=== PATIENT | female | born 1950 | race African-American/Black ===

== ENCOUNTER 2017-02-01 14:17 | Emergency (ER) | payer MEDICARE, OTHER ==
[~2017-02-01] VITALS: Ht 154.9 cm; Wt 69.9 kg
[~2017-02-01 14:17] MED LIST: ALLO300T PO; DIAZ5TAB4 PO; ESTR0.3T PO; HYDR-2762 PO; HYDR-971 PO; HYDR12.58 PO; LOSA100T6 PO; NAPR500T3 PO; OXYC15TA60 PO; PANT40TA5 PO; POLY500P13 MC; PROAIR HFA8.5 GM INH; SOLI5TAB2 PO
[2017-02-01 14:30] VITALS: BP 163/75
--- NOTE | 2017-02-01 14:42 | PHYS DOC ---
Past Medical History Past Medical History: Arthritis, Hypertension, Other Additional Past Medical Histor: gout, overactive bladder; muse, neuropathy Past Surgical History: Hysterectomy, Knee Replacement, Other Additional Past Surgical Histo: ankles; Alcohol Use: Sober Drug Use: None Adult General Chief Complaint Chief Complaint: EARACHE/EAR PAIN [facility] HPI Patient is a 66 year old female presents to the emergency department stating that she is having left ear pain that radiates down into her jaw down into her neck. She states this is been going on for the last 3-4 days. She has been taken hydrocodone 7.5 mg with minimal relief she also states that she's taken some Flexeril with no relief either. She denies any shortness of air didn't denies any chest pain. She denies any swelling in her feet. She states that she had been wearing dentures although started create some pain and discomfort in her mouth. Patient states she has a dental appointment tomorrow. She denies any fever, chills or any nausea vomiting. Denies any foul taste in the mouth. Review of Systems Review of Systems Constitutional: Denies fever or chills [] Eyes: Denies change in visual acuity, redness, or eye pain [] HENT: Denies nasal congestion or sore throat. Complaint of right lower dental pain and discomfort with radiation into the left ear and into the left jaw and into the neck area. Respiratory: Denies cough or shortness of breath [] Cardiovascular: No additional information not addressed in HPI [] GI: Denies abdominal pain, nausea, vomiting, bloody stools or diarrhea [] : Denies dysuria or hematuria [] Musculoskeletal: Denies back pain or joint pain [] Integument: Denies rash or skin lesions [] Neurologic: Denies headache, focal weakness or sensory changes [] Endocrine: Denies polyuria or polydipsia [] Allergies Allergies Allergies Coded Allergies Type Severity Reaction Last Updated Verified No Known Drug Allergies 06/12/15 No Physical Exam Physical Exam Constitutional: Well developed, well nourished, no acute distress, non-toxic appearance. [] HENT: Normocephalic, atraumatic, bilateral external ears normal, oropharynx moist, no oral exudates, nose normal. Bilateral tympanic membranes appear to be normal. Patient with her dentures out that appear to have a white area along the denture line on the left lower jaw area. No drainage no drainage or discharge noted from the site. Tenderness was noted with slight swelling. Eyes: PERRLA, EOMI, conjunctiva normal, no discharge. [] Neck: Normal range of motion, no tenderness, supple, no stridor. [] Cardiovascular:Heart rate regular rhythm, no murmur [] Lungs & Thorax: Bilateral breath sounds clear to auscultation [] Skin: Warm, dry, no erythema, no rash. [] Back: No tenderness. Extremities: No tenderness, no cyanosis, no clubbing, ROM intact, no edema. [] Neurologic: Alert and oriented X 3, normal motor function, normal sensory function, no focal deficits noted. [] Psychologic: Affect normal, judgement normal, mood normal. [] Current Patient Data Vital Signs Vital Signs Date Time Temp Pulse Resp B/P (MAP) Pulse Ox O2 Delivery O2 Flow Rate FiO2 02/01/17 14:30 98.1 114 16 96 Room Air 98.1 EKG EKG [] Radiology/Procedures Radiology/Procedures [] Course & Med Decision Making Course & Med Decision Making Pertinent Labs and Imaging studies reviewed. (See chart for details) Recommended patient to use ibuprofen 600 mg every 8 hours to help with inflammation and pain. Patient has hydrocodone at home in which she can use for severe pain and discomfort. Patient will be placed on amoxicillin as she states that she is allergic to Bactrim. Patient will be following up with her dentist tomorrow. She'll be discharged home in stable condition with signs symptoms to return back to emergency department. [] Dragon Disclaimer Dragon Disclaimer This electronic medical record was generated, in whole or in part, using a voice recognition dictation system. Departure Departure Impression: Primary Impression: Pain, dental Disposition: HOME, SELF-CARE Condition: STABLE Referrals: UNKNOWN PCP NAME (PCP) Patient Instructions: Dental Pain, [id number] Additional Instructions: You've been evaluated for dental pain here in the emergency department. Antibiotics as prescribed. Continue take her hydrocodone which she state you have at home for severe pain and discomfort. Ibuprofen 600 mg every 8 hours with food stop taking few develop an upset stomach. Keep your follow-up appointment with a dentist in which she state you have tomorrow. Return back to emergency prior signs and symptoms of become worse. BASILIO HARVEY [employer] TE[employer]ER Feb 01, 2017 14:42
[2017-02-01] MEDS ORDERED: AMOX500C PO (14:43)
[2017-02-01] MEDS ORDERED: HYDROcodone/APAP 7.5/325MG 1 TAB TABLET PO ONE (14:45)
== END 2017-02-01 14:54 | disposition home or self-care (01) ==
LOC: ER 14:17
DX: K08.89 Other specified disorders of teeth and supporting structures (principal); H92.02 Otalgia, left ear; I10 Essential (primary) hypertension; M19.90 Unspecified osteoarthritis, unspecified site
CPT/HCPCS: 99283

== ENCOUNTER 2017-02-24 14:20 | Emergency (ER) | payer MEDICARE, OTHER ==
[~2017-02-24 14:20] MED LIST changes: +AMOX500C PO
--- NOTE | 2017-02-24 14:48 | PHYS DOC ---
Past Medical History Past Medical History: Arthritis, Hypertension, Other Additional Past Medical Histor: gout, overactive bladder; muse, neuropathy Past Surgical History: Hysterectomy, Knee Replacement, Other Additional Past Surgical Histo: ankles; Alcohol Use: Sober Drug Use: None Adult General Chief Complaint Chief Complaint: HEADACHE HPI HPI Patient is a 66 year old -[place] female who presents with less I headache. According to her is been going on for last 3 weeks. She states she is on a medicine for hep C that she took for 90 days and this headache got worse one week ago right the end of her 90 day. She states she's had an infection in her jaw that was treated and her hog cooler thought it was probably the jaw that was causing the discomfort in the left side of her head. She states it feels like a sharp needle to get stabbed in her head and relief. She states is only there when she is awake, and goes away at nighttime. She also has been on [place] and ran out one week ago the exact same time her headache worse. She is concerned because her father had an aneurysm on that side of the head. Review of Systems Review of Systems Constitutional: Denies fever or chills [] Eyes: Denies change in visual acuity, redness, or eye pain [] HENT: Denies nasal congestion or sore throat [] Respiratory: Denies cough or shortness of breath [] Cardiovascular: No additional information not addressed in HPI [] GI: Denies abdominal pain, nausea, vomiting, bloody stools or diarrhea [] : Denies dysuria or hematuria [] Musculoskeletal: Denies back pain or joint pain [] Integument: Denies rash or skin lesions [] Neurologic: Denies focal weakness or sensory changes, positive for intermittent headache. Endocrine: Denies polyuria or polydipsia [] Current Medications Current Medications Current Medications Medications (Trade) Dose Ordered Sig/Tracie Start Time Stop Time Status Last Admin Dose Admin Diphenhydramine HCl (Benadryl) 25 mg 1X ONCE 02/24/17 16:30 02/24/17 16:31 DC 02/24/17 16:24 25 MG Morphine Sulfate 2 mg 1X ONCE 02/24/17 17:45 02/24/17 17:48 DC 02/24/17 18:08 2 MG Promethazine HCl 25 mg/Sodium Chloride 51 ml @ 101 mls/hr 1X ONCE 02/24/17 16:30 02/24/17 17:00 DC 02/24/17 16:25 101 MLS/HR Sodium Chloride 1,000 ml @ 1,000 mls/hr 1X ONCE 02/24/17 16:30 02/24/17 17:29 DC 02/24/17 16:24 1,000 MLS/HR Allergies Allergies Allergies Coded Allergies Type Severity Reaction Last Updated Verified No Known Drug Allergies 06/12/15 No Physical Exam Physical Exam Constitutional: Well developed, well nourished, no acute distress, non-toxic appearance. [] HENT: Normocephalic, atraumatic, bilateral external ears normal, oropharynx moist, no oral exudates, nose normal. [] Eyes: PERRLA, EOMI, conjunctiva normal, no discharge. [] Neck: Normal range of motion, no tenderness, supple, no stridor. [] Cardiovascular:Heart rate regular rhythm, no murmur [] Lungs & Thorax: Bilateral breath sounds clear to auscultation [] Abdomen: Bowel sounds normal, soft, no tenderness, no masses, no pulsatile masses. [] Skin: Warm, dry, no erythema, no rash. [] Back: No tenderness, no CVA tenderness. [] Extremities: No tenderness, no cyanosis, no clubbing, ROM intact, no edema. [] Neurologic: Alert and oriented X 3, normal motor function, normal sensory function, no focal deficits noted. [] Psychologic: Affect normal, judgement normal, mood normal. [] Current Patient Data Vital Signs Vital Signs Date Time Temp Pulse Resp B/P (MAP) Pulse Ox O2 Delivery O2 Flow Rate FiO2 02/24/17 15:00 98.0 115 16 134/67 (89) 96 Room Air 98.0 Lab Values Laboratory Tests Test 02/24/17 14:35 02/24/17 18:05 White Blood Count 9.4 x10^3/uL (4.0-11.0) Red Blood Count 3.49 x10^6/uL (3.50-5.40) L Hemoglobin 10.8 g/dL (12.0-15.5) L Hematocrit 32.9 % (36.0-47.0) L Mean Corpuscular Volume 95 fL (79-100) Mean Corpuscular Hemoglobin 31 pg (25-35) Mean Corpuscular Hemoglobin Concent 33 g/dL (31-37) Red Cell Distribution Width 15.3 % (11.5-14.5) H Platelet Count 250 x10^3/uL (140-400) Neutrophils (%) (Auto) 39 % (31-73) Lymphocytes (%) (Auto) 45 % (24-48) Monocytes (%) (Auto) 6 % (0-9) Eosinophils (%) (Auto) 10 % (0-3) H Basophils (%) (Auto) 1 % (0-3) Neutrophils # (Auto) 3.6 x10^3uL (1.8-7.7) Lymphocytes # (Auto) 4.2 x10^3/uL (1.0-4.8) Monocytes # (Auto) 0.6 x10^3/uL (0.0-1.1) Eosinophils # (Auto) 0.9 x10^3/uL (0.0-0.7) H Basophils # (Auto) 0.1 x10^3/uL (0.0-0.2) Sodium Level 133 mmol/L (136-145) L Potassium Level 4.2 mmol/L (3.5-5.1) Chloride Level 99 mmol/L (98-107) Carbon Dioxide Level 22 mmol/L (21-32) Anion Gap 12 (6-14) Blood Urea Nitrogen 29 mg/dL (7-20) H Creatinine 1.8 mg/dL (0.6-1.0) H Estimated GFR (Cockcroft-Gault) 34.3 Glucose Level 104 mg/dL (70-99) H Calcium Level 9.9 mg/dL (8.5-10.1) Magnesium Level 1.7 mg/dL (1.8-2.4) L Total Bilirubin 0.3 mg/dL (0.2-1.0) Direct Bilirubin 0.1 mg/dL (0.0-0.2) Aspartate Amino Transferase (AST) 36 U/L (15-37) Alanine Aminotransferase (ALT) 53 U/L (14-59) Alkaline Phosphatase 126 U/L (46-116) H Creatine Kinase 59 U/L (26-192) Troponin I Quantitative < 0.017 ng/mL (0.000-0.055) RH-Xlw-U-Type Natriuretic Peptide 41 pg/mL (0-124) Total Protein 10.4 g/dL (6.4-8.2) H Albumin 4.0 g/dL (3.4-5.0) Thyroid Stimulating Hormone (TSH) 1.275 uIU/mL (0.358-3.74) Urine Collection Type Unknown Urine Color Yellow Urine Clarity Clear Urine pH 6.0 Urine Specific [place] 1.010 Urine Protein Negative mg/dL (NEG-TRACE) Urine Glucose (UA) Negative mg/dL (NEG) Urine Ketones (Stick) Negative mg/dL (NEG) Urine Blood Negative (NEG) Urine Nitrite Negative (NEG) Urine Bilirubin Negative (NEG) Urine Urobilinogen Dipstick 0.2 mg/dL (0.2 mg/dL) Urine Leukocyte Esterase Moderate (NEG) Urine RBC 0 /HPF (0-2) Urine WBC 11-20 /HPF (0-4) Urine Squamous Epithelial Cells Mod /LPF Urine Bacteria Few /HPF (0-FEW) Urine Opiates Screen Neg (NEG) Urine Methadone Screen Neg (NEG) Urine Barbiturates Neg (NEG) Urine Phencyclidine Screen Neg (NEG) Urine Amphetamine/Methamphetamine Neg (NEG) Urine Benzodiazepines Screen Neg (NEG) Urine Cocaine Screen Neg (NEG) Urine Cannabinoids Screen Neg (NEG) Urine Ethyl Alcohol Neg (NEG) Laboratory Tests 02/24/17 14:35 Laboratory Tests 02/24/17 14:35 EKG EKG [] Radiology/Procedures Radiology/Procedures [facility] [address] [place], [place] [id number] IMAGING REPORT Signed PATIENT: LORENZA RODRIGUEZ ACCOUNT: [id number] : 1950 LOCATION: ER AGE: 66 SEX: F EXAM STATUS: REG ER ORD. PHYSICIAN: LUIS DOUGLAS MD REASON: new onset headache PROCEDURE: CT HEAD WO CONTRAST CT head without IV contrast Indication: Headache Technique: CT head without IV contrast Comparison: None Findings: No pathologic extra-axial or intra-axial fluid collection. No acute intracranial bleed. The ventricles and basil cisterns are within normal limits. The fuller-white differentiation is preserved. Orbits within normal limits. Diffuse patchy sclerotic and lucent appearance of the calvarium noted without focal lesion. The paranasal sinuses and mastoid air cells are clear. Impression: 1. No acute intracranial process on this noncontrast study. 2. Diffuse patchy sclerotic and lucent appearance of the calvarium without focal lesion, nonspecific. PQRS Compliance Statement: One or more of the following individualized dose reduction techniques were utilized for this examination: 1. Automated exposure control 2. Adjustment of the mA and/or kV according to patient size 3. Use of iterative reconstruction technique DICTATED and SIGNED BY: AMELIA CARRILLO DO DATE: 02/24/17 1521 CC: LUIS DOUGLAS MD; UNKNOWN PCP NAME ~ [facility] [address] [place], [place] [id number] IMAGING REPORT Signed PATIENT: LORENZA RODRIGUEZ ACCOUNT: [id number] : 1950 LOCATION: ER AGE: 66 SEX: F EXAM STATUS: REG ER ORD. PHYSICIAN: LUIS DOUGLAS MD REASON: headache, r/o aneurysm PROCEDURE: ANGIOGRAPHY BRAIN WO CONTRAST Clinical History: Headaches, hypertensive, evaluate for aneurysm. Technique: Using 3-D time of flight techniques, MR angiogram of the major arterial structures surrounding the [place] of [place] was performed. Rotating MIPs were obtained from the source data. Findings: MRA images of the anterior and posterior circulations are within normal limits. No area of stenosis or occlusion is seen. No intracranial aneurysm is seen. Neither posterior communicating artery is definitely identified. Anterior communicating artery is unremarkable. Impression: Negative study. Electronically signed by: Jeremy Traore MD (02/24/2017 5:26 PM) [id number] DICTATED and SIGNED BY: JEREMY TRAORE MD DATE: 02/24/17 1724 CC: LUIS DOUGLAS MD; UNKNOWN PCP NAME ~ Impressions: Headache UTI Course & Med Decision Making Course & Med Decision Making Pertinent Labs and Imaging studies reviewed. (See chart for details) CT head noncontrast in addition to MRA brain did not show any acute abnormality' s or aneurysms. She has urinary tract infection based on labs. She's being discharged with Klique since this worked for her headache before, she can total of 14 tablets. She's also be discharged with Cipro 500 mg twice day for 3 days. She is agreeable to plan and is in stable condition at this time. Turn precautions given. Ellen Disclaimer Ellen Disclaimer This electronic medical record was generated, in whole or in part, using a voice recognition dictation system. Departure Departure Impression: Primary Impression: Headache Additional Impression: UTI (lower urinary tract infection) Disposition: 01 HOME, SELF-CARE Condition: STABLE Referrals: UNKNOWN PCP NAME (PCP) Patient Instructions: General Headache Without Cause Additional Instructions: You were seen today for your headache. The CAT scan and MRA of your head did not show any abnormalities with your brain or your blood vessels in her brain. They did not see any aneurysms or other concerns. Your blood work did not show any acute abnormality's. Your being discharged home with [place]. This seems to have worked for your headache before. You do have a urinary tract infection and will need to take antibiotics for the next 3 days. Please follow-up with your liver doctor and your primary care doctor within the next few days. Return ER if you have severe neck pain, severe headache, fevers, confusion, or other concerns. Scripts Ciprofloxacin Hcl (CIPRO) 500 Mg Tablet 1 TAB PO BID, #6 TAB Prov: LUIS DOUGLAS MD 02/24/17 Hydrocodone/Apap 5-325 (NORCO 5-325 TABLET) 1 Each Tablet 1 TAB PO PRN Q6HRS Y for PAIN, #14 TAB 0 Refills Prov: LUIS DOUGLAS MD 02/24/17 Problem Qualifiers LUIS DOUGLAS MD Feb 24, 2017 14:48
[2017-02-24 15:00] VITALS: BP 134/67
[2017-02-24 15:02] LABS: BASO # 0.1 x10^3/uL (0.0-0.2); BASO % 1 % (0-3); EOS % 10 % (0-3); HEMATOCRIT 32.9 % (36.0-47.0); HEMOGLOBIN 10.8 g/dL (12.0-15.5); LYMPH # 4.2 x10^3/uL (1.0-4.8); LYMPH % 45 % (24-48); MEAN CORPUSCULAR HEMOGLOBIN 31 pg (25-35); MEAN CORPUSCULAR HGB CONC 33 g/dL (31-37); MEAN CORPUSCULAR VOLUME 95 fL (79-100); MONO % 6 % (0-9); NEUT % 39 % (31-73); PLATELET COUNT 250 x10^3/uL (140-400); RED BLOOD COUNT 3.49 x10^6/uL (3.50-5.40); RED CELL DISTRIBUTION WIDTH 15.3 % (11.5-14.5); WHITE BLOOD COUNT 9.4 x10^3/uL (4.0-11.0)
[2017-02-24 15:19] LABS: CALCIUM 9.9 mg/dL (8.5-10.1); CREATININE 1.8 mg/dL (0.6-1.0); GFR 34.3; POTASSIUM 4.2 mmol/L (3.5-5.1)
[2017-02-24 15:26] LABS: DIRECT BILIRUBIN 0.1 mg/dL (0.0-0.2); MAGNESIUM 1.7 mg/dL (1.8-2.4); TOTAL BILIRUBIN 0.3 mg/dL (0.2-1.0); TOTAL PROTEIN 10.4 g/dL (6.4-8.2)
--- NOTE | 2017-02-24 15:30 | RAD ---
CT head without IV contrast Indication: Headache Technique: CT head without IV contrast Comparison: None Findings: No pathologic extra-axial or intra-axial fluid collection. No acute intracranial bleed. The ventricles and basil cisterns are within normal limits. The fuller-white differentiation is preserved. Orbits within normal limits. Diffuse patchy sclerotic and lucent appearance of the calvarium noted without focal lesion. The paranasal sinuses and mastoid air cells are clear. Impression: 1. No acute intracranial process on this noncontrast study. 2. Diffuse patchy sclerotic and lucent appearance of the calvarium without focal lesion, nonspecific. PQRS Compliance Statement: One or more of the following individualized dose reduction techniques were utilized for this examination: 1. Automated exposure control 2. Adjustment of the mA and/or kV according to patient size 3. Use of iterative reconstruction technique
[2017-02-24] MEDS ORDERED: diphenhydrAMINE 50 MG/ML VIAL IVP ONE (16:30)
[2017-02-24] MEDS ORDERED: PROMETHAZINE 25 MG in IV NORMAL SALINE 50ML 50 ML IV ONE (16:30)
[2017-02-24] MEDS ORDERED: IV NORMAL SALINE 1000ML BAG 1,000 ML IV ONE (16:30)
--- NOTE | 2017-02-24 17:29 | RAD ---
Clinical History: Headaches, hypertensive, evaluate for aneurysm. Technique: Using 3-D time of flight techniques, MR angiogram of the major arterial structures surrounding the [place] of [place] was performed. Rotating MIPs were obtained from the source data. Findings: MRA images of the anterior and posterior circulations are within normal limits. No area of stenosis or occlusion is seen. No intracranial aneurysm is seen. Neither posterior communicating artery is definitely identified. Anterior communicating artery is unremarkable. Impression: Negative study. Electronically signed by: Jeremy Soares MD (02/24/2017 5:26 PM) [id number]
[2017-02-24] MEDS ORDERED: MORPHINE SULFATE 4 MG/ML DISP.SYRIN. IV ONE (17:45)
[2017-02-24 18:21] LABS: BILIRUBIN,URINE NEGATIVE (NEG); GLUCOSE,URINE NEGATIVE (NEG); NITRITE,URINE NEGATIVE (NEG); PROTEIN,URINE NEGATIVE (NEG-TRACE); UROBILINOGEN,URINE 0.2 mg/dL (0.2 mg/dL)
[2017-02-24 18:27] LABS: BARBITURATES NEG (NEG); BENZODIAZEPINES NEG (NEG); CANNABINOIDS NEG (NEG); COCAINE NEG (NEG); METHADONE NEG (NEG); OPIATES NEG (NEG); PHENCYCLIDINE NEG (NEG)
[2017-02-24 18:31] LABS: BACTERIA,URINE FEW /HPF (0-FEW); RBC,URINE 0 /HPF (0-2); SQUAMOUS EPITHELIAL CELL,UR MOD /LPF
[2017-02-24] MEDS ORDERED: HYDR-971 PO (18:37)
[2017-02-24] MEDS ORDERED: CIPR500T94 PO (18:42)
== END 2017-02-24 18:56 | disposition home or self-care (01) ==
LOC: ER 14:20
DX: R51 Headache (principal); N39.0 Urinary tract infection, site not specified; I10 Essential (primary) hypertension; M10.9 Gout, unspecified; N32.81 Overactive bladder; G62.9 Polyneuropathy, unspecified; M19.90 Unspecified osteoarthritis, unspecified site; Z90.710 Acquired absence of both cervix and uterus; Z79.891 Long term (current) use of opiate analgesic
CPT/HCPCS: 36415; 70450; 70544; 80048; 80076; 80307; 81001; 82550; 83735; 83880; 84443; 84484; 85025; 96365; 96366; 96375; 99285; J1200; J2270; J2550; J7030; G0479

== ENCOUNTER → 2017-03-19 | Outpatient (CLI) | payer MEDICARE, OTHER ==
[2017-02-24 15:00] VITALS: BP 134/67
[~2017-03-19] MED LIST changes: +CIPR500T94 PO
--- NOTE | 2017-03-19 13:23 | KCIC ---
INDICATION: Migraine headaches. Neck pain. TECHNIQUE: Sagittal T1, sagittal T2, sagittal STIR, axial T2, and axial T2 gradient sequences are provided. Comparison is from February 21, 2015. FINDINGS: There is straightening of cervical lordosis, there is no subluxation. There is no marrow edema or worrisome marrow lesion. There is no cord signal abnormality. The cervicomedullary junction is unremarkable. Axial sequences are mildly degraded by motion. Degenerative findings will be estimated below: C2-C3: There is no canal or foraminal compromise. C3-C4: Disc osteophyte complex and mild uncinate process spurring which is greater on the left is noted. There is no high-grade canal or foraminal compromise. C4-C5: There is a minimal disc bulge and there is uncinate process spurring. There is effacement of the ventral CSF column. There is mild canal stenosis, midline AP diameter 9 mm. There is probably mild foraminal narrowing. C5-C6: Minimal disc osteophyte complex and uncinate process spurring are noted without foraminal compromise. There is mild canal stenosis, midline AP diameter 9 mm. C6-C7: There is no canal or foraminal compromise. C7-T1: There is no canal or foraminal compromise. Overall, findings are relatively stable. IMPRESSION: Mild degenerative changes in the cervical spine, relatively stable compared to 2014. Electronically signed by: Rashi Spivey MD (03/19/2017 1:20 PM) [id number]
== END | disposition home or self-care (01) ==
LOC: KCIC MRI 11:09
PROVIDERS: ATTEND Nurse Practitioner Gerontology
DX: G43.909 Migraine, unspecified, not intractable, without status migrainosus (principal); M47.892 Other spondylosis, cervical region
CPT/HCPCS: 72141

== ENCOUNTER 2017-03-31 17:04 | Inpatient (IN) | payer MEDICARE, OTHER ==
[~2017-03-31] VITALS: Ht 160 cm; Wt 68.2 kg
[~2017-03-31 17:04] MED LIST changes: -NAPR500T3 PO; +NAPR500T4 PO
[2017-03-31] MEDS ORDERED: IV NORMAL SALINE 1000ML BAG 1,000 ML IV ONE (18:15)
[2017-03-31 18:33] LABS: BILIRUBIN,URINE NEGATIVE (NEG); GLUCOSE,URINE NEGATIVE (NEG); NITRITE,URINE NEGATIVE (NEG); PROTEIN,URINE NEGATIVE (NEG-TRACE); UROBILINOGEN,URINE 0.2 mg/dL (0.2 mg/dL)
[2017-03-31 18:41] LABS: BACTERIA,URINE 0 /HPF (0-FEW); RBC,URINE 0 /HPF (0-2); SQUAMOUS EPITHELIAL CELL,UR FEW /LPF
[2017-03-31] MEDS ORDERED: ACETAMINOPHEN 325 MG TABLET. PO ONE (18:45)
[2017-03-31] MEDS ORDERED: PIP/TAZO PER PHARMACY MC PRN (18:45)
[2017-03-31] MEDS ORDERED: VANCOMYCIN PER PHARMACY MC PRN (18:45)
[2017-03-31] MEDS ORDERED: IV NORMAL SALINE 1000ML BAG 1,000 ML IV SCH ×2 (18:45→21:15)
[2017-03-31] MEDS ORDERED: KETOROLAC 15 MG/ML VIAL. IV ONE (18:45)
[2017-03-31 18:49] LABS: BASO # 0.1 x10^3/uL (0.0-0.2); BASO % 1 % (0-3); EOS % 2 % (0-3); HEMATOCRIT 35.3 % (36.0-47.0); HEMOGLOBIN 11.6 g/dL (12.0-15.5); LYMPH # 2.3 x10^3/uL (1.0-4.8); LYMPH % 32 % (24-48); MEAN CORPUSCULAR HEMOGLOBIN 30 pg (25-35); MEAN CORPUSCULAR HGB CONC 33 g/dL (31-37); MEAN CORPUSCULAR VOLUME 92 fL (79-100); MONO % 9 % (0-9); NEUT % 57 % (31-73); PLATELET COUNT 210 x10^3/uL (140-400); RED BLOOD COUNT 3.84 x10^6/uL (3.50-5.40); RED CELL DISTRIBUTION WIDTH 15.4 % (11.5-14.5); WHITE BLOOD COUNT 7.4 x10^3/uL (4.0-11.0)
[2017-03-31] MEDS ORDERED: VANCOMYCIN 1.75 GM in IV NORMAL SALINE 500ML BAG 500 ML IV ONE (19:00)
[2017-03-31] MEDS ORDERED: PIPERACILLIN/TAZOBACTAM 3.375 GM in IV NORMAL SALINE 50ML 50 ML IV ONE (19:00)
[2017-03-31 19:42] LABS: CALCIUM 9.5 mg/dL (8.5-10.1); CREATININE 1.6 mg/dL (0.6-1.0); GFR 39.3; POTASSIUM 5.8 mmol/L (3.5-5.1)
[2017-03-31 20:03] LABS: ALBUMIN 3.6 g/dL (3.4-5.0); ALBUMIN/GLOBULIN RATIO 0.5 (1.0-1.7); TOTAL PROTEIN 10.4 g/dL (6.4-8.2)
[2017-03-31 20:04] LABS: TOTAL BILIRUBIN 0.5 mg/dL (0.2-1.0)
[2017-03-31] MEDS ORDERED: ONDANSETRON PF 4 MG/2 ML VIAL. IV PRN (21:15)
[2017-03-31] MEDS ORDERED: NON FORMULARY ITEM (Albuterol Sulfate (Proair Hfa Inhaler) 1 PUFF) INH PRN (22:45)
[2017-03-31] MEDS ORDERED: diazePAM 5 MG TABLET PO PRN (22:45)
--- NOTE | 2017-03-31 22:50 | PHYS DOC ---
Past Medical History Past Medical History: Arthritis, Hypertension, Other Additional Past Medical Histor: gout, overactive bladder; muse, neuropathy Past Surgical History: Hysterectomy, Knee Replacement, Other Additional Past Surgical Histo: ankles; Alcohol Use: Sober Drug Use: None Adult General Chief Complaint Chief Complaint: FEVER HPI HPI Patient is a 66 year old female who presents to the ER today secondary to a fever that she's been having for approximately 3 days now. She reports that she has been feeling well for this 3 days has been feeling like she's had some chills. Patient reports occasional cough. Patient has any abdominal pain. Patient has a dysuria frequency urgency. Patient reports decreased by mouth intake over the last couple days. Patient reports she been nauseous but no vomiting. Patient reports she's had no ear pain or sore throat. Patient denies any headaches or nuchal rigidity. Patient denies any history of diabetes. No liver kidney or lung problems. No prior strokes or heart attacks. 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 Patient reports she smokes. No alcohol or drugs. Patient is allergic to Bactrim. Review of systems Constitutional: Denies fever or chills Eyes: Denies change in visual acuity, redness, or eye pain All other review systems are negative except as documented in the history of present illness portion. Physical exam Constitutional: Well developed, well nourished, no acute distress, non-toxic appearance. HENT: Normocephalic, atraumatic, bilateral external ears normal, oropharynx moist, no oral exudates, nose normal. Eyes: conjunctiva normal, no discharge. Neck: Normal range of motion, no tenderness, supple, no stridor. Cardiovascular:Heart rate regular rhythm, Lungs & Thorax: Bilateral breath sounds clear to auscultation Abdomen: Bowel sounds normal, soft, no tenderness, no masses, no pulsatile masses. Skin: Warm, dry, Back: No tenderness, Extremities: No tenderness, no cyanosis, Neurologic: Alert and oriented X 3, normal motor function, normal sensory function, no focal deficits noted. Psychologic: Affect normal, judgement normal, mood normal. CBC, CMP within normal limits UA reveals 5-10 wbc's per high-power field. Sodium 129. Potassium 5.8. Chest x- ray reveals questionable infiltrate. Assessment and plan: This is a 66-year-old female who presents to the ER today secondary to a fever 3 days. Patient had a temperature 102.1 here in the ED. Patient's physical exam was otherwise unremarkable except for some mild suprapubic tenderness to palpation. Patient has no evidence of meningitis. Patient's ER workup is been unremarkable except for positive wbc's in her urine. Patient was given Zosyn and Vanco initially upon arrival to the ER given her high fever and tachycardia and concern for sepsis. Blood cultures 2 and lactic acid is been obtained. Patient will need to be admitted for further IV antibiotics and further monitoring and surveillance of the cultures. Laboratory Tests Test 03/31/17 18:15 03/31/17 18:38 Urine Collection Type Unknown Urine Color Yellow Urine Clarity Clear Urine pH 6.0 Urine Specific [place] 1.015 Urine Protein Negative mg/dL Urine Glucose (UA) Negative mg/dL Urine Ketones (Stick) Negative mg/dL Urine Blood Negative Urine Nitrite Negative Urine Bilirubin Negative Urine Urobilinogen Dipstick 0.2 mg/dL Urine Leukocyte Esterase Trace Urine RBC 0 /HPF Urine WBC 5-10 /HPF Urine Squamous Epithelial Cells Few /LPF Urine Amorphous Sediment Present /HPF Urine Bacteria 0 /HPF Urine Hyaline Casts Moderate /HPF Urine Mucus Mod /LPF White Blood Count 7.4 x10^3/uL Red Blood Count 3.84 x10^6/uL Hemoglobin 11.6 g/dL Hematocrit 35.3 % Mean Corpuscular Volume 92 fL Mean Corpuscular Hemoglobin 30 pg Mean Corpuscular Hemoglobin Concent 33 g/dL Red Cell Distribution Width 15.4 % Platelet Count 210 x10^3/uL Neutrophils (%) (Auto) 57 % Lymphocytes (%) (Auto) 32 % Monocytes (%) (Auto) 9 % Eosinophils (%) (Auto) 2 % Basophils (%) (Auto) 1 % Neutrophils # (Auto) 4.2 x10^3uL Lymphocytes # (Auto) 2.3 x10^3/uL Monocytes # (Auto) 0.7 x10^3/uL Eosinophils # (Auto) 0.1 x10^3/uL Basophils # (Auto) 0.1 x10^3/uL Sodium Level 129 mmol/L Potassium Level 5.8 mmol/L Chloride Level 94 mmol/L Carbon Dioxide Level 22 mmol/L Anion Gap 13 Blood Urea Nitrogen 27 mg/dL Creatinine 1.6 mg/dL Estimated GFR (Cockcroft-Gault) 39.3 BUN/Creatinine Ratio 17 Glucose Level 116 mg/dL Lactic Acid Level 1.9 mmol/L Calcium Level 9.5 mg/dL Total Bilirubin 0.5 mg/dL Aspartate Amino Transf (AST/SGOT) 172 U/L Alanine Aminotransferase (ALT/SGPT) 113 U/L Alkaline Phosphatase 105 U/L Total Protein 10.4 g/dL Albumin 3.6 g/dL Albumin/Globulin Ratio 0.5 Current Medications Medications (Trade) Dose Ordered Sig/Tracie Route PRN Reason Start Time Stop Time Status Last Admin Dose Admin Sodium Chloride 1,000 ml @ 1,000 mls/hr 1X ONCE IV 03/31/17 18:15 03/31/17 19:14 DC 03/31/17 18:15 1,000 MLS/HR Sodium Chloride 1,000 ml @ 2,790 mls/hr Q22M IV 03/31/17 18:45 03/31/17 19:45 DC 03/31/17 20:23 2,790 MLS/HR Vancomycin HCl (Vanco Per Pharmacy) 1 each PRN DAILY PRN MC SEE COMMENTS 03/31/17 18:45 Piperacillin Sod/ Tazobactam Sod (Zosyn Per Pharmacy) 1 each PRN DAILY PRN MC SEE COMMENTS 03/31/17 18:45 Acetaminophen (Tylenol) 650 mg 1X ONCE PO 03/31/17 18:45 03/31/17 18:46 DC 03/31/17 18:54 650 MG Ketorolac Tromethamine (Toradol) 15 mg 1X ONCE IV 03/31/17 18:45 03/31/17 18:46 DC 03/31/17 18:54 15 MG Piperacillin Sod/ Tazobactam Sod 3.375 gm/Sodium Chloride 50 ml @ 100 mls/hr 1X ONCE IV 03/31/17 19:00 03/31/17 19:29 DC 03/31/17 19:00 100 MLS/HR Vancomycin HCl 1.75 gm/Sodium Chloride 500 ml @ 250 mls/hr 1X ONCE IV 03/31/17 19:00 03/31/17 20:59 DC 03/31/17 20:23 250 MLS/HR Current Medications Current Medications Current Medications Medications (Trade) Dose Ordered Sig/Tracie Start Time Stop Time Status Last Admin Dose Admin Acetaminophen (Tylenol) 650 mg 1X ONCE 03/31/17 18:45 03/31/17 18:46 DC 03/31/17 18:54 650 MG Ketorolac Tromethamine (Toradol) 15 mg 1X ONCE 03/31/17 18:45 03/31/17 18:46 DC 03/31/17 18:54 15 MG Piperacillin Sod/ Tazobactam Sod (Zosyn Per Pharmacy) 1 each PRN DAILY PRN 03/31/17 18:45 Piperacillin Sod/ Tazobactam Sod 3.375 gm/Sodium Chloride 50 ml @ 100 mls/hr 1X ONCE 03/31/17 19:00 03/31/17 19:29 DC 03/31/17 19:00 100 MLS/HR Sodium Chloride 1,000 ml @ 2,790 mls/hr Q22M 03/31/17 18:45 03/31/17 19:45 DC 03/31/17 20:23 2,790 MLS/HR Vancomycin HCl (Vanco Per Pharmacy) 1 each PRN DAILY PRN 03/31/17 18:45 Vancomycin HCl 1.75 gm/Sodium Chloride 500 ml @ 250 mls/hr 1X ONCE 03/31/17 19:00 03/31/17 20:59 DC 03/31/17 20:23 250 MLS/HR Allergies Allergies Allergies Coded Allergies Type Severity Reaction Last Updated Verified No Known Drug Allergies 06/12/15 No Current Patient Data Vital Signs Vital Signs Date Time Temp Pulse Resp B/P (MAP) Pulse Ox O2 Delivery O2 Flow Rate FiO2 03/31/17 20:17 120 20 156/73 (100) 96 Room Air 03/31/17 17:23 98.1 98.1 Lab Values Laboratory Tests Test 03/31/17 18:15 03/31/17 18:38 Urine Collection Type Unknown Urine Color Yellow Urine Clarity Clear Urine pH 6.0 Urine Specific [place] 1.015 Urine Protein Negative mg/dL (NEG-TRACE) Urine Glucose (UA) Negative mg/dL (NEG) Urine Ketones (Stick) Negative mg/dL (NEG) Urine Blood Negative (NEG) Urine Nitrite Negative (NEG) Urine Bilirubin Negative (NEG) Urine Urobilinogen Dipstick 0.2 mg/dL (0.2 mg/dL) Urine Leukocyte Esterase Trace (NEG) Urine RBC 0 /HPF (0-2) Urine WBC 5-10 /HPF (0-4) Urine Squamous Epithelial Cells Few /LPF Urine Amorphous Sediment Present /HPF Urine Bacteria 0 /HPF (0-FEW) Urine Hyaline Casts Moderate /HPF Urine Mucus Mod /LPF White Blood Count 7.4 x10^3/uL (4.0-11.0) Red Blood Count 3.84 x10^6/uL (3.50-5.40) Hemoglobin 11.6 g/dL (12.0-15.5) L Hematocrit 35.3 % (36.0-47.0) L Mean Corpuscular Volume 92 fL (79-100) Mean Corpuscular Hemoglobin 30 pg (25-35) Mean Corpuscular Hemoglobin Concent 33 g/dL (31-37) Red Cell Distribution Width 15.4 % (11.5-14.5) H Platelet Count 210 x10^3/uL (140-400) Neutrophils (%) (Auto) 57 % (31-73) Lymphocytes (%) (Auto) 32 % (24-48) Monocytes (%) (Auto) 9 % (0-9) Eosinophils (%) (Auto) 2 % (0-3) Basophils (%) (Auto) 1 % (0-3) Neutrophils # (Auto) 4.2 x10^3uL (1.8-7.7) Lymphocytes # (Auto) 2.3 x10^3/uL (1.0-4.8) Monocytes # (Auto) 0.7 x10^3/uL (0.0-1.1) Eosinophils # (Auto) 0.1 x10^3/uL (0.0-0.7) Basophils # (Auto) 0.1 x10^3/uL (0.0-0.2) Sodium Level 129 mmol/L (136-145) L Potassium Level 5.8 mmol/L (3.5-5.1) H Chloride Level 94 mmol/L (98-107) L Carbon Dioxide Level 22 mmol/L (21-32) Anion Gap 13 (6-14) Blood Urea Nitrogen 27 mg/dL (7-20) H Creatinine 1.6 mg/dL (0.6-1.0) H Estimated GFR (Cockcroft-Gault) 39.3 BUN/Creatinine Ratio 17 (6-20) Glucose Level 116 mg/dL (70-99) H Lactic Acid Level 1.9 mmol/L (0.4-2.0) Calcium Level 9.5 mg/dL (8.5-10.1) Total Bilirubin 0.5 mg/dL (0.2-1.0) Aspartate Amino Transferase (AST) 172 U/L (15-37) H Alanine Aminotransferase (ALT) 113 U/L (14-59) H Alkaline Phosphatase 105 U/L (46-116) Total Protein 10.4 g/dL (6.4-8.2) H Albumin 3.6 g/dL (3.4-5.0) Albumin/Globulin Ratio 0.5 (1.0-1.7) L Laboratory Tests 03/31/17 18:38 Laboratory Tests 03/31/17 18:38 EKG EKG [] Radiology/Procedures Radiology/Procedures [] Course & Med Decision Making Course & Med Decision Making Pertinent Labs and Imaging studies reviewed. (See chart for details) [] Dragon Disclaimer Dragon Disclaimer This electronic medical record was generated, in whole or in part, using a voice recognition dictation system. Departure Departure Impression: Primary Impression: Sepsis Additional Impressions: UTI (lower urinary tract infection) Hyperkalemia Hyponatremia Dehydration Disposition: 09 ADMITTED INPATIENT Admitting Physician: Sue Rodriguez Condition: STABLE Problem Qualifiers CHLOE MERCADO MD Mar 31, 2017 22:50
[2017-03-31 23:00] VITALS: BP 121/67
[2017-03-31] MEDS ORDERED: ALBUTEROL SULFATE 2.5 MG/3 ML NEBU. NEB PRN (23:00)
[2017-03-31] MEDS ORDERED: INFLUENZA VAX SCREEN BY RX. MC PRN (23:15)
--- NOTE | 2017-03-31 23:27 | PDOC1 ---
History and Physical Date of Admission Date of Admission DATE: 03/31/17 TIME: 23:19 Identification/Chief Complaint Chief Complaint chills and rigors Problems: Source Source: Chart review, Patient History of Present Illness History of Present Illness Ms. Rivera is a 66 year old female admit from ER today for chills and rigors for days. She is normally seen at , but her brought her here because it is closer. She has a fever 101.2 in the ER, did not take her temp at home, but days of severe chills, no pain, seems tired, no cough, prior cough days ago, none now, but very tired. freq urination is normal for her. no changes in meds, recent labs done about a month ago at she reports as normal/ Past Medical History Cardiovascular: HTN GI: No pertinent hx Heme/Onc: No pertinent hx Musculoskeletal: Osteoarthritis (knee, replacement) Infectious disease: No pertinent hx ENT: No pertinent hx Family History Family History: No Significant Social History Smoke: No ALCOHOL: none Drugs: None Current Problem List Problem List Problems Medical Problems: (1) Dehydration Status: Acute (2) Hyperkalemia Status: Acute (3) Hyponatremia Status: Acute (4) Sepsis Status: Acute (5) UTI (lower urinary tract infection) Status: Acute Problems: Current Medications Current Medications Current Medications Sodium Chloride 1,000 ml @ 1,000 mls/hr 1X ONCE IV Last administered on 18:15; Start 03/31/17 at 18:15; Stop 03/31/17 at 19:14; Status DC Sodium Chloride 1,000 ml @ 2,790 mls/hr Q22M IV Last administered on 20:23; Start 03/31/17 at 18:45; Stop 03/31/17 at 19:45; Status DC Vancomycin HCl (Vanco Per Pharmacy) 1 each PRN DAILY PRN MC SEE COMMENTS; Start 03/31/17 at 18:45 Piperacillin Sod/ Tazobactam Sod (Zosyn Per Pharmacy) 1 each PRN DAILY PRN MC SEE COMMENTS; Start 03/31/17 at 18:45 Acetaminophen (Tylenol) 650 mg 1X ONCE PO Last administered on 03/31/17 18:54 ; Start 03/31/17 at 18:45; Stop 03/31/17 at 18:46; Status DC Ketorolac Tromethamine (Toradol) 15 mg 1X ONCE IV Last administered on 18:54; Start 03/31/17 at 18:45; Stop 03/31/17 at 18:46; Status DC Piperacillin Sod/ Tazobactam Sod 3.375 gm/Sodium Chloride 50 ml @ 100 mls/hr 1X ONCE IV Last administered on 03/31/17 19:00; Start 03/31/17 at 19:00; Stop 03/31/17 at 19:29; Status DC Vancomycin HCl 1.75 gm/Sodium Chloride 500 ml @ 250 mls/hr 1X ONCE IV Last administered on 03/31/17 20:23; Start 03/31/17 at 19:00; Stop 03/31/17 at 20:59 ; Status DC Ondansetron HCl (Zofran) 4 mg PRN Q8HRS PRN IV NAUSEA/VOMITING; Start 03/31/17 at 21:15; Stop 04/01/17 at 21:14 Sodium Chloride 1,000 ml @ 125 mls/hr Q8H IV ; Start 03/31/17 at 21:15; Stop at 21:14 Allopurinol (Zyloprim) 300 mg DAILY PO ; Start 04/01/17 at 09:00 Diazepam (Valium) 5 mg PRN Q6HRS PRN PO ANXIETY / AGITATION; Start 03/31/17 at 22:45 Estrogens Conjugated (Premarin) 0.3 mg DAILY PO ; Start 04/01/17 at 09:00 Acetaminophen/ Hydrocodone Bitart (Lortab 5/325) 1 tab PRN Q6HRS PRN PO SEVERE PAIN; Start 03/31/17 at 22:45 Non-Formulary Medication 1 puff PRN Q6HRS PRN INH SHORTNESS OF BREATH; Start at 22:45; Status UNV Carvedilol (Coreg) 3.125 mg BIDWMEALS PO ; Start 03/31/17 at 23:00 Albuterol Sulfate (Ventolin Neb Soln) 2.5 mg PRN Q6HRS PRN NEB SHORTNESS OF BREATH; Start 03/31/17 at 23:00 Info (Do NOT chart on this placeholder) 1 each PRN 1X PRN MC SEE COMMENTS; Start 03/31/17 at 23:15; Status UNV Active Scripts Active Cipro (Ciprofloxacin Hcl) 500 Mg Tablet 1 Tab PO BID [place] 5-325 Tablet (Acetaminophen/Hydrocodone Bitart) 1 Each Tablet 1 Tab PO PRN Q6HRS PRN Amoxicillin 500 Mg Capsule 1 Cap PO BID Reported Oxycontin (Oxycodone HCl) 15 Mg Tab.er.12h 15 Mg PO BID PRN Premarin (Estrogens, Conjugated) 0.3 Mg Tablet 1 Tab PO DAILY [place] 5-325 Tablet (Acetaminophen/Hydrocodone Bitart) 1 Each Tablet 1 Tab PO PRN Q6HRS PRN Diazepam 5 Mg Tablet 5 Mg PO Q6HRS PRN Polyethylene Glycol (Polyethylene Glycol 1000) 500 Gm Powder 500 Gm MC DAILY Naproxen 500 Mg Tablet 500 Mg PO Q6HRS PRN Losartan Potassium 100 Mg Tablet 100 Mg PO DAILY Hydrochlorothiazide Tablet (Hydrochlorothiazide) 12.5 Mg Tablet 25 Mg PO DAILY Proair Hfa Inhaler (Albuterol Sulfate) 8.5 Gm Hfa.aer.ad 1 Puff INH PRN Q6HRS PRN Allopurinol 300 Mg Tablet 300 Mg PO DAILY Allergies Allergies: Coded Allergies: No Known Drug Allergies (Unverified , 06/12/15) ROS General: YES: Chills, Fatigue, Malaise, No: Night Sweats, Appetite, Other PSYCHOLOGICAL ROS: No: Anxiety, Behavioral Disorder, Concentration difficultie , Decreased libido, Depression, Disorientation, Hallucinations, Hostility, Irritablity, Memory difficulties, Mood Swings, Obsessive thoughts, Physical abuse, Sexual abuse, Sleep disturbances, Suicidal ideation, Other Eyes: No Blurry vision, No Decreased vision, No Double vision, No Dry eyes, No Excessive tearing, No Eye Pain, No Itchy Eyes, No Loss of vision, No Photophobia , No Scotomata, No Uses contacts, No Uses glasses, No Other HEENT: No: Heacaches, Visual Changes, Hearing change, Nasal congestion, Nasal discharge, Oral lesions, Sinus pain, Sore Throat, Epistaxis, Sneezing, Snoring, Tinnitus, Vertigo, Vocal changes, Other Hematological and Lymphatic: No: Bleeding Problems, Blood Clots, Blood Transfusions, Brusing, Night Sweats, Pallor, Swollen Lymph Nodes, Other Cardiovascular: No Chest Pain, No Palpitations, No Orthopnea, No Paroxysmal Noc. Dyspnea, No Edema, No Lt Headedness, No Other Gastrointestinal: No Nausea, No Vomiting, No Abdominal Pain, No Diarrhea, No Constipation, No Melena, No Hematochezia, No Other Genitourinary: No Dysuria, No Frequency, No Incontinence, No Hematuria, No Retention, No Discharge, No Urgency, No Pain, No Flank Pain, No Other, No , No , No , No , No , No , No Musculoskeletal: Yes Joint Pain, Yes Joint Stiffness (knee), No Gait Disturbance, No Joint Swelling, No Muscle Pain, No Muscular Weakness , No Pain In:, No Swelling In:, No Other Neurological: No Behavorial Changes, No Bowel/Bladder ControlChng, No Confusion , No Dizziness, No Gait Disturbance, No Headaches, No Impaired Coord/balance, No Memory Loss, No Numbness/Tingling, No Seizures, No Speech Problems, No Tremors, No Visual Changes, No Weakness, No Other Skin: Yes Dry Skin, No Eczema, No Hair Changes, No Lumps, No Mole Changes, No Mottling, No Nail Changes, No Pruritus, No Rash, No Skin Lesion Changes, No Other, No Acne Physical Exam General: Alert, Oriented X3, Cooperative, No acute distress HEENT: Atraumatic, EOMI, Mucous membr. moist/pink Lungs: Clear to auscultation, Normal air movement Heart: no gallops, no murmurs Abdomen: Normal bowel sounds, Soft Rectal Exam: not examined Extremities: No cyanosis, No edema Skin: No rashes, No breakdown Neuro: Normal speech, Normal tone, Cranial nerves 3-12 NL Psych/Mental Status: Mental status NL, Mood NL Vitals Vitals Vital Signs Date Time Temp Pulse Resp B/P (MAP) Pulse Ox O2 Delivery O2 Flow Rate FiO2 03/31/17 20:17 120 20 156/73 (100) 96 Room Air 03/31/17 17:23 98.1 98.1 Labs Labs Laboratory Tests Test 03/31/17 18:15 03/31/17 18:38 Urine Collection Type Unknown Urine Color Yellow Urine Clarity Clear Urine pH 6.0 Urine Specific [place] 1.015 Urine Protein Negative mg/dL (NEG-TRACE) Urine Glucose (UA) Negative mg/dL (NEG) Urine Ketones (Stick) Negative mg/dL (NEG) Urine Blood Negative (NEG) Urine Nitrite Negative (NEG) Urine Bilirubin Negative (NEG) Urine Urobilinogen Dipstick 0.2 mg/dL (0.2 mg/dL) Urine Leukocyte Esterase Trace (NEG) Urine RBC 0 /HPF (0-2) Urine WBC 5-10 /HPF (0-4) Urine Squamous Epithelial Cells Few /LPF Urine Amorphous Sediment Present /HPF Urine Bacteria 0 /HPF (0-FEW) Urine Hyaline Casts Moderate /HPF Urine Mucus Mod /LPF White Blood Count 7.4 x10^3/uL (4.0-11.0) Red Blood Count 3.84 x10^6/uL (3.50-5.40) Hemoglobin 11.6 g/dL (12.0-15.5) Hematocrit 35.3 % (36.0-47.0) Mean Corpuscular Volume 92 fL (79-100) Mean Corpuscular Hemoglobin 30 pg (25-35) Mean Corpuscular Hemoglobin Concent 33 g/dL (31-37) Red Cell Distribution Width 15.4 % (11.5-14.5) Platelet Count 210 x10^3/uL (140-400) Neutrophils (%) (Auto) 57 % (31-73) Lymphocytes (%) (Auto) 32 % (24-48) Monocytes (%) (Auto) 9 % (0-9) Eosinophils (%) (Auto) 2 % (0-3) Basophils (%) (Auto) 1 % (0-3) Neutrophils # (Auto) 4.2 x10^3uL (1.8-7.7) Lymphocytes # (Auto) 2.3 x10^3/uL (1.0-4.8) Monocytes # (Auto) 0.7 x10^3/uL (0.0-1.1) Eosinophils # (Auto) 0.1 x10^3/uL (0.0-0.7) Basophils # (Auto) 0.1 x10^3/uL (0.0-0.2) Sodium Level 129 mmol/L (136-145) Potassium Level 5.8 mmol/L (3.5-5.1) Chloride Level 94 mmol/L (98-107) Carbon Dioxide Level 22 mmol/L (21-32) Anion Gap 13 (6-14) Blood Urea Nitrogen 27 mg/dL (7-20) Creatinine 1.6 mg/dL (0.6-1.0) Estimated GFR (Cockcroft-Gault) 39.3 BUN/Creatinine Ratio 17 (6-20) Glucose Level 116 mg/dL (70-99) Lactic Acid Level 1.9 mmol/L (0.4-2.0) Calcium Level 9.5 mg/dL (8.5-10.1) Total Bilirubin 0.5 mg/dL (0.2-1.0) Aspartate Amino Transf (AST/SGOT) 172 U/L (15-37) Alanine Aminotransferase (ALT/SGPT) 113 U/L (14-59) Alkaline Phosphatase 105 U/L (46-116) Total Protein 10.4 g/dL (6.4-8.2) Albumin 3.6 g/dL (3.4-5.0) Albumin/Globulin Ratio 0.5 (1.0-1.7) Laboratory Tests Test 03/31/17 18:15 03/31/17 18:38 Urine Collection Type Unknown Urine Color Yellow Urine Clarity Clear Urine pH 6.0 Urine Specific [place] 1.015 Urine Protein Negative mg/dL (NEG-TRACE) Urine Glucose (UA) Negative mg/dL (NEG) Urine Ketones (Stick) Negative mg/dL (NEG) Urine Blood Negative (NEG) Urine Nitrite Negative (NEG) Urine Bilirubin Negative (NEG) Urine Urobilinogen Dipstick 0.2 mg/dL (0.2 mg/dL) Urine Leukocyte Esterase Trace (NEG) Urine RBC 0 /HPF (0-2) Urine WBC 5-10 /HPF (0-4) Urine Squamous Epithelial Cells Few /LPF Urine Amorphous Sediment Present /HPF Urine Bacteria 0 /HPF (0-FEW) Urine Hyaline Casts Moderate /HPF Urine Mucus Mod /LPF White Blood Count 7.4 x10^3/uL (4.0-11.0) Red Blood Count 3.84 x10^6/uL (3.50-5.40) Hemoglobin 11.6 g/dL (12.0-15.5) Hematocrit 35.3 % (36.0-47.0) Mean Corpuscular Volume 92 fL (79-100) Mean Corpuscular Hemoglobin 30 pg (25-35) Mean Corpuscular Hemoglobin Concent 33 g/dL (31-37) Red Cell Distribution Width 15.4 % (11.5-14.5) Platelet Count 210 x10^3/uL (140-400) Neutrophils (%) (Auto) 57 % (31-73) Lymphocytes (%) (Auto) 32 % (24-48) Monocytes (%) (Auto) 9 % (0-9) Eosinophils (%) (Auto) 2 % (0-3) Basophils (%) (Auto) 1 % (0-3) Neutrophils # (Auto) 4.2 x10^3uL (1.8-7.7) Lymphocytes # (Auto) 2.3 x10^3/uL (1.0-4.8) Monocytes # (Auto) 0.7 x10^3/uL (0.0-1.1) Eosinophils # (Auto) 0.1 x10^3/uL (0.0-0.7) Basophils # (Auto) 0.1 x10^3/uL (0.0-0.2) Sodium Level 129 mmol/L (136-145) Potassium Level 5.8 mmol/L (3.5-5.1) Chloride Level 94 mmol/L (98-107) Carbon Dioxide Level 22 mmol/L (21-32) Anion Gap 13 (6-14) Blood Urea Nitrogen 27 mg/dL (7-20) Creatinine 1.6 mg/dL (0.6-1.0) Estimated GFR (Cockcroft-Gault) 39.3 BUN/Creatinine Ratio 17 (6-20) Glucose Level 116 mg/dL (70-99) Lactic Acid Level 1.9 mmol/L (0.4-2.0) Calcium Level 9.5 mg/dL (8.5-10.1) Total Bilirubin 0.5 mg/dL (0.2-1.0) Aspartate Amino Transf (AST/SGOT) 172 U/L (15-37) Alanine Aminotransferase (ALT/SGPT) 113 U/L (14-59) Alkaline Phosphatase 105 U/L (46-116) Total Protein 10.4 g/dL (6.4-8.2) Albumin 3.6 g/dL (3.4-5.0) Albumin/Globulin Ratio 0.5 (1.0-1.7) VTE Prophylaxis Ordered VTE Prophylaxis Devices: Yes VTE Pharmacological Prophylaxi: No Assessment/Plan Assessment/Plan hyponatremia, recheck labs, check urine osmol acute renal failure, possible ATN, consult renal, check urine, sepsis syndrome, no source found, aggressive abx started, continue for now, ID consult check flu swab, isolate Large protein gap, check SPEP and UPEP, Myeloma possible transaminitis, check in AM w. [facility] PCP is at , she reports labs were checked about a month ago, and she is unaware of above problems CRISS CROSS MD Mar 31, 2017 23:26
[2017-03-31 23:36] VITALS: BP 133/78
[2017-03-31] MEDS: CARVEDILOL 3.125 MG TABLET. PO SCH (23:39)
[2017-03-31 23:58] LABS: CALCIUM 7.7 mg/dL (8.5-10.1); CREATININE 1.5 mg/dL (0.6-1.0); GFR 42.3; POTASSIUM 3.2 mmol/L (3.5-5.1)
[2017-04-01 00:42] LABS: OBC FLU VALID
[2017-04-01 03:00] VITALS: BP 116/64
[2017-04-01 03:55] LABS: BASO # 0.1 x10^3/uL (0.0-0.2); BASO % 1 % (0-3); EOS % 1 % (0-3); HEMATOCRIT 32.5 % (36.0-47.0); HEMOGLOBIN 10.5 g/dL (12.0-15.5); LYMPH # 2.2 x10^3/uL (1.0-4.8); LYMPH % 29 % (24-48); MEAN CORPUSCULAR HEMOGLOBIN 30 pg (25-35); MEAN CORPUSCULAR HGB CONC 32 g/dL (31-37); MEAN CORPUSCULAR VOLUME 93 fL (79-100); MONO % 8 % (0-9); NEUT % 61 % (31-73); PLATELET COUNT 186 x10^3/uL (140-400); RED CELL DISTRIBUTION WIDTH 14.9 % (11.5-14.5); WHITE BLOOD COUNT 7.7 x10^3/uL (4.0-11.0)
[2017-04-01] MEDS ORDERED: RANI150T2 PO (04:27)
[2017-04-01] MEDS ORDERED: MELA3TAB2 PO (04:27)
[2017-04-01] MEDS ORDERED: DICL100G18 TP (04:27)
[2017-04-01] MEDS ORDERED: HYDR-2762 PO (04:27)
[2017-04-01] MEDS ORDERED: GABA-586 PO ×2 (04:27→09:14)
[2017-04-01] MEDS ORDERED: TRIA15OI TP (04:27)
[2017-04-01] MEDS ORDERED: FLUT16SP NS (04:27)
[2017-04-01] MEDS ORDERED: CYCL10TA2 PO (04:27)
[2017-04-01] MEDS ORDERED: AMLO1CAP12 PO (04:27)
[2017-04-01] MEDS ORDERED: LIDO700A39 TP (04:27)
[2017-04-01 04:38] LABS: ALBUMIN 3.2 g/dL (3.4-5.0); ALBUMIN/GLOBULIN RATIO 0.6 (1.0-1.7); CREATININE 1.3 mg/dL (0.6-1.0); GFR 49.9; POTASSIUM 3.5 mmol/L (3.5-5.1); TOTAL BILIRUBIN 0.3 mg/dL (0.2-1.0); TOTAL PROTEIN 8.2 g/dL (6.4-8.2)
[2017-04-01] MEDS: PIPERACILLIN/TAZOBACTAM 3.375 GM in IV NORMAL SALINE 50ML 50 ML IV SCH ×3 (05:48→17:59)
[2017-04-01 07:00] VITALS: BP 117/68
--- NOTE | 2017-04-01 07:19 | EKG ---
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
--- NOTE | 2017-04-01 07:46 | RAD ---
EXAM: Chest 2 views. HISTORY: Fever, shortness of breath. COMPARISON: 12/10/2012. FINDINGS: Frontal and lateral views of the chest are obtained. There are no confluent infiltrates. Hyperinflation suggests chronic obstructive pulmonary disease. Calcified mediastinal lymph nodes are likely secondary to old granulomatous disease. There is no pneumothorax or pleural effusion. The heart is not enlarged. There are atherosclerotic calcifications of the aorta. IMPRESSION: 1. Correlate for chronic obstructive pulmonary disease. No confluent infiltrates.
[2017-04-01] MEDS ORDERED: FLU VACC QS2017-18 (36MOS+)/PF 0.5 ML SYRINGE. VAX IM ONE (09:00)
[2017-04-01] MEDS: ESTROGENS, CONJUGATED 0.3 MG TABLET PO SCH (09:00)
[2017-04-01] MEDS ORDERED: MULT1TAB52 PO (09:14)
[2017-04-01] MEDS ORDERED: ASPI-612 PO (09:14)
[2017-04-01] MEDS: ALLOPURINOL 300 MG TABLET. PO SCH (09:17)
[2017-04-01] MEDS: CARVEDILOL 3.125 MG TABLET. PO SCH ×2 (09:18→17:58)
--- NOTE | 2017-04-01 09:23 | PDOC ---
Infectious Disease Note Vital Sign Vital Signs Vital Signs Date Time Temp Pulse Resp B/P (MAP) Pulse Ox O2 Delivery O2 Flow Rate FiO2 04/01/17 03:00 97.9 101 20 116/64 (81) 97 Room Air 97.9 Labs Lab Laboratory Tests Test 03/31/17 18:15 03/31/17 18:38 03/31/17 23:00 03/31/17 23:51 Urine Collection Type Unknown Urine Color Yellow Urine Clarity Clear Urine pH 6.0 Urine Specific [place] 1.015 Urine Protein Negative mg/dL (NEG-TRACE) Urine Glucose (UA) Negative mg/dL (NEG) Urine Ketones (Stick) Negative mg/dL (NEG) Urine Blood Negative (NEG) Urine Nitrite Negative (NEG) Urine Bilirubin Negative (NEG) Urine Urobilinogen Dipstick 0.2 mg/dL (0.2 mg/dL) Urine Leukocyte Esterase Trace (NEG) Urine RBC 0 /HPF (0-2) Urine WBC 5-10 /HPF (0-4) Urine Squamous Epithelial Cells Few /LPF Urine Amorphous Sediment Present /HPF Urine Bacteria 0 /HPF (0-FEW) Urine Hyaline Casts Moderate /HPF Urine Mucus Mod /LPF White Blood Count 7.4 x10^3/uL (4.0-11.0) Red Blood Count 3.84 x10^6/uL (3.50-5.40) Hemoglobin 11.6 g/dL (12.0-15.5) Hematocrit 35.3 % (36.0-47.0) Mean Corpuscular Volume 92 fL (79-100) Mean Corpuscular Hemoglobin 30 pg (25-35) Mean Corpuscular Hemoglobin Concent 33 g/dL (31-37) Red Cell Distribution Width 15.4 % (11.5-14.5) Platelet Count 210 x10^3/uL (140-400) Neutrophils (%) (Auto) 57 % (31-73) Lymphocytes (%) (Auto) 32 % (24-48) Monocytes (%) (Auto) 9 % (0-9) Eosinophils (%) (Auto) 2 % (0-3) Basophils (%) (Auto) 1 % (0-3) Neutrophils # (Auto) 4.2 x10^3uL (1.8-7.7) Lymphocytes # (Auto) 2.3 x10^3/uL (1.0-4.8) Monocytes # (Auto) 0.7 x10^3/uL (0.0-1.1) Eosinophils # (Auto) 0.1 x10^3/uL (0.0-0.7) Basophils # (Auto) 0.1 x10^3/uL (0.0-0.2) Sodium Level 129 mmol/L (136-145) 138 mmol/L (136-145) Potassium Level 5.8 mmol/L (3.5-5.1) 3.2 mmol/L (3.5-5.1) Chloride Level 94 mmol/L (98-107) 106 mmol/L (98-107) Carbon Dioxide Level 22 mmol/L (21-32) 22 mmol/L (21-32) Anion Gap 13 (6-14) 10 (6-14) Blood Urea Nitrogen 27 mg/dL (7-20) 19 mg/dL (7-20) Creatinine 1.6 mg/dL (0.6-1.0) 1.5 mg/dL (0.6-1.0) Estimated GFR (Cockcroft-Gault) 39.3 42.3 BUN/Creatinine Ratio 17 (6-20) Glucose Level 116 mg/dL (70-99) 127 mg/dL (70-99) Lactic Acid Level 1.9 mmol/L (0.4-2.0) Calcium Level 9.5 mg/dL (8.5-10.1) 7.7 mg/dL (8.5-10.1) Total Bilirubin 0.5 mg/dL (0.2-1.0) Aspartate Amino Transf (AST/SGOT) 172 U/L (15-37) Alanine Aminotransferase (ALT/SGPT) 113 U/L (14-59) Alkaline Phosphatase 105 U/L (46-116) Total Protein 10.4 g/dL (6.4-8.2) Albumin 3.6 g/dL (3.4-5.0) Albumin/Globulin Ratio 0.5 (1.0-1.7) Serum Osmolality 285 mOsm/Kg (279-304) Influenza Type A Antigen Negative (NEGATIVE) Influenza Type B Antigen Negative (NEGATIVE) Test 04/01/17 03:28 White Blood Count 7.7 x10^3/uL (4.0-11.0) Red Blood Count 3.50 x10^6/uL (3.50-5.40) Hemoglobin 10.5 g/dL (12.0-15.5) Hematocrit 32.5 % (36.0-47.0) Mean Corpuscular Volume 93 fL (79-100) Mean Corpuscular Hemoglobin 30 pg (25-35) Mean Corpuscular Hemoglobin Concent 32 g/dL (31-37) Red Cell Distribution Width 14.9 % (11.5-14.5) Platelet Count 186 x10^3/uL (140-400) Neutrophils (%) (Auto) 61 % (31-73) Lymphocytes (%) (Auto) 29 % (24-48) Monocytes (%) (Auto) 8 % (0-9) Eosinophils (%) (Auto) 1 % (0-3) Basophils (%) (Auto) 1 % (0-3) Neutrophils # (Auto) 4.7 x10^3uL (1.8-7.7) Lymphocytes # (Auto) 2.2 x10^3/uL (1.0-4.8) Monocytes # (Auto) 0.6 x10^3/uL (0.0-1.1) Eosinophils # (Auto) 0.1 x10^3/uL (0.0-0.7) Basophils # (Auto) 0.1 x10^3/uL (0.0-0.2) Sodium Level 138 mmol/L (136-145) Potassium Level 3.5 mmol/L (3.5-5.1) Chloride Level 105 mmol/L (98-107) Carbon Dioxide Level 22 mmol/L (21-32) Anion Gap 11 (6-14) Blood Urea Nitrogen 13 mg/dL (7-20) Creatinine 1.3 mg/dL (0.6-1.0) Estimated GFR (Cockcroft-Gault) 49.9 BUN/Creatinine Ratio 10 (6-20) Glucose Level 105 mg/dL (70-99) Uric Acid 2.0 mg/dL (2.6-6.0) Calcium Level 8.0 mg/dL (8.5-10.1) Total Bilirubin 0.3 mg/dL (0.2-1.0) Gamma Glutamyl Transpeptidase 86 U/L (5-55) Aspartate Amino Transf (AST/SGOT) 85 U/L (15-37) Alanine Aminotransferase (ALT/SGPT) 95 U/L (14-59) Alkaline Phosphatase 94 U/L (46-116) Lactate Dehydrogenase 119 U/L (81-234) Total Protein 8.2 g/dL (6.4-8.2) Albumin 3.2 g/dL (3.4-5.0) Albumin/Globulin Ratio 0.6 (1.0-1.7) Objective Assessment Fever and chills SORAYA , likely dehydration Abdominal pain Plan Plan of Care ct abd check cultures if neg by then d/c home EZE Villarreal MD Apr 01, 2017 09:22
--- NOTE | 2017-04-01 10:38 | PDOC ---
PROGRESS NOTES Chief Complaint Chief Complaint Rigors/fever ASSESSMENT AND PLAN: 1. Fever/rigors: resolved. ? infection, no focal sx. cult pending. poss viral syndrome (flu neg). on broad spectrum Abx. d/w Dr Emmanuel 2. SORAYA (on CKD3): mild improvement of creat, eGFR remains in CKD3 range w/ normal lytes 3. Hypokalemia: repleted 4. N/V: improved. PRN emetics 5. 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 History of Present Illness History of Present Illness feeels much better today. stomach upset this AM, but no fevers or rigors. no abd pain Vitals Vitals Vital Signs Date Time Temp Pulse Resp B/P (MAP) Pulse Ox O2 Delivery O2 Flow Rate FiO2 04/01/17 09:18 101 116/64 04/01/17 07:00 96.6 18 99 Room Air 96.6 Physical Exam General: Alert, Oriented X3, Cooperative, No acute distress Abdomen: Normal bowel sounds, Soft Extremities: No cyanosis, No edema Skin: No rashes, No breakdown Labs LABS Laboratory Tests Test 03/31/17 18:15 03/31/17 18:38 03/31/17 23:00 03/31/17 23:51 Urine Collection Type Unknown Urine Color Yellow Urine Clarity Clear Urine pH 6.0 Urine Specific [place] 1.015 Urine Protein Negative mg/dL (NEG-TRACE) Urine Glucose (UA) Negative mg/dL (NEG) Urine Ketones (Stick) Negative mg/dL (NEG) Urine Blood Negative (NEG) Urine Nitrite Negative (NEG) Urine Bilirubin Negative (NEG) Urine Urobilinogen Dipstick 0.2 mg/dL (0.2 mg/dL) Urine Leukocyte Esterase Trace (NEG) Urine RBC 0 /HPF (0-2) Urine WBC 5-10 /HPF (0-4) Urine Squamous Epithelial Cells Few /LPF Urine Amorphous Sediment Present /HPF Urine Bacteria 0 /HPF (0-FEW) Urine Hyaline Casts Moderate /HPF Urine Mucus Mod /LPF White Blood Count 7.4 x10^3/uL (4.0-11.0) Red Blood Count 3.84 x10^6/uL (3.50-5.40) Hemoglobin 11.6 g/dL (12.0-15.5) Hematocrit 35.3 % (36.0-47.0) Mean Corpuscular Volume 92 fL (79-100) Mean Corpuscular Hemoglobin 30 pg (25-35) Mean Corpuscular Hemoglobin Concent 33 g/dL (31-37) Red Cell Distribution Width 15.4 % (11.5-14.5) Platelet Count 210 x10^3/uL (140-400) Neutrophils (%) (Auto) 57 % (31-73) Lymphocytes (%) (Auto) 32 % (24-48) Monocytes (%) (Auto) 9 % (0-9) Eosinophils (%) (Auto) 2 % (0-3) Basophils (%) (Auto) 1 % (0-3) Neutrophils # (Auto) 4.2 x10^3uL (1.8-7.7) Lymphocytes # (Auto) 2.3 x10^3/uL (1.0-4.8) Monocytes # (Auto) 0.7 x10^3/uL (0.0-1.1) Eosinophils # (Auto) 0.1 x10^3/uL (0.0-0.7) Basophils # (Auto) 0.1 x10^3/uL (0.0-0.2) Sodium Level 129 mmol/L (136-145) 138 mmol/L (136-145) Potassium Level 5.8 mmol/L (3.5-5.1) 3.2 mmol/L (3.5-5.1) Chloride Level 94 mmol/L (98-107) 106 mmol/L (98-107) Carbon Dioxide Level 22 mmol/L (21-32) 22 mmol/L (21-32) Anion Gap 13 (6-14) 10 (6-14) Blood Urea Nitrogen 27 mg/dL (7-20) 19 mg/dL (7-20) Creatinine 1.6 mg/dL (0.6-1.0) 1.5 mg/dL (0.6-1.0) Estimated GFR (Cockcroft-Gault) 39.3 42.3 BUN/Creatinine Ratio 17 (6-20) Glucose Level 116 mg/dL (70-99) 127 mg/dL (70-99) Lactic Acid Level 1.9 mmol/L (0.4-2.0) Calcium Level 9.5 mg/dL (8.5-10.1) 7.7 mg/dL (8.5-10.1) Total Bilirubin 0.5 mg/dL (0.2-1.0) Aspartate Amino Transf (AST/SGOT) 172 U/L (15-37) Alanine Aminotransferase (ALT/SGPT) 113 U/L (14-59) Alkaline Phosphatase 105 U/L (46-116) Total Protein 10.4 g/dL (6.4-8.2) Albumin 3.6 g/dL (3.4-5.0) Albumin/Globulin Ratio 0.5 (1.0-1.7) Serum Osmolality 285 mOsm/Kg (279-304) Influenza Type A Antigen Negative (NEGATIVE) Influenza Type B Antigen Negative (NEGATIVE) Test 04/01/17 03:28 White Blood Count 7.7 x10^3/uL (4.0-11.0) Red Blood Count 3.50 x10^6/uL (3.50-5.40) Hemoglobin 10.5 g/dL (12.0-15.5) Hematocrit 32.5 % (36.0-47.0) Mean Corpuscular Volume 93 fL (79-100) Mean Corpuscular Hemoglobin 30 pg (25-35) Mean Corpuscular Hemoglobin Concent 32 g/dL (31-37) Red Cell Distribution Width 14.9 % (11.5-14.5) Platelet Count 186 x10^3/uL (140-400) Neutrophils (%) (Auto) 61 % (31-73) Lymphocytes (%) (Auto) 29 % (24-48) Monocytes (%) (Auto) 8 % (0-9) Eosinophils (%) (Auto) 1 % (0-3) Basophils (%) (Auto) 1 % (0-3) Neutrophils # (Auto) 4.7 x10^3uL (1.8-7.7) Lymphocytes # (Auto) 2.2 x10^3/uL (1.0-4.8) Monocytes # (Auto) 0.6 x10^3/uL (0.0-1.1) Eosinophils # (Auto) 0.1 x10^3/uL (0.0-0.7) Basophils # (Auto) 0.1 x10^3/uL (0.0-0.2) Sodium Level 138 mmol/L (136-145) Potassium Level 3.5 mmol/L (3.5-5.1) Chloride Level 105 mmol/L (98-107) Carbon Dioxide Level 22 mmol/L (21-32) Anion Gap 11 (6-14) Blood Urea Nitrogen 13 mg/dL (7-20) Creatinine 1.3 mg/dL (0.6-1.0) Estimated GFR (Cockcroft-Gault) 49.9 BUN/Creatinine Ratio 10 (6-20) Glucose Level 105 mg/dL (70-99) Uric Acid 2.0 mg/dL (2.6-6.0) Calcium Level 8.0 mg/dL (8.5-10.1) Total Bilirubin 0.3 mg/dL (0.2-1.0) Gamma Glutamyl Transpeptidase 86 U/L (5-55) Aspartate Amino Transf (AST/SGOT) 85 U/L (15-37) Alanine Aminotransferase (ALT/SGPT) 95 U/L (14-59) Alkaline Phosphatase 94 U/L (46-116) Lactate Dehydrogenase 119 U/L (81-234) Total Protein 8.2 g/dL (6.4-8.2) Albumin 3.2 g/dL (3.4-5.0) Albumin/Globulin Ratio 0.6 (1.0-1.7) CLAUDIA PUENTE MD Apr 01, 2017 10:38
[2017-04-01 11:00] VITALS: BP 135/69
[2017-04-01] MEDS: HYDROcodone/APAP 5/325MG 1 TAB TABLET PO PRN ×2 (11:42→18:28)
--- NOTE | 2017-04-01 12:00 | PDOC2 ---
CONSULT Date of Consult Date of Consult DATE: 04/01/17 TIME: 11:53 Reason for Consult Reason for Consult: SORAYA Referring Physician Referring Physician: AMERICA Identification/Chief Complaint Chief Complaint FEVERS AND CHILLS Problems: Source Source: Chart review, Patient History of Present Illness Reason for Visit: THIS IS A 66 YR OLD ADMITTED WITH CHILLS AND RIGORS. HIGH GRADE FEVERS NOTED HERE. NO CKD NOTED. HER NA WAS 129 WITH A K OF 5.8 AND A CR OF 1.6. NO NSAIDS NOTED. NO N/V OR DIARRHEA NOTED. APPETITE DOWN SOME WITH HER CHILLS. HAS NO DYSURIA. NO HX OF ANY KIDNEY OR BLADDER SURGERIES HEMATURIA DYSURIA OR FREQUENCY NOTED. NO NEW MEDS. BUT DID HAVE SOME TORADOL IN THE ER Past Medical History Cardiovascular: HTN GI: No pertinent hx Heme/Onc: No pertinent hx Musculoskeletal: Osteoarthritis (knee, replacement) Infectious disease: No pertinent hx ENT: No pertinent hx Family History Family History: No Significant Social History No ALCOHOL: none Drugs: None Current Problem List Problem List Problems Medical Problems: (1) Dehydration Status: Acute (2) Hyperkalemia Status: Acute (3) Hyponatremia Status: Acute (4) Sepsis Status: Acute (5) UTI (lower urinary tract infection) Status: Acute Current Medications Current Medications Current Medications Sodium Chloride 1,000 ml @ 1,000 mls/hr 1X ONCE IV Last administered on 18:15; Start 03/31/17 at 18:15; Stop 03/31/17 at 19:14; Status DC Sodium Chloride 1,000 ml @ 2,790 mls/hr Q22M IV Last administered on 20:23; Start 03/31/17 at 18:45; Stop 03/31/17 at 19:45; Status DC Vancomycin HCl (Vanco Per Pharmacy) 1 each PRN DAILY PRN MC SEE COMMENTS Last administered on 04/01/17 03:45; Start 03/31/17 at 18:45; Stop 04/01/17 at 09:26 ; Status DC Piperacillin Sod/ Tazobactam Sod (Zosyn Per Pharmacy) 1 each PRN DAILY PRN MC SEE COMMENTS; Start 03/31/17 at 18:45 Acetaminophen (Tylenol) 650 mg 1X ONCE PO Last administered on 03/31/17 18:54 ; Start 03/31/17 at 18:45; Stop 03/31/17 at 18:46; Status DC Ketorolac Tromethamine (Toradol) 15 mg 1X ONCE IV Last administered on 18:54; Start 03/31/17 at 18:45; Stop 03/31/17 at 18:46; Status DC Piperacillin Sod/ Tazobactam Sod 3.375 gm/Sodium Chloride 50 ml @ 100 mls/hr 1X ONCE IV Last administered on 03/31/17 19:00; Start 03/31/17 at 19:00; Stop 03/31/17 at 19:29; Status DC Vancomycin HCl 1.75 gm/Sodium Chloride 500 ml @ 250 mls/hr 1X ONCE IV Last administered on 03/31/17 20:23; Start 03/31/17 at 19:00; Stop 03/31/17 at 20:59 ; Status DC Ondansetron HCl (Zofran) 4 mg PRN Q8HRS PRN IV NAUSEA/VOMITING; Start 03/31/17 at 21:15; Stop 04/01/17 at 21:14 Sodium Chloride 1,000 ml @ 125 mls/hr Q8H IV Last administered on 04/01/17 11 :42; Start 03/31/17 at 21:15; Stop 04/01/17 at 21:14 Allopurinol (Zyloprim) 300 mg DAILY PO Last administered on 04/01/17 09:17; Start 04/01/17 at 09:00 Diazepam (Valium) 5 mg PRN Q6HRS PRN PO ANXIETY / AGITATION; Start 03/31/17 at 22:45 Estrogens Conjugated (Premarin) 0.3 mg DAILY PO ; Start 04/01/17 at 09:00 Acetaminophen/ Hydrocodone Bitart (Lortab 5/325) 1 tab PRN Q6HRS PRN PO SEVERE PAIN Last administered on 04/01/17 11:42; Start 03/31/17 at 22:45 Non-Formulary Medication 1 puff PRN Q6HRS PRN INH SHORTNESS OF BREATH; Start at 22:45; Status UNV Carvedilol (Coreg) 3.125 mg BIDWMEALS PO Last administered on 04/01/17 09:18; Start 03/31/17 at 23:00 Albuterol Sulfate (Ventolin Neb Soln) 2.5 mg PRN Q6HRS PRN NEB SHORTNESS OF BREATH; Start 03/31/17 at 23:00 Info (Do NOT chart on this placeholder) 1 each PRN 1X PRN MC SEE COMMENTS; Start 03/31/17 at 23:15; Status UNV Influenza Virus Vaccine Quadrival (Fluarix Quad [id number] Syringe) 0.5 ml ONCE ONCE VAX IM Last administered on 04/01/17 09:20; Start 04/01/17 at 09:00; Stop 04/01/17 at 09:01; Status DC Piperacillin Sod/ Tazobactam Sod 3.375 gm/Sodium Chloride 50 ml @ 100 mls/hr Q6HRS IV Last administered on 04/01/17 11:42; Start 04/01/17 at 06:00 Vancomycin HCl 1 gm/Sodium Chloride 250 ml @ 250 mls/hr Q24H IV ; Start at 20:00; Stop 04/01/17 at 20:00; Status DC Vancomycin HCl 1 each 1X ONCE MC ; Start 04/02/17 at 19:30; Stop 04/02/17 at 19 :30; Status DC Active Scripts Active Reported Multivitamins (Multivitamin) 1 Each Tablet 1 Tab PO DAILY Gabapentin 300 Mg Capsule 600 Mg PO HS Aspirin Ec (Aspirin) 81 Mg Tablet.dr 1 Tab PO DAILY Lidocaine 1 Each Adh..patch 1 Each TP DAILY Melatonin 3 Mg Tablet 1 Tab PO QHS Voltaren (Diclofenac Sodium) 100 Gm Gel..gram. 1 Gm TP BID Triamcinolone Acetonide 0.1% Oint (Triamcinolone Acetonide) 15 Gm Oint...g. 1 Mary TP PRN BID MIX WITH EUCERIN DIRECTED BY PHYSICIAN Hydrocodone-Apap 7.5-325 (Hydrocodone Bit/Acetaminophen) 1 Each Tablet 1 Tab PO PRN Q6HRS PRN Cyclobenzaprine Hcl 10 Mg Tablet 1 Tab PO TID Amlodipine-Benazepril 10-20 Mg (Amlodipine Besylate/Benazepril) 1 Each Capsule 1 Cap PO DAILY Gabapentin 300 Mg Capsule 300 Mg PO BID92 Fluticasone Propionate Nasal [place] (Fluticasone Propionate) 16 Gm [place].susp 2 [place] NS DAILY Ranitidine Hcl 150 Mg Tablet 1 Tab PO BID Polyethylene Glycol (Polyethylene Glycol 1000) 500 Gm Powder 500 Gm MC DAILY Hydrochlorothiazide Tablet (Hydrochlorothiazide) 12.5 Mg Tablet 25 Mg PO DAILY Proair Hfa Inhaler (Albuterol Sulfate) 8.5 Gm Hfa.aer.ad 2 Puff INH PRN Q6HRS PRN Allopurinol 300 Mg Tablet 300 Mg PO DAILY Allergies Allergies: Coded Allergies: sulfamethoxazole (Verified Allergy, Intermediate, 04/01/17) trimethoprim (Verified Allergy, Intermediate, 04/01/17) Vitals VITALS Vital Signs Date Time Temp Pulse Resp B/P (MAP) Pulse Ox O2 Delivery O2 Flow Rate FiO2 04/01/17 11:42 Room Air 04/01/17 11:00 100.4 105 18 135/69 (91) 95 100.4 Labs Labs Laboratory Tests Test 03/31/17 18:15 03/31/17 18:38 03/31/17 23:00 03/31/17 23:51 Urine Collection Type Unknown Urine Color Yellow Urine Clarity Clear Urine pH 6.0 Urine Specific [place] 1.015 Urine Protein Negative mg/dL (NEG-TRACE) Urine Glucose (UA) Negative mg/dL (NEG) Urine Ketones (Stick) Negative mg/dL (NEG) Urine Blood Negative (NEG) Urine Nitrite Negative (NEG) Urine Bilirubin Negative (NEG) Urine Urobilinogen Dipstick 0.2 mg/dL (0.2 mg/dL) Urine Leukocyte Esterase Trace (NEG) Urine RBC 0 /HPF (0-2) Urine WBC 5-10 /HPF (0-4) Urine Squamous Epithelial Cells Few /LPF Urine Amorphous Sediment Present /HPF Urine Bacteria 0 /HPF (0-FEW) Urine Hyaline Casts Moderate /HPF Urine Mucus Mod /LPF White Blood Count 7.4 x10^3/uL (4.0-11.0) Red Blood Count 3.84 x10^6/uL (3.50-5.40) Hemoglobin 11.6 g/dL (12.0-15.5) Hematocrit 35.3 % (36.0-47.0) Mean Corpuscular Volume 92 fL (79-100) Mean Corpuscular Hemoglobin 30 pg (25-35) Mean Corpuscular Hemoglobin Concent 33 g/dL (31-37) Red Cell Distribution Width 15.4 % (11.5-14.5) Platelet Count 210 x10^3/uL (140-400) Neutrophils (%) (Auto) 57 % (31-73) Lymphocytes (%) (Auto) 32 % (24-48) Monocytes (%) (Auto) 9 % (0-9) Eosinophils (%) (Auto) 2 % (0-3) Basophils (%) (Auto) 1 % (0-3) Neutrophils # (Auto) 4.2 x10^3uL (1.8-7.7) Lymphocytes # (Auto) 2.3 x10^3/uL (1.0-4.8) Monocytes # (Auto) 0.7 x10^3/uL (0.0-1.1) Eosinophils # (Auto) 0.1 x10^3/uL (0.0-0.7) Basophils # (Auto) 0.1 x10^3/uL (0.0-0.2) Sodium Level 129 mmol/L (136-145) 138 mmol/L (136-145) Potassium Level 5.8 mmol/L (3.5-5.1) 3.2 mmol/L (3.5-5.1) Chloride Level 94 mmol/L (98-107) 106 mmol/L (98-107) Carbon Dioxide Level 22 mmol/L (21-32) 22 mmol/L (21-32) Anion Gap 13 (6-14) 10 (6-14) Blood Urea Nitrogen 27 mg/dL (7-20) 19 mg/dL (7-20) Creatinine 1.6 mg/dL (0.6-1.0) 1.5 mg/dL (0.6-1.0) Estimated GFR (Cockcroft-Gault) 39.3 42.3 BUN/Creatinine Ratio 17 (6-20) Glucose Level 116 mg/dL (70-99) 127 mg/dL (70-99) Lactic Acid Level 1.9 mmol/L (0.4-2.0) Calcium Level 9.5 mg/dL (8.5-10.1) 7.7 mg/dL (8.5-10.1) Total Bilirubin 0.5 mg/dL (0.2-1.0) Aspartate Amino Transf (AST/SGOT) 172 U/L (15-37) Alanine Aminotransferase (ALT/SGPT) 113 U/L (14-59) Alkaline Phosphatase 105 U/L (46-116) Total Protein 10.4 g/dL (6.4-8.2) Albumin 3.6 g/dL (3.4-5.0) Albumin/Globulin Ratio 0.5 (1.0-1.7) Serum Osmolality 285 mOsm/Kg (279-304) Influenza Type A Antigen Negative (NEGATIVE) Influenza Type B Antigen Negative (NEGATIVE) Test 04/01/17 03:28 White Blood Count 7.7 x10^3/uL (4.0-11.0) Red Blood Count 3.50 x10^6/uL (3.50-5.40) Hemoglobin 10.5 g/dL (12.0-15.5) Hematocrit 32.5 % (36.0-47.0) Mean Corpuscular Volume 93 fL (79-100) Mean Corpuscular Hemoglobin 30 pg (25-35) Mean Corpuscular Hemoglobin Concent 32 g/dL (31-37) Red Cell Distribution Width 14.9 % (11.5-14.5) Platelet Count 186 x10^3/uL (140-400) Neutrophils (%) (Auto) 61 % (31-73) Lymphocytes (%) (Auto) 29 % (24-48) Monocytes (%) (Auto) 8 % (0-9) Eosinophils (%) (Auto) 1 % (0-3) Basophils (%) (Auto) 1 % (0-3) Neutrophils # (Auto) 4.7 x10^3uL (1.8-7.7) Lymphocytes # (Auto) 2.2 x10^3/uL (1.0-4.8) Monocytes # (Auto) 0.6 x10^3/uL (0.0-1.1) Eosinophils # (Auto) 0.1 x10^3/uL (0.0-0.7) Basophils # (Auto) 0.1 x10^3/uL (0.0-0.2) Sodium Level 138 mmol/L (136-145) Potassium Level 3.5 mmol/L (3.5-5.1) Chloride Level 105 mmol/L (98-107) Carbon Dioxide Level 22 mmol/L (21-32) Anion Gap 11 (6-14) Blood Urea Nitrogen 13 mg/dL (7-20) Creatinine 1.3 mg/dL (0.6-1.0) Estimated GFR (Cockcroft-Gault) 49.9 BUN/Creatinine Ratio 10 (6-20) Glucose Level 105 mg/dL (70-99) Uric Acid 2.0 mg/dL (2.6-6.0) Calcium Level 8.0 mg/dL (8.5-10.1) Total Bilirubin 0.3 mg/dL (0.2-1.0) Gamma Glutamyl Transpeptidase 86 U/L (5-55) Aspartate Amino Transf (AST/SGOT) 85 U/L (15-37) Alanine Aminotransferase (ALT/SGPT) 95 U/L (14-59) Alkaline Phosphatase 94 U/L (46-116) Lactate Dehydrogenase 119 U/L (81-234) Total Protein 8.2 g/dL (6.4-8.2) Albumin 3.2 g/dL (3.4-5.0) Albumin/Globulin Ratio 0.6 (1.0-1.7) Laboratory Tests Test 03/31/17 18:15 03/31/17 18:38 03/31/17 23:00 03/31/17 23:51 Urine Collection Type Unknown Urine Color Yellow Urine Clarity Clear Urine pH 6.0 Urine Specific [place] 1.015 Urine Protein Negative mg/dL (NEG-TRACE) Urine Glucose (UA) Negative mg/dL (NEG) Urine Ketones (Stick) Negative mg/dL (NEG) Urine Blood Negative (NEG) Urine Nitrite Negative (NEG) Urine Bilirubin Negative (NEG) Urine Urobilinogen Dipstick 0.2 mg/dL (0.2 mg/dL) Urine Leukocyte Esterase Trace (NEG) Urine RBC 0 /HPF (0-2) Urine WBC 5-10 /HPF (0-4) Urine Squamous Epithelial Cells Few /LPF Urine Amorphous Sediment Present /HPF Urine Bacteria 0 /HPF (0-FEW) Urine Hyaline Casts Moderate /HPF Urine Mucus Mod /LPF White Blood Count 7.4 x10^3/uL (4.0-11.0) Red Blood Count 3.84 x10^6/uL (3.50-5.40) Hemoglobin 11.6 g/dL (12.0-15.5) Hematocrit 35.3 % (36.0-47.0) Mean Corpuscular Volume 92 fL (79-100) Mean Corpuscular Hemoglobin 30 pg (25-35) Mean Corpuscular Hemoglobin Concent 33 g/dL (31-37) Red Cell Distribution Width 15.4 % (11.5-14.5) Platelet Count 210 x10^3/uL (140-400) Neutrophils (%) (Auto) 57 % (31-73) Lymphocytes (%) (Auto) 32 % (24-48) Monocytes (%) (Auto) 9 % (0-9) Eosinophils (%) (Auto) 2 % (0-3) Basophils (%) (Auto) 1 % (0-3) Neutrophils # (Auto) 4.2 x10^3uL (1.8-7.7) Lymphocytes # (Auto) 2.3 x10^3/uL (1.0-4.8) Monocytes # (Auto) 0.7 x10^3/uL (0.0-1.1) Eosinophils # (Auto) 0.1 x10^3/uL (0.0-0.7) Basophils # (Auto) 0.1 x10^3/uL (0.0-0.2) Sodium Level 129 mmol/L (136-145) 138 mmol/L (136-145) Potassium Level 5.8 mmol/L (3.5-5.1) 3.2 mmol/L (3.5-5.1) Chloride Level 94 mmol/L (98-107) 106 mmol/L (98-107) Carbon Dioxide Level 22 mmol/L (21-32) 22 mmol/L (21-32) Anion Gap 13 (6-14) 10 (6-14) Blood Urea Nitrogen 27 mg/dL (7-20) 19 mg/dL (7-20) Creatinine 1.6 mg/dL (0.6-1.0) 1.5 mg/dL (0.6-1.0) Estimated GFR (Cockcroft-Gault) 39.3 42.3 BUN/Creatinine Ratio 17 (6-20) Glucose Level 116 mg/dL (70-99) 127 mg/dL (70-99) Lactic Acid Level 1.9 mmol/L (0.4-2.0) Calcium Level 9.5 mg/dL (8.5-10.1) 7.7 mg/dL (8.5-10.1) Total Bilirubin 0.5 mg/dL (0.2-1.0) Aspartate Amino Transf (AST/SGOT) 172 U/L (15-37) Alanine Aminotransferase (ALT/SGPT) 113 U/L (14-59) Alkaline Phosphatase 105 U/L (46-116) Total Protein 10.4 g/dL (6.4-8.2) Albumin 3.6 g/dL (3.4-5.0) Albumin/Globulin Ratio 0.5 (1.0-1.7) Serum Osmolality 285 mOsm/Kg (279-304) Influenza Type A Antigen Negative (NEGATIVE) Influenza Type B Antigen Negative (NEGATIVE) Test 04/01/17 03:28 White Blood Count 7.7 x10^3/uL (4.0-11.0) Red Blood Count 3.50 x10^6/uL (3.50-5.40) Hemoglobin 10.5 g/dL (12.0-15.5) Hematocrit 32.5 % (36.0-47.0) Mean Corpuscular Volume 93 fL (79-100) Mean Corpuscular Hemoglobin 30 pg (25-35) Mean Corpuscular Hemoglobin Concent 32 g/dL (31-37) Red Cell Distribution Width 14.9 % (11.5-14.5) Platelet Count 186 x10^3/uL (140-400) Neutrophils (%) (Auto) 61 % (31-73) Lymphocytes (%) (Auto) 29 % (24-48) Monocytes (%) (Auto) 8 % (0-9) Eosinophils (%) (Auto) 1 % (0-3) Basophils (%) (Auto) 1 % (0-3) Neutrophils # (Auto) 4.7 x10^3uL (1.8-7.7) Lymphocytes # (Auto) 2.2 x10^3/uL (1.0-4.8) Monocytes # (Auto) 0.6 x10^3/uL (0.0-1.1) Eosinophils # (Auto) 0.1 x10^3/uL (0.0-0.7) Basophils # (Auto) 0.1 x10^3/uL (0.0-0.2) Sodium Level 138 mmol/L (136-145) Potassium Level 3.5 mmol/L (3.5-5.1) Chloride Level 105 mmol/L (98-107) Carbon Dioxide Level 22 mmol/L (21-32) Anion Gap 11 (6-14) Blood Urea Nitrogen 13 mg/dL (7-20) Creatinine 1.3 mg/dL (0.6-1.0) Estimated GFR (Cockcroft-Gault) 49.9 BUN/Creatinine Ratio 10 (6-20) Glucose Level 105 mg/dL (70-99) Uric Acid 2.0 mg/dL (2.6-6.0) Calcium Level 8.0 mg/dL (8.5-10.1) Total Bilirubin 0.3 mg/dL (0.2-1.0) Gamma Glutamyl Transpeptidase 86 U/L (5-55) Aspartate Amino Transf (AST/SGOT) 85 U/L (15-37) Alanine Aminotransferase (ALT/SGPT) 95 U/L (14-59) Alkaline Phosphatase 94 U/L (46-116) Lactate Dehydrogenase 119 U/L (81-234) Total Protein 8.2 g/dL (6.4-8.2) Albumin 3.2 g/dL (3.4-5.0) Albumin/Globulin Ratio 0.6 (1.0-1.7) Assessment/Plan Assessment/Plan IMP HYPONATREMIA HYPOVOLEMIA HYPERKALEMIA DEHYDRATION SORAYA - NO CKD HX NOTED FEVERS PLAN SUGGEST ISOTONIC SALINE IF RENAL FXN IS NOT BETTER WITH VOLUME EXPANSION THEN FURTHER WORKUP EXPECT ELECTROLYTES AND RENAL FUNCTION TO IMPROVE HOLD HER BENAZEPRIL AND HCTZ AVOID TORADOL LABS IN AM AJ THOMAS MD Apr 01, 2017 12:00
[2017-04-01 15:00] VITALS: BP 127/63
[2017-04-01 19:00] VITALS: BP 107/68
[2017-04-01] MEDS ORDERED: VANCOMYCIN 1 GM in IV NORMAL SALINE 250ML 250 ML IV SCH (20:00)
[2017-04-01 23:00] VITALS: BP 126/70
[2017-04-02] MEDS: PIPERACILLIN/TAZOBACTAM 3.375 GM in IV NORMAL SALINE 50ML 50 ML IV SCH ×2 (00:47→05:41)
[2017-04-02] MEDS: HYDROcodone/APAP 5/325MG 1 TAB TABLET PO PRN (01:03)
[2017-04-02 03:02] VITALS: BP 125/66
--- NOTE | 2017-04-02 03:32 | CONS ---
DATE OF CONSULTATION: 04/01/2017 REQUESTING PHYSICIAN: Sue Rodriguez MD. REASON FOR CONSULTATION: Possible early sepsis. HISTORY OF PRESENT ILLNESS: This is a 66-year-old -[place] Citizen female with history of hypertension and osteoarthritis, who came in with fever and chills, been going on for 2 days she says. She initially thought just a flu and it will get better, but then she decided to come in. The patient also is having some abdominal discomfort. Denies any nausea, vomiting. She has had frequent bowel movement, but no true diarrhea, she says. She denied any urinary symptoms, slight headache, but she always has migraine, she says. So, that is nothing new. PAST MEDICAL HISTORY: Positive for hypertension, osteoarthritis with knee replacement done as well as ankle had ORIF with plate and screws in it. SOCIAL HISTORY: Negative for smoking, alcohol, illicit drug use. ALLERGIES: LISTED ALLERGIC TO SULFA. CURRENT MEDICATIONS: Reviewed. The patient is on vancomycin and Zosyn. REVIEW OF SYSTEMS: As per HPI. All other systems reviewed are negative. PHYSICAL EXAMINATION: GENERAL: Alert, oriented female, not in distress. VITAL SIGNS: Stable, afebrile. HEENT: NAD. NECK: Supple, no JVP, no lymphadenopathy. LUNGS: Clear. HEART: S1, S2 regular. ABDOMEN: Benign. EXTREMITIES: No edema or cyanosis. SKIN: Unremarkable. NEUROLOGIC: The patient is neurologically intact. LABORATORY DATA: White count is normal. BUN and creatinine 27 and 1.6. AST is 172, ALT is 113. Urinalysis is showing 5-10 wbc's with few squamous epithelial cells. Influenza screen was done, which was negative. Cultures are pending. Chest x-ray is unremarkable other than chronic changes. IMPRESSION: 1. Fever and chills, most likely to be viral illness. 2. Acute kidney injury, is likely secondary to dehydration. 3. Slight abdominal pain. RECOMMENDATIONS: We will check cultures soon to be able to scale down to no antibiotics or p.o. antibiotics. I would hydrate her and also may consider CT if the abdominal discomfort or pain ____ if she has. Thank you very much, Dr. Rodriguez, for giving me the opportunity to participate in this patient's care. EZE SAUCEDO MD DR: KETTY/lela JOB#: [id number] / [id number]
[2017-04-02 05:51] LABS: BASO % 1 % (0-3); EOS % 1 % (0-3); HEMATOCRIT 30.2 % (36.0-47.0); HEMOGLOBIN 10.2 g/dL (12.0-15.5); LYMPH # 2.4 x10^3/uL (1.0-4.8); LYMPH % 39 % (24-48); MEAN CORPUSCULAR HEMOGLOBIN 31 pg (25-35); MEAN CORPUSCULAR HGB CONC 34 g/dL (31-37); MEAN CORPUSCULAR VOLUME 91 fL (79-100); MONO % 7 % (0-9); NEUT % 53 % (31-73); PLATELET COUNT 177 x10^3/uL (140-400); RED BLOOD COUNT 3.33 x10^6/uL (3.50-5.40); WHITE BLOOD COUNT 6.3 x10^3/uL (4.0-11.0)
[2017-04-02 06:29] LABS: ALBUMIN 2.9 g/dL (3.4-5.0); ALBUMIN/GLOBULIN RATIO 0.5 (1.0-1.7); CALCIUM 7.8 mg/dL (8.5-10.1); CREATININE 1.3 mg/dL (0.6-1.0); GFR 49.9; TOTAL BILIRUBIN 0.4 mg/dL (0.2-1.0); TOTAL PROTEIN 8.2 g/dL (6.4-8.2)
[2017-04-02 07:00] VITALS: BP 118/62
--- NOTE | 2017-04-02 08:44 | PDOC ---
Infectious Disease Note Subjective Subjective pt feeling better, wants to go home ROS ROS GEN: Denies fevers, chills, sweats HEENT: Denies blurred vision, sore throat CV: Denies chest pain RESP: Denies shortness of air, cough GI: Denies n/v/d NEURO: Denies confusion, dizziness MSK: Denies weakness, joint pain/swelling Vital Sign Vital Signs Vital Signs Date Time Temp Pulse Resp B/P (MAP) Pulse Ox O2 Delivery O2 Flow Rate FiO2 04/02/17 03:02 99.8 98 20 125/66 (85) 95 Room Air 99.8 Physical Exam PHYSICAL EXAM GENERAL: NAD, Alert HEENT: PERRL, OC/OP NECK: Supple, no JVD, no LN LUNGS: Clear HEART: S1S2, no gallop, no murmur ABD: Soft, NT, no organomegaly, no rebound EXT: No edema, no cyanosis GLOVE WRAPPER: Alert, oriented x 3, no focal neurologic deficit SKIN: No rash IV: ok Labs Lab Laboratory Tests Test 04/02/17 04:35 White Blood Count 6.3 x10^3/uL (4.0-11.0) Red Blood Count 3.33 x10^6/uL (3.50-5.40) Hemoglobin 10.2 g/dL (12.0-15.5) Hematocrit 30.2 % (36.0-47.0) Mean Corpuscular Volume 91 fL (79-100) Mean Corpuscular Hemoglobin 31 pg (25-35) Mean Corpuscular Hemoglobin Concent 34 g/dL (31-37) Red Cell Distribution Width 15.0 % (11.5-14.5) Platelet Count 177 x10^3/uL (140-400) Neutrophils (%) (Auto) 53 % (31-73) Lymphocytes (%) (Auto) 39 % (24-48) Monocytes (%) (Auto) 7 % (0-9) Eosinophils (%) (Auto) 1 % (0-3) Basophils (%) (Auto) 1 % (0-3) Neutrophils # (Auto) 3.3 x10^3uL (1.8-7.7) Lymphocytes # (Auto) 2.4 x10^3/uL (1.0-4.8) Monocytes # (Auto) 0.5 x10^3/uL (0.0-1.1) Eosinophils # (Auto) 0.0 x10^3/uL (0.0-0.7) Basophils # (Auto) 0.0 x10^3/uL (0.0-0.2) Sodium Level 132 mmol/L (136-145) Potassium Level 3.0 mmol/L (3.5-5.1) Chloride Level 98 mmol/L (98-107) Carbon Dioxide Level 23 mmol/L (21-32) Anion Gap 11 (6-14) Blood Urea Nitrogen 11 mg/dL (7-20) Creatinine 1.3 mg/dL (0.6-1.0) Estimated GFR (Cockcroft-Gault) 49.9 BUN/Creatinine Ratio 8 (6-20) Glucose Level 85 mg/dL (70-99) Calcium Level 7.8 mg/dL (8.5-10.1) Total Bilirubin 0.4 mg/dL (0.2-1.0) Aspartate Amino Transf (AST/SGOT) 181 U/L (15-37) Alanine Aminotransferase (ALT/SGPT) 187 U/L (14-59) Alkaline Phosphatase 85 U/L (46-116) Total Protein 8.2 g/dL (6.4-8.2) Albumin 2.9 g/dL (3.4-5.0) Albumin/Globulin Ratio 0.5 (1.0-1.7) Micro culture neg Objective Assessment Fever and chills,, likely viral SORAYA , likely dehydration Abdominal pain improved Plan Plan of Care d/c home ok , off antibiotics EZE SAUCEDO MD Apr 02, 2017 08:44
[2017-04-02 08:58] VITALS: BP 118/62
[2017-04-02] MEDS: CARVEDILOL 3.125 MG TABLET. PO SCH (08:58)
[2017-04-02] MEDS: ALLOPURINOL 300 MG TABLET. PO SCH (08:58)
[2017-04-02] MEDS: ESTROGENS, CONJUGATED 0.3 MG TABLET PO SCH (08:58)
[2017-04-02] MEDS ORDERED: POTASSIUM CHLORIDE 20 MEQ TABLET.ER. PO ONE (11:30)
[2017-04-02] MEDS ORDERED: CARV3.122 PO (11:40)
--- NOTE | 2017-04-02 12:28 | PDOC ---
Renal-Progress Notes Subjective Notes Notes FEELS WELL History of Present Illness Hx of present illness BETTER Vitals Vitals Vital Signs Date Time Temp Pulse Resp B/P (MAP) Pulse Ox O2 Delivery O2 Flow Rate FiO2 04/02/17 08:58 89 118/62 04/02/17 08:15 Room Air 04/02/17 07:00 98.8 18 99 98.8 Weight Weight [ ] I.O. Intake and Output Intake and Output 04/03/17 07:00 Intake Total 240 ml Balance 240 ml Intake Oral 240 ml Labs Labs Laboratory Tests Test 04/02/17 04:35 White Blood Count 6.3 x10^3/uL (4.0-11.0) Red Blood Count 3.33 x10^6/uL (3.50-5.40) Hemoglobin 10.2 g/dL (12.0-15.5) Hematocrit 30.2 % (36.0-47.0) Mean Corpuscular Volume 91 fL (79-100) Mean Corpuscular Hemoglobin 31 pg (25-35) Mean Corpuscular Hemoglobin Concent 34 g/dL (31-37) Red Cell Distribution Width 15.0 % (11.5-14.5) Platelet Count 177 x10^3/uL (140-400) Neutrophils (%) (Auto) 53 % (31-73) Lymphocytes (%) (Auto) 39 % (24-48) Monocytes (%) (Auto) 7 % (0-9) Eosinophils (%) (Auto) 1 % (0-3) Basophils (%) (Auto) 1 % (0-3) Neutrophils # (Auto) 3.3 x10^3uL (1.8-7.7) Lymphocytes # (Auto) 2.4 x10^3/uL (1.0-4.8) Monocytes # (Auto) 0.5 x10^3/uL (0.0-1.1) Eosinophils # (Auto) 0.0 x10^3/uL (0.0-0.7) Basophils # (Auto) 0.0 x10^3/uL (0.0-0.2) Sodium Level 132 mmol/L (136-145) Potassium Level 3.0 mmol/L (3.5-5.1) Chloride Level 98 mmol/L (98-107) Carbon Dioxide Level 23 mmol/L (21-32) Anion Gap 11 (6-14) Blood Urea Nitrogen 11 mg/dL (7-20) Creatinine 1.3 mg/dL (0.6-1.0) Estimated GFR (Cockcroft-Gault) 49.9 BUN/Creatinine Ratio 8 (6-20) Glucose Level 85 mg/dL (70-99) Calcium Level 7.8 mg/dL (8.5-10.1) Total Bilirubin 0.4 mg/dL (0.2-1.0) Aspartate Amino Transf (AST/SGOT) 181 U/L (15-37) Alanine Aminotransferase (ALT/SGPT) 187 U/L (14-59) Alkaline Phosphatase 85 U/L (46-116) Total Protein 8.2 g/dL (6.4-8.2) Albumin 2.9 g/dL (3.4-5.0) Albumin/Globulin Ratio 0.5 (1.0-1.7) Micro Micro Microbiology 03/31/17 Blood Culture - Preliminary, Resulted NO GROWTH AFTER 1 DAY 03/31/17 Urine Culture - Preliminary, Resulted 03/31/17 Urine Culture Result 1 (WINSTON) - Preliminary, Resulted Review of Systems Constitutional: yes: alert, oriented Ears/Nose/Throat: Yes: no symptom reported Pulmonary: Yes no symptom reported Cardiovascular: Yes no symptom reported Gastrointestional: Yes: no symptom reported Genitourinary: Yes: no symptom reported Musculoskeletal: Yes: no symptom reported Skin: Yes no symptom reported Psychiatric/Neurological: Yes: no symptom reported Endocrine: Yes: no symptom reported Physical Exam General Appearance: no apparent distress Skin: warm Respiratory: bilateral CTA Heart: S1S2, RRR Abdomen: soft, bowel sounds present Extremities: pulses present Neurology: alert, oriented Musculoskeletal: Osteoarthritis (knee, replacement) Assessment Assessment IMP DEHYDRATION SORAYA-RESOLVED LOW K PLAN OFF IVF'S REPLACE K AJ THOMAS MD Apr 02, 2017 12:28
--- NOTE | 2017-04-02 23:22 | DS ---
DATE OF DISCHARGE: 04/02/2017 CHIEF COMPLAINT: Rigors. HOSPITAL COURSE: The patient is a 66-year-old woman who presented to the hospital with complaints of rigors. She also had a fever over 101.2 in the Emergency Room, but no focal symptoms suspicious for focal infection. She was admitted with suspected sepsis. Infectious Disease consult was obtained. The patient, however, ruled out for sepsis with negative blood cultures. Her symptoms were attributed to a viral syndrome. Empiric antibiotics, therefore, were discontinued and the patient was discharged to home. Of note, during her hospitalization, she was noted to have fluctuating transaminases, elevated in the 180 range at time of discharge. She was advised to follow up with her PCP next week to monitor labs. This was thought to be part of her viral syndrome. PHYSICAL EXAMINATION: VITAL SIGNS: Show a blood pressure of 118/62, heart rate at 89, respiratory rate at 18. She is afebrile. GENERAL: This is a well-nourished, well-developed 66-year-old woman, alert and oriented, in no acute distress. LUNGS: Clear. HEART: Has regular rate and rhythm. ABDOMEN: Has positive bowel sounds, soft, nontender. EXTREMITIES: Show no edema. SKIN: Warm, soft and dry. DISCHARGE DIAGNOSIS: Viral syndrome. DISCHARGE DISPOSITION: To home. DISCHARGE CONDITION: Improved. DISCHARGE MEDICATIONS: Please refer to MAR. DISCHARGE INSTRUCTIONS: The patient will follow up with her PCP at next week for lab monitoring. CLAUDIA PUENTE MD DR: ROHINI/nts JOB#: [id number] / [id number] RUPINDER
[2017-04-05 13:15] LABS: ALPHA 1 0.3 g/dL (0.0-0.4); ALPHA 2 0.9 g/dL (0.4-1.0); BETA 0.9 g/dL (0.7-1.3); GAMMA 2.8 g/dL (0.4-1.8); M-SPIKE Not Observed g/dL (Not Observed)
== END 2017-04-02 12:12 | disposition home or self-care (01) | DRG 683 ==
LOC: ER 17:04 → 5 NORTH 20:19
PROVIDERS: ADMIT Internal Medicine; ATTEND Internal Medicine
DX: N17.9 Acute kidney failure, unspecified (principal); E87.1 Hypo-osmolality and hyponatremia; I12.9 Hypertensive chronic kidney disease with stage 1 through stage 4 chronic kidney disease, or unspecified chronic kidney disease; N39.0 Urinary tract infection, site not specified; B34.9 Viral infection, unspecified; N18.3 Chronic kidney disease, stage 3 (moderate); D89.2 Hypergammaglobulinemia, unspecified; E86.0 Dehydration; E86.1 Hypovolemia; E87.5 Hyperkalemia; E87.6 Hypokalemia; F17.200 Nicotine dependence, unspecified, uncomplicated; M10.9 Gout, unspecified; M17.9 Osteoarthritis of knee, unspecified; Z88.2 Allergy status to sulfonamides; Z90.710 Acquired absence of both cervix and uterus; Z96.659 Presence of unspecified artificial knee joint; M19.90 Unspecified osteoarthritis, unspecified site; G62.9 Polyneuropathy, unspecified; Z88.8 Allergy status to other drugs, medicaments and biological substances
CPT/HCPCS: 36415; 71020; 80048; 80053; 81001; 82977; 83605; 83615; 83930; 83935; 84165; 84550; 85025; 87040; 87086; 87804; 90686; 93005; 96361; 96365; 96366; 96367; 96375; 99285; J1885; J2543; J3370; J7030; J7040

== ENCOUNTER 2018-02-04 11:30 | Inpatient (IN) | payer MEDICARE, OTHER ==
[2018-02-04 12:22] LABS: ADD MAN DIFF? NO
[2018-02-04 12:28] LABS: BASO # 0.1 x10^3/uL (0.0-0.2); BASO % 1 % (0-3); EOS # 0.2 x10^3/uL (0.0-0.7); EOS % 4 % (0-3); HEMATOCRIT 38.9 % (36.0-47.0); HEMOGLOBIN 12.9 g/dL (12.0-15.5); LYMPH # 2.2 x10^3/uL (1.0-4.8); LYMPH % 34 % (24-48); MEAN CORPUSCULAR HEMOGLOBIN 29 pg (25-35); MEAN CORPUSCULAR HGB CONC 33 g/dL (31-37); MEAN CORPUSCULAR VOLUME 86 fL (79-100); MONO # 0.5 x10^3/uL (0.0-1.1); MONO % 7 % (0-9); NEUT # 3.4 x10^3uL (1.8-7.7); NEUT % 54 % (31-73); PLATELET COUNT 400 x10^3/uL (140-400); RED BLOOD COUNT 4.52 x10^6/uL (3.50-5.40); RED CELL DISTRIBUTION WIDTH 13.6 % (11.5-14.5); WHITE BLOOD COUNT 6.4 x10^3/uL (4.0-11.0)
[2018-02-04] MEDS: IV NORMAL SALINE 1000ML BAG 1,000 ML IV (12:28)
[2018-02-04] MEDS: ONDANSETRON PF 4 MG/2 ML VIAL. IV (12:28)
[2018-02-04] MEDS: FLUCONAZOLE 100 MG TABLET. PO (12:29)
[2018-02-04] MEDS: diphenhydrAMINE HCL 25 MG CAPSULE PO (12:30)
[2018-02-04] MEDS: MORPHINE SULFATE 4 MG/ML DISP.SYRIN. IV (12:33)
[2018-02-04 12:39] LABS: ANION GAP 10 (6-14); BLOOD UREA NITROGEN 21 mg/dL (7-20); CALCIUM 10.2 mg/dL (8.5-10.1); CARBON DIOXIDE 23 mmol/L (21-32); CHLORIDE 97 mmol/L (98-107); CREATININE 1.1 mg/dL (0.6-1.0); GFR 60.3; GLUCOSE 98 mg/dL (70-99); POTASSIUM 4.2 mmol/L (3.5-5.1); SODIUM 130 mmol/L (136-145)
[2018-02-04 12:44] LABS: BILIRUBIN,URINE SMALL (NEG); CLARITY,URINE CLEAR; COLOR,URINE AMBER; GLUCOSE,URINE NEGATIVE (NEG); NITRITE,URINE NEGATIVE (NEG); PROTEIN,URINE >=300 mg/dL (NEG-TRACE)
[2018-02-04 12:46] LABS: HYALINE CASTS, URINE MANY /HPF; SQUAMOUS EPITHELIAL CELL,UR FEW /LPF
[2018-02-04 12:47] LABS: AMORPHOUS SEDIMENT,UR PRESENT /HPF
[2018-02-04 12:48] LABS: BACTERIA,URINE FEW /HPF (0-FEW)
[2018-02-04 12:49] LABS: TROPONINI 0.045 ng/mL (0.000-0.055)
[2018-02-04 13:47] LABS: ALBUMIN 3.4 g/dL (3.4-5.0); ALK PHOS 85 U/L (46-116); ALT (SGPT) 71 U/L (14-59); AST (SGOT) 113 U/L (15-37); DIRECT BILIRUBIN 0.1 mg/dL (0.0-0.2); LIPASE 202 U/L (73-393); TOTAL BILIRUBIN 0.4 mg/dL (0.2-1.0); TOTAL PROTEIN 9.7 g/dL (6.4-8.2)
[2018-02-04 16:24] LABS: TROPONINI 0.059 ng/mL (0.000-0.055)
[2018-02-04] MEDS: ASPIRIN CHEWABLE 81 MG TABLET. PO (17:29)
[2018-02-04] MEDS: CARVEDILOL 12.5 MG TABLET. PO (17:34)
[2018-02-04] MEDS: hydrALAZINE 20 MG/ML VIAL. IVP (17:51)
[2018-02-04] MEDS ORDERED: HYDROcodone/APAP 7.5/325MG 1 TAB TABLET PO (18:00)
[2018-02-04] MEDS ORDERED: ONDANSETRON ODT 4 MG TAB.RAPDIS. PO (18:00)
[2018-02-04] MEDS: LABETALOL 20 MG/4 ML DISP.SYRIN. IVP (18:06)
[2018-02-04] MEDS: amLODIPine BESYLATE 10 MG TABLET PO (18:11)
[2018-02-04] MEDS ORDERED: ALBUTEROL SULFATE 2.5 MG/3 ML NEBU. NEB (18:45)
[2018-02-04] MEDS ORDERED: C.DIFF MED SCREEN BY RX. MC (20:15)
[2018-02-04] MEDS: FAMOTIDINE 20 MG TABLET. PO (20:49)
[2018-02-04] MEDS: CYCLOBENZAPRINE 10 MG TABLET. PO (20:49)
[2018-02-04] MEDS: hydrALAZINE 25 MG TABLET PO (20:50)
[2018-02-04] MEDS: PATCH REMOVAL. MC (20:50)
[2018-02-04] MEDS: DICLOFENAC SODIUM 1% TOPICAL GEL 100GM TUBE. TP (20:51)
[2018-02-04] MEDS: diphenhydrAMINE 50 MG/ML VIAL IVP (20:51)
[2018-02-04] MEDS ORDERED: NON FORMULARY ITEM (Melatonin 1 TAB) PO (21:00)
[2018-02-04 22:05] LABS: TROPONINI 0.073 ng/mL (0.000-0.055)
[2018-02-04] MEDS: TRIAMCINOLONE ACETONIDE 0.1% TOPICAL OINTMENT 15GM TUBE. TP (23:58)
[2018-02-05] MEDS: TEMAZEPAM 7.5 MG CAPSULE PO
[2018-02-05] MEDS: ACETAMINOPHEN 500 MG TABLET PO (05:36)
[2018-02-05] MEDS: DICLOFENAC SODIUM 1% TOPICAL GEL 100GM TUBE. TP ×2 (08:08→20:51)
[2018-02-05] MEDS: amLODIPine BESYLATE 10 MG TABLET PO (08:09)
[2018-02-05] MEDS: ASPIRIN ENTERIC COATED 81 MG TABLET.DR. PO (08:09)
[2018-02-05] MEDS: FLUTICASONE 50MCG/NASAL SPRAY 16GM BOTTLE. NS (08:09)
[2018-02-05] MEDS: CARVEDILOL 12.5 MG TABLET. PO ×2 (08:10→17:27)
[2018-02-05] MEDS: MULTIVITAMIN with MINERAL TABLET. PO (08:10)
[2018-02-05] MEDS: POLYETHYLENE GLYCOL 3350 17 GM PACKET. PO (08:10)
[2018-02-05] MEDS: LIDOCAINE (700MG/PATCH) PATCH. TD (08:11)
[2018-02-05] MEDS: ALLOPURINOL 300 MG TABLET. PO (08:11)
[2018-02-05] MEDS: CYCLOBENZAPRINE 10 MG TABLET. PO ×3 (08:11→20:52)
[2018-02-05] MEDS: hydrALAZINE 25 MG TABLET PO ×3 (08:11→20:54)
[2018-02-05] MEDS: diphenhydrAMINE 50 MG/ML VIAL IVP ×2 (10:49→19:31)
[2018-02-05] MEDS: FLUCONAZOLE 100 MG TABLET. PO (14:33)
[2018-02-05] MEDS: ESTROGENS, CONJ VAGINAL CREAM 30GM TUBE. VG (17:27)
[2018-02-05] MEDS: LABETALOL 20 MG/4 ML DISP.SYRIN. IVP ×2 (19:52)
[2018-02-05] MEDS: ATORVASTATIN CALCIUM 20 MG TABLET PO (20:52)
[2018-02-05] MEDS: FAMOTIDINE 20 MG TABLET. PO (20:52)
[2018-02-05] MEDS: PATCH REMOVAL. MC (20:54)
[2018-02-06] MEDS: ACETAMINOPHEN 500 MG TABLET PO ×2 (01:19→21:48)
[2018-02-06] MEDS: TEMAZEPAM 7.5 MG CAPSULE PO ×2 (01:20→21:48)
[2018-02-06] MEDS: LABETALOL 20 MG/4 ML DISP.SYRIN. IVP (03:43)
[2018-02-06] MEDS: diphenhydrAMINE 50 MG/ML VIAL IVP ×2 (03:46→13:38)
[2018-02-06 05:36] LABS: CHOLESTEROL 204 mg/dL (0-200); CHOLESTEROL/HDL RATIO 3.7; HDLC 55 mg/dL (40-60); LDLC 133 mg/dL (0-100); NON-HDL CHOLESTEROL 149 mg/dL (0-129); TRIGLYCERIDES 81 mg/dL (0-150); VLDLC 16 mg/dL (0-40)
[2018-02-06] MEDS: CYCLOBENZAPRINE 10 MG TABLET. PO ×3 (08:43→21:48)
[2018-02-06] MEDS: ASPIRIN ENTERIC COATED 81 MG TABLET.DR. PO (08:43)
[2018-02-06] MEDS: MULTIVITAMIN with MINERAL TABLET. PO (08:43)
[2018-02-06] MEDS: POLYETHYLENE GLYCOL 3350 17 GM PACKET. PO (08:43)
[2018-02-06] MEDS: FLUTICASONE 50MCG/NASAL SPRAY 16GM BOTTLE. NS (08:43)
[2018-02-06] MEDS: LIDOCAINE (700MG/PATCH) PATCH. TD (08:43)
[2018-02-06] MEDS: FLUCONAZOLE 100 MG TABLET. PO (08:43)
[2018-02-06] MEDS: ALLOPURINOL 300 MG TABLET. PO (08:43)
[2018-02-06] MEDS: amLODIPine BESYLATE 10 MG TABLET PO (08:44)
[2018-02-06] MEDS: CARVEDILOL 12.5 MG TABLET. PO ×2 (08:44→17:47)
[2018-02-06] MEDS: hydrALAZINE 25 MG TABLET PO ×3 (08:45→21:48)
[2018-02-06] MEDS: DICLOFENAC SODIUM 1% TOPICAL GEL 100GM TUBE. TP ×2 (08:51→21:49)
[2018-02-06] MEDS: HYDROcodone/APAP 5/325MG 1 TAB TABLET PO (12:44)
[2018-02-06] MEDS: PATCH REMOVAL. MC (21:00)
[2018-02-06] MEDS: hydrOXYzine 10 MG TABLET PO (21:48)
[2018-02-06] MEDS: FAMOTIDINE 20 MG TABLET. PO (21:48)
[2018-02-06] MEDS: ATORVASTATIN CALCIUM 20 MG TABLET PO (21:48)
[2018-02-06] MEDS: ESTROGENS, CONJ VAGINAL CREAM 30GM TUBE. VG (21:58)
[2018-02-07] MEDS: traMADol 50 MG TABLET PO ×2 (03:56→15:20)
[2018-02-07 05:55] LABS: URIC ACID 6.9 mg/dL (2.6-6.0)
[2018-02-07 06:03] LABS: AMMONIA < 10 mcmol/L (11-34)
[2018-02-07] MEDS: LIDOCAINE (700MG/PATCH) PATCH. TD (09:17)
[2018-02-07] MEDS: ONDANSETRON PF 4 MG/2 ML VIAL. IV (09:17)
[2018-02-07] MEDS: TRIAMCINOLONE ACETONIDE 0.1% TOPICAL OINTMENT 15GM TUBE. TP ×2 (09:18→20:42)
[2018-02-07] MEDS: ACETAMINOPHEN 500 MG TABLET PO (09:19)
[2018-02-07] MEDS: DICLOFENAC SODIUM 1% TOPICAL GEL 100GM TUBE. TP ×2 (09:19→20:41)
[2018-02-07] MEDS: amLODIPine BESYLATE 10 MG TABLET PO (09:30)
[2018-02-07] MEDS: CARVEDILOL 12.5 MG TABLET. PO ×2 (09:30→16:39)
[2018-02-07] MEDS: CYCLOBENZAPRINE 10 MG TABLET. PO ×3 (09:30→20:35)
[2018-02-07] MEDS: ASPIRIN ENTERIC COATED 325 MG TABLET.DR. PO (09:31)
[2018-02-07] MEDS: FLUCONAZOLE 100 MG TABLET. PO (09:31)
[2018-02-07] MEDS: hydrALAZINE 25 MG TABLET PO ×3 (09:31→20:36)
[2018-02-07] MEDS: MULTIVITAMIN with MINERAL TABLET. PO (09:32)
[2018-02-07] MEDS: ALLOPURINOL 300 MG TABLET. PO (09:32)
[2018-02-07] MEDS: FLUTICASONE 50MCG/NASAL SPRAY 16GM BOTTLE. NS (09:32)
[2018-02-07] MEDS: POLYETHYLENE GLYCOL 3350 17 GM PACKET. PO (09:32)
[2018-02-07] MEDS: diphenhydrAMINE 50 MG/ML VIAL IVP ×2 (15:21→21:31)
[2018-02-07] MEDS: ENOXAPARIN 40 MG/0.4 ML SYRINGE. SQ (15:22)
[2018-02-07] MEDS: TEMAZEPAM 7.5 MG CAPSULE PO (20:35)
[2018-02-07] MEDS: ATORVASTATIN CALCIUM 20 MG TABLET PO (20:36)
[2018-02-07] MEDS: FAMOTIDINE 20 MG TABLET. PO (20:36)
[2018-02-07] MEDS: ESTROGENS, CONJ VAGINAL CREAM 30GM TUBE. VG (20:42)
[2018-02-07] MEDS: PATCH REMOVAL. MC (20:42)
[2018-02-07] MEDS: hydrOXYzine 10 MG TABLET PO (21:31)
[2018-02-08] MEDS: ASPIRIN ENTERIC COATED 325 MG TABLET.DR. PO (08:53)
[2018-02-08] MEDS: MULTIVITAMIN with MINERAL TABLET. PO (08:54)
[2018-02-08] MEDS: CARVEDILOL 12.5 MG TABLET. PO (08:54)
[2018-02-08] MEDS: amLODIPine BESYLATE 10 MG TABLET PO (08:54)
[2018-02-08] MEDS: POLYETHYLENE GLYCOL 3350 17 GM PACKET. PO (08:54)
[2018-02-08] MEDS: ALLOPURINOL 300 MG TABLET. PO (08:55)
[2018-02-08] MEDS: LIDOCAINE (700MG/PATCH) PATCH. TD (08:55)
[2018-02-08] MEDS: DICLOFENAC SODIUM 1% TOPICAL GEL 100GM TUBE. TP (08:55)
[2018-02-08] MEDS: hydrALAZINE 25 MG TABLET PO (08:55)
[2018-02-08] MEDS: FLUTICASONE 50MCG/NASAL SPRAY 16GM BOTTLE. NS (08:57)
[2018-02-08] MEDS: CYCLOBENZAPRINE 10 MG TABLET. PO ×2 (08:57→14:07)
[2018-02-08 13:34] LABS: SEDIMENTATION RATE 73 (0-25)
== END 2018-02-08 14:58 | disposition home or self-care (01) | DRG 65 ==
LOC: ER 11:30 → 2 SOUTH 17:07
DX: I63.9 Cerebral infarction, unspecified (principal); I50.22 Chronic systolic (congestive) heart failure; I42.9 Cardiomyopathy, unspecified; H54.7 Unspecified visual loss; I11.0 Hypertensive heart disease with heart failure; Z96.659 Presence of unspecified artificial knee joint; F12.90 Cannabis use, unspecified, uncomplicated; Z88.6 Allergy status to analgesic agent; Z88.1 Allergy status to other antibiotic agents; Z88.2 Allergy status to sulfonamides; J44.9 Chronic obstructive pulmonary disease, unspecified; G62.9 Polyneuropathy, unspecified; M19.90 Unspecified osteoarthritis, unspecified site; M10.9 Gout, unspecified; Z82.49 Family history of ischemic heart disease and other diseases of the circulatory system; Z88.9 Allergy status to unspecified drugs, medicaments and biological substances; N95.2 Postmenopausal atrophic vaginitis; Z91.81 History of falling; E78.5 Hyperlipidemia, unspecified; Z83.511 Family history of glaucoma; Z86.73 Personal history of transient ischemic attack (TIA), and cerebral infarction without residual deficits; Z90.710 Acquired absence of both cervix and uterus; Z80.0 Family history of malignant neoplasm of digestive organs; N76.0 Acute vaginitis; F44.9 Dissociative and conversion disorder, unspecified
CPT/HCPCS: 36415; 51701; 70450; 70551; 80048; 80061; 80076; 81001; 82140; 83690; 84484; 84550; 85025; 85651; 92610-GN; 93005; 93880; 97110-GO; 97116-GP; 97162-GP; 97166-GO; 97530-GO; 97535-GO; 99285; 99285-25; J0360; J1200; J1650; J2270; J2405; J3490; J7030; Q0111; Q0163

== ENCOUNTER 2018-02-27 14:12 | Inpatient (IN) | payer MEDICARE, OTHER ==
[~2018-02-27] VITALS: Ht 167.6 cm; Wt 59.0 kg
[~2018-02-27 14:12] MED LIST changes: +AMLO10TA2 PO; +AMLO1CAP12 PO; +ASPI-612 PO; +ASPI325T11 PO; +ATOR20TA58 PO; +CARV12.52 PO; +CARV3.122 PO; +CYCL10TA2 PO; +DICL100G18 TP; +FLUT16SP NS; +GABA-586 PO; +HYDR-2868 PO; +LIDO700A39 TP; +MELA3TAB2 PO; +MULT1TAB52 PO; +NAPR-514 PO; -NAPR500T4 PO; +RANI150T2 PO; +TRIA15OI TP
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
[2018-02-27] MEDS ORDERED: IV NORMAL SALINE 1000ML BAG 1,000 ML IV ONE (15:00)
[2018-02-27] MEDS ORDERED: PANTOPRAZOLE IV PUSH 40 MG VIAL. IVP ONE (15:30)
[2018-02-27] MEDS ORDERED: ONDANSETRON PF 4 MG/2 ML VIAL. IV ONE (15:30)
[2018-02-27 15:31] LABS: BASO % 1 % (0-3); EOS # 0.1 x10^3/uL (0.0-0.7); EOS % 1 % (0-3); HEMATOCRIT 37.3 % (36.0-47.0); HEMOGLOBIN 12.4 g/dL (12.0-15.5); LYMPH # 2.3 x10^3/uL (1.0-4.8); LYMPH % 32 % (24-48); MEAN CORPUSCULAR HEMOGLOBIN 28 pg (25-35); MEAN CORPUSCULAR HGB CONC 33 g/dL (31-37); MEAN CORPUSCULAR VOLUME 85 fL (79-100); MONO # 0.4 x10^3/uL (0.0-1.1); MONO % 6 % (0-9); NEUT # 4.3 x10^3uL (1.8-7.7); NEUT % 60 % (31-73); PLATELET COUNT 224 x10^3/uL (140-400); RED BLOOD COUNT 4.38 x10^6/uL (3.50-5.40); RED CELL DISTRIBUTION WIDTH 13.7 % (11.5-14.5); WHITE BLOOD COUNT 7.2 x10^3/uL (4.0-11.0)
[2018-02-27 15:40] LABS: CALCIUM 10.4 mg/dL (8.5-10.1); CREATININE 1.5 mg/dL (0.6-1.0); GFR 42.2; POTASSIUM 3.8 mmol/L (3.5-5.1); PROTHROMBIN TIME PATIENT 15.8 SEC (11.7-14.0)
[2018-02-27 15:45] LABS: ALBUMIN 3.3 g/dL (3.4-5.0); ALBUMIN/GLOBULIN RATIO 0.5 (1.0-1.7); TOTAL BILIRUBIN 0.3 mg/dL (0.2-1.0); TOTAL PROTEIN 9.7 g/dL (6.4-8.2)
--- NOTE | 2018-02-27 15:48 | RAD ---
EXAM: Chest, single view. HISTORY: Vomiting. Aspiration. COMPARISON: 01/25/2018 FINDINGS: A frontal view of the chest is obtained. There is left lower lobe atelectasis. There is nodular opacity involving the right lower lobe likely due to a prominent anterior rib end. No pleural effusion or pneumothorax is seen. There is a prominent cardiac silhouette, a component of which is due to portable technique. IMPRESSION: Suspected left lower lobe atelectasis. Electronically signed by: Gisele Tillman MD (02/27/2018 3:45 PM) [facility]
[2018-02-27 16:27] LABS: BILIRUBIN,URINE MODERATE (NEG); CLARITY,URINE CLEAR; COLOR,URINE YELLOW; NITRITE,URINE NEGATIVE (NEG); PROTEIN,URINE >=300 mg/dL (NEG-TRACE)
[2018-02-27 16:34] LABS: BACTERIA,URINE 0 /HPF (0-FEW); RBC,URINE 0 /HPF (0-2); WBC,URINE 0 /HPF (0-4)
[2018-02-27 16:35] LABS: HYALINE CASTS, URINE MANY /HPF
[2018-02-27] MEDS ORDERED: HYDROcodone/APAP 7.5/325MG 1 TAB TABLET PO PRN (17:00)
[2018-02-27] MEDS ORDERED: NON FORMULARY ITEM (Albuterol Sulfate (Proair Hfa Inhaler) 2 PUFF) INH PRN (17:00)
[2018-02-27] MEDS ORDERED: PROCHLORPERAZINE 25 MG SUPP.RECT. PR PRN (17:00)
[2018-02-27] MEDS ORDERED: IBUPROFEN 400 MG TABLET. PO PRN (17:00)
[2018-02-27] MEDS ORDERED: PROCHLORPERAZINE 10 MG/2 ML VIAL. IV PRN ×2 (17:00)
[2018-02-27] MEDS ORDERED: oxyCODONE IR 5 MG TABLET PO PRN (17:00)
[2018-02-27] MEDS ORDERED: CALCIUM CARBONATE 500 MG TAB.CHEW PO PRN (17:00)
[2018-02-27] MEDS ORDERED: PROMETHAZINE 12.5 MG TABLET. PO PRN (17:00)
[2018-02-27] MEDS ORDERED: oxyCODONE/APAP 5/325 1 TAB TABLET PO PRN (17:00)
[2018-02-27] MEDS ORDERED: MAGNESIUM HYDROXIDE 2,400 MG/30 ML ORAL.SUSP. PO PRN (17:00)
[2018-02-27] MEDS ORDERED: TRIAMCINOLONE ACETONIDE 0.1% TOPICAL OINTMENT 15GM TUBE. TP PRN (17:00)
[2018-02-27] MEDS ORDERED: ACETAMINOPHEN 325 MG TABLET. PO PRN (17:00)
[2018-02-27] MEDS ORDERED: BISACODYL 10 MG SUPP.RECT. PR PRN (17:00)
[2018-02-27] MEDS ORDERED: MAG HYDROX/ALUMINUM HYD/SIMETH 30 ML ORAL.SUSP PO PRN (17:00)
--- NOTE | 2018-02-27 17:00 | RAD ---
CT head without intravenous contrast History: Altered mental status. Recent stroke. Evaluate for hemorrhage. Comparison: CT head February 04, 2017. Technique: Axial images are obtained of the head from the skull base through the vertex without IV contrast. Exposure: One or more of the following individualized dose reduction techniques were utilized for this examination: 1. Automated exposure control 2. Adjustment of the mA and/or kV according to patient size 3. Use of iterative reconstruction technique Findings: The ventricles are appropriate in size, shape, and location for the patient's age. No obvious intracranial mass, mass-effect, midline shift, hemorrhage or obvious acute ischemic infarction is identified. Basilar cisterns are patent. Low-density involving the left anderson is compatible with known recent infarction. Bone windows demonstrate no acute calvarial abnormality. The visualized paranasal sinuses appear clear. Impression: 1. No acute intracranial hemorrhage. 2. Subacute left pontine infarction. Electronically signed by: Jeremy Soares MD (02/27/2018 4:57 PM) [facility] [place]
--- NOTE | 2018-02-27 17:21 | PDOC1 ---
History and Physical Date of Admission Date of Admission DATE: 02/27/18 TIME: 17:15 Identification/Chief Complaint Chief Complaint Nausea vomiting Source Source: Caregiver, Chart review, Patient History of Present Illness History of Present Illness Very poor historian, known to me from prev admits either for psych issues mainly manifesting as bilateral blindness which rather I think is subjective rather than objective, recent one was N STEMI admission but not needing any cardiac catheterizations or stents. In any case coming in because of nausea, vomiting, she is unable to tell me for how long. She is alone. Poor historian, denies recent travel or suspicious foods, lives with who is not currently having the same sxs. Her creatinine is up a bit 1.5 with hypercalcemia 10.4. I do believe she has some element of dementia or cognitive impairment. Her last brain CT which showed either chronic small vessel change or maybe a small sized brain. In any case nausea vomiting, right upper quadrant ultrasound is pending. CT abdomen? Pending. She is vomiting all her pure diet. She is nondiabetic. I did review a CAT scan not too long ago one month ago, no obstruction. I will check a gastric emptying test. Again she is nondiabetic. She falls asleep, got some nausea meds from the ER. We will admit, address the nausea vomiting. She also did complain of dysphagia, known to GI. We'll reconsult GI. Claims in the past when I reviewed her record she was supposed to have an EGD by Dr. Tapia? She has hx of Hep C with past admits having elevated LFTs, NOne so far now, Past Medical History Cardiovascular: HTN Pulmonary: COPD, Pneumonia CENTRAL NERVOUS SYSTEM: Periperal neuropathy GI: Gastritis, Other Heme/Onc: No pertinent hx Hepatobiliary: Hep A/B/C Psych: No pertinent hx Musculoskeletal: Osteoarthritis Rheumatologic: Gout Infectious disease: No pertinent hx Renal/: Other Endocrine: No pertinent hx Past Surgical History Past Surgical History: Total knee replacement, Hysterectomy Family History Family History: Heart Disease Social History Smoke: No ALCOHOL: none Drugs: Marijuana Current Problem List Problem List Problems Medical Problems: (1) Vomiting Status: Acute Current Medications Current Medications Current Medications Ondansetron HCl (Zofran) 4 mg 1X ONCE IV Last administered on 02/27/18at 15:53 ; Start 02/27/18 at 15:30; Stop 02/27/18 at 15:31; Status DC Sodium Chloride 1,000 ml @ 1,000 mls/hr 1X ONCE IV Last administered on at 15:36; Start 02/27/18 at 15:00; Stop 02/27/18 at 15:59; Status DC Pantoprazole Sodium (PROTONIX VIAL for IV PUSH) 40 mg 1X ONCE IVP Last administered on 02/27/18at 15:53; Start 02/27/18 at 15:30; Stop 02/27/18 at 15:31 ; Status DC Sodium Chloride 1,000 ml @ 100 mls/hr Q10H IV ; Start 02/27/18 at 16:54 Ondansetron HCl (Zofran) 4 mg PRN Q6HRS PRN IV NAUSEA/VOMITING; Start 02/27/18 at 17:00 Prochlorperazine Edisylate (Compazine) 10 mg PRN Q6HRS PRN IV NAUSEA/VOMITING; Start 02/27/18 at 17:00 Prochlorperazine (Compazine) 25 mg PRN Q12HR PRN NM NAUSEA/VOMITING; Start at 17:00 Al Hydroxide/Mg Hydroxide (Mylanta Plus Xs) 30 ml PRN Q3HRS PRN PO HEARTBURN / GAS; Start 02/27/18 at 17:00 Calcium Carbonate/ Glycine (Tums) 500 mg PRN Q3HRS PRN PO UPSET STOMACH; Start 02/27/18 at 17:00 Oxycodone HCl (Roxicodone) 5 mg PRN Q3HRS PRN PO BREAKTHROUGH PAIN; Start 02/27 at 17:00 Morphine Sulfate (Morphine Sulfate) 1 mg PRN Q1HR PRN IV PAIN; Start 02/27/18 at 17:00 Acetaminophen (Tylenol) 650 mg PRN Q6HRS PRN PO Headaches, Temp > 101.5F; Start 02/27/18 at 17:00 Ibuprofen (Motrin) 400 mg PRN Q6HRS PRN PO MILD PAIN; Start 02/27/18 at 17:00 Magnesium Hydroxide (Milk Of Magnesia) 2,400 mg PRN Q12HR PRN PO CONSTIPATION; Start 02/27/18 at 17:00 Bisacodyl (Dulcolax Supp) 10 mg PRN DAILY PRN NM CONSTIPATION; Start 02/27/18 at 17:00 Enoxaparin Sodium (Lovenox 40mg Syringe) 40 mg Q24H SQ ; Start 02/27/18 at 21:00 Prochlorperazine Edisylate (Compazine) 10 mg PRN Q6HRS PRN IV NAUSEA/VOMITING; Start 02/27/18 at 17:00; Status UNV Promethazine HCl (Phenergan) 12.5 mg PRN Q6HRS PRN PO NAUSEA/VOMITING; Start at 17:00 Allopurinol (Zyloprim) 300 mg DAILY PO ; Start 02/28/18 at 09:00 Amlodipine Besylate (Norvasc) 10 mg DAILY PO ; Start 02/28/18 at 09:00 Aspirin (Ecotrin) 325 mg DAILY08 PO ; Start 02/28/18 at 08:00 Atorvastatin Calcium (Lipitor) 20 mg QHS PO ; Start 02/27/18 at 21:00 Carvedilol (Coreg) 12.5 mg BIDWMEALS PO ; Start 02/27/18 at 18:00 Cyclobenzaprine HCl (Flexeril) 10 mg TID PO ; Start 02/27/18 at 21:00 Diclofenac Sodium (Voltaren) 1 mary BID TP ; Start 02/27/18 at 21:00 Fluticasone Propionate (Flonase) 2 spray DAILY NS ; Start 02/28/18 at 09:00 Acetaminophen/ Hydrocodone Bitart (Lortab 7.5/325) 1 tab PRN Q6HRS PRN PO MODERATE - SEVERE PAIN; Start 02/27/18 at 17:00 Triamcinolone Acetonide (Kenalog) 1 mary PRN BID PRN TP RASH; Start 02/27/18 at 17:00 Non-Formulary Medication (Albuterol Sulfate (Proair Hfa Inhaler)) 2 puff PRN Q6HRS PRN INH SHORTNESS OF BREATH; Start 02/27/18 at 17:00; Status UNV Hydralazine HCl (Apresoline) 25 mg TID PO ; Start 02/27/18 at 21:00 Lidocaine (Lidoderm) 1 patch DAILY TD ; Start 02/28/18 at 09:00 Non-Formulary Medication (Melatonin ) 1 tab QHS PO ; Start 02/27/18 at 21:00; Status UNV Multivitamins (Thera M Plus) 1 tab DAILY PO ; Start 02/28/18 at 09:00 Non-Formulary Medication (Polyethylene Glycol 1000 (Polyethylene Glycol)) 500 gm DAILY MC ; Start 02/28/18 at 09:00; Status UNV Famotidine (Pepcid) 20 mg QHS PO ; Start 02/27/18 at 21:00 Oxycodone/ Acetaminophen (Percocet 5/325) 1 tab PRN Q4HRS PRN PO PAIN; Start at 17:00; Status UNV Active Scripts Active Aspirin Ec (Aspirin) 325 Mg Tablet.dr 325 Mg PO DAILY08 30 Days Atorvastatin Calcium 20 Mg Tablet 20 Mg PO QHS 30 Days Amlodipine Besylate 10 Mg Tablet 10 Mg PO DAILY 30 Days Carvedilol 12.5 Mg Tablet 12.5 Mg PO BIDWMEALS 30 Days Hydralazine Hcl 25 Mg Tablet 25 Mg PO TID 30 Days Reported Multivitamins (Multivitamin) 1 Each Tablet 1 Tab PO DAILY Lidocaine 1 Each Adh..patch 1 Each TP DAILY Melatonin 3 Mg Tablet 1 Tab PO QHS Voltaren (Diclofenac Sodium) 100 Gm Gel..gram. 1 Gm TP BID Triamcinolone Acetonide 0.1% Oint (Triamcinolone Acetonide) 15 Gm Oint...g. 1 Mary TP PRN BID MIX WITH EUCERIN DIRECTED BY PHYSICIAN Hydrocodone-Apap 7.5-325 (Hydrocodone Bit/Acetaminophen) 1 Each Tablet 1 Tab PO PRN Q6HRS PRN Cyclobenzaprine Hcl 10 Mg Tablet 1 Tab PO TID Fluticasone Propionate Nasal [place] (Fluticasone Propionate) 16 Gm [place].susp 2 [place] NS DAILY Ranitidine Hcl 150 Mg Tablet 1 Tab PO BID Polyethylene Glycol (Polyethylene Glycol 1000) 500 Gm Powder 500 Gm MC DAILY Proair Hfa Inhaler (Albuterol Sulfate) 8.5 Gm Hfa.aer.ad 2 Puff INH PRN Q6HRS PRN Allopurinol 300 Mg Tablet 300 Mg PO DAILY Allergies Allergies: Coded Allergies: lisinopril (Verified Allergy, Severe, Swelling, 01/18/18) angioedema sulfamethoxazole (Verified Allergy, Intermediate, 04/01/17) trimethoprim (Verified Allergy, Intermediate, 04/01/17) ROS Review of System Limited, sleepy, not the best historian Physical Exam General: No acute distress, Other (sleepy) HEENT: PERRLA Lungs: Clear to auscultation, Normal air movement Heart: S1S2, RRR, no thrills, no rubs, no gallops, no murmurs Cardiovascular: S1, S2 Breasts: Normal, Rt breast nml w/o mass, Lt breast nml w/o mass, Nipples normal Abdomen: Normal bowel sounds, Soft, No tenderness, No hepatosplenomegaly, No masses Rectal Exam: not examined PELVIC: Nml ext genitalia Extremities: No clubbing, No cyanosis, No edema, Normal pulses, No tenderness/ swelling Skin: No rashes, No breakdown, No significant lesion Neuro: Normal gait, Normal speech, Strength at 5/5 X4 ext, Normal tone, Sensation intact, Cranial nerves 3-12 NL, Reflexes 2+ Vitals Vitals Vital Signs Date Time Temp Pulse Resp B/P (MAP) Pulse Ox O2 Delivery O2 Flow Rate FiO2 02/27/18 14:16 98.4 69 16 148/84 (105) 96 Room Air 98.4 Labs Labs Laboratory Tests Test 02/27/18 15:18 02/27/18 16:00 White Blood Count 7.2 x10^3/uL (4.0-11.0) Red Blood Count 4.38 x10^6/uL (3.50-5.40) Hemoglobin 12.4 g/dL (12.0-15.5) Hematocrit 37.3 % (36.0-47.0) Mean Corpuscular Volume 85 fL (79-100) Mean Corpuscular Hemoglobin 28 pg (25-35) Mean Corpuscular Hemoglobin Concent 33 g/dL (31-37) Red Cell Distribution Width 13.7 % (11.5-14.5) Platelet Count 224 x10^3/uL (140-400) Neutrophils (%) (Auto) 60 % (31-73) Lymphocytes (%) (Auto) 32 % (24-48) Monocytes (%) (Auto) 6 % (0-9) Eosinophils (%) (Auto) 1 % (0-3) Basophils (%) (Auto) 1 % (0-3) Neutrophils # (Auto) 4.3 x10^3uL (1.8-7.7) Lymphocytes # (Auto) 2.3 x10^3/uL (1.0-4.8) Monocytes # (Auto) 0.4 x10^3/uL (0.0-1.1) Eosinophils # (Auto) 0.1 x10^3/uL (0.0-0.7) Basophils # (Auto) 0.0 x10^3/uL (0.0-0.2) Prothrombin Time 15.8 SEC (11.7-14.0) Prothromb Time International Ratio 1.3 (0.8-1.1) Sodium Level 137 mmol/L (136-145) Potassium Level 3.8 mmol/L (3.5-5.1) Chloride Level 101 mmol/L (98-107) Carbon Dioxide Level 27 mmol/L (21-32) Anion Gap 9 (6-14) Blood Urea Nitrogen 45 mg/dL (7-20) Creatinine 1.5 mg/dL (0.6-1.0) Estimated GFR (Cockcroft-Gault) 42.2 BUN/Creatinine Ratio 30 (6-20) Glucose Level 82 mg/dL (70-99) Calcium Level 10.4 mg/dL (8.5-10.1) Total Bilirubin 0.3 mg/dL (0.2-1.0) Aspartate Amino Transf (AST/SGOT) 66 U/L (15-37) Alanine Aminotransferase (ALT/SGPT) 36 U/L (14-59) Alkaline Phosphatase 94 U/L (46-116) Troponin I Quantitative 0.049 ng/mL (0.000-0.055) Total Protein 9.7 g/dL (6.4-8.2) Albumin 3.3 g/dL (3.4-5.0) Albumin/Globulin Ratio 0.5 (1.0-1.7) Lipase 331 U/L (73-393) Urine Collection Type U cath Urine Color Yellow Urine Clarity Clear Urine pH 5.0 Urine Specific [place] >=1.030 Urine Protein >=300 mg/dL (NEG-TRACE) Urine Glucose (UA) Negative mg/dL (NEG) Urine Ketones (Stick) 15 mg/dL (NEG) Urine Blood Negative (NEG) Urine Nitrite Negative (NEG) Urine Bilirubin Moderate (NEG) Urine Urobilinogen Dipstick 1.0 mg/dL (0.2 mg/dL) Urine Leukocyte Esterase Negative (NEG) Urine RBC 0 /HPF (0-2) Urine WBC 0 /HPF (0-4) Urine Squamous Epithelial Cells None /LPF Urine Bacteria 0 /HPF (0-FEW) Urine Hyaline Casts Many /HPF Laboratory Tests Test 02/27/18 15:18 02/27/18 16:00 White Blood Count 7.2 x10^3/uL (4.0-11.0) Red Blood Count 4.38 x10^6/uL (3.50-5.40) Hemoglobin 12.4 g/dL (12.0-15.5) Hematocrit 37.3 % (36.0-47.0) Mean Corpuscular Volume 85 fL (79-100) Mean Corpuscular Hemoglobin 28 pg (25-35) Mean Corpuscular Hemoglobin Concent 33 g/dL (31-37) Red Cell Distribution Width 13.7 % (11.5-14.5) Platelet Count 224 x10^3/uL (140-400) Neutrophils (%) (Auto) 60 % (31-73) Lymphocytes (%) (Auto) 32 % (24-48) Monocytes (%) (Auto) 6 % (0-9) Eosinophils (%) (Auto) 1 % (0-3) Basophils (%) (Auto) 1 % (0-3) Neutrophils # (Auto) 4.3 x10^3uL (1.8-7.7) Lymphocytes # (Auto) 2.3 x10^3/uL (1.0-4.8) Monocytes # (Auto) 0.4 x10^3/uL (0.0-1.1) Eosinophils # (Auto) 0.1 x10^3/uL (0.0-0.7) Basophils # (Auto) 0.0 x10^3/uL (0.0-0.2) Prothrombin Time 15.8 SEC (11.7-14.0) Prothromb Time International Ratio 1.3 (0.8-1.1) Sodium Level 137 mmol/L (136-145) Potassium Level 3.8 mmol/L (3.5-5.1) Chloride Level 101 mmol/L (98-107) Carbon Dioxide Level 27 mmol/L (21-32) Anion Gap 9 (6-14) Blood Urea Nitrogen 45 mg/dL (7-20) Creatinine 1.5 mg/dL (0.6-1.0) Estimated GFR (Cockcroft-Gault) 42.2 BUN/Creatinine Ratio 30 (6-20) Glucose Level 82 mg/dL (70-99) Calcium Level 10.4 mg/dL (8.5-10.1) Total Bilirubin 0.3 mg/dL (0.2-1.0) Aspartate Amino Transf (AST/SGOT) 66 U/L (15-37) Alanine Aminotransferase (ALT/SGPT) 36 U/L (14-59) Alkaline Phosphatase 94 U/L (46-116) Troponin I Quantitative 0.049 ng/mL (0.000-0.055) Total Protein 9.7 g/dL (6.4-8.2) Albumin 3.3 g/dL (3.4-5.0) Albumin/Globulin Ratio 0.5 (1.0-1.7) Lipase 331 U/L (73-393) Urine Collection Type U cath Urine Color Yellow Urine Clarity Clear Urine pH 5.0 Urine Specific [place] >=1.030 Urine Protein >=300 mg/dL (NEG-TRACE) Urine Glucose (UA) Negative mg/dL (NEG) Urine Ketones (Stick) 15 mg/dL (NEG) Urine Blood Negative (NEG) Urine Nitrite Negative (NEG) Urine Bilirubin Moderate (NEG) Urine Urobilinogen Dipstick 1.0 mg/dL (0.2 mg/dL) Urine Leukocyte Esterase Negative (NEG) Urine RBC 0 /HPF (0-2) Urine WBC 0 /HPF (0-4) Urine Squamous Epithelial Cells None /LPF Urine Bacteria 0 /HPF (0-FEW) Urine Hyaline Casts Many /HPF VTE Prophylaxis Ordered VTE Prophylaxis Devices: Yes VTE Pharmacological Prophylaxi: Yes Assessment/Plan Assessment/Plan Nausea vomiting, differentials include acute gastroenteritis or maybe rule out gastroparesis Nondiabetic Cognitive impairment, mod to severe dementia MOd to severe PCM ? Blindness, subjective Possible psychiatric disorder AK I, VMN secondary to GI loss Dysphagia on pured diet Fall risk Generalized weakness frailty Metabolic encephalopathy POA, etiology to be determined, may be acute on chronic Recent NSTEMI Hypercalcemia (10), likely secondary to poor by mouth Plan: Admit, [employer], PT OT, pured diet once more awake I'm waiting for home meds that I can reconcile Avoid nephrotoxins IVF since GI losses, follow-up right upper quadrant ultrasound I did order a gastric emptying test tomorrow Rpt BMP tmr and calcium after IV hydration Seen at ER Full code further recs pending course MIght need placement DVT ppx JUSTINA KAUR MD Feb 27, 2018 17:21
[2018-02-27] MEDS ORDERED: ALBUTEROL SULFATE 2.5 MG/3 ML NEBU. NEB PRN (17:30)
[2018-02-27] MEDS ORDERED: ENOXAPARIN 40 MG/0.4 ML SYRINGE. SQ SCH (17:30)
[2018-02-27] MEDS ORDERED: CARVEDILOL 12.5 MG TABLET. PO SCH (18:00)
--- NOTE | 2018-02-27 18:18 | RAD ---
Realtime , color and spectral duplex DOPPLER ultrasonography of the right upper quadrant was performed. Clinical Indication: Abdominal pain, concern for cholecystitis. Comparison: CT abdomen pelvis dated 12/19/2017. Findings: The liver is normal in appearance and echogenicity. It measures 15.3 cm. No intrahepatic, biliary ductal dilatation or mass is seen. Numerous gallstones. No pericholecystic fluid or gallbladder wall thickening are seen. The common bile duct is normal in diameter and measures 0.6 cm. Hepatopetal flow is seen in the portal veins. The IVC is patent at the level of the liver. The aorta in the upper abdomen is unremarkable. It measures up to 2.1 cm. The right kidney is normal in appearance, measuring 10.1 x 4.2 x 4.9 cm in length. No hydronephrosis or perinephric fluid is seen around the right kidney. The pancreatic was not well visualized due to overlying bowel gas. Impression: 1. Numerous gallstones which appear to be immobile in the gallbladder neck. No pericholecystic fluid or gallbladder wall thickening. If there is continued concern for acute cholecystitis, nuclear medicine HIDA scan could be obtained. Electronically signed by: Cody Molina MD (02/27/2018 6:15 PM) [facility]
--- NOTE | 2018-02-27 18:49 | EKG ---
[facility] [address] [place] [address] Test Date: 2018-02-27 Test Time: 15:51:34 Pat Name: LORENZA RODRIGUEZ Department: Room: 438 1 Gender: F [employer] Hand: : 1950 Requested By: KERRY LEIVA Order Number: [id number] Reading MD: Deep Capone MD Measurements Intervals [place] Rate: 72 P: 33 MO: 182 QRS: 12 QRSD: 138 T: 26 QT: 446 QTc: 495 Interpretive Statements SINUS RHYTHM RIGHT BUNDLE BRANCH BLOCK NON-SPECIFIC ST/T CHANGES Electronically Signed On 02-28-2018 10:53:04 CDT by Deep Capone MD
[2018-02-27 19:00] VITALS: BP 173/88
[2018-02-27] MEDS ORDERED: NON FORMULARY ITEM (Melatonin 1 TAB) PO SCH (21:00)
[2018-02-27] MEDS: ATORVASTATIN CALCIUM 20 MG TABLET PO SCH (21:00)
[2018-02-27] MEDS ORDERED: FAMOTIDINE 20 MG TABLET. PO SCH (21:00)
[2018-02-27] MEDS: ONDANSETRON PF 4 MG/2 ML VIAL. IV PRN (21:00)
[2018-02-27] MEDS: DICLOFENAC SODIUM 1% TOPICAL GEL 100GM TUBE. TP SCH (21:00)
[2018-02-27] MEDS: IV NORMAL SALINE 1000ML BAG 1,000 ML IV SCH (21:00)
[2018-02-27] MEDS: CYCLOBENZAPRINE 10 MG TABLET. PO SCH (21:00)
[2018-02-27] MEDS: PATCH REMOVAL. MC SCH (21:00)
[2018-02-27] MEDS: hydrALAZINE 25 MG TABLET PO SCH (21:00)
[2018-02-27] MEDS: ENOXAPARIN 40 MG/0.4 ML SYRINGE. SQ SCH (21:10)
[2018-02-27] MEDS: IV 1/2 NORMAL SALINE 1,000 ML IV SCH (21:12)
[2018-02-27] MEDS ORDERED: MAGN200T7 PO (21:21)
[2018-02-27] MEDS ORDERED: CARV6.252 PO (21:21)
[2018-02-27] MEDS ORDERED: MULT1TAB52 PO (21:21)
[2018-02-27] MEDS ORDERED: PROC25SU21 RC (21:21)
[2018-02-27] MEDS ORDERED: CIPR250T30 PO (21:21)
[2018-02-27] MEDS ORDERED: ACET325T9 PO (21:21)
[2018-02-27] MEDS ORDERED: GABA-586 PO (21:21)
[2018-02-27] MEDS ORDERED: CARVEDILOL 6.25 MG TABLET. PO SCH (21:30)
[2018-02-27] MEDS: MORPHINE SULFATE 2 MG/ML VIAL. IV PRN (22:44)
[2018-02-27 22:59] VITALS: BP 157/89
[2018-02-27] MEDS: LABETALOL 20 MG/4 ML DISP.SYRIN. IVP PRN (23:21)
[2018-02-28] VITALS (8 sets, daily range): BP systolic 145–183; BP diastolic 54–97
[2018-02-28] MEDS: MORPHINE SULFATE 2 MG/ML VIAL. IV PRN ×2 (00:24→02:45)
[2018-02-28] MEDS: IV 1/2 NORMAL SALINE 1,000 ML IV SCH (02:54)
[2018-02-28] MEDS: ONDANSETRON PF 4 MG/2 ML VIAL. IV PRN (04:38)
[2018-02-28 06:45] LABS: CALCIUM 9.7 mg/dL (8.5-10.1); GFR 67.3; POTASSIUM 3.4 mmol/L (3.5-5.1)
[2018-02-28] MEDS: ASPIRIN ENTERIC COATED 325 MG TABLET.DR. PO SCH (07:45)
[2018-02-28] MEDS: CYCLOBENZAPRINE 10 MG TABLET. PO SCH ×3 (07:45→20:56)
[2018-02-28] MEDS: hydrALAZINE 25 MG TABLET PO SCH ×3 (07:45→20:55)
[2018-02-28] MEDS: CARVEDILOL 6.25 MG TABLET. PO SCH ×2 (07:45→15:16)
[2018-02-28] MEDS: ALLOPURINOL 300 MG TABLET. PO SCH (07:46)
[2018-02-28] MEDS: MULTIVITAMIN with MINERAL TABLET. PO SCH (07:46)
[2018-02-28] MEDS: amLODIPine BESYLATE 10 MG TABLET PO SCH (07:46)
[2018-02-28] MEDS: POLYETHYLENE GLYCOL 3350 17 GM PACKET. PO SCH (07:46)
[2018-02-28] MEDS: LIDOCAINE (700MG/PATCH) PATCH. TD SCH (09:12)
[2018-02-28] MEDS: IV NORMAL SALINE 1000ML BAG 1,000 ML IV SCH ×2 (09:12→11:24)
[2018-02-28] MEDS: DICLOFENAC SODIUM 1% TOPICAL GEL 100GM TUBE. TP SCH ×2 (09:46→20:43)
[2018-02-28] MEDS: FLUTICASONE 50MCG/NASAL SPRAY 16GM BOTTLE. NS SCH (09:46)
[2018-02-28] MEDS ORDERED: IV NORMAL SALINE 1000ML BAG 1,000 ML IV SCH (10:12)
[2018-02-28] MEDS ORDERED: fentaNYL PF VIAL 100 MCG/2 ML VIAL IV PRN ×2 (10:15)
[2018-02-28] MEDS ORDERED: LIDOCAINE 1% PF 2 ML VIAL. ID PRN (10:15)
[2018-02-28] MEDS ORDERED: MIDAZOLAM HCL/PF 2 MG/2 ML VIAL. IV PRN (10:15)
[2018-02-28] MEDS ORDERED: DEXTROSE 50% 25 GM / 50ML DISP.SYRIN. IV PRN (10:15)
--- NOTE | 2018-02-28 10:40 | PDOC2 ---
GI CONSULT Reason For Consult: Dysphagia, n/v HPI: HPI: 67 y/o female from [facility]. History is challenging. H/o past CVA. Reports of acute onset bilateral blindness, possible conversion disorder. Has been on a pureed diet. Family says sometimes retches, sometimes vomits food (sometimes immediately after eating, sometimes not), sometimes holds food in mouth and lets it dribble out. At least 3 other admissions this summer (at [facility] and ). We same in January for n/ v, abd pain, and diarrhea that quickly resolved - difficult history at that time as well, seemed to confused dysphagia w/ vomiting. Family says n/v and swallowing issues have been ongoing for awhile - unclear if worse or changing. says EGD and colonoscopy w/ Dr. Ribeiro within the past 6 months, unclear findings. Can see pathology from EGD here in 2014 - H. pylori negative gastritis. Had a colonoscopy at that time - no biopsies, cannot view procedure report. does mention he would probably not want to pursue PEG placement. Questionable history of Hep C, had elevated LFTs here in the past. Per RN - "vomited all night." Plans for INSECT CONTROL AIDE eval prior to GES. On US: immobile gallstones in GB neck. PMH: PMH: per chart - CVA, dysphagia, GERD, colon polyps, Hep C, HTN, COPD, OA, neuropathy , depression, anxiety, , ?partial hysterectomy (uterine fibroids on past CT), bilateral ankle surgeries, left knee replacement, skin grafts. FH: Family History: Cancer (father - colon), Hypertension Social History: Smoke: Quit ALCOHOL: none Drugs: Marijuana ROS: Difficult to obtain - ears itch. Vitals: Vitals: Vital Signs Date Time Temp Pulse Resp B/P (MAP) Pulse Ox O2 Delivery O2 Flow Rate FiO2 02/28/18 07:00 98.5 65 16 155/75 (101) 98 98.5 02/28/18 03:26 Room Air Labs: Labs: Laboratory Tests Test 02/27/18 15:18 02/27/18 16:00 02/28/18 05:43 02/28/18 09:42 White Blood Count 7.2 x10^3/uL (4.0-11.0) Red Blood Count 4.38 x10^6/uL (3.50-5.40) Hemoglobin 12.4 g/dL (12.0-15.5) Hematocrit 37.3 % (36.0-47.0) Mean Corpuscular Volume 85 fL (79-100) Mean Corpuscular Hemoglobin 28 pg (25-35) Mean Corpuscular Hemoglobin Concent 33 g/dL (31-37) Red Cell Distribution Width 13.7 % (11.5-14.5) Platelet Count 224 x10^3/uL (140-400) Neutrophils (%) (Auto) 60 % (31-73) Lymphocytes (%) (Auto) 32 % (24-48) Monocytes (%) (Auto) 6 % (0-9) Eosinophils (%) (Auto) 1 % (0-3) Basophils (%) (Auto) 1 % (0-3) Neutrophils # (Auto) 4.3 x10^3uL (1.8-7.7) Lymphocytes # (Auto) 2.3 x10^3/uL (1.0-4.8) Monocytes # (Auto) 0.4 x10^3/uL (0.0-1.1) Eosinophils # (Auto) 0.1 x10^3/uL (0.0-0.7) Basophils # (Auto) 0.0 x10^3/uL (0.0-0.2) Prothrombin Time 15.8 SEC (11.7-14.0) Prothromb Time International Ratio 1.3 (0.8-1.1) Sodium Level 137 mmol/L (136-145) 137 mmol/L (136-145) Potassium Level 3.8 mmol/L (3.5-5.1) 3.4 mmol/L (3.5-5.1) Chloride Level 101 mmol/L (98-107) 104 mmol/L (98-107) Carbon Dioxide Level 27 mmol/L (21-32) 24 mmol/L (21-32) Anion Gap 9 (6-14) 9 (6-14) Blood Urea Nitrogen 45 mg/dL (7-20) 29 mg/dL (7-20) Creatinine 1.5 mg/dL (0.6-1.0) 1.0 mg/dL (0.6-1.0) Estimated GFR (Cockcroft-Gault) 42.2 67.3 BUN/Creatinine Ratio 30 (6-20) Glucose Level 82 mg/dL (70-99) 65 mg/dL (70-99) Calcium Level 10.4 mg/dL (8.5-10.1) 9.7 mg/dL (8.5-10.1) Total Bilirubin 0.3 mg/dL (0.2-1.0) Aspartate Amino Transf (AST/SGOT) 66 U/L (15-37) Alanine Aminotransferase (ALT/SGPT) 36 U/L (14-59) Alkaline Phosphatase 94 U/L (46-116) Troponin I Quantitative 0.049 ng/mL (0.000-0.055) Total Protein 9.7 g/dL (6.4-8.2) Albumin 3.3 g/dL (3.4-5.0) Albumin/Globulin Ratio 0.5 (1.0-1.7) Lipase 331 U/L (73-393) Urine Collection Type U cath Urine Color Yellow Urine Clarity Clear Urine pH 5.0 Urine Specific [place] >=1.030 Urine Protein >=300 mg/dL (NEG-TRACE) Urine Glucose (UA) Negative mg/dL (NEG) Urine Ketones (Stick) 15 mg/dL (NEG) Urine Blood Negative (NEG) Urine Nitrite Negative (NEG) Urine Bilirubin Moderate (NEG) Urine Urobilinogen Dipstick 1.0 mg/dL (0.2 mg/dL) Urine Leukocyte Esterase Negative (NEG) Urine RBC 0 /HPF (0-2) Urine WBC 0 /HPF (0-4) Urine Squamous Epithelial Cells None /LPF Urine Bacteria 0 /HPF (0-FEW) Urine Hyaline Casts Many /HPF Glucose (Fingerstick) 68 mg/dL (70-99) Allergies: Coded Allergies: lisinopril (Verified Allergy, Severe, Swelling, 01/18/18) angioedema sulfamethoxazole (Verified Allergy, Intermediate, 04/01/17) trimethoprim (Verified Allergy, Intermediate, 04/01/17) Medications: Current Medications Medications (Trade) Dose Ordered Sig/Tracie Route PRN Reason Start Time Stop Time Status Last Admin Dose Admin Ondansetron HCl (Zofran) 4 mg 1X ONCE IV 02/27/18 15:30 02/27/18 15:31 DC 02/27/18 15:53 Sodium Chloride 1,000 ml @ 1,000 mls/hr 1X ONCE IV 02/27/18 15:00 02/27/18 15:59 DC 02/27/18 15:36 Pantoprazole Sodium (PROTONIX VIAL for IV PUSH) 40 mg 1X ONCE IVP 02/27/18 15:30 02/27/18 15:31 DC 02/27/18 15:53 Sodium Chloride 1,000 ml @ 100 mls/hr Q10H IV 02/27/18 16:54 02/27/18 21:12 Ondansetron HCl (Zofran) 4 mg PRN Q6HRS PRN IV NAUSEA/VOMITING 02/27/18 17:00 02/28/18 04:38 Prochlorperazine Edisylate (Compazine) 10 mg PRN Q6HRS PRN IV NAUSEA/VOMITING 02/27/18 17:00 02/28/18 00:10 Morphine Sulfate (Morphine Sulfate) 1 mg PRN Q1HR PRN IV PAIN 02/27/18 17:00 02/28/18 02:45 Enoxaparin Sodium (Lovenox 40mg Syringe) 40 mg Q24H SQ 02/27/18 21:00 02/27/18 21:10 Diclofenac Sodium (Voltaren) 1 [place] BID TP 02/27/18 21:00 02/28/18 09:46 Fluticasone Propionate (Flonase) 2 spray DAILY NS 02/28/18 09:00 02/28/18 09:46 Lidocaine (Lidoderm) 1 patch DAILY TD 02/28/18 09:00 02/28/18 09:12 Miscellaneous (Lidoderm Patch Removal) 1 ea QHS MC 02/27/18 21:00 02/27/18 21:00 Sodium Chloride 1,000 ml @ 100 mls/hr Q10H IV 02/27/18 21:00 02/28/18 09:12 Labetalol HCl (Normodyne Iv Push) 20 mg PRN Q2HR PRN IVP HYPERTENSION, SEE COMMENTS 02/27/18 21:45 02/27/18 23:21 Imaging: Imaging: US Impression: 1. Numerous gallstones which appear to be immobile in the gallbladder neck. No pericholecystic fluid or gallbladder wall thickening. If there is continued concern for acute cholecystitis, nuclear medicine HIDA scan could be obtained. CXR IMPRESSION: Suspected left lower lobe atelectasis. Head CT Impression: 1. No acute intracranial hemorrhage. 2. Subacute left pontine infarction. PE: GEN: restless HEENT: Atraumatic, PERRL LUNGS: CTAB HEART: RRR ABD: NABS, S/ND/NT EXTREMITY: No edema SKIN: No rashes, no jaundice NEURO/PSYCH: answers some of my questions but probably has some confusion? A/P: A/P: N/v and dysphagia w/ h/o CVA ?GERD - recent EGD w/ Dr. Ribeiro ?Hep C - if so ?treated Cholelithiasis CRC screen - recent colonoscopy w/ Dr. Ribeiro -- Chronic issues - unclear if changing or worse. Hold GES and INSECT CONTROL AIDE eval for now, EGD this afternoon. Consider surgical consult re: gallstones - does NOT have abd pain currently, though history is difficult. Confirm Hep C. IV acid-lab tech for now. IRINA MAJANO Feb 28, 2018 10:40
[2018-02-28] MEDS ORDERED: PROPOFOL 20 ML IV ONE (11:54)
--- NOTE | 2018-02-28 12:33 | PDOC4 ---
PROCEDURE Procedure EGD with bx n/v Anesthesia with propofol Findings- normal esophagus; mild gastritis (bx) but no ulcers, normal pylorus, mild duodenitis with erosions but no ulcers No clear source for vomiting- suggest further w/u CHEYENNE MARTIN MD Feb 28, 2018 12:33
[2018-02-28] MEDS: POTASSIUM CL 40MEQ IN 0.9%NACL 1,000 ML IV SCH ×2 (13:00→23:00)
--- NOTE | 2018-02-28 13:22 | PDOC ---
PROGRESS NOTES Chief Complaint Chief Complaint CC: Intermittent nausea, vomiting History of Present Illness History of Present Illness Pt seen and examined VSS KISHA RN Vitals Vitals Vital Signs Date Time Temp Pulse Resp B/P (MAP) Pulse Ox O2 Delivery O2 Flow Rate FiO2 02/28/18 12:46 63 20 187/72 100 Room Air 02/28/18 12:31 97 2 97.0 Physical Exam General: No acute distress, Other (sleepy) Lungs: Clear Abdomen: Normal bowel sounds, Soft, No tenderness, No hepatosplenomegaly, No masses Extremities: No clubbing, No cyanosis, No edema, Normal pulses, No tenderness/ swelling Skin: No rashes, No breakdown, No significant lesion Labs LABS Laboratory Tests Test 02/27/18 15:18 02/27/18 16:00 02/28/18 05:43 02/28/18 09:42 White Blood Count 7.2 x10^3/uL (4.0-11.0) Red Blood Count 4.38 x10^6/uL (3.50-5.40) Hemoglobin 12.4 g/dL (12.0-15.5) Hematocrit 37.3 % (36.0-47.0) Mean Corpuscular Volume 85 fL (79-100) Mean Corpuscular Hemoglobin 28 pg (25-35) Mean Corpuscular Hemoglobin Concent 33 g/dL (31-37) Red Cell Distribution Width 13.7 % (11.5-14.5) Platelet Count 224 x10^3/uL (140-400) Neutrophils (%) (Auto) 60 % (31-73) Lymphocytes (%) (Auto) 32 % (24-48) Monocytes (%) (Auto) 6 % (0-9) Eosinophils (%) (Auto) 1 % (0-3) Basophils (%) (Auto) 1 % (0-3) Neutrophils # (Auto) 4.3 x10^3uL (1.8-7.7) Lymphocytes # (Auto) 2.3 x10^3/uL (1.0-4.8) Monocytes # (Auto) 0.4 x10^3/uL (0.0-1.1) Eosinophils # (Auto) 0.1 x10^3/uL (0.0-0.7) Basophils # (Auto) 0.0 x10^3/uL (0.0-0.2) Prothrombin Time 15.8 SEC (11.7-14.0) Prothromb Time International Ratio 1.3 (0.8-1.1) Sodium Level 137 mmol/L (136-145) 137 mmol/L (136-145) Potassium Level 3.8 mmol/L (3.5-5.1) 3.4 mmol/L (3.5-5.1) Chloride Level 101 mmol/L (98-107) 104 mmol/L (98-107) Carbon Dioxide Level 27 mmol/L (21-32) 24 mmol/L (21-32) Anion Gap 9 (6-14) 9 (6-14) Blood Urea Nitrogen 45 mg/dL (7-20) 29 mg/dL (7-20) Creatinine 1.5 mg/dL (0.6-1.0) 1.0 mg/dL (0.6-1.0) Estimated GFR (Cockcroft-Gault) 42.2 67.3 BUN/Creatinine Ratio 30 (6-20) Glucose Level 82 mg/dL (70-99) 65 mg/dL (70-99) Calcium Level 10.4 mg/dL (8.5-10.1) 9.7 mg/dL (8.5-10.1) Total Bilirubin 0.3 mg/dL (0.2-1.0) Aspartate Amino Transf (AST/SGOT) 66 U/L (15-37) Alanine Aminotransferase (ALT/SGPT) 36 U/L (14-59) Alkaline Phosphatase 94 U/L (46-116) Troponin I Quantitative 0.049 ng/mL (0.000-0.055) Total Protein 9.7 g/dL (6.4-8.2) Albumin 3.3 g/dL (3.4-5.0) Albumin/Globulin Ratio 0.5 (1.0-1.7) Lipase 331 U/L (73-393) Urine Collection Type U cath Urine Color Yellow Urine Clarity Clear Urine pH 5.0 Urine Specific [place] >=1.030 Urine Protein >=300 mg/dL (NEG-TRACE) Urine Glucose (UA) Negative mg/dL (NEG) Urine Ketones (Stick) 15 mg/dL (NEG) Urine Blood Negative (NEG) Urine Nitrite Negative (NEG) Urine Bilirubin Moderate (NEG) Urine Urobilinogen Dipstick 1.0 mg/dL (0.2 mg/dL) Urine Leukocyte Esterase Negative (NEG) Urine RBC 0 /HPF (0-2) Urine WBC 0 /HPF (0-4) Urine Squamous Epithelial Cells None /LPF Urine Bacteria 0 /HPF (0-FEW) Urine Hyaline Casts Many /HPF Hepatitis C IgG Antibody Reactive (Nonreactive) Glucose (Fingerstick) 68 mg/dL (70-99) Test 02/28/18 10:46 Glucose (Fingerstick) 125 mg/dL (70-99) Review of Systems Review of Systems C/O pain C/O weakness Assessment and Plan Assessmemt and Plan CC: Nausea w/ vomiting Assessment 1. Vomiting 2. Hypokalemia Plan: -Replenish potassium: order 40 mEq potassium -Monitor for recurrent hypoglycemia as pt. was given 1/2 amp D50 by nurse today -Monitor fluids, hydration status and electrolytes -Await further subspecialist input Comment Review of Relevant I have reviewed the following items ranjith (where applicable) has been applied. Labs Laboratory Tests Test 02/27/18 15:18 02/27/18 16:00 02/28/18 05:43 02/28/18 09:42 White Blood Count 7.2 x10^3/uL (4.0-11.0) Red Blood Count 4.38 x10^6/uL (3.50-5.40) Hemoglobin 12.4 g/dL (12.0-15.5) Hematocrit 37.3 % (36.0-47.0) Mean Corpuscular Volume 85 fL (79-100) Mean Corpuscular Hemoglobin 28 pg (25-35) Mean Corpuscular Hemoglobin Concent 33 g/dL (31-37) Red Cell Distribution Width 13.7 % (11.5-14.5) Platelet Count 224 x10^3/uL (140-400) Neutrophils (%) (Auto) 60 % (31-73) Lymphocytes (%) (Auto) 32 % (24-48) Monocytes (%) (Auto) 6 % (0-9) Eosinophils (%) (Auto) 1 % (0-3) Basophils (%) (Auto) 1 % (0-3) Neutrophils # (Auto) 4.3 x10^3uL (1.8-7.7) Lymphocytes # (Auto) 2.3 x10^3/uL (1.0-4.8) Monocytes # (Auto) 0.4 x10^3/uL (0.0-1.1) Eosinophils # (Auto) 0.1 x10^3/uL (0.0-0.7) Basophils # (Auto) 0.0 x10^3/uL (0.0-0.2) Prothrombin Time 15.8 SEC (11.7-14.0) Prothromb Time International Ratio 1.3 (0.8-1.1) Sodium Level 137 mmol/L (136-145) 137 mmol/L (136-145) Potassium Level 3.8 mmol/L (3.5-5.1) 3.4 mmol/L (3.5-5.1) Chloride Level 101 mmol/L (98-107) 104 mmol/L (98-107) Carbon Dioxide Level 27 mmol/L (21-32) 24 mmol/L (21-32) Anion Gap 9 (6-14) 9 (6-14) Blood Urea Nitrogen 45 mg/dL (7-20) 29 mg/dL (7-20) Creatinine 1.5 mg/dL (0.6-1.0) 1.0 mg/dL (0.6-1.0) Estimated GFR (Cockcroft-Gault) 42.2 67.3 BUN/Creatinine Ratio 30 (6-20) Glucose Level 82 mg/dL (70-99) 65 mg/dL (70-99) Calcium Level 10.4 mg/dL (8.5-10.1) 9.7 mg/dL (8.5-10.1) Total Bilirubin 0.3 mg/dL (0.2-1.0) Aspartate Amino Transf (AST/SGOT) 66 U/L (15-37) Alanine Aminotransferase (ALT/SGPT) 36 U/L (14-59) Alkaline Phosphatase 94 U/L (46-116) Troponin I Quantitative 0.049 ng/mL (0.000-0.055) Total Protein 9.7 g/dL (6.4-8.2) Albumin 3.3 g/dL (3.4-5.0) Albumin/Globulin Ratio 0.5 (1.0-1.7) Lipase 331 U/L (73-393) Urine Collection Type U cath Urine Color Yellow Urine Clarity Clear Urine pH 5.0 Urine Specific [place] >=1.030 Urine Protein >=300 mg/dL (NEG-TRACE) Urine Glucose (UA) Negative mg/dL (NEG) Urine Ketones (Stick) 15 mg/dL (NEG) Urine Blood Negative (NEG) Urine Nitrite Negative (NEG) Urine Bilirubin Moderate (NEG) Urine Urobilinogen Dipstick 1.0 mg/dL (0.2 mg/dL) Urine Leukocyte Esterase Negative (NEG) Urine RBC 0 /HPF (0-2) Urine WBC 0 /HPF (0-4) Urine Squamous Epithelial Cells None /LPF Urine Bacteria 0 /HPF (0-FEW) Urine Hyaline Casts Many /HPF Hepatitis C IgG Antibody Reactive (Nonreactive) Glucose (Fingerstick) 68 mg/dL (70-99) Test 02/28/18 10:46 Glucose (Fingerstick) 125 mg/dL (70-99) Laboratory Tests Test 02/27/18 15:18 02/27/18 16:00 02/28/18 05:43 02/28/18 09:42 White Blood Count 7.2 x10^3/uL (4.0-11.0) Red Blood Count 4.38 x10^6/uL (3.50-5.40) Hemoglobin 12.4 g/dL (12.0-15.5) Hematocrit 37.3 % (36.0-47.0) Mean Corpuscular Volume 85 fL (79-100) Mean Corpuscular Hemoglobin 28 pg (25-35) Mean Corpuscular Hemoglobin Concent 33 g/dL (31-37) Red Cell Distribution Width 13.7 % (11.5-14.5) Platelet Count 224 x10^3/uL (140-400) Neutrophils (%) (Auto) 60 % (31-73) Lymphocytes (%) (Auto) 32 % (24-48) Monocytes (%) (Auto) 6 % (0-9) Eosinophils (%) (Auto) 1 % (0-3) Basophils (%) (Auto) 1 % (0-3) Neutrophils # (Auto) 4.3 x10^3uL (1.8-7.7) Lymphocytes # (Auto) 2.3 x10^3/uL (1.0-4.8) Monocytes # (Auto) 0.4 x10^3/uL (0.0-1.1) Eosinophils # (Auto) 0.1 x10^3/uL (0.0-0.7) Basophils # (Auto) 0.0 x10^3/uL (0.0-0.2) Prothrombin Time 15.8 SEC (11.7-14.0) Prothromb Time International Ratio 1.3 (0.8-1.1) Sodium Level 137 mmol/L (136-145) 137 mmol/L (136-145) Potassium Level 3.8 mmol/L (3.5-5.1) 3.4 mmol/L (3.5-5.1) Chloride Level 101 mmol/L (98-107) 104 mmol/L (98-107) Carbon Dioxide Level 27 mmol/L (21-32) 24 mmol/L (21-32) Anion Gap 9 (6-14) 9 (6-14) Blood Urea Nitrogen 45 mg/dL (7-20) 29 mg/dL (7-20) Creatinine 1.5 mg/dL (0.6-1.0) 1.0 mg/dL (0.6-1.0) Estimated GFR (Cockcroft-Gault) 42.2 67.3 BUN/Creatinine Ratio 30 (6-20) Glucose Level 82 mg/dL (70-99) 65 mg/dL (70-99) Calcium Level 10.4 mg/dL (8.5-10.1) 9.7 mg/dL (8.5-10.1) Total Bilirubin 0.3 mg/dL (0.2-1.0) Aspartate Amino Transf (AST/SGOT) 66 U/L (15-37) Alanine Aminotransferase (ALT/SGPT) 36 U/L (14-59) Alkaline Phosphatase 94 U/L (46-116) Troponin I Quantitative 0.049 ng/mL (0.000-0.055) Total Protein 9.7 g/dL (6.4-8.2) Albumin 3.3 g/dL (3.4-5.0) Albumin/Globulin Ratio 0.5 (1.0-1.7) Lipase 331 U/L (73-393) Urine Collection Type U cath Urine Color Yellow Urine Clarity Clear Urine pH 5.0 Urine Specific [place] >=1.030 Urine Protein >=300 mg/dL (NEG-TRACE) Urine Glucose (UA) Negative mg/dL (NEG) Urine Ketones (Stick) 15 mg/dL (NEG) Urine Blood Negative (NEG) Urine Nitrite Negative (NEG) Urine Bilirubin Moderate (NEG) Urine Urobilinogen Dipstick 1.0 mg/dL (0.2 mg/dL) Urine Leukocyte Esterase Negative (NEG) Urine RBC 0 /HPF (0-2) Urine WBC 0 /HPF (0-4) Urine Squamous Epithelial Cells None /LPF Urine Bacteria 0 /HPF (0-FEW) Urine Hyaline Casts Many /HPF Hepatitis C IgG Antibody Reactive (Nonreactive) Glucose (Fingerstick) 68 mg/dL (70-99) Test 02/28/18 10:46 Glucose (Fingerstick) 125 mg/dL (70-99) Medications Current Medications Ondansetron HCl (Zofran) 4 mg 1X ONCE IV Last administered on 02/27/18at 15:53 ; Start 02/27/18 at 15:30; Stop 02/27/18 at 15:31; Status DC Sodium Chloride 1,000 ml @ 1,000 mls/hr 1X ONCE IV Last administered on at 15:36; Start 02/27/18 at 15:00; Stop 02/27/18 at 15:59; Status DC Pantoprazole Sodium (PROTONIX VIAL for IV PUSH) 40 mg 1X ONCE IVP Last administered on 02/27/18at 15:53; Start 02/27/18 at 15:30; Stop 02/27/18 at 15:31 ; Status DC Sodium Chloride 1,000 ml @ 100 mls/hr Q10H IV Last administered on 02/27/18at 21:12; Start 02/27/18 at 16:54; Stop 02/28/18 at 11:09; Status DC Ondansetron HCl (Zofran) 4 mg PRN Q6HRS PRN IV NAUSEA/VOMITING, 1ST CHOICE Last administered on 02/28/18at 04:38; Start 02/27/18 at 17:00 Prochlorperazine Edisylate (Compazine) 10 mg PRN Q6HRS PRN IV NAUSEA/VOMITING, 2ND CHOICE Last administered on 02/28/18at 00:10; Start 02/27/18 at 17:00 Prochlorperazine (Compazine) 25 mg PRN Q12HR PRN [place] NAUSEA/VOMITING; Start at 17:00 Al Hydroxide/Mg Hydroxide (Mylanta Plus Xs) 30 ml PRN Q3HRS PRN PO HEARTBURN / GAS; Start 02/27/18 at 17:00 Calcium Carbonate/ Glycine (Tums) 500 mg PRN Q3HRS PRN PO UPSET STOMACH; Start 02/27/18 at 17:00 Oxycodone HCl (Roxicodone) 5 mg PRN Q3HRS PRN PO BREAKTHROUGH PAIN; Start 02/27 at 17:00 Morphine Sulfate (Morphine Sulfate) 1 mg PRN Q1HR PRN IV PAIN Last administered on 02/28/18at 02:45; Start 02/27/18 at 17:00 Acetaminophen (Tylenol) 650 mg PRN Q6HRS PRN PO Headaches, Temp > 101.5F; Start 02/27/18 at 17:00 Ibuprofen (Motrin) 400 mg PRN Q6HRS PRN PO MILD PAIN; Start 02/27/18 at 17:00 Magnesium Hydroxide (Milk Of Magnesia) 2,400 mg PRN Q12HR PRN PO CONSTIPATION; Start 02/27/18 at 17:00 Bisacodyl (Dulcolax Supp) 10 mg PRN DAILY PRN [place] CONSTIPATION; Start 02/27/18 at 17:00 Enoxaparin Sodium (Lovenox 40mg Syringe) 40 mg Q24H SQ Last administered on at 21:10; Start 02/27/18 at 21:00 Prochlorperazine Edisylate (Compazine) 10 mg PRN Q6HRS PRN IV NAUSEA/VOMITING; Start 02/27/18 at 17:00; Status UNV Promethazine HCl (Phenergan) 12.5 mg PRN Q6HRS PRN PO NAUSEA/VOMITING; Start at 17:00 Allopurinol (Zyloprim) 300 mg DAILY PO ; Start 02/28/18 at 09:00 Amlodipine Besylate (Norvasc) 10 mg DAILY PO ; Start 02/28/18 at 09:00 Aspirin (Ecotrin) 325 mg DAILY08 PO ; Start 02/28/18 at 08:00 Atorvastatin Calcium (Lipitor) 20 mg QHS PO ; Start 02/27/18 at 21:00 Carvedilol (Coreg) 12.5 mg BIDWMEALS PO ; Start 02/27/18 at 18:00; Stop at 21:25; Status DC Cyclobenzaprine HCl (Flexeril) 10 mg TID PO ; Start 02/27/18 at 21:00 Diclofenac Sodium (Voltaren) 1 parish BID TP Last administered on 02/28/18at 09:46 ; Start 02/27/18 at 21:00 Fluticasone Propionate (Flonase) 2 spray DAILY NS Last administered on at 09:46; Start 02/28/18 at 09:00 Acetaminophen/ Hydrocodone Bitart (Lortab 7.5/325) 1 tab PRN Q6HRS PRN PO SEVERE PAIN; Start 02/27/18 at 17:00 Triamcinolone Acetonide (Kenalog) 1 parish PRN BID PRN TP RASH; Start 02/27/18 at 17:00 Non-Formulary Medication (Albuterol Sulfate (Proair Hfa Inhaler)) 2 puff PRN Q6HRS PRN INH SHORTNESS OF BREATH; Start 02/27/18 at 17:00; Status UNV Hydralazine HCl (Apresoline) 25 mg TID PO ; Start 02/27/18 at 21:00 Lidocaine (Lidoderm) 1 patch DAILY TD Last administered on 02/28/18at 09:12; Start 02/28/18 at 09:00 Non-Formulary Medication (Melatonin ) 1 tab QHS PO ; Start 02/27/18 at 21:00; Status UNV Multivitamins (Thera M Plus) 1 tab DAILY PO ; Start 02/28/18 at 09:00 Polyethylene Glycol (miraLAX PACKET) 17 gm DAILY PO ; Start 02/28/18 at 09:00 Famotidine (Pepcid) 20 mg QHS PO ; Start 02/27/18 at 21:00; Stop 02/28/18 at 10: 39; Status DC Oxycodone/ Acetaminophen (Percocet 5/325) 1 tab PRN Q4HRS PRN PO MODERATE PAIN ; Start 02/27/18 at 17:00 Miscellaneous (Lidoderm Patch Removal) 1 ea QHS MC Last administered on at 21:00; Start 02/27/18 at 21:00 Albuterol Sulfate (Ventolin Neb Soln) 2.5 mg PRN Q6HRS PRN NEB SHORTNESS OF BREATH; Start 02/27/18 at 17:30 Sodium Chloride 1,000 ml @ 100 mls/hr Q10H IV Last administered on 02/28/18at 09:12; Start 02/27/18 at 21:00; Stop 02/28/18 at 11:09; Status DC Enoxaparin Sodium (Lovenox 40mg Syringe) 40 mg Q24H SQ ; Start 02/27/18 at 17:30 ; Status UNV Carvedilol (Coreg) 6.25 mg BIDWMEALS PO ; Start 02/27/18 at 21:30; Stop at 21:30; Status DC Carvedilol (Coreg) 6.25 mg BIDWMEALS PO ; Start 02/28/18 at 08:00 Labetalol HCl (Normodyne Iv Push) 20 mg PRN Q2HR PRN IVP HYPERTENSION, SEE COMMENTS Last administered on 02/27/18at 23:21; Start 02/27/18 at 21:45 Dextrose (Dextrose 50%-Water Syringe) 12.5 gm PRN Q15MIN PRN IV SEE COMMENTS Last administered on 02/28/18at 10:26; Start 02/28/18 at 10:15 Midazolam HCl (Versed) 2 mg PRN 1X PRN IV PRIOR TO PROCEDURE; Start 02/28/18 at 10:15; Stop 03/01/18 at 10:14 Fentanyl Citrate (Fentanyl 2ml Vial) 25 mcg PRN Q5MIN PRN IV X 2 DOSES FOR PAIN ; Start 02/28/18 at 10:15; Stop 03/01/18 at 10:14 Fentanyl Citrate (Fentanyl 2ml Vial) 50 mcg PRN Q5MIN PRN IV X 2 DOSES FOR PAIN ; Start 02/28/18 at 10:15; Stop 03/01/18 at 10:14 Sodium Chloride 1,000 ml @ 125 mls/hr Q8H IV ; Start 02/28/18 at 10:12; Stop at 22:11 Lidocaine HCl (Xylocaine-Mpf 1% 2ml Vial) 2 ml 1X PRN PRN ID IV START; Start at 10:15; Stop 03/01/18 at 10:14 Pantoprazole Sodium (PROTONIX VIAL for IV PUSH) 40 mg DAILYAC IVP ; Start at 11:00 Potassium Chloride/Sodium Chloride 1,000 ml @ 100 mls/hr Q10H IV ; Start at 13:00; Stop 02/28/18 at 23:00 Sodium Chloride 1,000 ml @ 100 mls/hr Q10H IV Last administered on 02/28/18at 11:24; Start 02/28/18 at 23:00 Propofol 20 ml @ As Directed STK-MED ONCE IV ; Start 02/28/18 at 11:54; Stop at 11:55; Status DC Ephedrine Sulfate (Akovaz) 50 mg STK-MED ONCE .ROUTE ; Start 02/28/18 at 11:54; Stop 02/28/18 at 11:55; Status DC Active Scripts Active Aspirin Ec (Aspirin) 325 Mg Tablet.dr 325 Mg PO DAILY08 30 Days Atorvastatin Calcium 20 Mg Tablet 20 Mg PO QHS 30 Days Amlodipine Besylate 10 Mg Tablet 10 Mg PO DAILY 30 Days Hydralazine Hcl 25 Mg Tablet 25 Mg PO TID 30 Days Reported Carvedilol 6.25 Mg Tablet 1 Tab PO BID Cipro (Ciprofloxacin Hcl) 250 Mg Tablet 1 Tab PO BID Gabapentin 300 Mg Capsule 300 Mg PO TID Multivitamins (Multivitamin) 1 Each Tablet 1 Tab PO DAILY Tylenol (Acetaminophen) 325 Mg Tablet 2 Tab PO PRN Q4HRS Mag-Oxide (Magnesium Oxide) 200 Mg Tablet 400 Mg PO Compazine (Prochlorperazine Maleate) 25 Mg Supp.rect 25 Mg RC Multivitamins (Multivitamin) 1 Each Tablet 1 Tab PO DAILY Lidocaine 1 Each Adh..patch 1 Each TP DAILY Melatonin 3 Mg Tablet 1 Tab PO QHS Voltaren (Diclofenac Sodium) 100 Gm Gel..gram. 1 Gm TP BID Triamcinolone Acetonide 0.1% Oint (Triamcinolone Acetonide) 15 Gm Oint...g. 1 [place] TP PRN BID MIX WITH EUCERIN DIRECTED BY PHYSICIAN Hydrocodone-Apap 7.5-325 (Hydrocodone Bit/Acetaminophen) 1 Each Tablet 1 Tab PO PRN Q6HRS PRN Cyclobenzaprine Hcl 10 Mg Tablet 1 Tab PO TID Fluticasone Propionate Nasal [place] (Fluticasone Propionate) 16 Gm [place].susp 2 [place] NS DAILY Ranitidine Hcl 150 Mg Tablet 1 Tab PO BID Polyethylene Glycol (Polyethylene Glycol 1000) 500 Gm Powder 500 Gm MC DAILY Proair Hfa Inhaler (Albuterol Sulfate) 8.5 Gm Hfa.aer.ad 2 Puff INH PRN Q6HRS PRN Allopurinol 300 Mg Tablet 300 Mg PO DAILY Vitals/I & O Vital Sign - Last 24 Hours 02/27/18 02/27/18 02/27/18 02/27/18 14:16 14:48 15:32 15:48 Temp 98.4 98.4 Pulse 69 73 79 75 Resp 16 18 18 16 B/P (MAP) 148/84 (105) 145/75 (98) 155/70 (98) 189/73 (111) Pulse Ox 96 97 97 95 O2 Delivery Room Air Room Air Room Air Room Air 02/27/18 02/27/18 02/27/18 02/27/18 16:15 16:55 17:25 17:55 Pulse 67 75 73 73 Resp 18 16 18 16 B/P (MAP) 153/67 (95) 185/81 (115) 189/84 (119) 189/84 (119) Pulse Ox 96 97 96 97 02/27/18 02/27/18 02/27/18 02/27/18 18:32 19:00 20:00 21:00 Temp 97.9 97.9 Pulse 72 65 Resp 18 15 B/P (MAP) 165/90 (115) 173/88 (116) Pulse Ox 98 99 95 O2 Delivery Room Air Room Air 02/27/18 02/27/18 02/27/18 02/28/18 22:44 22:59 23:21 00:24 Temp 98.4 98.4 Pulse 58 58 Resp 20 16 18 B/P (MAP) 157/89 (111) 157/89 Pulse Ox 96 O2 Delivery Room Air Room Air 02/28/18 02/28/18 02/28/18 02/28/18 02:45 03:00 03:26 07:00 Temp 98.5 98.5 98.5 98.5 Pulse 65 65 Resp 16 16 18 16 B/P (MAP) 155/75 (101) 155/75 (101) Pulse Ox 96 98 98 O2 Delivery Room Air Room Air 02/28/18 02/28/18 02/28/18 02/28/18 08:00 11:12 11:14 12:31 Temp 99.0 97 99.0 97.0 Pulse 83 79 Resp 18 18 B/P (MAP) 187/72 Pulse Ox 96 100 O2 Delivery Room Air Room Air Nasal Cannula O2 Flow Rate 2 02/28/18 12:46 Pulse 63 Resp 20 B/P (MAP) 187/72 Pulse Ox 100 O2 Delivery Room Air Intake and Output 02/27/18 02/27/18 02/28/18 15:00 23:00 07:00 Intake Total 1000 ml Balance 1000 ml IZABEL العراقي III DO Feb 28, 2018 13:22
[2018-02-28] MEDS ORDERED: MORPHINE SULFATE 4 MG/ML VIAL. IV ONE (14:45)
[2018-02-28] MEDS ORDERED: MORPHINE SULFATE 4 MG/ML VIAL. ONE (14:46)
[2018-02-28 15:26] LABS: CREATININE PTH 1.35 mg/dL (0.57-1.00); PHOSPHORUS PTH 5.2 mg/dL (2.5-4.5); PTH INTACT 26 pg/mL (15-65)
[2018-02-28] MEDS: PANTOPRAZOLE IV PUSH 40 MG VIAL. IVP SCH (15:42)
--- NOTE | 2018-02-28 16:16 | RAD ---
Radionuclide hepatobiliary scan, 02/28/2018: HISTORY: Abdominal pain with nausea and vomiting Following IV injection of 5.5 mCi of technetium 99m Choletec there was prompt uptake of the radionuclide from the blood stream by the liver. Activity is present in the bile ducts at 10 minutes and in the small bowel at 15 minutes. Initial imaging out to 1 hour did not demonstrate gallbladder activity. The patient was injected with 4 mg of morphine IV. Subsequent imaging did demonstrate extension of activity into the gallbladder. IMPRESSION: No evidence of cystic or common bile duct obstruction. Electronically signed by: Christiano Ramirez MD (02/28/2018 4:13 PM) [facility]
[2018-02-28] MEDS ORDERED: diphenhydrAMINE 50 MG/ML VIAL IVP PRN (18:15)
[2018-02-28] MEDS: ENOXAPARIN 40 MG/0.4 ML SYRINGE. SQ SCH (20:44)
[2018-02-28] MEDS: PATCH REMOVAL. MC SCH (20:50)
[2018-02-28] MEDS: ATORVASTATIN CALCIUM 20 MG TABLET PO SCH (20:56)
[2018-03-01] VITALS (7 sets, daily range): BP systolic 93–193; BP diastolic 51–92
[2018-03-01] MEDS: CARVEDILOL 6.25 MG TABLET. PO SCH ×2 (07:42→17:12)
[2018-03-01] MEDS: hydrALAZINE 25 MG TABLET PO SCH ×3 (07:43→20:33)
[2018-03-01] MEDS: ALLOPURINOL 300 MG TABLET. PO SCH (07:43)
[2018-03-01] MEDS: MULTIVITAMIN with MINERAL TABLET. PO SCH (07:43)
[2018-03-01] MEDS: ASPIRIN ENTERIC COATED 325 MG TABLET.DR. PO SCH (07:43)
[2018-03-01] MEDS: POLYETHYLENE GLYCOL 3350 17 GM PACKET. PO SCH (07:43)
[2018-03-01] MEDS: amLODIPine BESYLATE 10 MG TABLET PO SCH (07:43)
[2018-03-01] MEDS: CYCLOBENZAPRINE 10 MG TABLET. PO SCH ×3 (07:43→22:06)
[2018-03-01] MEDS: LIDOCAINE (700MG/PATCH) PATCH. TD SCH (07:57)
[2018-03-01] MEDS: FLUTICASONE 50MCG/NASAL SPRAY 16GM BOTTLE. NS SCH (07:57)
[2018-03-01] MEDS: PANTOPRAZOLE IV PUSH 40 MG VIAL. IVP SCH (07:58)
[2018-03-01] MEDS: DICLOFENAC SODIUM 1% TOPICAL GEL 100GM TUBE. TP SCH ×2 (07:58→21:00)
[2018-03-01] MEDS: IV NORMAL SALINE 1000ML BAG 1,000 ML IV SCH ×2 (07:59→19:00)
[2018-03-01] MEDS ORDERED: ACETAMINOPHEN 650 MG SUPP.RECT. PR ONE (08:15)
[2018-03-01] MEDS: LABETALOL 20 MG/4 ML DISP.SYRIN. IVP PRN (08:21)
--- NOTE | 2018-03-01 08:30 | PDOC2 ---
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 03/01/18 0830: CONSULT Date of Consult Date of Consult DATE: 03/01/18 TIME: 08:19 Reason for Consult Reason for Consult: vomiting, cholelithiasis Referring Physician Referring Physician: Dr Moncada Identification/Chief Complaint Chief Complaint vomiting Source Source: Caregiver, Chart review History of Present Illness Reason for Visit: Difficult to get history from patient, confusion, dysphagia, hx of stroke, admitted in January with n/v--resolved and discharged NSTEMI admission earlier this month Per records here for vomiting, on pureed diet D/w Nursing no vomiting last night, currently NPO EGD yesterday showed gastritis and mild duodenitis US showed cholelithiasis, however HDA was negative for cholecystitis ? blindness,possible conversion disorder ? GES and swallow eval Past Medical History Cardiovascular: HTN Pulmonary: COPD, Pneumonia CENTRAL NERVOUS SYSTEM: Periperal neuropathy GI: Gastritis, Other Heme/Onc: No pertinent hx Hepatobiliary: Hep A/B/C Psych: No pertinent hx Musculoskeletal: Osteoarthritis Rheumatologic: Gout Infectious disease: No pertinent hx Renal/: Other Endocrine: No pertinent hx Past Surgical History Past Surgical History: Total knee replacement, Hysterectomy Family History Family History: Heart Disease Social History Quit ALCOHOL: none Drugs: Marijuana Current Problem List Problem List Problems Medical Problems: (1) Vomiting Status: Acute Current Medications Current Medications Current Medications Ondansetron HCl (Zofran) 4 mg 1X ONCE IV Last administered on 02/27/18at 15:53 ; Start 02/27/18 at 15:30; Stop 02/27/18 at 15:31; Status DC Sodium Chloride 1,000 ml @ 1,000 mls/hr 1X ONCE IV Last administered on at 15:36; Start 02/27/18 at 15:00; Stop 02/27/18 at 15:59; Status DC Pantoprazole Sodium (PROTONIX VIAL for IV PUSH) 40 mg 1X ONCE IVP Last administered on 02/27/18at 15:53; Start 02/27/18 at 15:30; Stop 02/27/18 at 15:31 ; Status DC Sodium Chloride 1,000 ml @ 100 mls/hr Q10H IV Last administered on 02/27/18at 21:12; Start 02/27/18 at 16:54; Stop 02/28/18 at 11:09; Status DC Ondansetron HCl (Zofran) 4 mg PRN Q6HRS PRN IV NAUSEA/VOMITING, 1ST CHOICE Last administered on 02/28/18at 04:38; Start 02/27/18 at 17:00 Prochlorperazine Edisylate (Compazine) 10 mg PRN Q6HRS PRN IV NAUSEA/VOMITING, 2ND CHOICE Last administered on 02/28/18at 00:10; Start 02/27/18 at 17:00 Prochlorperazine (Compazine) 25 mg PRN Q12HR PRN IN NAUSEA/VOMITING; Start at 17:00 Al Hydroxide/Mg Hydroxide (Mylanta Plus Xs) 30 ml PRN Q3HRS PRN PO HEARTBURN / GAS; Start 02/27/18 at 17:00 Calcium Carbonate/ Glycine (Tums) 500 mg PRN Q3HRS PRN PO UPSET STOMACH; Start 02/27/18 at 17:00 Oxycodone HCl (Roxicodone) 5 mg PRN Q3HRS PRN PO BREAKTHROUGH PAIN; Start 02/27 at 17:00 Morphine Sulfate (Morphine Sulfate) 1 mg PRN Q1HR PRN IV PAIN Last administered on 02/28/18at 02:45; Start 02/27/18 at 17:00 Acetaminophen (Tylenol) 650 mg PRN Q6HRS PRN PO Headaches, Temp > 101.5F; Start 02/27/18 at 17:00 Ibuprofen (Motrin) 400 mg PRN Q6HRS PRN PO MILD PAIN; Start 02/27/18 at 17:00 Magnesium Hydroxide (Milk Of Magnesia) 2,400 mg PRN Q12HR PRN PO CONSTIPATION; Start 02/27/18 at 17:00 Bisacodyl (Dulcolax Supp) 10 mg PRN DAILY PRN IN CONSTIPATION; Start 02/27/18 at 17:00 Enoxaparin Sodium (Lovenox 40mg Syringe) 40 mg Q24H SQ Last administered on at 20:44; Start 02/27/18 at 21:00 Prochlorperazine Edisylate (Compazine) 10 mg PRN Q6HRS PRN IV NAUSEA/VOMITING; Start 02/27/18 at 17:00; Status UNV Promethazine HCl (Phenergan) 12.5 mg PRN Q6HRS PRN PO NAUSEA/VOMITING; Start at 17:00 Allopurinol (Zyloprim) 300 mg DAILY PO ; Start 02/28/18 at 09:00 Amlodipine Besylate (Norvasc) 10 mg DAILY PO ; Start 02/28/18 at 09:00 Aspirin (Ecotrin) 325 mg DAILY08 PO ; Start 02/28/18 at 08:00 Atorvastatin Calcium (Lipitor) 20 mg QHS PO ; Start 02/27/18 at 21:00 Carvedilol (Coreg) 12.5 mg BIDWMEALS PO ; Start 02/27/18 at 18:00; Stop at 21:25; Status DC Cyclobenzaprine HCl (Flexeril) 10 mg TID PO ; Start 02/27/18 at 21:00 Diclofenac Sodium (Voltaren) 1 mary BID TP Last administered on 03/01/18at 07:58 ; Start 02/27/18 at 21:00 Fluticasone Propionate (Flonase) 2 spray DAILY NS Last administered on at 07:57; Start 02/28/18 at 09:00 Acetaminophen/ Hydrocodone Bitart (Lortab 7.5/325) 1 tab PRN Q6HRS PRN PO SEVERE PAIN; Start 02/27/18 at 17:00 Triamcinolone Acetonide (Kenalog) 1 mary PRN BID PRN TP RASH; Start 02/27/18 at 17:00 Non-Formulary Medication (Albuterol Sulfate (Proair Hfa Inhaler)) 2 puff PRN Q6HRS PRN INH SHORTNESS OF BREATH; Start 02/27/18 at 17:00; Status UNV Hydralazine HCl (Apresoline) 25 mg TID PO ; Start 02/27/18 at 21:00 Lidocaine (Lidoderm) 1 patch DAILY TD Last administered on 03/01/18at 07:57; Start 02/28/18 at 09:00 Non-Formulary Medication (Melatonin ) 1 tab QHS PO ; Start 02/27/18 at 21:00; Status UNV Multivitamins (Thera M Plus) 1 tab DAILY PO ; Start 02/28/18 at 09:00 Polyethylene Glycol (miraLAX PACKET) 17 gm DAILY PO ; Start 02/28/18 at 09:00 Famotidine (Pepcid) 20 mg QHS PO ; Start 02/27/18 at 21:00; Stop 02/28/18 at 10: 39; Status DC Oxycodone/ Acetaminophen (Percocet 5/325) 1 tab PRN Q4HRS PRN PO MODERATE PAIN ; Start 02/27/18 at 17:00 Miscellaneous (Lidoderm Patch Removal) 1 ea QHS MC Last administered on at 20:50; Start 02/27/18 at 21:00 Albuterol Sulfate (Ventolin Neb Soln) 2.5 mg PRN Q6HRS PRN NEB SHORTNESS OF BREATH; Start 02/27/18 at 17:30 Sodium Chloride 1,000 ml @ 100 mls/hr Q10H IV Last administered on 02/28/18at 09:12; Start 02/27/18 at 21:00; Stop 02/28/18 at 11:09; Status DC Enoxaparin Sodium (Lovenox 40mg Syringe) 40 mg Q24H SQ ; Start 02/27/18 at 17:30 ; Status UNV Carvedilol (Coreg) 6.25 mg BIDWMEALS PO ; Start 02/27/18 at 21:30; Stop at 21:30; Status DC Carvedilol (Coreg) 6.25 mg BIDWMEALS PO ; Start 02/28/18 at 08:00 Labetalol HCl (Normodyne Iv Push) 20 mg PRN Q2HR PRN IVP HYPERTENSION, SEE COMMENTS Last administered on 02/27/18at 23:21; Start 02/27/18 at 21:45 Dextrose (Dextrose 50%-Water Syringe) 12.5 gm PRN Q15MIN PRN IV SEE COMMENTS Last administered on 02/28/18at 10:26; Start 02/28/18 at 10:15 Midazolam HCl (Versed) 2 mg PRN 1X PRN IV PRIOR TO PROCEDURE; Start 02/28/18 at 10:15; Stop 03/01/18 at 10:14 Fentanyl Citrate (Fentanyl 2ml Vial) 25 mcg PRN Q5MIN PRN IV X 2 DOSES FOR PAIN ; Start 02/28/18 at 10:15; Stop 03/01/18 at 10:14 Fentanyl Citrate (Fentanyl 2ml Vial) 50 mcg PRN Q5MIN PRN IV X 2 DOSES FOR PAIN ; Start 02/28/18 at 10:15; Stop 03/01/18 at 10:14 Sodium Chloride 1,000 ml @ 125 mls/hr Q8H IV ; Start 02/28/18 at 10:12; Stop at 16:17; Status DC Lidocaine HCl (Xylocaine-Mpf 1% 2ml Vial) 2 ml 1X PRN PRN ID IV START; Start at 10:15; Stop 03/01/18 at 10:14 Pantoprazole Sodium (PROTONIX VIAL for IV PUSH) 40 mg DAILYAC IVP Last administered on 03/01/18at 07:58; Start 02/28/18 at 11:00 Potassium Chloride/Sodium Chloride 1,000 ml @ 100 mls/hr Q10H IV Last administered on 02/28/18at 13:00; Start 02/28/18 at 13:00; Stop 02/28/18 at 23:47 ; Status DC Sodium Chloride 1,000 ml @ 100 mls/hr Q10H IV Last administered on 03/01/18at 07:59; Start 02/28/18 at 23:00 Propofol 20 ml @ As Directed STK-MED ONCE IV ; Start 02/28/18 at 11:54; Stop at 11:55; Status DC Ephedrine Sulfate (Akovaz) 50 mg STK-MED ONCE .ROUTE ; Start 02/28/18 at 11:54; Stop 02/28/18 at 11:55; Status DC Morphine Sulfate (Morphine Sulfate) 4 mg 1X ONCE IV Last administered on at 14:45; Start 02/28/18 at 14:45; Stop 02/28/18 at 14:46; Status DC Morphine Sulfate (Morphine Sulfate) 4 mg STK-MED ONCE .ROUTE ; Start 02/28/18 at 14:46; Stop 02/28/18 at 14:47; Status DC Diphenhydramine HCl (Benadryl) 25 mg PRN Q6HRS PRN IVP ITCHING Last administered on 02/28/18at 20:03; Start 02/28/18 at 18:15 Acetaminophen (Tylenol Supp) 650 mg 1X ONCE IN ; Start 03/01/18 at 08:15; Stop 03/01/18 at 08:16; Status DC Active Scripts Active Aspirin Ec (Aspirin) 325 Mg Tablet.dr 325 Mg PO DAILY08 30 Days Atorvastatin Calcium 20 Mg Tablet 20 Mg PO QHS 30 Days Amlodipine Besylate 10 Mg Tablet 10 Mg PO DAILY 30 Days Hydralazine Hcl 25 Mg Tablet 25 Mg PO TID 30 Days Reported Carvedilol 6.25 Mg Tablet 1 Tab PO BID Cipro (Ciprofloxacin Hcl) 250 Mg Tablet 1 Tab PO BID Gabapentin 300 Mg Capsule 300 Mg PO TID Multivitamins (Multivitamin) 1 Each Tablet 1 Tab PO DAILY Tylenol (Acetaminophen) 325 Mg Tablet 2 Tab PO PRN Q4HRS Mag-Oxide (Magnesium Oxide) 200 Mg Tablet 400 Mg PO Compazine (Prochlorperazine Maleate) 25 Mg Supp.rect 25 Mg RC Multivitamins (Multivitamin) 1 Each Tablet 1 Tab PO DAILY Lidocaine 1 Each Adh..patch 1 Each TP DAILY Melatonin 3 Mg Tablet 1 Tab PO QHS Voltaren (Diclofenac Sodium) 100 Gm Gel..gram. 1 Gm TP BID Triamcinolone Acetonide 0.1% Oint (Triamcinolone Acetonide) 15 Gm Oint...g. 1 Mary TP PRN BID MIX WITH EUCERIN DIRECTED BY PHYSICIAN Hydrocodone-Apap 7.5-325 (Hydrocodone Bit/Acetaminophen) 1 Each Tablet 1 Tab PO PRN Q6HRS PRN Cyclobenzaprine Hcl 10 Mg Tablet 1 Tab PO TID Fluticasone Propionate Nasal [place] (Fluticasone Propionate) 16 Gm [place].susp 2 [place] NS DAILY Ranitidine Hcl 150 Mg Tablet 1 Tab PO BID Polyethylene Glycol (Polyethylene Glycol 1000) 500 Gm Powder 500 Gm MC DAILY Proair Hfa Inhaler (Albuterol Sulfate) 8.5 Gm Hfa.aer.ad 2 Puff INH PRN Q6HRS PRN Allopurinol 300 Mg Tablet 300 Mg PO DAILY Allergies Allergies: Coded Allergies: lisinopril (Verified Allergy, Severe, Swelling, 02/28/18) angioedema sulfamethoxazole (Verified Allergy, Intermediate, 02/28/18) trimethoprim (Verified Allergy, Intermediate, 02/28/18) ROS Review of System unable to obtain from PT Physical Exam General: Other (rosita and marlene, does not answer questions at this time ) HEENT: Atraumatic, Mucous membr. moist/pink Lungs: Clear to auscultation, Normal air movement Heart: Regular rate, Normal S1, Normal S2, No murmurs Abdomen: Soft, No tenderness Extremities: No clubbing, No cyanosis Psych/Mental Status: Other (unsure of baseline) MUSCULOSKELETAL: No deformity, No swelling Vitals VITALS Vital Signs Date Time Temp Pulse Resp B/P (MAP) Pulse Ox O2 Delivery O2 Flow Rate FiO2 03/01/18 07:05 Room Air 03/01/18 02:49 97.8 84 19 152/84 (106) 96 97.8 02/28/18 12:31 2 Labs Labs Laboratory Tests Test 02/27/18 15:18 02/27/18 16:00 02/28/18 05:43 02/28/18 05:55 White Blood Count 7.2 x10^3/uL (4.0-11.0) Red Blood Count 4.38 x10^6/uL (3.50-5.40) Hemoglobin 12.4 g/dL (12.0-15.5) Hematocrit 37.3 % (36.0-47.0) Mean Corpuscular Volume 85 fL (79-100) Mean Corpuscular Hemoglobin 28 pg (25-35) Mean Corpuscular Hemoglobin Concent 33 g/dL (31-37) Red Cell Distribution Width 13.7 % (11.5-14.5) Platelet Count 224 x10^3/uL (140-400) Neutrophils (%) (Auto) 60 % (31-73) Lymphocytes (%) (Auto) 32 % (24-48) Monocytes (%) (Auto) 6 % (0-9) Eosinophils (%) (Auto) 1 % (0-3) Basophils (%) (Auto) 1 % (0-3) Neutrophils # (Auto) 4.3 x10^3uL (1.8-7.7) Lymphocytes # (Auto) 2.3 x10^3/uL (1.0-4.8) Monocytes # (Auto) 0.4 x10^3/uL (0.0-1.1) Eosinophils # (Auto) 0.1 x10^3/uL (0.0-0.7) Basophils # (Auto) 0.0 x10^3/uL (0.0-0.2) Prothrombin Time 15.8 SEC (11.7-14.0) Prothromb Time International Ratio 1.3 (0.8-1.1) Sodium Level 137 mmol/L (136-145) 137 mmol/L (136-145) Potassium Level 3.8 mmol/L (3.5-5.1) 3.4 mmol/L (3.5-5.1) Chloride Level 101 mmol/L (98-107) 104 mmol/L (98-107) Carbon Dioxide Level 27 mmol/L (21-32) 24 mmol/L (21-32) Anion Gap 9 (6-14) 9 (6-14) Blood Urea Nitrogen 45 mg/dL (7-20) 29 mg/dL (7-20) Creatinine 1.5 mg/dL (0.6-1.0) 1.0 mg/dL (0.6-1.0) Estimated GFR (Non- 41 (>59) Estimated GFR (Cockcroft-Gault) 42.2 67.3 BUN/Creatinine Ratio 30 (6-20) Glucose Level 82 mg/dL (70-99) 65 mg/dL (70-99) Calcium Level 10.4 mg/dL (8.5-10.1) 9.7 mg/dL (8.5-10.1) Total Bilirubin 0.3 mg/dL (0.2-1.0) Aspartate Amino Transf (AST/SGOT) 66 U/L (15-37) Alanine Aminotransferase (ALT/SGPT) 36 U/L (14-59) Alkaline Phosphatase 94 U/L (46-116) Troponin I Quantitative 0.049 ng/mL (0.000-0.055) Total Protein 9.7 g/dL (6.4-8.2) Albumin 3.3 g/dL (3.4-5.0) Albumin/Globulin Ratio 0.5 (1.0-1.7) Lipase 331 U/L (73-393) EGFR 48 (>59) PTH (Intact) Specimen Description Comment (.) Parathyroid Hormone (Intact) 26 pg/mL (15-65) Calcium (PTH Intact) 10.0 mg/dL (8.7-10.3) Creatinine (PTH Intact) 1.35 mg/dL (0.57-1.00) Phosphorus (PTH Intact) 5.2 mg/dL (2.5-4.5) Urine Collection Type U cath Urine Color Yellow Urine Clarity Clear Urine pH 5.0 Urine Specific [place] >=1.030 Urine Protein >=300 mg/dL (NEG-TRACE) Urine Glucose (UA) Negative mg/dL (NEG) Urine Ketones (Stick) 15 mg/dL (NEG) Urine Blood Negative (NEG) Urine Nitrite Negative (NEG) Urine Bilirubin Moderate (NEG) Urine Urobilinogen Dipstick 1.0 mg/dL (0.2 mg/dL) Urine Leukocyte Esterase Negative (NEG) Urine RBC 0 /HPF (0-2) Urine WBC 0 /HPF (0-4) Urine Squamous Epithelial Cells None /LPF Urine Bacteria 0 /HPF (0-FEW) Urine Hyaline Casts Many /HPF Hepatitis C IgG Antibody Reactive (Nonreactive) Nasal Screen MRSA (PCR) Negative (Negative) Test 02/28/18 09:42 02/28/18 10:46 Glucose (Fingerstick) 68 mg/dL (70-99) 125 mg/dL (70-99) Laboratory Tests Test 02/28/18 09:42 02/28/18 10:46 Glucose (Fingerstick) 68 mg/dL (70-99) 125 mg/dL (70-99) Assessment/Plan Assessment/Plan dysphagia, vomiting hx stroke, NSTEMI EGD showed gastritis and mild duodenitis cholelithiasis without findings of cholecystitis poor surgical candidate, will review with CLARENCE Horner MD 03/01/18 1610: CONSULT Assessment/Plan Assessment/Plan pt seen and examined has had two meals today without emesis per RN agree with Ms Arvizu's note expectant treatment with no recommendations for surgery now.. will follow as needed Thanks for consult 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 APRN Mar 01, 2018 08:30 CLARENCE URIBE MD Mar 01, 2018 16:10
--- NOTE | 2018-03-01 11:48 | PDOC ---
PROGRESS NOTES Chief Complaint Chief Complaint CC: Nausea, vomiting, Dysphagia History of Present Illness History of Present Illness Pt seen and examined Pt pleasently confused; in good mood No LE edema b/l VSS DW RN Vitals Vitals Vital Signs Date Time Temp Pulse Resp B/P (MAP) Pulse Ox O2 Delivery O2 Flow Rate FiO2 03/01/18 08:21 89 188/93 03/01/18 07:05 Room Air 03/01/18 07:00 100.9 20 97 100.9 02/28/18 12:31 2 Physical Exam General: Other (moans and hollers, does not answer questions at this time ) Heart: Normal S1, Normal S2, No murmurs Lungs: Clear Abdomen: Normal bowel sounds, Soft, No tenderness Extremities: No clubbing, No cyanosis, No edema, Normal pulses Skin: No rashes, No breakdown, No significant lesion Review of Systems Review of Systems Denies weakness Denies abd. pain Assessment and Plan Assessmemt and Plan CC: Vomiting, nausea, dysphagia Assessment: Vomiting Nausea Dysphagia Plan: PRN anti-emetics Labs Home meds PT/OT Probable Nuclear Medicine Study Maintain diet if possible dc planning Comment Review of Relevant I have reviewed the following items ranjith (where applicable) has been applied. Labs Laboratory Tests Test 02/27/18 15:18 02/27/18 16:00 02/28/18 05:43 02/28/18 05:55 White Blood Count 7.2 x10^3/uL (4.0-11.0) Red Blood Count 4.38 x10^6/uL (3.50-5.40) Hemoglobin 12.4 g/dL (12.0-15.5) Hematocrit 37.3 % (36.0-47.0) Mean Corpuscular Volume 85 fL (79-100) Mean Corpuscular Hemoglobin 28 pg (25-35) Mean Corpuscular Hemoglobin Concent 33 g/dL (31-37) Red Cell Distribution Width 13.7 % (11.5-14.5) Platelet Count 224 x10^3/uL (140-400) Neutrophils (%) (Auto) 60 % (31-73) Lymphocytes (%) (Auto) 32 % (24-48) Monocytes (%) (Auto) 6 % (0-9) Eosinophils (%) (Auto) 1 % (0-3) Basophils (%) (Auto) 1 % (0-3) Neutrophils # (Auto) 4.3 x10^3uL (1.8-7.7) Lymphocytes # (Auto) 2.3 x10^3/uL (1.0-4.8) Monocytes # (Auto) 0.4 x10^3/uL (0.0-1.1) Eosinophils # (Auto) 0.1 x10^3/uL (0.0-0.7) Basophils # (Auto) 0.0 x10^3/uL (0.0-0.2) Prothrombin Time 15.8 SEC (11.7-14.0) Prothromb Time International Ratio 1.3 (0.8-1.1) Sodium Level 137 mmol/L (136-145) 137 mmol/L (136-145) Potassium Level 3.8 mmol/L (3.5-5.1) 3.4 mmol/L (3.5-5.1) Chloride Level 101 mmol/L (98-107) 104 mmol/L (98-107) Carbon Dioxide Level 27 mmol/L (21-32) 24 mmol/L (21-32) Anion Gap 9 (6-14) 9 (6-14) Blood Urea Nitrogen 45 mg/dL (7-20) 29 mg/dL (7-20) Creatinine 1.5 mg/dL (0.6-1.0) 1.0 mg/dL (0.6-1.0) Estimated GFR (Non- 41 (>59) Estimated GFR (Cockcroft-Gault) 42.2 67.3 BUN/Creatinine Ratio 30 (6-20) Glucose Level 82 mg/dL (70-99) 65 mg/dL (70-99) Calcium Level 10.4 mg/dL (8.5-10.1) 9.7 mg/dL (8.5-10.1) Total Bilirubin 0.3 mg/dL (0.2-1.0) Aspartate Amino Transf (AST/SGOT) 66 U/L (15-37) Alanine Aminotransferase (ALT/SGPT) 36 U/L (14-59) Alkaline Phosphatase 94 U/L (46-116) Troponin I Quantitative 0.049 ng/mL (0.000-0.055) Total Protein 9.7 g/dL (6.4-8.2) Albumin 3.3 g/dL (3.4-5.0) Albumin/Globulin Ratio 0.5 (1.0-1.7) Lipase 331 U/L (73-393) EGFR 48 (>59) PTH (Intact) Specimen Description Comment (.) Parathyroid Hormone (Intact) 26 pg/mL (15-65) Calcium (PTH Intact) 10.0 mg/dL (8.7-10.3) Creatinine (PTH Intact) 1.35 mg/dL (0.57-1.00) Phosphorus (PTH Intact) 5.2 mg/dL (2.5-4.5) Urine Collection Type U cath Urine Color Yellow Urine Clarity Clear Urine pH 5.0 Urine Specific [place] >=1.030 Urine Protein >=300 mg/dL (NEG-TRACE) Urine Glucose (UA) Negative mg/dL (NEG) Urine Ketones (Stick) 15 mg/dL (NEG) Urine Blood Negative (NEG) Urine Nitrite Negative (NEG) Urine Bilirubin Moderate (NEG) Urine Urobilinogen Dipstick 1.0 mg/dL (0.2 mg/dL) Urine Leukocyte Esterase Negative (NEG) Urine RBC 0 /HPF (0-2) Urine WBC 0 /HPF (0-4) Urine Squamous Epithelial Cells None /LPF Urine Bacteria 0 /HPF (0-FEW) Urine Hyaline Casts Many /HPF Hepatitis C IgG Antibody Reactive (Nonreactive) Nasal Screen MRSA (PCR) Negative (Negative) Test 02/28/18 09:42 02/28/18 10:46 Glucose (Fingerstick) 68 mg/dL (70-99) 125 mg/dL (70-99) Medications Current Medications Ondansetron HCl (Zofran) 4 mg 1X ONCE IV Last administered on 02/27/18at 15:53 ; Start 02/27/18 at 15:30; Stop 02/27/18 at 15:31; Status DC Sodium Chloride 1,000 ml @ 1,000 mls/hr 1X ONCE IV Last administered on at 15:36; Start 02/27/18 at 15:00; Stop 02/27/18 at 15:59; Status DC Pantoprazole Sodium (PROTONIX VIAL for IV PUSH) 40 mg 1X ONCE IVP Last administered on 02/27/18at 15:53; Start 02/27/18 at 15:30; Stop 02/27/18 at 15:31 ; Status DC Sodium Chloride 1,000 ml @ 100 mls/hr Q10H IV Last administered on 02/27/18at 21:12; Start 02/27/18 at 16:54; Stop 02/28/18 at 11:09; Status DC Ondansetron HCl (Zofran) 4 mg PRN Q6HRS PRN IV NAUSEA/VOMITING, 1ST CHOICE Last administered on 02/28/18at 04:38; Start 02/27/18 at 17:00 Prochlorperazine Edisylate (Compazine) 10 mg PRN Q6HRS PRN IV NAUSEA/VOMITING, 2ND CHOICE Last administered on 02/28/18at 00:10; Start 02/27/18 at 17:00 Prochlorperazine (Compazine) 25 mg PRN Q12HR PRN VT NAUSEA/VOMITING; Start at 17:00 Al Hydroxide/Mg Hydroxide (Mylanta Plus Xs) 30 ml PRN Q3HRS PRN PO HEARTBURN / GAS; Start 02/27/18 at 17:00 Calcium Carbonate/ Glycine (Tums) 500 mg PRN Q3HRS PRN PO UPSET STOMACH; Start 02/27/18 at 17:00 Oxycodone HCl (Roxicodone) 5 mg PRN Q3HRS PRN PO BREAKTHROUGH PAIN; Start 02/27 at 17:00 Morphine Sulfate (Morphine Sulfate) 1 mg PRN Q1HR PRN IV PAIN Last administered on 02/28/18at 02:45; Start 02/27/18 at 17:00 Acetaminophen (Tylenol) 650 mg PRN Q6HRS PRN PO Headaches, Temp > 101.5F; Start 02/27/18 at 17:00 Ibuprofen (Motrin) 400 mg PRN Q6HRS PRN PO MILD PAIN; Start 02/27/18 at 17:00 Magnesium Hydroxide (Milk Of Magnesia) 2,400 mg PRN Q12HR PRN PO CONSTIPATION; Start 02/27/18 at 17:00 Bisacodyl (Dulcolax Supp) 10 mg PRN DAILY PRN VT CONSTIPATION; Start 02/27/18 at 17:00 Enoxaparin Sodium (Lovenox 40mg Syringe) 40 mg Q24H SQ Last administered on at 20:44; Start 02/27/18 at 21:00 Prochlorperazine Edisylate (Compazine) 10 mg PRN Q6HRS PRN IV NAUSEA/VOMITING; Start 02/27/18 at 17:00; Status UNV Promethazine HCl (Phenergan) 12.5 mg PRN Q6HRS PRN PO NAUSEA/VOMITING; Start at 17:00 Allopurinol (Zyloprim) 300 mg DAILY PO ; Start 02/28/18 at 09:00 Amlodipine Besylate (Norvasc) 10 mg DAILY PO ; Start 02/28/18 at 09:00 Aspirin (Ecotrin) 325 mg DAILY08 PO ; Start 02/28/18 at 08:00 Atorvastatin Calcium (Lipitor) 20 mg QHS PO ; Start 02/27/18 at 21:00 Carvedilol (Coreg) 12.5 mg BIDWMEALS PO ; Start 02/27/18 at 18:00; Stop at 21:25; Status DC Cyclobenzaprine HCl (Flexeril) 10 mg TID PO ; Start 02/27/18 at 21:00 Diclofenac Sodium (Voltaren) 1 mary BID TP Last administered on 03/01/18at 07:58 ; Start 02/27/18 at 21:00 Fluticasone Propionate (Flonase) 2 spray DAILY NS Last administered on at 07:57; Start 02/28/18 at 09:00 Acetaminophen/ Hydrocodone Bitart (Lortab 7.5/325) 1 tab PRN Q6HRS PRN PO SEVERE PAIN; Start 02/27/18 at 17:00 Triamcinolone Acetonide (Kenalog) 1 mary PRN BID PRN TP RASH; Start 02/27/18 at 17:00 Non-Formulary Medication (Albuterol Sulfate (Proair Hfa Inhaler)) 2 puff PRN Q6HRS PRN INH SHORTNESS OF BREATH; Start 02/27/18 at 17:00; Status UNV Hydralazine HCl (Apresoline) 25 mg TID PO ; Start 02/27/18 at 21:00 Lidocaine (Lidoderm) 1 patch DAILY TD Last administered on 03/01/18at 07:57; Start 02/28/18 at 09:00 Non-Formulary Medication (Melatonin ) 1 tab QHS PO ; Start 02/27/18 at 21:00; Status UNV Multivitamins (Thera M Plus) 1 tab DAILY PO ; Start 02/28/18 at 09:00 Polyethylene Glycol (miraLAX PACKET) 17 gm DAILY PO ; Start 02/28/18 at 09:00 Famotidine (Pepcid) 20 mg QHS PO ; Start 02/27/18 at 21:00; Stop 02/28/18 at 10: 39; Status DC Oxycodone/ Acetaminophen (Percocet 5/325) 1 tab PRN Q4HRS PRN PO MODERATE PAIN ; Start 02/27/18 at 17:00 Miscellaneous (Lidoderm Patch Removal) 1 ea QHS MC Last administered on at 20:50; Start 02/27/18 at 21:00 Albuterol Sulfate (Ventolin Neb Soln) 2.5 mg PRN Q6HRS PRN NEB SHORTNESS OF BREATH; Start 02/27/18 at 17:30 Sodium Chloride 1,000 ml @ 100 mls/hr Q10H IV Last administered on 02/28/18at 09:12; Start 02/27/18 at 21:00; Stop 02/28/18 at 11:09; Status DC Enoxaparin Sodium (Lovenox 40mg Syringe) 40 mg Q24H SQ ; Start 02/27/18 at 17:30 ; Status UNV Carvedilol (Coreg) 6.25 mg BIDWMEALS PO ; Start 02/27/18 at 21:30; Stop at 21:30; Status DC Carvedilol (Coreg) 6.25 mg BIDWMEALS PO ; Start 02/28/18 at 08:00 Labetalol HCl (Normodyne Iv Push) 20 mg PRN Q2HR PRN IVP HYPERTENSION, SEE COMMENTS Last administered on 03/01/18at 08:21; Start 02/27/18 at 21:45 Dextrose (Dextrose 50%-Water Syringe) 12.5 gm PRN Q15MIN PRN IV SEE COMMENTS Last administered on 02/28/18at 10:26; Start 02/28/18 at 10:15 Midazolam HCl (Versed) 2 mg PRN 1X PRN IV PRIOR TO PROCEDURE; Start 02/28/18 at 10:15; Stop 03/01/18 at 10:14; Status DC Fentanyl Citrate (Fentanyl 2ml Vial) 25 mcg PRN Q5MIN PRN IV X 2 DOSES FOR PAIN ; Start 02/28/18 at 10:15; Stop 03/01/18 at 10:14; Status DC Fentanyl Citrate (Fentanyl 2ml Vial) 50 mcg PRN Q5MIN PRN IV X 2 DOSES FOR PAIN ; Start 02/28/18 at 10:15; Stop 03/01/18 at 10:14; Status DC Sodium Chloride 1,000 ml @ 125 mls/hr Q8H IV ; Start 02/28/18 at 10:12; Stop at 16:17; Status DC Lidocaine HCl (Xylocaine-Mpf 1% 2ml Vial) 2 ml 1X PRN PRN ID IV START; Start at 10:15; Stop 03/01/18 at 10:14; Status DC Pantoprazole Sodium (PROTONIX VIAL for IV PUSH) 40 mg DAILYAC IVP Last administered on 03/01/18at 07:58; Start 02/28/18 at 11:00 Potassium Chloride/Sodium Chloride 1,000 ml @ 100 mls/hr Q10H IV Last administered on 02/28/18at 13:00; Start 02/28/18 at 13:00; Stop 02/28/18 at 23:47 ; Status DC Sodium Chloride 1,000 ml @ 100 mls/hr Q10H IV Last administered on 03/01/18at 07:59; Start 02/28/18 at 23:00 Propofol 20 ml @ As Directed STK-MED ONCE IV ; Start 02/28/18 at 11:54; Stop at 11:55; Status DC Ephedrine Sulfate (Akovaz) 50 mg STK-MED ONCE .ROUTE ; Start 02/28/18 at 11:54; Stop 02/28/18 at 11:55; Status DC Morphine Sulfate (Morphine Sulfate) 4 mg 1X ONCE IV Last administered on at 14:45; Start 02/28/18 at 14:45; Stop 02/28/18 at 14:46; Status DC Morphine Sulfate (Morphine Sulfate) 4 mg STK-MED ONCE .ROUTE ; Start 02/28/18 at 14:46; Stop 02/28/18 at 14:47; Status DC Diphenhydramine HCl (Benadryl) 25 mg PRN Q6HRS PRN IVP ITCHING Last administered on 02/28/18at 20:03; Start 02/28/18 at 18:15 Acetaminophen (Tylenol Supp) 650 mg 1X ONCE VT Last administered on 03/01/18at 08:18; Start 03/01/18 at 08:15; Stop 03/01/18 at 08:16; Status DC Active Scripts Active Aspirin Ec (Aspirin) 325 Mg Tablet.dr 325 Mg PO DAILY08 30 Days Atorvastatin Calcium 20 Mg Tablet 20 Mg PO QHS 30 Days Amlodipine Besylate 10 Mg Tablet 10 Mg PO DAILY 30 Days Hydralazine Hcl 25 Mg Tablet 25 Mg PO TID 30 Days Reported Carvedilol 6.25 Mg Tablet 1 Tab PO BID Cipro (Ciprofloxacin Hcl) 250 Mg Tablet 1 Tab PO BID Gabapentin 300 Mg Capsule 300 Mg PO TID Multivitamins (Multivitamin) 1 Each Tablet 1 Tab PO DAILY Tylenol (Acetaminophen) 325 Mg Tablet 2 Tab PO PRN Q4HRS Mag-Oxide (Magnesium Oxide) 200 Mg Tablet 400 Mg PO Compazine (Prochlorperazine Maleate) 25 Mg Supp.rect 25 Mg RC Multivitamins (Multivitamin) 1 Each Tablet 1 Tab PO DAILY Lidocaine 1 Each Adh..patch 1 Each TP DAILY Melatonin 3 Mg Tablet 1 Tab PO QHS Voltaren (Diclofenac Sodium) 100 Gm Gel..gram. 1 Gm TP BID Triamcinolone Acetonide 0.1% Oint (Triamcinolone Acetonide) 15 Gm Oint...g. 1 Mary TP PRN BID MIX WITH EUCERIN DIRECTED BY PHYSICIAN Hydrocodone-Apap 7.5-325 (Hydrocodone Bit/Acetaminophen) 1 Each Tablet 1 Tab PO PRN Q6HRS PRN Cyclobenzaprine Hcl 10 Mg Tablet 1 Tab PO TID Fluticasone Propionate Nasal [place] (Fluticasone Propionate) 16 Gm [place].susp 2 [place] NS DAILY Ranitidine Hcl 150 Mg Tablet 1 Tab PO BID Polyethylene Glycol (Polyethylene Glycol 1000) 500 Gm Powder 500 Gm MC DAILY Proair Hfa Inhaler (Albuterol Sulfate) 8.5 Gm Hfa.aer.ad 2 Puff INH PRN Q6HRS PRN Allopurinol 300 Mg Tablet 300 Mg PO DAILY Vitals/I & O Vital Sign - Last 24 Hours 02/28/18 02/28/18 02/28/18 02/28/18 12:31 12:46 13:15 13:30 Temp 97 97.0 Pulse 79 63 80 78 Resp 18 20 B/P (MAP) 187/72 187/72 145/58 (87) 176/54 (94) Pulse Ox 100 100 98 98 O2 Delivery Nasal Cannula Room Air O2 Flow Rate 2 02/28/18 02/28/18 02/28/18 02/28/18 13:45 14:00 14:45 16:15 Pulse 84 84 Resp 18 B/P (MAP) 183/72 (109) 171/68 (102) Pulse Ox 98 98 O2 Delivery Room Air 02/28/18 02/28/18 02/28/18 02/28/18 19:00 20:00 20:55 23:00 Temp 98.5 97.7 98.5 97.7 Pulse 87 87 108 Resp 18 18 B/P (MAP) 163/71 (101) 163/71 175/97 (123) Pulse Ox 100 93 O2 Delivery Room Air Room Air Room Air 03/01/18 03/01/18 03/01/18 03/01/18 02:49 07:00 07:05 08:21 Temp 97.8 100.9 97.8 100.9 Pulse 84 112 89 Resp 19 20 B/P (MAP) 152/84 (106) 193/92 (125) 188/93 Pulse Ox 96 97 O2 Delivery Room Air Room Air Room Air Intake and Output 02/28/18 02/28/18 03/01/18 15:00 23:00 07:00 Intake Total 870.24 ml 480 ml 1700 ml Balance 870.24 ml 480 ml 1700 ml IZABEL العراقي III DO Mar 01, 2018 11:47
--- NOTE | 2018-03-01 12:25 | PDOC ---
Objective: Objective: Reviewed w/ RN - no vomiting. Vital Signs: Vital Signs Date Time Temp Pulse Resp B/P (MAP) Pulse Ox O2 Delivery O2 Flow Rate FiO2 03/01/18 11:00 98.8 82 18 139/51 (80) 98 Room Air 98.8 02/28/18 12:31 2 Imaging: US Impression: 1. Numerous gallstones which appear to be immobile in the gallbladder neck. No pericholecystic fluid or gallbladder wall thickening. If there is continued concern for acute cholecystitis, nuclear medicine HIDA scan could be obtained. HIDA IMPRESSION: No evidence of cystic or common bile duct obstruction. 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 However, pt does demo behavioral differences with PO intake, such as volitional gag response with bolus still visible on anterior tongue, which may interfere w/ overall PO intake amounts. Timing and range of hyolaryngeal mvmt are WFL to palpation. Oral A-P transport is also WFL. Pt was unwilling to attempt to feed herself, so will require 1:1 feeding asst. Risk of aspiration w / PO intake appears low. See ST BSE full report for add'l details. Recommendations: Initiate puree diet w/ thin/regular liquids, c/w baseline at [facility]. 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 PE: GEN: NAD, in chair, slumped over to left LUNGS: room air HEART: RRR ABD: soft, non-tender NEURO/PSYCH: occasional yelling and moaning, "GET ME UP!" A/P: N/v - better? -EGD/imaging as above - gastritis, duodenitis, cholelithiasis w/o cholecystitis -on PPI H/o CVA, dysphagia +Hep C Ab -- Okay to try pureed diet, will review other GI recs w/ Dr. Stevens. IRINA MAJANO Mar 01, 2018 12:25
--- NOTE | 2018-03-01 15:09 | PATHOLOGY ---
[facility] Accession Number: [id number] . 01 Material submitted: . ANTRUM . 01 Clinical history: . Nausea with vomiting . 02 Diagnosis: Gastric biopsies, antrum: - Chronic gastritis, mild to moderate. [facility]/03/01/2018 . 02 Comment: Sections of the gastric antral biopsies show congestion and mild to moderate chronic inflammation with scattered admixed eosinophils. A properly controlled immunoperoxidase stain for Helicobacter is negative for Helicobacter organisms. There is no evidence of malignancy. (JPM:[facility] 03/01/2018) . Special stain performed: Immunoperoxidase for Helicobacter . 02 Electronically signed: . Armani Levin MD, Pathologist NPI- [id number] . 01 Gross description: . Received in formalin labeled "Nicole, [place], antrum," are 2 segments of cox soft tissue measuring 0.9 x 0.2 x 0.2 cm in aggregate dimensions and ranging from 0.4 to 0.5 cm in maximum dimension. The specimen is submitted entirely in cassette A1. ([facility]; 02/28/2018) TOB/TOB . 02 Pathologist provided ICD-10: K29.50 . 02 CPT . 935173, [id number] Performed at: 01 [facility] [address], [place] [id number] MD Tera Morocho MD Phone: [phone] Performed at: 02 [facility] [address] [place], [place] [id number] MD Armani Levin MD Phone: [phone]
[2018-03-01] MEDS: ONDANSETRON PF 4 MG/2 ML VIAL. IV PRN (15:27)
[2018-03-01] MEDS: PATCH REMOVAL. MC SCH (20:33)
[2018-03-01] MEDS: ATORVASTATIN CALCIUM 20 MG TABLET PO SCH (22:06)
[2018-03-01] MEDS: ENOXAPARIN 40 MG/0.4 ML SYRINGE. SQ SCH (22:07)
[2018-03-02 03:00] VITALS: BP 158/84
[2018-03-02] MEDS: IV NORMAL SALINE 1000ML BAG 1,000 ML IV SCH ×2 (05:39→15:00)
[2018-03-02] MEDS: PANTOPRAZOLE IV PUSH 40 MG VIAL. IVP SCH (05:39)
[2018-03-02 07:00] VITALS: BP 189/78
[2018-03-02] MEDS: POLYETHYLENE GLYCOL 3350 17 GM PACKET. PO SCH (08:01)
[2018-03-02] MEDS: DICLOFENAC SODIUM 1% TOPICAL GEL 100GM TUBE. TP SCH (08:02)
[2018-03-02] MEDS: amLODIPine BESYLATE 10 MG TABLET PO SCH (08:03)
[2018-03-02] MEDS: FLUTICASONE 50MCG/NASAL SPRAY 16GM BOTTLE. NS SCH (08:03)
[2018-03-02] MEDS: hydrALAZINE 25 MG TABLET PO SCH ×2 (08:04→15:09)
[2018-03-02] MEDS: CYCLOBENZAPRINE 10 MG TABLET. PO SCH ×2 (08:04→14:00)
[2018-03-02] MEDS: MULTIVITAMIN with MINERAL TABLET. PO SCH (08:04)
[2018-03-02] MEDS: ALLOPURINOL 300 MG TABLET. PO SCH (08:04)
[2018-03-02] MEDS: CARVEDILOL 6.25 MG TABLET. PO SCH (08:04)
[2018-03-02] MEDS: ASPIRIN ENTERIC COATED 325 MG TABLET.DR. PO SCH (08:04)
[2018-03-02] MEDS: LIDOCAINE (700MG/PATCH) PATCH. TD SCH (08:05)
[2018-03-02 10:27] LABS: HCV ULTRA QUANT PCR HCV Not Detected IU/mL (.)
--- NOTE | 2018-03-02 10:33 | PDOC ---
Objective: Objective: Reviewed w/ aide in room - ate very little this morning but did not vomit. 1 stool charted 02/28 and 03/01. Vital Signs: Vital Signs Date Time Temp Pulse Resp B/P (MAP) Pulse Ox O2 Delivery O2 Flow Rate FiO2 03/02/18 08:04 84 189/78 03/02/18 07:15 Room Air 03/02/18 07:00 100.0 18 97 100.0 Labs: Material submitted: . ANTRUM . 01 Clinical history: . Nausea with vomiting . 02 Diagnosis: Gastric biopsies, antrum: - Chronic gastritis, mild to moderate. [facility]/03/01/2018 . 02 Comment: Sections of the gastric antral biopsies show congestion and mild to moderate chronic inflammation with scattered admixed eosinophils. A properly controlled immunoperoxidase stain for Helicobacter is negative for Helicobacter organisms. There is no evidence of malignancy. PE: GEN: moaning LUNGS: CTAB HEART: RRR ABD: S/ND/NT NEURO/PSYCH: mumbles hi, moans A/P: N/v - better Dysphagia -h/o CVA but ?related to psych issue +Hep C Ab Cholelithiasis - no cholecystitis, no abd pain Fever, HTN - per primary -- Took a little breakfast this morning w/o vomiting. Change to PO PPI. ?psych eval MCIHAEL-IRINA SOLITARIO Mar 02, 2018 10:33
--- NOTE | 2018-03-02 10:39 | PDOC ---
SURGICAL PROGRESS NOTE Subjective pt sleeping soundly I did not try to wake her per RN had some emesis last noc, none after breakfast this morning Vital Signs Vital Signs Date Time Temp Pulse Resp B/P (MAP) Pulse Ox O2 Delivery O2 Flow Rate FiO2 03/02/18 08:04 84 189/78 03/02/18 07:15 Room Air 03/02/18 07:00 100.0 18 97 100.0 I&O Intake and Output 03/02/18 07:00 Intake Total 240 ml Output Total 50 ml Balance 190 ml Intake Oral 240 ml Output Emesis 50 ml # Voids 8 PATIENT HAS A QUIJANO: No Labs Laboratory Tests Test 02/28/18 10:46 Glucose (Fingerstick) 125 mg/dL (70-99) Problem List Problems Medical Problems: (1) Vomiting Status: Acute Assessment/Plan gallstones- Sx? continue expectant treatment CLARENCE URIBE MD Mar 02, 2018 10:39
[2018-03-02 10:55] VITALS: BP 184/78
[2018-03-02 12:22] LABS: CALCIUM 9.1 mg/dL (8.5-10.1); CREATININE 0.9 mg/dL (0.6-1.0); POTASSIUM 3.2 mmol/L (3.5-5.1)
--- NOTE | 2018-03-02 12:39 | PDOC ---
PROGRESS NOTES Chief Complaint Chief Complaint Nausea Vomiting Dysphagia History of Present Illness History of Present Illness Pt seen and examined Dw RN Pt woke to voice, states she lives with Nurse states she came from nursing facility Nurse states pt has infrequent vomiting Vitals Vitals Vital Signs Date Time Temp Pulse Resp B/P (MAP) Pulse Ox O2 Delivery O2 Flow Rate FiO2 03/02/18 10:55 98.7 71 18 184/78 (113) 95 Room Air 98.7 Physical Exam General: Alert, Cooperative, No acute distress, Other (Pt not aware of her living situation) Heart: Regular rate, Normal S1, Normal S2 Lungs: Clear Abdomen: Soft, No tenderness Extremities: No clubbing, No cyanosis, No edema, Normal pulses Skin: No rashes, No breakdown, No significant lesion Labs LABS Laboratory Tests Test 03/02/18 12:00 Sodium Level 141 mmol/L (136-145) Potassium Level 3.2 mmol/L (3.5-5.1) Chloride Level 107 mmol/L (98-107) Carbon Dioxide Level 26 mmol/L (21-32) Anion Gap 8 (6-14) Blood Urea Nitrogen 17 mg/dL (7-20) Creatinine 0.9 mg/dL (0.6-1.0) Estimated GFR (Cockcroft-Gault) 76.0 Glucose Level 92 mg/dL (70-99) Calcium Level 9.1 mg/dL (8.5-10.1) Review of Systems Review of Systems Denies pain CO weakness Assessment and Plan Assessmemt and Plan Problems Medical Problems: (1) Vomiting Status: Acute Nausea Vomiting Dysphagia Plan: prn antiemetics PPI Labs Home meds PT/OT Possible DC to rehab today Appreciate surgery and GI input Comment Review of Relevant I have reviewed the following items ranjith (where applicable) has been applied. Labs Laboratory Tests Test 03/02/18 12:00 Sodium Level 141 mmol/L (136-145) Potassium Level 3.2 mmol/L (3.5-5.1) Chloride Level 107 mmol/L (98-107) Carbon Dioxide Level 26 mmol/L (21-32) Anion Gap 8 (6-14) Blood Urea Nitrogen 17 mg/dL (7-20) Creatinine 0.9 mg/dL (0.6-1.0) Estimated GFR (Cockcroft-Gault) 76.0 Glucose Level 92 mg/dL (70-99) Calcium Level 9.1 mg/dL (8.5-10.1) Laboratory Tests Test 03/02/18 12:00 Sodium Level 141 mmol/L (136-145) Potassium Level 3.2 mmol/L (3.5-5.1) Chloride Level 107 mmol/L (98-107) Carbon Dioxide Level 26 mmol/L (21-32) Anion Gap 8 (6-14) Blood Urea Nitrogen 17 mg/dL (7-20) Creatinine 0.9 mg/dL (0.6-1.0) Estimated GFR (Cockcroft-Gault) 76.0 Glucose Level 92 mg/dL (70-99) Calcium Level 9.1 mg/dL (8.5-10.1) Medications Current Medications Ondansetron HCl (Zofran) 4 mg 1X ONCE IV Last administered on 02/27/18at 15:53 ; Start 02/27/18 at 15:30; Stop 02/27/18 at 15:31; Status DC Sodium Chloride 1,000 ml @ 1,000 mls/hr 1X ONCE IV Last administered on at 15:36; Start 02/27/18 at 15:00; Stop 02/27/18 at 15:59; Status DC Pantoprazole Sodium (PROTONIX VIAL for IV PUSH) 40 mg 1X ONCE IVP Last administered on 02/27/18at 15:53; Start 02/27/18 at 15:30; Stop 02/27/18 at 15:31 ; Status DC Sodium Chloride 1,000 ml @ 100 mls/hr Q10H IV Last administered on 02/27/18at 21:12; Start 02/27/18 at 16:54; Stop 02/28/18 at 11:09; Status DC Ondansetron HCl (Zofran) 4 mg PRN Q6HRS PRN IV NAUSEA/VOMITING, 1ST CHOICE Last administered on 03/01/18at 15:27; Start 02/27/18 at 17:00 Prochlorperazine Edisylate (Compazine) 10 mg PRN Q6HRS PRN IV NAUSEA/VOMITING, 2ND CHOICE Last administered on 02/28/18at 00:10; Start 02/27/18 at 17:00 Prochlorperazine (Compazine) 25 mg PRN Q12HR PRN [place] NAUSEA/VOMITING; Start at 17:00 Al Hydroxide/Mg Hydroxide (Mylanta Plus Xs) 30 ml PRN Q3HRS PRN PO HEARTBURN / GAS; Start 02/27/18 at 17:00 Calcium Carbonate/ Glycine (Tums) 500 mg PRN Q3HRS PRN PO UPSET STOMACH; Start 02/27/18 at 17:00 Oxycodone HCl (Roxicodone) 5 mg PRN Q3HRS PRN PO BREAKTHROUGH PAIN; Start 02/27 at 17:00 Morphine Sulfate (Morphine Sulfate) 1 mg PRN Q1HR PRN IV PAIN Last administered on 02/28/18at 02:45; Start 02/27/18 at 17:00 Acetaminophen (Tylenol) 650 mg PRN Q6HRS PRN PO Headaches, Temp > 101.5F Last administered on 03/02/18at 08:03; Start 02/27/18 at 17:00 Ibuprofen (Motrin) 400 mg PRN Q6HRS PRN PO MILD PAIN; Start 02/27/18 at 17:00 Magnesium Hydroxide (Milk Of Magnesia) 2,400 mg PRN Q12HR PRN PO CONSTIPATION; Start 02/27/18 at 17:00 Bisacodyl (Dulcolax Supp) 10 mg PRN DAILY PRN [place] CONSTIPATION; Start 02/27/18 at 17:00 Enoxaparin Sodium (Lovenox 40mg Syringe) 40 mg Q24H SQ Last administered on at 22:07; Start 02/27/18 at 21:00 Prochlorperazine Edisylate (Compazine) 10 mg PRN Q6HRS PRN IV NAUSEA/VOMITING; Start 02/27/18 at 17:00; Status UNV Promethazine HCl (Phenergan) 12.5 mg PRN Q6HRS PRN PO NAUSEA/VOMITING; Start at 17:00 Allopurinol (Zyloprim) 300 mg DAILY PO Last administered on 03/02/18at 08:04; Start 02/28/18 at 09:00 Amlodipine Besylate (Norvasc) 10 mg DAILY PO Last administered on 03/02/18at 08: 03; Start 02/28/18 at 09:00 Aspirin (Ecotrin) 325 mg DAILY08 PO Last administered on 03/02/18 08:04; Start 02/28/18 at 08:00 Atorvastatin Calcium (Lipitor) 20 mg QHS PO Last administered on 03/01/18 22: 06; Start 02/27/18 at 21:00 Carvedilol (Coreg) 12.5 mg BIDWMEALS PO ; Start 02/27/18 at 18:00; Stop at 21:25; Status DC Cyclobenzaprine HCl (Flexeril) 10 mg TID PO Last administered on 03/02/18 08: 04; Start 02/27/18 at 21:00 Diclofenac Sodium (Voltaren) 1 mary BID TP Last administered on 03/02/18 08:02 ; Start 02/27/18 at 21:00 Fluticasone Propionate (Flonase) 2 spray DAILY NS Last administered on 08:03; Start 02/28/18 at 09:00 Acetaminophen/ Hydrocodone Bitart (Lortab 7.5/325) 1 tab PRN Q6HRS PRN PO SEVERE PAIN Last administered on 03/02/18 03:18; Start 02/27/18 at 17:00 Triamcinolone Acetonide (Kenalog) 1 mary PRN BID PRN TP RASH; Start 02/27/18 at 17:00 Non-Formulary Medication (Albuterol Sulfate (Proair Hfa Inhaler)) 2 puff PRN Q6HRS PRN INH SHORTNESS OF BREATH; Start 02/27/18 at 17:00; Status UNV Hydralazine HCl (Apresoline) 25 mg TID PO Last administered on 03/02/18 08:04 ; Start 02/27/18 at 21:00 Lidocaine (Lidoderm) 1 patch DAILY TD Last administered on 03/02/18 08:05; Start 02/28/18 at 09:00 Non-Formulary Medication (Melatonin ) 1 tab QHS PO ; Start 02/27/18 at 21:00; Status UNV Multivitamins (Thera M Plus) 1 tab DAILY PO Last administered on 03/02/18 08: 04; Start 02/28/18 at 09:00 Polyethylene Glycol (miraLAX PACKET) 17 gm DAILY PO Last administered on 08:01; Start 02/28/18 at 09:00 Famotidine (Pepcid) 20 mg QHS PO ; Start 02/27/18 at 21:00; Stop 02/28/18 at 10: 39; Status DC Oxycodone/ Acetaminophen (Percocet 5/325) 1 tab PRN Q4HRS PRN PO MODERATE PAIN ; Start 02/27/18 at 17:00 Miscellaneous (Lidoderm Patch Removal) 1 ea QHS MC Last administered on at 20:33; Start 02/27/18 at 21:00 Albuterol Sulfate (Ventolin Neb Soln) 2.5 mg PRN Q6HRS PRN NEB SHORTNESS OF BREATH; Start 02/27/18 at 17:30 Sodium Chloride 1,000 ml @ 100 mls/hr Q10H IV Last administered on 02/28/18at 09:12; Start 02/27/18 at 21:00; Stop 02/28/18 at 11:09; Status DC Enoxaparin Sodium (Lovenox 40mg Syringe) 40 mg Q24H SQ ; Start 02/27/18 at 17:30 ; Status UNV Carvedilol (Coreg) 6.25 mg BIDWMEALS PO ; Start 02/27/18 at 21:30; Stop at 21:30; Status DC Carvedilol (Coreg) 6.25 mg BIDWMEALS PO Last administered on 03/02/18at 08:04; Start 02/28/18 at 08:00 Labetalol HCl (Normodyne Iv Push) 20 mg PRN Q2HR PRN IVP HYPERTENSION, SEE COMMENTS Last administered on 03/01/18at 08:21; Start 02/27/18 at 21:45 Dextrose (Dextrose 50%-Water Syringe) 12.5 gm PRN Q15MIN PRN IV SEE COMMENTS Last administered on 02/28/18at 10:26; Start 02/28/18 at 10:15 Midazolam HCl (Versed) 2 mg PRN 1X PRN IV PRIOR TO PROCEDURE; Start 02/28/18 at 10:15; Stop 03/01/18 at 10:14; Status DC Fentanyl Citrate (Fentanyl 2ml Vial) 25 mcg PRN Q5MIN PRN IV X 2 DOSES FOR PAIN ; Start 02/28/18 at 10:15; Stop 03/01/18 at 10:14; Status DC Fentanyl Citrate (Fentanyl 2ml Vial) 50 mcg PRN Q5MIN PRN IV X 2 DOSES FOR PAIN ; Start 02/28/18 at 10:15; Stop 03/01/18 at 10:14; Status DC Sodium Chloride 1,000 ml @ 125 mls/hr Q8H IV ; Start 02/28/18 at 10:12; Stop at 16:17; Status DC Lidocaine HCl (Xylocaine-Mpf 1% 2ml Vial) 2 ml 1X PRN PRN ID IV START; Start at 10:15; Stop 03/01/18 at 10:14; Status DC Pantoprazole Sodium (PROTONIX VIAL for IV PUSH) 40 mg DAILYAC IVP Last administered on 03/02/18at 05:39; Start 02/28/18 at 11:00; Stop 03/02/18 at 10:32 ; Status DC Potassium Chloride/Sodium Chloride 1,000 ml @ 100 mls/hr Q10H IV Last administered on 02/28/18at 13:00; Start 02/28/18 at 13:00; Stop 02/28/18 at 23:47 ; Status DC Sodium Chloride 1,000 ml @ 100 mls/hr Q10H IV Last administered on 03/02/18at 05:39; Start 02/28/18 at 23:00 Propofol 20 ml @ As Directed STK-MED ONCE IV ; Start 02/28/18 at 11:54; Stop at 11:55; Status DC Ephedrine Sulfate (Akovaz) 50 mg STK-MED ONCE .ROUTE ; Start 02/28/18 at 11:54; Stop 02/28/18 at 11:55; Status DC Morphine Sulfate (Morphine Sulfate) 4 mg 1X ONCE IV Last administered on at 14:45; Start 02/28/18 at 14:45; Stop 02/28/18 at 14:46; Status DC Morphine Sulfate (Morphine Sulfate) 4 mg STK-MED ONCE .ROUTE ; Start 02/28/18 at 14:46; Stop 02/28/18 at 14:47; Status DC Diphenhydramine HCl (Benadryl) 25 mg PRN Q6HRS PRN IVP ITCHING Last administered on 02/28/18at 20:03; Start 02/28/18 at 18:15 Acetaminophen (Tylenol Supp) 650 mg 1X ONCE WA Last administered on 03/01/18at 08:18; Start 03/01/18 at 08:15; Stop 03/01/18 at 08:16; Status DC Pantoprazole Sodium (Protonix) 40 mg DAILYAC PO ; Start 03/03/18 at 07:30 Active Scripts Active Aspirin Ec (Aspirin) 325 Mg Tablet.dr 325 Mg PO DAILY08 30 Days Atorvastatin Calcium 20 Mg Tablet 20 Mg PO QHS 30 Days Amlodipine Besylate 10 Mg Tablet 10 Mg PO DAILY 30 Days Hydralazine Hcl 25 Mg Tablet 25 Mg PO TID 30 Days Reported Carvedilol 6.25 Mg Tablet 1 Tab PO BID Cipro (Ciprofloxacin Hcl) 250 Mg Tablet 1 Tab PO BID Gabapentin 300 Mg Capsule 300 Mg PO TID Multivitamins (Multivitamin) 1 Each Tablet 1 Tab PO DAILY Tylenol (Acetaminophen) 325 Mg Tablet 2 Tab PO PRN Q4HRS Mag-Oxide (Magnesium Oxide) 200 Mg Tablet 400 Mg PO Compazine (Prochlorperazine Maleate) 25 Mg Supp.rect 25 Mg RC Multivitamins (Multivitamin) 1 Each Tablet 1 Tab PO DAILY Lidocaine 1 Each Adh..patch 1 Each TP DAILY Melatonin 3 Mg Tablet 1 Tab PO QHS Voltaren (Diclofenac Sodium) 100 Gm Gel..gram. 1 Gm TP BID Triamcinolone Acetonide 0.1% Oint (Triamcinolone Acetonide) 15 Gm Oint...g. 1 Mary TP PRN BID MIX WITH EUCERIN DIRECTED BY PHYSICIAN Hydrocodone-Apap 7.5-325 (Hydrocodone Bit/Acetaminophen) 1 Each Tablet 1 Tab PO PRN Q6HRS PRN Cyclobenzaprine Hcl 10 Mg Tablet 1 Tab PO TID Fluticasone Propionate Nasal Ragland (Fluticasone Propionate) 16 Gm Ragland.susp 2 Ragland NS DAILY Ranitidine Hcl 150 Mg Tablet 1 Tab PO BID Polyethylene Glycol (Polyethylene Glycol 1000) 500 Gm Powder 500 Gm MC DAILY Proair Hfa Inhaler (Albuterol Sulfate) 8.5 Gm Hfa.aer.ad 2 Puff INH PRN Q6HRS PRN Allopurinol 300 Mg Tablet 300 Mg PO DAILY Vitals/I & O Vital Sign - Last 24 Hours 8/2803/01/18 03/01/18 03/01/18 14:53 15:00 17:12 19:35 Temp 98.6 99.0 98.6 99.0 Pulse 75 75 75 80 Resp 16 18 B/P (MAP) 133/70 133/70 (91) 133/70 93/63 (73) Pulse Ox 97 94 O2 Delivery Room Air Room Air 03/01/18 03/01/18 03/02/18 03/02/18 20:00 23:37 03:00 03:18 Temp 100.3 100.4 100.3 100.4 Pulse 80 72 Resp 18 20 B/P (MAP) 148/74 (98) 158/84 (108) Pulse Ox 96 97 O2 Delivery Room Air Room Air Room Air Room Air 03/02/18 03/02/18 03/02/18 03/02/18 04:18 07:00 07:15 08:03 Temp 100.0 100.0 Pulse 84 84 Resp 18 B/P (MAP) 189/78 (115) 189/78 Pulse Ox 97 O2 Delivery Room Air Room Air Room Air 03/02/18 03/02/18 03/02/18 08:04 08:04 10:55 Temp 98.7 98.7 Pulse 84 84 71 Resp 18 B/P (MAP) 189/78 189/78 184/78 (113) Pulse Ox 95 O2 Delivery Room Air Intake and Output 03/01/18 03/01/18 03/02/18 15:00 23:00 07:00 Intake Total 240 ml Output Total 50 ml Balance -50 ml 240 ml Nutrition Consultation Dietary Evaluation: Recommendations by RD: Increase Calorie Intake, Protein supplementation Comments: ensure clear tid food preferences to improve intake Expected Outcomes/Goals: to meet > 75% est nutr needs via meals/ supplements Interpretation of weight loss: >20% in 1 year Malnutrition Findings: Food and Nutrition Intake (Sev: <50% est energy req 5days Weight Status: Appropriate IZABEL العراقي III DO Mar 02, 2018 12:39
[2018-03-02] MEDS ORDERED: POTASSIUM CHLORIDE 20 MEQ TABLET.ER. PO ONE (12:45)
[2018-03-02 14:58] VITALS: BP 159/67
[2018-03-02 15:09] VITALS: BP 159/67
[2018-03-03] MEDS ORDERED: PANTOPRAZOLE 40 MG TABLET.DR. PO SCH (07:30)
== END 2018-03-02 17:00 | DRG 391 ==
LOC: ER 14:12 → 4 NORTH 17:44
PROVIDERS: ADMIT Internal Medicine; ATTEND Internal Medicine
PROC: 0DB68ZX Excision of Stomach, Via Natural or Artificial Opening Endoscopic, Diagnostic (ICD-10-PCS; principal; 2018-02-28 12:00)
DX: K29.70 Gastritis, unspecified, without bleeding (principal); G93.41 Metabolic encephalopathy; E43 Unspecified severe protein-calorie malnutrition; I10 Essential (primary) hypertension; F12.90 Cannabis use, unspecified, uncomplicated; J44.9 Chronic obstructive pulmonary disease, unspecified; K21.9 Gastro-esophageal reflux disease without esophagitis; K29.80 Duodenitis without bleeding; K80.20 Calculus of gallbladder without cholecystitis without obstruction; K63.5 Polyp of colon; G62.9 Polyneuropathy, unspecified; M19.90 Unspecified osteoarthritis, unspecified site; R13.10 Dysphagia, unspecified; B19.20 Unspecified viral hepatitis C without hepatic coma; D25.9 Leiomyoma of uterus, unspecified; E83.52 Hypercalcemia; E87.6 Hypokalemia; F03.90 Unspecified dementia, unspecified severity, without behavioral disturbance, psychotic disturbance, mood disturbance, and anxiety; F32.9 Major depressive disorder, single episode, unspecified; F41.9 Anxiety disorder, unspecified; H54.3 Unqualified visual loss, both eyes; M10.9 Gout, unspecified; Z96.652 Presence of left artificial knee joint; Z90.710 Acquired absence of both cervix and uterus; Z98.891 History of uterine scar from previous surgery; I25.2 Old myocardial infarction; Z91.81 History of falling; Z87.01 Personal history of pneumonia (recurrent); Z86.73 Personal history of transient ischemic attack (TIA), and cerebral infarction without residual deficits; Z80.9 Family history of malignant neoplasm, unspecified; Z82.49 Family history of ischemic heart disease and other diseases of the circulatory system; Z68.21 Body mass index [BMI] 21.0-21.9, adult
CPT/HCPCS: 36415; 70450; 71045; 76705; 78226; 80048; 80053; 81001; 82962; 83690; 83970; 84484; 85025; 85610; 86803; 87521; 87641; 88305; 88342; 93005; 96361; 96374; 96375; A9537; C9113; J0780; J1200; J1650; J2270; J2405; J2704; J3480; J3490; J7030; J7042; 92610; 99285-25

== ENCOUNTER 2018-04-13 05:10 | Emergency (ER) | payer MEDICARE, OTHER ==
[~2018-04-13] VITALS: Ht 160 cm; Wt 59.0 kg
[~2018-04-13 05:10] MED LIST changes: +ACET325T9 PO; -AMLO10TA2 PO; +AMLO10TA6 PO; +CARV6.252 PO; +CIPR250T30 PO; -LOSA100T6 PO; +LOSA100T7 PO; +MAGN200T7 PO; +PROC25SU21 RC
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
[2018-04-13] MEDS ORDERED: IV NORMAL SALINE 1000ML BAG 1,000 ML IV SCH (05:30)
[2018-04-13] MEDS ORDERED: MORPHINE SULFATE 2 MG/ML VIAL. IV/SQ PRN (05:30)
[2018-04-13] MEDS ORDERED: ASPIRIN CHEWABLE 81 MG TABLET. PO ONE (05:30)
[2018-04-13 05:42] LABS: BASO % 0 % (0-3); EOS # 0.5 x10^3/uL (0.0-0.7); EOS % 6 % (0-3); HEMATOCRIT 32.8 % (36.0-47.0); HEMOGLOBIN 10.6 g/dL (12.0-15.5); LYMPH % 49 % (24-48); MEAN CORPUSCULAR HEMOGLOBIN 28 pg (25-35); MEAN CORPUSCULAR HGB CONC 32 g/dL (31-37); MEAN CORPUSCULAR VOLUME 86 fL (79-100); MONO # 0.6 x10^3/uL (0.0-1.1); MONO % 7 % (0-9); NEUT % 38 % (31-73); PLATELET COUNT 274 x10^3/uL (140-400); RED BLOOD COUNT 3.81 x10^6/uL (3.50-5.40); RED CELL DISTRIBUTION WIDTH 16.5 % (11.5-14.5); WHITE BLOOD COUNT 8.1 x10^3/uL (4.0-11.0)
[2018-04-13 05:48] LABS: PROTHROMBIN TIME PATIENT 15.3 SEC (11.7-14.0)
--- NOTE | 2018-04-13 06:19 | EKG ---
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
--- NOTE | 2018-04-13 06:23 | RAD ---
Chest AP portable at 0543: Reason for examination: Shortness of breath and chest pain. Comparison is made to previous study dated 02/27/2018. The heart size is normal. Mediastinum is unremarkable. Lung gutiérrez show some linear density at the left lung base which may reflect some atelectasis or scarring. No congestion or pleural effusions are seen. IMPRESSION: Linear atelectasis or scarring at the left lung base. No other focal abnormality seen in the chest. Electronically signed by: Josie Holden MD (04/13/2018 6:19 AM) [facility]
[2018-04-13 07:11] LABS: BILIRUBIN,URINE NEGATIVE (NEG); CLARITY,URINE CLEAR; COLOR,URINE YELLOW; HYALINE CASTS, URINE MODERATE /HPF; NITRITE,URINE NEGATIVE (NEG); PH,URINE 5.5; PROTEIN,URINE 30 mg/dL (NEG-TRACE); SQUAMOUS EPITHELIAL CELL,UR MOD /LPF; UROBILINOGEN,URINE 0.2 mg/dL (0.2 mg/dL)
[2018-04-13 07:12] LABS: BACTERIA,URINE FEW /HPF (0-FEW); RBC,URINE 0 /HPF (0-2); WBC,URINE OCC /HPF (0-4)
[2018-04-13 07:24] LABS: CALCIUM 10.8 mg/dL (8.5-10.1); CREATININE 0.9 mg/dL (0.6-1.0); POTASSIUM 4.3 mmol/L (3.5-5.1)
[2018-04-13 07:30] LABS: ALBUMIN/GLOBULIN RATIO 0.4 (1.0-1.7); MAGNESIUM 1.4 mg/dL (1.8-2.4); TOTAL BILIRUBIN 0.3 mg/dL (0.2-1.0); TOTAL PROTEIN 7.3 g/dL (6.4-8.2)
[2018-04-13 08:30] VITALS: BP 119/60
== END 2018-04-13 08:45 | disposition home or self-care (01) ==
LOC: ER 05:10
DX: R07.89 Other chest pain (principal); J44.9 Chronic obstructive pulmonary disease, unspecified; I10 Essential (primary) hypertension; R60.0 Localized edema; Z86.73 Personal history of transient ischemic attack (TIA), and cerebral infarction without residual deficits; Z87.440 Personal history of urinary (tract) infections; Z87.898 Personal history of other specified conditions; Z96.659 Presence of unspecified artificial knee joint; Z88.8 Allergy status to other drugs, medicaments and biological substances; Z88.2 Allergy status to sulfonamides; Z88.1 Allergy status to other antibiotic agents
CPT/HCPCS: 36415; 71045; 80053; 81001; 83735; 83880; 84484; 85025; 85610; 93005; 96374; 99285; J2270; J7030; 96361

== ENCOUNTER 2018-04-19 13:23 | Inpatient (IN) | payer MEDICARE, OTHER ==
[~2018-04-19] VITALS: Ht 154.9 cm; Wt 54.0 kg
[2018-04-19] MEDS ORDERED: IV NORMAL SALINE 1000ML BAG 1,000 ML IV ONE (13:30)
[2018-04-19 13:45] LABS: BILIRUBIN,URINE NEGATIVE (NEG); CLARITY,URINE CLEAR; COLOR,URINE YELLOW; NITRITE,URINE NEGATIVE (NEG); PH,URINE 5.5; PROTEIN,URINE NEGATIVE (NEG-TRACE); UROBILINOGEN,URINE 0.2 mg/dL (0.2 mg/dL)
[2018-04-19 13:55] LABS: BACTERIA,URINE FEW /HPF (0-FEW); RBC,URINE 0 /HPF (0-2); SQUAMOUS EPITHELIAL CELL,UR FEW /LPF; YEAST,URINE PRESENT /HPF
[2018-04-19 14:01] LABS: BASO # 0.1 x10^3/uL (0.0-0.2); BASO % 1 % (0-3); EOS # 0.3 x10^3/uL (0.0-0.7); EOS % 4 % (0-3); HEMATOCRIT 28.7 % (36.0-47.0); HEMOGLOBIN 9.7 g/dL (12.0-15.5); LYMPH # 4.2 x10^3/uL (1.0-4.8); LYMPH % 53 % (24-48); MEAN CORPUSCULAR HEMOGLOBIN 28 pg (25-35); MEAN CORPUSCULAR HGB CONC 34 g/dL (31-37); MEAN CORPUSCULAR VOLUME 83 fL (79-100); MONO # 0.7 x10^3/uL (0.0-1.1); MONO % 9 % (0-9); NEUT # 2.6 x10^3uL (1.8-7.7); NEUT % 33 % (31-73); PLATELET COUNT 288 x10^3/uL (140-400); RED BLOOD COUNT 3.45 x10^6/uL (3.50-5.40); RED CELL DISTRIBUTION WIDTH 16.2 % (11.5-14.5); WHITE BLOOD COUNT 7.9 x10^3/uL (4.0-11.0)
[2018-04-19 14:07] LABS: CALCIUM 9.6 mg/dL (8.5-10.1); CREATININE 0.9 mg/dL (0.6-1.0); POTASSIUM 3.9 mmol/L (3.5-5.1); PROTHROMBIN TIME PATIENT 16.2 SEC (11.7-14.0)
--- NOTE | 2018-04-19 14:17 | RAD ---
EXAM: CHEST 1 VIEW History: Weakness, chest pain COMPARISON: 04/13/2018 TECHNIQUE: Single portable radiograph of the chest FINDINGS: The cardiac silhouette is unremarkable. Minimal bibasilar lung atelectasis. The costophrenic sulci are clear and well demarcated. IMPRESSION: Minimal bibasilar lung atelectasis. Electronically signed by: Kike Means MD (04/19/2018 2:14 PM) [id number]
[2018-04-19 14:22] LABS: ALBUMIN 2.1 g/dL (3.4-5.0); ALBUMIN/GLOBULIN RATIO 0.4 (1.0-1.7); TOTAL BILIRUBIN 0.5 mg/dL (0.2-1.0); TOTAL PROTEIN 7.1 g/dL (6.4-8.2)
[2018-04-19] MEDS ORDERED: ACETAMINOPHEN 500 MG TABLET PO ONE (14:30)
[2018-04-19] MEDS ORDERED: ASPIRIN CHEWABLE 81 MG TABLET. PO ONE (14:30)
--- NOTE | 2018-04-19 15:12 | EKG ---
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
[2018-04-19 15:15] LABS: INFLUENZA A PATIENT NEGATIVE (NEGATIVE); INFLUENZA B PATIENT NEGATIVE (NEGATIVE)
[2018-04-19] MEDS ORDERED: TRIAMCINOLONE ACETONIDE 0.1% TOPICAL OINTMENT 15GM TUBE. TP PRN (15:30)
[2018-04-19] MEDS ORDERED: ONDANSETRON PF 4 MG/2 ML VIAL. IV PRN (15:30)
[2018-04-19] MEDS ORDERED: DOCUSATE SODIUM 100 MG CAPSULE. PO PRN (15:30)
[2018-04-19] MEDS ORDERED: ACETAMINOPHEN 325 MG TABLET. PO PRN (15:30)
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
--- NOTE | 2018-04-19 15:43 | PDOC1 ---
History and Physical Date of Admission Date of Admission 04/19/18 Identification/Chief Complaint Chief Complaint AMS Source Source: Chart review, Patient History of Present Illness History of Present Illness HPI HPI Patient is a 67 year old female was brought in by family with altered mental status. pt currently knows in [facility] . SHE looks calm, she said she is living with her and son who took her to PCP and found she has fever. She denies UTI symptom, denies cough. as PER ERP who talked to family, however, pt is felt warm to the touch family think she has had foul-smelling urine and also hallucination she thinks that her mother that 5 years ago was in the room and she is asking for her. The symptoms started today they're worried about a urinary tract infection and felt the urine smells bad. pt denies hallucination to me. Pt c/o bl hand pain, as per ERP, pt was doing PTOT and they tried to work on her bl contractures. She also had recent stroke which didnot affect one side weakness. pt was dced by me 2 months ago fro chronic blindness, pt was not cooperative with PTOT and we were thinking conversion syndrome, should be fu with opth as outpt. She was then dced last month for abd pain, EGD showed gastritis, duodenitis. Past Medical History Cardiovascular: HTN Pulmonary: COPD, Pneumonia CENTRAL NERVOUS SYSTEM: Periperal neuropathy GI: Gastritis, Other Heme/Onc: No pertinent hx Hepatobiliary: Hep A/B/C Psych: No pertinent hx Rheumatologic: Gout Infectious disease: No pertinent hx Renal/: Other Endocrine: No pertinent hx Past Surgical History Past Surgical History: Total knee replacement, Hysterectomy Family History Family History: Heart Disease Social History Smoke: No ALCOHOL: none Drugs: Marijuana Current Problem List Problem List Problems Medical Problems: (1) UTI (lower urinary tract infection) Status: Acute Current Medications Current Medications Current Medications Medications (Trade) Dose Ordered Sig/[facility] Start Time Stop Time Status Last Admin Dose Admin Acetaminophen (Tylenol) 1,000 mg 1X ONCE 04/19/18 14:30 04/19/18 14:31 DC 04/19/18 14:39 1,000 MG Aspirin (Children'S Aspirin) 324 mg 1X ONCE 04/19/18 14:30 04/19/18 14:31 DC 04/19/18 14:39 324 MG Ceftriaxone Sodium 50 ml @ 100 mls/hr 1X ONCE 04/19/18 14:30 04/19/18 14:59 DC 04/19/18 14:38 100 MLS/HR Sodium Chloride 1,000 ml @ 75 mls/hr [id number] 04/19/18 15:24 04/20/18 15:23 Allergies Allergies Allergies Coded Allergies Type Severity Reaction Last Updated Verified lisinopril Allergy Severe Swelling 02/28/18 Yes sulfamethoxazole Allergy Intermediate 02/28/18 Yes trimethoprim Allergy Intermediate 02/28/18 Yes ROS Review of System CONSTITUTIONAL: No fever or chills EYES: No recent changes SKIN: No rash or itching CARDIOVASCULAR: No chest pain, syncope, palpitations, or edema RESPIRATORY: No SOB or cough GASTROINTESTINAL: No nausea, vomiting or abdominal pain NEUROLOGICAL: No headaches or weakness ENDOCRINE: No cold or heat intolerance GENITOURINARY: No urgency or frequency of urination MUSCULOSKELETAL: No back pain or joint pain LYMPHATICS: No enlarged lymph nodes PSYCHIATRIC: No anxiety or depression Physical Exam Physical Exam GEN.: No apparent distress. Alert and oriented x2 to person, place, not day or date. not cooperative to my exam ,c/o hands pain, refuse to answer some questions or move ext. HEENT: Head is normocephalic, atraumatic NECK: Supple. LUNGS: Clear to auscultation. HEART: RRR, S1, S2 present. Peripheral pulses intact left sternal border 3/ 5 systolic murmur ABDOMEN: Soft, nontender. Positive bowel sounds. EXTREMITIES: Without any cyanosis. NEUROLOGIC: Normal speech, normal tone PSYCHIATRIC: Normal affect, normal mood. SKIN: No ulcerations Vitals Vitals Vital Signs Date Time Temp Pulse Resp B/P (MAP) Pulse Ox O2 Delivery O2 Flow Rate FiO2 04/19/18 13:26 101.8 102 22 152/65 (94) 97 Room Air 101.8 Labs Labs Laboratory Tests Test 04/19/18 13:35 04/19/18 13:50 04/19/18 14:40 Urine Collection Type U cath Urine Color Yellow Urine Clarity Clear Urine pH 5.5 Urine Specific [place] 1.015 Urine Protein Negative mg/dL (NEG-TRACE) Urine Glucose (UA) Negative mg/dL (NEG) Urine Ketones (Stick) Negative mg/dL (NEG) Urine Blood Negative (NEG) Urine Nitrite Negative (NEG) Urine Bilirubin Negative (NEG) Urine Urobilinogen Dipstick 0.2 mg/dL (0.2 mg/dL) Urine Leukocyte Esterase Moderate (NEG) Urine RBC 0 /HPF (0-2) Urine WBC 5-10 /HPF (0-4) Urine Squamous Epithelial Cells Few /LPF Urine Bacteria Few /HPF (0-FEW) Urine Mucus Marked /LPF Urine Yeast Present /HPF White Blood Count 7.9 x10^3/uL (4.0-11.0) Red Blood Count 3.45 x10^6/uL (3.50-5.40) Hemoglobin 9.7 g/dL (12.0-15.5) Hematocrit 28.7 % (36.0-47.0) Mean Corpuscular Volume 83 fL (79-100) Mean Corpuscular Hemoglobin 28 pg (25-35) Mean Corpuscular Hemoglobin Concent 34 g/dL (31-37) Red Cell Distribution Width 16.2 % (11.5-14.5) Platelet Count 288 x10^3/uL (140-400) Neutrophils (%) (Auto) 33 % (31-73) Lymphocytes (%) (Auto) 53 % (24-48) Monocytes (%) (Auto) 9 % (0-9) Eosinophils (%) (Auto) 4 % (0-3) Basophils (%) (Auto) 1 % (0-3) Neutrophils # (Auto) 2.6 x10^3uL (1.8-7.7) Lymphocytes # (Auto) 4.2 x10^3/uL (1.0-4.8) Monocytes # (Auto) 0.7 x10^3/uL (0.0-1.1) Eosinophils # (Auto) 0.3 x10^3/uL (0.0-0.7) Basophils # (Auto) 0.1 x10^3/uL (0.0-0.2) Prothrombin Time 16.2 SEC (11.7-14.0) Prothromb Time International Ratio 1.4 (0.8-1.1) Sodium Level 128 mmol/L (136-145) Potassium Level 3.9 mmol/L (3.5-5.1) Chloride Level 95 mmol/L (98-107) Carbon Dioxide Level 23 mmol/L (21-32) Anion Gap 10 (6-14) Blood Urea Nitrogen 21 mg/dL (7-20) Creatinine 0.9 mg/dL (0.6-1.0) Estimated GFR (Cockcroft-Gault) 76.0 BUN/Creatinine Ratio 23 (6-20) Glucose Level 87 mg/dL (70-99) Lactic Acid Level 0.8 mmol/L (0.4-2.0) Calcium Level 9.6 mg/dL (8.5-10.1) Total Bilirubin 0.5 mg/dL (0.2-1.0) Aspartate Amino Transf (AST/SGOT) 36 U/L (15-37) Alanine Aminotransferase (ALT/SGPT) 19 U/L (14-59) Alkaline Phosphatase 58 U/L (46-116) Troponin I Quantitative 0.289 ng/mL (0.000-0.055) Total Protein 7.1 g/dL (6.4-8.2) Albumin 2.1 g/dL (3.4-5.0) Albumin/Globulin Ratio 0.4 (1.0-1.7) Influenza Type A Antigen Negative (NEGATIVE) Influenza Type B Antigen Negative (NEGATIVE) Laboratory Tests Test 04/19/18 13:35 04/19/18 13:50 04/19/18 14:40 Urine Collection Type U cath Urine Color Yellow Urine Clarity Clear Urine pH 5.5 Urine Specific [place] 1.015 Urine Protein Negative mg/dL (NEG-TRACE) Urine Glucose (UA) Negative mg/dL (NEG) Urine Ketones (Stick) Negative mg/dL (NEG) Urine Blood Negative (NEG) Urine Nitrite Negative (NEG) Urine Bilirubin Negative (NEG) Urine Urobilinogen Dipstick 0.2 mg/dL (0.2 mg/dL) Urine Leukocyte Esterase Moderate (NEG) Urine RBC 0 /HPF (0-2) Urine WBC 5-10 /HPF (0-4) Urine Squamous Epithelial Cells Few /LPF Urine Bacteria Few /HPF (0-FEW) Urine Mucus Marked /LPF Urine Yeast Present /HPF White Blood Count 7.9 x10^3/uL (4.0-11.0) Red Blood Count 3.45 x10^6/uL (3.50-5.40) Hemoglobin 9.7 g/dL (12.0-15.5) Hematocrit 28.7 % (36.0-47.0) Mean Corpuscular Volume 83 fL (79-100) Mean Corpuscular Hemoglobin 28 pg (25-35) Mean Corpuscular Hemoglobin Concent 34 g/dL (31-37) Red Cell Distribution Width 16.2 % (11.5-14.5) Platelet Count 288 x10^3/uL (140-400) Neutrophils (%) (Auto) 33 % (31-73) Lymphocytes (%) (Auto) 53 % (24-48) Monocytes (%) (Auto) 9 % (0-9) Eosinophils (%) (Auto) 4 % (0-3) Basophils (%) (Auto) 1 % (0-3) Neutrophils # (Auto) 2.6 x10^3uL (1.8-7.7) Lymphocytes # (Auto) 4.2 x10^3/uL (1.0-4.8) Monocytes # (Auto) 0.7 x10^3/uL (0.0-1.1) Eosinophils # (Auto) 0.3 x10^3/uL (0.0-0.7) Basophils # (Auto) 0.1 x10^3/uL (0.0-0.2) Prothrombin Time 16.2 SEC (11.7-14.0) Prothromb Time International Ratio 1.4 (0.8-1.1) Sodium Level 128 mmol/L (136-145) Potassium Level 3.9 mmol/L (3.5-5.1) Chloride Level 95 mmol/L (98-107) Carbon Dioxide Level 23 mmol/L (21-32) Anion Gap 10 (6-14) Blood Urea Nitrogen 21 mg/dL (7-20) Creatinine 0.9 mg/dL (0.6-1.0) Estimated GFR (Cockcroft-Gault) 76.0 BUN/Creatinine Ratio 23 (6-20) Glucose Level 87 mg/dL (70-99) Lactic Acid Level 0.8 mmol/L (0.4-2.0) Calcium Level 9.6 mg/dL (8.5-10.1) Total Bilirubin 0.5 mg/dL (0.2-1.0) Aspartate Amino Transf (AST/SGOT) 36 U/L (15-37) Alanine Aminotransferase (ALT/SGPT) 19 U/L (14-59) Alkaline Phosphatase 58 U/L (46-116) Troponin I Quantitative 0.289 ng/mL (0.000-0.055) Total Protein 7.1 g/dL (6.4-8.2) Albumin 2.1 g/dL (3.4-5.0) Albumin/Globulin Ratio 0.4 (1.0-1.7) Influenza Type A Antigen Negative (NEGATIVE) Influenza Type B Antigen Negative (NEGATIVE) VTE Prophylaxis Ordered VTE Prophylaxis Devices: Yes VTE Pharmacological Prophylaxi: Yes Assessment/Plan Assessment/Plan AMS, hallucination, metabolic encephalopathy? with fever fever, not clear etiology, UTI? h/o CVA blindness, 2/2 conversion syndrome possibly copd stable systolic CHF EF 35% htn psychosis? hyponatremia severe malnutrition gastritis, duodenitis elevated trop moderate AR plan: neuro consult add ceftriaxone daily for now, fu ucx, bcx cont home meds check flu, drug tox dvt ppx PTOT hold flexeril ivf NS 1L, NS 75cc/h for tonight cycle Trop EDUARDO FOLEY MD Apr 19, 2018 15:43
[2018-04-19 15:52] LABS: BARBITURATES NEG (NEG); BENZODIAZEPINES NEG (NEG); CANNABINOIDS NEG (NEG); COCAINE NEG (NEG); METHADONE NEG (NEG); OPIATES POS (NEG); PHENCYCLIDINE NEG (NEG)
[2018-04-19 15:54] LABS: AMPHETAMINE/METHAMPHETAMINE NEG (NEG)
[2018-04-19] MEDS ORDERED: ALBUTEROL SULFATE 2.5 MG/3 ML NEBU. NEB PRN (16:30)
[2018-04-19 17:16] VITALS: BP 124/64
[2018-04-19] MEDS: ENOXAPARIN 40 MG/0.4 ML SYRINGE. SQ SCH (17:34)
[2018-04-19] MEDS: IV NORMAL SALINE 1000ML BAG 1,000 ML IV SCH (17:34)
[2018-04-19] MEDS: GABAPENTIN 300 MG CAPSULE. PO SCH ×2 (17:35→21:19)
[2018-04-19] MEDS: CARVEDILOL 6.25 MG TABLET. PO SCH (17:35)
[2018-04-19] MEDS: MORPHINE SULFATE 2 MG/ML VIAL. IV PRN ×2 (17:35→21:19)
[2018-04-19] MEDS: HYDROcodone/APAP 7.5/325MG 1 TAB TABLET PO PRN (17:35)
[2018-04-19 19:00] VITALS: BP 98/55
--- NOTE | 2018-04-19 20:51 | PDOC2 ---
NEUROLOGY CONSULT Date of Admission Date of Admission DATE: 04/19/18 TIME: 20:38 Reason for Consult Reason for Consult: IMPRESSION: Metabolic encephalopathy. Confusion. Hallucinations. UTI. Fever 101.8 degree. Hyponatremia, Na+ 128. Blindness. CHF, EF 35-40%. HTN. HLD. Left pontine infract in 02/2018. Chronic left side hemiplegia. Aortic regurgitation. COPD. Neuropathy. Narcotic use. RECOMMENDATIONS/PLAN: Continue ASA 325 mg daily. Continue Lipitor 20 mg HS. Brain MRI w/o contrast. Lab: see orders. EEG. Treat medical diseases. OT/PT. HISTORY OF THE PRESENT ILLNESS: 67-y-old AA female patient with above medical diseases had recent stroke of left pontine infract in 02/2018. She was noted to have mental status changes, confusion, incoherence, and hallucinations to be brought to the ER of [facility]. On exam, she seemed unable to see items. Past Medical History Cardiovascular: HTN Pulmonary: COPD, Pneumonia CENTRAL NERVOUS SYSTEM: Periperal neuropathy GI: Gastritis, Other Heme/Onc: No pertinent hx Hepatobiliary: Hep A/B/C Psych: No pertinent hx Rheumatologic: Gout Infectious disease: No pertinent hx Renal/: Other Endocrine: No pertinent hx Past Surgical History Total knee replacement, Hysterectomy Family History Heart Disease Social History Smoke: No ALCOHOL: none Drugs: Marijuana ALLERGY: Unknown MEDICATIONS: Refer to MAR REVIEW OF SYSTEMS: Constitutional: No malnutrition, weight loss, cachexia. Head: No traumatic brain or head injury. Skin: No edema, or rash. Ear: No infection.. Eyes: Recent blindness? Nose: No bleeding or purulent discharges. Hearing: Hearing decrease. Neck: No injury. Breast: No history of cancer, masses,or discharges. Cardiac: CHF, HTN, HLD. Pulmonary: COPD. GI: No GI ulcer, GI bleeding. Urinary/genital: UTI. Endocrinologic: No cousin face, craniofacial dysmorphism, polydactyly. Skeletomuscular: Left side weakness. Neurological: see HP. Psychiatric: Denies drug use/abuse. Otherwise, not [id number] review of systems. PHYSICAL EXAMINATION: General appearance is in subacute distress. HEENT: Normocephalic and nontraumatic. Eyes, nose, ears, and throat are unremarkable. Neck is supple. No lymphadenopathy. No crepitus. Cardiovascular: S1, S2, regular rate and rhythm. Pulmonary: Decreased to auscultation bilaterally. Abdomen: Bowel sounds are positive. Extremities: No rash, lesions, or edema. No restriction of range of motion NEUROLOGICAL EXAMINATION: Drowsiness. Not oriented to time, place and person. PERRL. EOMI. She stated not able to see. CN: no acute focal findings. Muscle tone: Increased in left UE and LE, within normal in right side. Muscle strength: 3+ left UE and LE, 5- right side, DTR: 2+ UE Plantar reflex: Neutral response bilaterally Gait: Unable to walk. Sensory exam: Pain in left UE. Not able to access cerebellar signs due to not follow commands.. F-T-N test not performed due to not follow commands . Current Medications Current Medications Current Medications Sodium Chloride 1,000 ml @ 1,000 mls/hr 1X ONCE IV Last administered on 04/19at 14:11; Start 04/19/18 at 13:30; Stop 04/19/18 at 14:29; Status DC Aspirin (Children'S Aspirin) 324 mg 1X ONCE PO Last administered on at 14:39; Start 04/19/18 at 14:30; Stop 04/19/18 at 14:31; Status DC Ceftriaxone Sodium 50 ml @ 100 mls/hr 1X ONCE IV Last administered on at 14:38; Start 04/19/18 at 14:30; Stop 04/19/18 at 14:59; Status DC Acetaminophen (Tylenol) 1,000 mg 1X ONCE PO Last administered on 04/19/18at 14 :39; Start 04/19/18 at 14:30; Stop 04/19/18 at 14:31; Status DC Sodium Chloride 1,000 ml @ 75 mls/hr [id number] IV Last administered on at 17:34; Start 04/19/18 at 15:24; Stop 04/20/18 at 15:23 Allopurinol (Zyloprim) 300 mg DAILY PO ; Start 04/20/18 at 09:00 Amlodipine Besylate (Norvasc) 10 mg DAILY PO ; Start 04/20/18 at 09:00 Aspirin (Ecotrin) 325 mg DAILY08 PO ; Start 04/20/18 at 08:00 Atorvastatin Calcium (Lipitor) 20 mg QHS PO ; Start 04/19/18 at 21:00 Carvedilol (Coreg) 6.25 mg BIDWMEALS PO Last administered on 04/19/18at 17:35; Start 04/19/18 at 17:00 Fluticasone Propionate (Flonase) 2 spray DAILY NS ; Start 04/20/18 at 09:00 Acetaminophen/ Hydrocodone Bitart (Lortab 7.5/325) 1 tab PRN Q6HRS PRN PO PAIN MILD Last administered on 04/19/18at 17:35; Start 04/19/18 at 15:30 Triamcinolone Acetonide (Kenalog) 1 mary PRN BID PRN TP ITCHING; Start at 15:30 Albuterol Sulfate (Ventolin Neb Soln) 2.5 mg PRN Q6HRS PRN NEB SHORTNESS OF BREATH; Start 04/19/18 at 16:30 Gabapentin (Neurontin) 300 mg TID PO Last administered on 04/19/18at 17:35; Start 04/19/18 at 16:30 Hydralazine HCl (Apresoline) 25 mg TID PO ; Start 04/19/18 at 21:00 Lidocaine (Lidoderm) 1 patch DAILY TD ; Start 04/20/18 at 09:00 Polyethylene Glycol (miraLAX PACKET) 17 gm DAILY PO ; Start 04/20/18 at 09:00 Famotidine (Pepcid) 20 mg QHS PO ; Start 04/19/18 at 21:00 Ceftriaxone Sodium 1 gm/ Dextrose 50 ml @ 100 mls/hr DAILY IV ; Start at 09:00; Status UNV Acetaminophen (Tylenol) 650 mg PRN Q6HRS PRN PO FEVER; Start 04/19/18 at 15:30 Ondansetron HCl (Zofran) 4 mg PRN Q6HRS PRN IV NAUSEA/VOMITING 1ST CHOICE; Start 04/19/18 at 15:30 Morphine Sulfate (Morphine Sulfate) 2 mg PRN Q2HR PRN IV MODERATE TO SEVERE PAIN Last administered on 04/19/18at 17:35; Start 04/19/18 at 15:30 Tramadol HCl (Ultram) 50 mg PRN Q6HRS PRN PO MILD TO MODERATE PAIN; Start at 15:30 Docusate Sodium (Colace) 100 mg PRN DAILY PRN PO CONSTIPATION; Start 04/19/18 at 15:30 Enoxaparin Sodium (Lovenox 40mg Syringe) 40 mg DAILY SQ Last administered on at 17:34; Start 04/19/18 at 16:21 Ceftriaxone Sodium (Rocephin) 1 gm Q24H IVP ; Start 04/20/18 at 16:30 Influenza Virus Vaccine (Afluria Trivalent [id number] Syringe) 0.5 ml ONCE ONCE VAX IM ; Start 04/19/18 at 20:00; Stop 04/19/18 at 20:01; Status DC Active Scripts Active Aspirin Ec (Aspirin) 325 Mg Tablet.dr 325 Mg PO DAILY08 30 Days Atorvastatin Calcium 20 Mg Tablet 20 Mg PO QHS 30 Days Amlodipine Besylate 10 Mg Tablet 10 Mg PO DAILY 30 Days Hydralazine Hcl 25 Mg Tablet 25 Mg PO TID 30 Days Reported Carvedilol 6.25 Mg Tablet 1 Tab PO BID Cipro (Ciprofloxacin Hcl) 250 Mg Tablet 1 Tab PO BID Gabapentin 300 Mg Capsule 300 Mg PO TID Multivitamins (Multivitamin) 1 Each Tablet 1 Tab PO DAILY Tylenol (Acetaminophen) 325 Mg Tablet 2 Tab PO PRN Q4HRS Mag-Oxide (Magnesium Oxide) 200 Mg Tablet 400 Mg PO Compazine (Prochlorperazine Maleate) 25 Mg Supp.rect 25 Mg RC Multivitamins (Multivitamin) 1 Each Tablet 1 Tab PO DAILY Lidocaine 1 Each Adh..patch 1 Each TP DAILY Melatonin 3 Mg Tablet 1 Tab PO QHS Voltaren (Diclofenac Sodium) 100 Gm Gel..gram. 1 Gm TP BID Triamcinolone Acetonide 0.1% Oint (Triamcinolone Acetonide) 15 Gm Oint...g. 1 Mary TP PRN BID MIX WITH EUCERIN DIRECTED BY PHYSICIAN Hydrocodone-Apap 7.5-325 (Hydrocodone Bit/Acetaminophen) 1 Each Tablet 1 Tab PO PRN Q6HRS PRN Cyclobenzaprine Hcl 10 Mg Tablet 1 Tab PO TID Fluticasone Propionate Nasal [place] (Fluticasone Propionate) 16 Gm [place].susp 2 [place] NS DAILY Ranitidine Hcl 150 Mg Tablet 1 Tab PO BID Polyethylene Glycol (Polyethylene Glycol 1000) 500 Gm Powder 500 Gm MC DAILY Proair Hfa Inhaler (Albuterol Sulfate) 8.5 Gm Hfa.aer.ad 2 Puff INH PRN Q6HRS PRN Allopurinol 300 Mg Tablet 300 Mg PO DAILY Allergies Allergies: Allergies Coded Allergies Type Severity Reaction Last Updated Verified lisinopril Allergy Severe Swelling 02/28/18 Yes sulfamethoxazole Allergy Intermediate 02/28/18 Yes trimethoprim Allergy Intermediate 02/28/18 Yes ROS Review of System The patient denies any associated fevers, chills, headache, ear pain, rhinorrhea , sore throat, stiff neck, productive cough, chest pain, shortness of breath, back or flank pain, abdominal pain, nausea, vomiting, diarrhea, constipation, dysuria, rash, numbness, weakness, tingling, incontinence, difficulty ambulating, or diaphoresis. Physical Exam Physical Exam General: Well developed, well nourished, no acute distress, well appearing HEENT: Pupils equally round and reactive to light, EOMI, no discharge, normal conjunctiva Neck: Supple, no nuchal rigidity, no JVD, trachea midline, no tenderness Cardiac: RRR, no murmurs, no gallops, no rubs Chest/Lungs: CTAB, no wheeze, no rhonchi, no crackles Abdomen: soft, non-distended, no guarding, no peritoneal signs, non-tender Back: No tenderness Extremities: no edema, pulses intact, non-tender,capillary refill <3 sec bilateral upper and lower extremities, Neuro: Alert and oriented x 4, no focal deficits, normal speech Vitals Vitals: Vital Signs Date Time Temp Pulse Resp B/P (MAP) Pulse Ox O2 Delivery O2 Flow Rate FiO2 04/19/18 19:02 Room Air 04/19/18 17:35 81 124/64 04/19/18 17:16 98.0 16 99 98.0 Labs Labs Laboratory Tests Test 04/19/18 13:35 04/19/18 13:50 04/19/18 14:40 04/19/18 18:30 Urine Collection Type U cath Urine Color Yellow Urine Clarity Clear Urine pH 5.5 Urine Specific [place] 1.015 Urine Protein Negative mg/dL (NEG-TRACE) Urine Glucose (UA) Negative mg/dL (NEG) Urine Ketones (Stick) Negative mg/dL (NEG) Urine Blood Negative (NEG) Urine Nitrite Negative (NEG) Urine Bilirubin Negative (NEG) Urine Urobilinogen Dipstick 0.2 mg/dL (0.2 mg/dL) Urine Leukocyte Esterase Moderate (NEG) Urine RBC 0 /HPF (0-2) Urine WBC 5-10 /HPF (0-4) Urine Squamous Epithelial Cells Few /LPF Urine Bacteria Few /HPF (0-FEW) Urine Mucus Marked /LPF Urine Yeast Present /HPF Urine Opiates Screen Pos (NEG) Urine Methadone Screen Neg (NEG) Urine Barbiturates Neg (NEG) Urine Phencyclidine Screen Neg (NEG) Urine Amphetamine/Methamphetamine Neg (NEG) Urine Benzodiazepines Screen Neg (NEG) Urine Cocaine Screen Neg (NEG) Urine Cannabinoids Screen Neg (NEG) Urine Ethyl Alcohol Neg (NEG) White Blood Count 7.9 x10^3/uL (4.0-11.0) Red Blood Count 3.45 x10^6/uL (3.50-5.40) Hemoglobin 9.7 g/dL (12.0-15.5) Hematocrit 28.7 % (36.0-47.0) Mean Corpuscular Volume 83 fL (79-100) Mean Corpuscular Hemoglobin 28 pg (25-35) Mean Corpuscular Hemoglobin Concent 34 g/dL (31-37) Red Cell Distribution Width 16.2 % (11.5-14.5) Platelet Count 288 x10^3/uL (140-400) Neutrophils (%) (Auto) 33 % (31-73) Lymphocytes (%) (Auto) 53 % (24-48) Monocytes (%) (Auto) 9 % (0-9) Eosinophils (%) (Auto) 4 % (0-3) Basophils (%) (Auto) 1 % (0-3) Neutrophils # (Auto) 2.6 x10^3uL (1.8-7.7) Lymphocytes # (Auto) 4.2 x10^3/uL (1.0-4.8) Monocytes # (Auto) 0.7 x10^3/uL (0.0-1.1) Eosinophils # (Auto) 0.3 x10^3/uL (0.0-0.7) Basophils # (Auto) 0.1 x10^3/uL (0.0-0.2) Prothrombin Time 16.2 SEC (11.7-14.0) Prothromb Time International Ratio 1.4 (0.8-1.1) Sodium Level 128 mmol/L (136-145) Potassium Level 3.9 mmol/L (3.5-5.1) Chloride Level 95 mmol/L (98-107) Carbon Dioxide Level 23 mmol/L (21-32) Anion Gap 10 (6-14) Blood Urea Nitrogen 21 mg/dL (7-20) Creatinine 0.9 mg/dL (0.6-1.0) Estimated GFR (Cockcroft-Gault) 76.0 BUN/Creatinine Ratio 23 (6-20) Glucose Level 87 mg/dL (70-99) Lactic Acid Level 0.8 mmol/L (0.4-2.0) Calcium Level 9.6 mg/dL (8.5-10.1) Total Bilirubin 0.5 mg/dL (0.2-1.0) Aspartate Amino Transf (AST/SGOT) 36 U/L (15-37) Alanine Aminotransferase (ALT/SGPT) 19 U/L (14-59) Alkaline Phosphatase 58 U/L (46-116) Troponin I Quantitative 0.289 ng/mL (0.000-0.055) 0.168 ng/mL (0.000-0.055) Total Protein 7.1 g/dL (6.4-8.2) Albumin 2.1 g/dL (3.4-5.0) Albumin/Globulin Ratio 0.4 (1.0-1.7) Influenza Type A Antigen Negative (NEGATIVE) Influenza Type B Antigen Negative (NEGATIVE) Laboratory Tests Test 04/19/18 13:35 04/19/18 13:50 04/19/18 14:40 04/19/18 18:30 Urine Collection Type U cath Urine Color Yellow Urine Clarity Clear Urine pH 5.5 Urine Specific [place] 1.015 Urine Protein Negative mg/dL (NEG-TRACE) Urine Glucose (UA) Negative mg/dL (NEG) Urine Ketones (Stick) Negative mg/dL (NEG) Urine Blood Negative (NEG) Urine Nitrite Negative (NEG) Urine Bilirubin Negative (NEG) Urine Urobilinogen Dipstick 0.2 mg/dL (0.2 mg/dL) Urine Leukocyte Esterase Moderate (NEG) Urine RBC 0 /HPF (0-2) Urine WBC 5-10 /HPF (0-4) Urine Squamous Epithelial Cells Few /LPF Urine Bacteria Few /HPF (0-FEW) Urine Mucus Marked /LPF Urine Yeast Present /HPF Urine Opiates Screen Pos (NEG) Urine Methadone Screen Neg (NEG) Urine Barbiturates Neg (NEG) Urine Phencyclidine Screen Neg (NEG) Urine Amphetamine/Methamphetamine Neg (NEG) Urine Benzodiazepines Screen Neg (NEG) Urine Cocaine Screen Neg (NEG) Urine Cannabinoids Screen Neg (NEG) Urine Ethyl Alcohol Neg (NEG) White Blood Count 7.9 x10^3/uL (4.0-11.0) Red Blood Count 3.45 x10^6/uL (3.50-5.40) Hemoglobin 9.7 g/dL (12.0-15.5) Hematocrit 28.7 % (36.0-47.0) Mean Corpuscular Volume 83 fL (79-100) Mean Corpuscular Hemoglobin 28 pg (25-35) Mean Corpuscular Hemoglobin Concent 34 g/dL (31-37) Red Cell Distribution Width 16.2 % (11.5-14.5) Platelet Count 288 x10^3/uL (140-400) Neutrophils (%) (Auto) 33 % (31-73) Lymphocytes (%) (Auto) 53 % (24-48) Monocytes (%) (Auto) 9 % (0-9) Eosinophils (%) (Auto) 4 % (0-3) Basophils (%) (Auto) 1 % (0-3) Neutrophils # (Auto) 2.6 x10^3uL (1.8-7.7) Lymphocytes # (Auto) 4.2 x10^3/uL (1.0-4.8) Monocytes # (Auto) 0.7 x10^3/uL (0.0-1.1) Eosinophils # (Auto) 0.3 x10^3/uL (0.0-0.7) Basophils # (Auto) 0.1 x10^3/uL (0.0-0.2) Prothrombin Time 16.2 SEC (11.7-14.0) Prothromb Time International Ratio 1.4 (0.8-1.1) Sodium Level 128 mmol/L (136-145) Potassium Level 3.9 mmol/L (3.5-5.1) Chloride Level 95 mmol/L (98-107) Carbon Dioxide Level 23 mmol/L (21-32) Anion Gap 10 (6-14) Blood Urea Nitrogen 21 mg/dL (7-20) Creatinine 0.9 mg/dL (0.6-1.0) Estimated GFR (Cockcroft-Gault) 76.0 BUN/Creatinine Ratio 23 (6-20) Glucose Level 87 mg/dL (70-99) Lactic Acid Level 0.8 mmol/L (0.4-2.0) Calcium Level 9.6 mg/dL (8.5-10.1) Total Bilirubin 0.5 mg/dL (0.2-1.0) Aspartate Amino Transf (AST/SGOT) 36 U/L (15-37) Alanine Aminotransferase (ALT/SGPT) 19 U/L (14-59) Alkaline Phosphatase 58 U/L (46-116) Troponin I Quantitative 0.289 ng/mL (0.000-0.055) 0.168 ng/mL (0.000-0.055) Total Protein 7.1 g/dL (6.4-8.2) Albumin 2.1 g/dL (3.4-5.0) Albumin/Globulin Ratio 0.4 (1.0-1.7) Influenza Type A Antigen Negative (NEGATIVE) Influenza Type B Antigen Negative (NEGATIVE) MURPHY BOWENS MD Apr 19, 2018 20:51
[2018-04-19] MEDS: hydrALAZINE 25 MG TABLET PO SCH ×2 (21:00→22:11)
[2018-04-19] MEDS: FAMOTIDINE 20 MG TABLET. PO SCH (21:19)
[2018-04-19] MEDS: ATORVASTATIN CALCIUM 20 MG TABLET PO SCH (21:19)
[2018-04-19 23:00] VITALS: BP 147/57
[2018-04-20] VITALS (7 sets, daily range): BP systolic 93–156; BP diastolic 54–76
[2018-04-20] MEDS: HYDROcodone/APAP 7.5/325MG 1 TAB TABLET PO PRN ×2 (02:59→20:18)
[2018-04-20] MEDS: IV NORMAL SALINE 1000ML BAG 1,000 ML IV SCH (05:26)
[2018-04-20 06:52] LABS: CREATININE 0.7 mg/dL (0.6-1.0); GFR 101.6; POTASSIUM 3.8 mmol/L (3.5-5.1)
[2018-04-20 08:21] LABS: BASO % 0 % (0-3); EOS % 0 % (0-3); HEMATOCRIT 29.9 % (36.0-47.0); HEMOGLOBIN 9.8 g/dL (12.0-15.5); LYMPH # 1.1 x10^3/uL (1.0-4.8); LYMPH % 30 % (24-48); MEAN CORPUSCULAR HEMOGLOBIN 28 pg (25-35); MEAN CORPUSCULAR HGB CONC 33 g/dL (31-37); MEAN CORPUSCULAR VOLUME 85 fL (79-100); MONO # 0.1 x10^3/uL (0.0-1.1); MONO % 3 % (0-9); NEUT # 2.4 x10^3uL (1.8-7.7); NEUT % 66 % (31-73); PLATELET COUNT 290 x10^3/uL (140-400); RED BLOOD COUNT 3.53 x10^6/uL (3.50-5.40); RED CELL DISTRIBUTION WIDTH 17.1 % (11.5-14.5); WHITE BLOOD COUNT 3.6 x10^3/uL (4.0-11.0)
[2018-04-20] MEDS: ALLOPURINOL 300 MG TABLET. PO SCH (09:00)
[2018-04-20] MEDS: FLUTICASONE 50MCG/NASAL SPRAY 16GM BOTTLE. NS SCH (11:38)
[2018-04-20] MEDS: GABAPENTIN 300 MG CAPSULE. PO SCH ×3 (11:39→20:18)
[2018-04-20] MEDS: amLODIPine BESYLATE 10 MG TABLET PO SCH (11:44)
[2018-04-20] MEDS: CARVEDILOL 6.25 MG TABLET. PO SCH ×2 (11:45→16:57)
[2018-04-20] MEDS: hydrALAZINE 25 MG TABLET PO SCH ×3 (11:45→20:11)
[2018-04-20] MEDS: ASPIRIN ENTERIC COATED 325 MG TABLET.DR. PO SCH (11:45)
[2018-04-20] MEDS: ENOXAPARIN 40 MG/0.4 ML SYRINGE. SQ SCH (11:46)
[2018-04-20] MEDS: POLYETHYLENE GLYCOL 3350 17 GM PACKET. PO SCH (11:47)
[2018-04-20] MEDS: LIDOCAINE (700MG/PATCH) PATCH. TD SCH (11:53)
--- NOTE | 2018-04-20 12:06 | PDOC ---
PROGRESS NOTES Chief Complaint Chief Complaint AMS, hallucination, metabolic encephalopathy? with fever fever, not clear etiology, UTI? h/o CVA blindness, 2/2 conversion syndrome possibly copd stable systolic CHF EF 35% htn psychosis? hyponatremia severe malnutrition gastritis, duodenitis elevated trop moderate AR History of Present Illness History of Present Illness Pt seen and examined VSS Vitals Vitals Vital Signs Date Time Temp Pulse Resp B/P (MAP) Pulse Ox O2 Delivery O2 Flow Rate FiO2 04/20/18 12:03 73 20 133/64 (87) 98 Room Air 04/20/18 07:00 98.1 98.1 Physical Exam General: No acute distress Heart: Regular rate, Normal S1 Lungs: Clear Abdomen: Normal bowel sounds Extremities: No clubbing, No cyanosis Skin: No rashes, No breakdown Labs LABS Laboratory Tests Test 04/19/18 13:35 04/19/18 13:50 04/19/18 14:40 04/19/18 18:30 Urine Collection Type U cath Urine Color Yellow Urine Clarity Clear Urine pH 5.5 Urine Specific [place] 1.015 Urine Protein Negative mg/dL (NEG-TRACE) Urine Glucose (UA) Negative mg/dL (NEG) Urine Ketones (Stick) Negative mg/dL (NEG) Urine Blood Negative (NEG) Urine Nitrite Negative (NEG) Urine Bilirubin Negative (NEG) Urine Urobilinogen Dipstick 0.2 mg/dL (0.2 mg/dL) Urine Leukocyte Esterase Moderate (NEG) Urine RBC 0 /HPF (0-2) Urine WBC 5-10 /HPF (0-4) Urine Squamous Epithelial Cells Few /LPF Urine Bacteria Few /HPF (0-FEW) Urine Mucus Marked /LPF Urine Yeast Present /HPF Urine Opiates Screen Pos (NEG) Urine Methadone Screen Neg (NEG) Urine Barbiturates Neg (NEG) Urine Phencyclidine Screen Neg (NEG) Urine Amphetamine/Methamphetamine Neg (NEG) Urine Benzodiazepines Screen Neg (NEG) Urine Cocaine Screen Neg (NEG) Urine Cannabinoids Screen Neg (NEG) Urine Ethyl Alcohol Neg (NEG) White Blood Count 7.9 x10^3/uL (4.0-11.0) Red Blood Count 3.45 x10^6/uL (3.50-5.40) Hemoglobin 9.7 g/dL (12.0-15.5) Hematocrit 28.7 % (36.0-47.0) Mean Corpuscular Volume 83 fL (79-100) Mean Corpuscular Hemoglobin 28 pg (25-35) Mean Corpuscular Hemoglobin Concent 34 g/dL (31-37) Red Cell Distribution Width 16.2 % (11.5-14.5) Platelet Count 288 x10^3/uL (140-400) Neutrophils (%) (Auto) 33 % (31-73) Lymphocytes (%) (Auto) 53 % (24-48) Monocytes (%) (Auto) 9 % (0-9) Eosinophils (%) (Auto) 4 % (0-3) Basophils (%) (Auto) 1 % (0-3) Neutrophils # (Auto) 2.6 x10^3uL (1.8-7.7) Lymphocytes # (Auto) 4.2 x10^3/uL (1.0-4.8) Monocytes # (Auto) 0.7 x10^3/uL (0.0-1.1) Eosinophils # (Auto) 0.3 x10^3/uL (0.0-0.7) Basophils # (Auto) 0.1 x10^3/uL (0.0-0.2) Prothrombin Time 16.2 SEC (11.7-14.0) Prothromb Time International Ratio 1.4 (0.8-1.1) Sodium Level 128 mmol/L (136-145) Potassium Level 3.9 mmol/L (3.5-5.1) Chloride Level 95 mmol/L (98-107) Carbon Dioxide Level 23 mmol/L (21-32) Anion Gap 10 (6-14) Blood Urea Nitrogen 21 mg/dL (7-20) Creatinine 0.9 mg/dL (0.6-1.0) Estimated GFR (Cockcroft-Gault) 76.0 BUN/Creatinine Ratio 23 (6-20) Glucose Level 87 mg/dL (70-99) Lactic Acid Level 0.8 mmol/L (0.4-2.0) Calcium Level 9.6 mg/dL (8.5-10.1) Total Bilirubin 0.5 mg/dL (0.2-1.0) Aspartate Amino Transf (AST/SGOT) 36 U/L (15-37) Alanine Aminotransferase (ALT/SGPT) 19 U/L (14-59) Alkaline Phosphatase 58 U/L (46-116) Troponin I Quantitative 0.289 ng/mL (0.000-0.055) 0.168 ng/mL (0.000-0.055) Total Protein 7.1 g/dL (6.4-8.2) Albumin 2.1 g/dL (3.4-5.0) Albumin/Globulin Ratio 0.4 (1.0-1.7) Influenza Type A Antigen Negative (NEGATIVE) Influenza Type B Antigen Negative (NEGATIVE) Test 04/19/18 21:20 04/20/18 05:50 04/20/18 06:00 Troponin I Quantitative 0.130 ng/mL (0.000-0.055) Sodium Level 130 mmol/L (136-145) Potassium Level 3.8 mmol/L (3.5-5.1) Chloride Level 100 mmol/L (98-107) Carbon Dioxide Level 20 mmol/L (21-32) Anion Gap 10 (6-14) Blood Urea Nitrogen 18 mg/dL (7-20) Creatinine 0.7 mg/dL (0.6-1.0) Estimated GFR (Cockcroft-Gault) 101.6 Glucose Level 111 mg/dL (70-99) Calcium Level 9.0 mg/dL (8.5-10.1) White Blood Count 3.6 x10^3/uL (4.0-11.0) Red Blood Count 3.53 x10^6/uL (3.50-5.40) Hemoglobin 9.8 g/dL (12.0-15.5) Hematocrit 29.9 % (36.0-47.0) Mean Corpuscular Volume 85 fL (79-100) Mean Corpuscular Hemoglobin 28 pg (25-35) Mean Corpuscular Hemoglobin Concent 33 g/dL (31-37) Red Cell Distribution Width 17.1 % (11.5-14.5) Platelet Count 290 x10^3/uL (140-400) Neutrophils (%) (Auto) 66 % (31-73) Lymphocytes (%) (Auto) 30 % (24-48) Monocytes (%) (Auto) 3 % (0-9) Eosinophils (%) (Auto) 0 % (0-3) Basophils (%) (Auto) 0 % (0-3) Neutrophils # (Auto) 2.4 x10^3uL (1.8-7.7) Lymphocytes # (Auto) 1.1 x10^3/uL (1.0-4.8) Monocytes # (Auto) 0.1 x10^3/uL (0.0-1.1) Eosinophils # (Auto) 0.0 x10^3/uL (0.0-0.7) Basophils # (Auto) 0.0 x10^3/uL (0.0-0.2) Review of Systems Review of Systems co weakness Assessment and Plan Assessmemt and Plan Problems Medical Problems: (1) UTI (lower urinary tract infection) Status: Acute AMS, hallucination, metabolic encephalopathy? with fever fever, not clear etiology, UTI? h/o CVA blindness, 2/2 conversion syndrome possibly copd stable systolic CHF EF 35% htn psychosis? hyponatremia severe malnutrition gastritis, duodenitis elevated trop moderate AR plan: neuro consult Labs PTOT add ceftriaxone daily for now, fu ucx, bcx cont home meds check flu, drug tox dvt ppx PTOT hold flexeril ivf NS 1L, NS 75cc/h for tonight cycle Trop Comment Review of Relevant I have reviewed the following items ranjith (where applicable) has been applied. Labs Laboratory Tests Test 04/19/18 13:35 04/19/18 13:50 04/19/18 14:40 04/19/18 18:30 Urine Collection Type U cath Urine Color Yellow Urine Clarity Clear Urine pH 5.5 Urine Specific [place] 1.015 Urine Protein Negative mg/dL (NEG-TRACE) Urine Glucose (UA) Negative mg/dL (NEG) Urine Ketones (Stick) Negative mg/dL (NEG) Urine Blood Negative (NEG) Urine Nitrite Negative (NEG) Urine Bilirubin Negative (NEG) Urine Urobilinogen Dipstick 0.2 mg/dL (0.2 mg/dL) Urine Leukocyte Esterase Moderate (NEG) Urine RBC 0 /HPF (0-2) Urine WBC 5-10 /HPF (0-4) Urine Squamous Epithelial Cells Few /LPF Urine Bacteria Few /HPF (0-FEW) Urine Mucus Marked /LPF Urine Yeast Present /HPF Urine Opiates Screen Pos (NEG) Urine Methadone Screen Neg (NEG) Urine Barbiturates Neg (NEG) Urine Phencyclidine Screen Neg (NEG) Urine Amphetamine/Methamphetamine Neg (NEG) Urine Benzodiazepines Screen Neg (NEG) Urine Cocaine Screen Neg (NEG) Urine Cannabinoids Screen Neg (NEG) Urine Ethyl Alcohol Neg (NEG) White Blood Count 7.9 x10^3/uL (4.0-11.0) Red Blood Count 3.45 x10^6/uL (3.50-5.40) Hemoglobin 9.7 g/dL (12.0-15.5) Hematocrit 28.7 % (36.0-47.0) Mean Corpuscular Volume 83 fL (79-100) Mean Corpuscular Hemoglobin 28 pg (25-35) Mean Corpuscular Hemoglobin Concent 34 g/dL (31-37) Red Cell Distribution Width 16.2 % (11.5-14.5) Platelet Count 288 x10^3/uL (140-400) Neutrophils (%) (Auto) 33 % (31-73) Lymphocytes (%) (Auto) 53 % (24-48) Monocytes (%) (Auto) 9 % (0-9) Eosinophils (%) (Auto) 4 % (0-3) Basophils (%) (Auto) 1 % (0-3) Neutrophils # (Auto) 2.6 x10^3uL (1.8-7.7) Lymphocytes # (Auto) 4.2 x10^3/uL (1.0-4.8) Monocytes # (Auto) 0.7 x10^3/uL (0.0-1.1) Eosinophils # (Auto) 0.3 x10^3/uL (0.0-0.7) Basophils # (Auto) 0.1 x10^3/uL (0.0-0.2) Prothrombin Time 16.2 SEC (11.7-14.0) Prothromb Time International Ratio 1.4 (0.8-1.1) Sodium Level 128 mmol/L (136-145) Potassium Level 3.9 mmol/L (3.5-5.1) Chloride Level 95 mmol/L (98-107) Carbon Dioxide Level 23 mmol/L (21-32) Anion Gap 10 (6-14) Blood Urea Nitrogen 21 mg/dL (7-20) Creatinine 0.9 mg/dL (0.6-1.0) Estimated GFR (Cockcroft-Gault) 76.0 BUN/Creatinine Ratio 23 (6-20) Glucose Level 87 mg/dL (70-99) Lactic Acid Level 0.8 mmol/L (0.4-2.0) Calcium Level 9.6 mg/dL (8.5-10.1) Total Bilirubin 0.5 mg/dL (0.2-1.0) Aspartate Amino Transf (AST/SGOT) 36 U/L (15-37) Alanine Aminotransferase (ALT/SGPT) 19 U/L (14-59) Alkaline Phosphatase 58 U/L (46-116) Troponin I Quantitative 0.289 ng/mL (0.000-0.055) 0.168 ng/mL (0.000-0.055) Total Protein 7.1 g/dL (6.4-8.2) Albumin 2.1 g/dL (3.4-5.0) Albumin/Globulin Ratio 0.4 (1.0-1.7) Influenza Type A Antigen Negative (NEGATIVE) Influenza Type B Antigen Negative (NEGATIVE) Test 04/19/18 21:20 04/20/18 05:50 04/20/18 06:00 Troponin I Quantitative 0.130 ng/mL (0.000-0.055) Sodium Level 130 mmol/L (136-145) Potassium Level 3.8 mmol/L (3.5-5.1) Chloride Level 100 mmol/L (98-107) Carbon Dioxide Level 20 mmol/L (21-32) Anion Gap 10 (6-14) Blood Urea Nitrogen 18 mg/dL (7-20) Creatinine 0.7 mg/dL (0.6-1.0) Estimated GFR (Cockcroft-Gault) 101.6 Glucose Level 111 mg/dL (70-99) Calcium Level 9.0 mg/dL (8.5-10.1) White Blood Count 3.6 x10^3/uL (4.0-11.0) Red Blood Count 3.53 x10^6/uL (3.50-5.40) Hemoglobin 9.8 g/dL (12.0-15.5) Hematocrit 29.9 % (36.0-47.0) Mean Corpuscular Volume 85 fL (79-100) Mean Corpuscular Hemoglobin 28 pg (25-35) Mean Corpuscular Hemoglobin Concent 33 g/dL (31-37) Red Cell Distribution Width 17.1 % (11.5-14.5) Platelet Count 290 x10^3/uL (140-400) Neutrophils (%) (Auto) 66 % (31-73) Lymphocytes (%) (Auto) 30 % (24-48) Monocytes (%) (Auto) 3 % (0-9) Eosinophils (%) (Auto) 0 % (0-3) Basophils (%) (Auto) 0 % (0-3) Neutrophils # (Auto) 2.4 x10^3uL (1.8-7.7) Lymphocytes # (Auto) 1.1 x10^3/uL (1.0-4.8) Monocytes # (Auto) 0.1 x10^3/uL (0.0-1.1) Eosinophils # (Auto) 0.0 x10^3/uL (0.0-0.7) Basophils # (Auto) 0.0 x10^3/uL (0.0-0.2) Laboratory Tests Test 04/19/18 13:35 04/19/18 13:50 04/19/18 14:40 04/19/18 18:30 Urine Collection Type U cath Urine Color Yellow Urine Clarity Clear Urine pH 5.5 Urine Specific [place]lyn 1.015 Urine Protein Negative mg/dL (NEG-TRACE) Urine Glucose (UA) Negative mg/dL (NEG) Urine Ketones (Stick) Negative mg/dL (NEG) Urine Blood Negative (NEG) Urine Nitrite Negative (NEG) Urine Bilirubin Negative (NEG) Urine Urobilinogen Dipstick 0.2 mg/dL (0.2 mg/dL) Urine Leukocyte Esterase Moderate (NEG) Urine RBC 0 /HPF (0-2) Urine WBC 5-10 /HPF (0-4) Urine Squamous Epithelial Cells Few /LPF Urine Bacteria Few /HPF (0-FEW) Urine Mucus Marked /LPF Urine Yeast Present /HPF Urine Opiates Screen Pos (NEG) Urine Methadone Screen Neg (NEG) Urine Barbiturates Neg (NEG) Urine Phencyclidine Screen Neg (NEG) Urine Amphetamine/Methamphetamine Neg (NEG) Urine Benzodiazepines Screen Neg (NEG) Urine Cocaine Screen Neg (NEG) Urine Cannabinoids Screen Neg (NEG) Urine Ethyl Alcohol Neg (NEG) White Blood Count 7.9 x10^3/uL (4.0-11.0) Red Blood Count 3.45 x10^6/uL (3.50-5.40) Hemoglobin 9.7 g/dL (12.0-15.5) Hematocrit 28.7 % (36.0-47.0) Mean Corpuscular Volume 83 fL (79-100) Mean Corpuscular Hemoglobin 28 pg (25-35) Mean Corpuscular Hemoglobin Concent 34 g/dL (31-37) Red Cell Distribution Width 16.2 % (11.5-14.5) Platelet Count 288 x10^3/uL (140-400) Neutrophils (%) (Auto) 33 % (31-73) Lymphocytes (%) (Auto) 53 % (24-48) Monocytes (%) (Auto) 9 % (0-9) Eosinophils (%) (Auto) 4 % (0-3) Basophils (%) (Auto) 1 % (0-3) Neutrophils # (Auto) 2.6 x10^3uL (1.8-7.7) Lymphocytes # (Auto) 4.2 x10^3/uL (1.0-4.8) Monocytes # (Auto) 0.7 x10^3/uL (0.0-1.1) Eosinophils # (Auto) 0.3 x10^3/uL (0.0-0.7) Basophils # (Auto) 0.1 x10^3/uL (0.0-0.2) Prothrombin Time 16.2 SEC (11.7-14.0) Prothromb Time International Ratio 1.4 (0.8-1.1) Sodium Level 128 mmol/L (136-145) Potassium Level 3.9 mmol/L (3.5-5.1) Chloride Level 95 mmol/L (98-107) Carbon Dioxide Level 23 mmol/L (21-32) Anion Gap 10 (6-14) Blood Urea Nitrogen 21 mg/dL (7-20) Creatinine 0.9 mg/dL (0.6-1.0) Estimated GFR (Cockcroft-Gault) 76.0 BUN/Creatinine Ratio 23 (6-20) Glucose Level 87 mg/dL (70-99) Lactic Acid Level 0.8 mmol/L (0.4-2.0) Calcium Level 9.6 mg/dL (8.5-10.1) Total Bilirubin 0.5 mg/dL (0.2-1.0) Aspartate Amino Transf (AST/SGOT) 36 U/L (15-37) Alanine Aminotransferase (ALT/SGPT) 19 U/L (14-59) Alkaline Phosphatase 58 U/L (46-116) Troponin I Quantitative 0.289 ng/mL (0.000-0.055) 0.168 ng/mL (0.000-0.055) Total Protein 7.1 g/dL (6.4-8.2) Albumin 2.1 g/dL (3.4-5.0) Albumin/Globulin Ratio 0.4 (1.0-1.7) Influenza Type A Antigen Negative (NEGATIVE) Influenza Type B Antigen Negative (NEGATIVE) Test 04/19/18 21:20 04/20/18 05:50 04/20/18 06:00 Troponin I Quantitative 0.130 ng/mL (0.000-0.055) Sodium Level 130 mmol/L (136-145) Potassium Level 3.8 mmol/L (3.5-5.1) Chloride Level 100 mmol/L (98-107) Carbon Dioxide Level 20 mmol/L (21-32) Anion Gap 10 (6-14) Blood Urea Nitrogen 18 mg/dL (7-20) Creatinine 0.7 mg/dL (0.6-1.0) Estimated GFR (Cockcroft-Gault) 101.6 Glucose Level 111 mg/dL (70-99) Calcium Level 9.0 mg/dL (8.5-10.1) White Blood Count 3.6 x10^3/uL (4.0-11.0) Red Blood Count 3.53 x10^6/uL (3.50-5.40) Hemoglobin 9.8 g/dL (12.0-15.5) Hematocrit 29.9 % (36.0-47.0) Mean Corpuscular Volume 85 fL (79-100) Mean Corpuscular Hemoglobin 28 pg (25-35) Mean Corpuscular Hemoglobin Concent 33 g/dL (31-37) Red Cell Distribution Width 17.1 % (11.5-14.5) Platelet Count 290 x10^3/uL (140-400) Neutrophils (%) (Auto) 66 % (31-73) Lymphocytes (%) (Auto) 30 % (24-48) Monocytes (%) (Auto) 3 % (0-9) Eosinophils (%) (Auto) 0 % (0-3) Basophils (%) (Auto) 0 % (0-3) Neutrophils # (Auto) 2.4 x10^3uL (1.8-7.7) Lymphocytes # (Auto) 1.1 x10^3/uL (1.0-4.8) Monocytes # (Auto) 0.1 x10^3/uL (0.0-1.1) Eosinophils # (Auto) 0.0 x10^3/uL (0.0-0.7) Basophils # (Auto) 0.0 x10^3/uL (0.0-0.2) Medications Current Medications Sodium Chloride 1,000 ml @ 1,000 mls/hr 1X ONCE IV Last administered on 04/19at 14:11; Start 04/19/18 at 13:30; Stop 04/19/18 at 14:29; Status DC Aspirin (Children'S Aspirin) 324 mg 1X ONCE PO Last administered on at 14:39; Start 04/19/18 at 14:30; Stop 04/19/18 at 14:31; Status DC Ceftriaxone Sodium 50 ml @ 100 mls/hr 1X ONCE IV Last administered on at 14:38; Start 04/19/18 at 14:30; Stop 04/19/18 at 14:59; Status DC Acetaminophen (Tylenol) 1,000 mg 1X ONCE PO Last administered on 04/19/18at 14 :39; Start 04/19/18 at 14:30; Stop 04/19/18 at 14:31; Status DC Sodium Chloride 1,000 ml @ 75 mls/hr [id number] IV Last administered on at 05:26; Start 04/19/18 at 15:24; Stop 04/20/18 at 15:23 Allopurinol (Zyloprim) 300 mg DAILY PO Last administered on 04/20/18at 09:00; Start 04/20/18 at 09:00 Amlodipine Besylate (Norvasc) 10 mg DAILY PO Last administered on 04/20/18at 11 :44; Start 04/20/18 at 09:00 Aspirin (Ecotrin) 325 mg DAILY08 PO Last administered on 04/20/18at 11:45; Start 04/20/18 at 08:00 Atorvastatin Calcium (Lipitor) 20 mg QHS PO Last administered on 04/19/18at 21: 19; Start 04/19/18 at 21:00 Carvedilol (Coreg) 6.25 mg BIDWMEALS PO Last administered on 04/20/18at 11:45; Start 04/19/18 at 17:00 Fluticasone Propionate (Flonase) 2 spray DAILY NS Last administered on at 11:38; Start 04/20/18 at 09:00 Acetaminophen/ Hydrocodone Bitart (Lortab 7.5/325) 1 tab PRN Q6HRS PRN PO PAIN MILD Last administered on 04/20/18at 02:59; Start 04/19/18 at 15:30 Triamcinolone Acetonide (Kenalog) 1 mary PRN BID PRN TP ITCHING; Start at 15:30 Albuterol Sulfate (Ventolin Neb Soln) 2.5 mg PRN Q6HRS PRN NEB SHORTNESS OF BREATH; Start 04/19/18 at 16:30 Gabapentin (Neurontin) 300 mg TID PO Last administered on 04/20/18at 11:39; Start 04/19/18 at 16:30 Hydralazine HCl (Apresoline) 25 mg TID PO Last administered on 04/20/18at 11:45 ; Start 04/19/18 at 21:00 Lidocaine (Lidoderm) 1 patch DAILY TD Last administered on 04/20/18at 11:53; Start 04/20/18 at 09:00 Polyethylene Glycol (miraLAX PACKET) 17 gm DAILY PO Last administered on at 11:47; Start 04/20/18 at 09:00 Famotidine (Pepcid) 20 mg QHS PO Last administered on 04/19/18at 21:19; Start 04/19/18 at 21:00 Ceftriaxone Sodium 1 gm/ Dextrose 50 ml @ 100 mls/hr DAILY IV ; Start at 09:00; Status UNV Acetaminophen (Tylenol) 650 mg PRN Q6HRS PRN PO FEVER; Start 04/19/18 at 15:30 Ondansetron HCl (Zofran) 4 mg PRN Q6HRS PRN IV NAUSEA/VOMITING 1ST CHOICE; Start 04/19/18 at 15:30 Morphine Sulfate (Morphine Sulfate) 2 mg PRN Q2HR PRN IV MODERATE TO SEVERE PAIN Last administered on 04/19/18at 21:19; Start 04/19/18 at 15:30 Tramadol HCl (Ultram) 50 mg PRN Q6HRS PRN PO MILD TO MODERATE PAIN; Start at 15:30 Docusate Sodium (Colace) 100 mg PRN DAILY PRN PO CONSTIPATION; Start 04/19/18 at 15:30 Enoxaparin Sodium (Lovenox 40mg Syringe) 40 mg DAILY SQ Last administered on at 11:46; Start 04/19/18 at 16:21 Ceftriaxone Sodium (Rocephin) 1 gm Q24H IVP ; Start 04/20/18 at 16:30 Influenza Virus Vaccine (Afluria Trivalent [id number] Syringe) 0.5 ml ONCE ONCE VAX IM Last administered on 04/19/18at 21:24; Start 04/19/18 at 20:00; Stop 04/19/18 at 20:01; Status DC Active Scripts Active Aspirin Ec (Aspirin) 325 Mg Tablet.dr 325 Mg PO DAILY08 30 Days Atorvastatin Calcium 20 Mg Tablet 20 Mg PO QHS 30 Days Amlodipine Besylate 10 Mg Tablet 10 Mg PO DAILY 30 Days Hydralazine Hcl 25 Mg Tablet 25 Mg PO TID 30 Days Reported Carvedilol 6.25 Mg Tablet 1 Tab PO BID Cipro (Ciprofloxacin Hcl) 250 Mg Tablet 1 Tab PO BID Gabapentin 300 Mg Capsule 300 Mg PO TID Multivitamins (Multivitamin) 1 Each Tablet 1 Tab PO DAILY Tylenol (Acetaminophen) 325 Mg Tablet 2 Tab PO PRN Q4HRS Mag-Oxide (Magnesium Oxide) 200 Mg Tablet 400 Mg PO Compazine (Prochlorperazine Maleate) 25 Mg Supp.rect 25 Mg RC Multivitamins (Multivitamin) 1 Each Tablet 1 Tab PO DAILY Lidocaine 1 Each Adh..patch 1 Each TP DAILY Melatonin 3 Mg Tablet 1 Tab PO QHS Voltaren (Diclofenac Sodium) 100 Gm Gel..gram. 1 Gm TP BID Triamcinolone Acetonide 0.1% Oint (Triamcinolone Acetonide) 15 Gm Oint...g. 1 Mary TP PRN BID MIX WITH EUCERIN DIRECTED BY PHYSICIAN Hydrocodone-Apap 7.5-325 (Hydrocodone Bit/Acetaminophen) 1 Each Tablet 1 Tab PO PRN Q6HRS PRN Cyclobenzaprine Hcl 10 Mg Tablet 1 Tab PO TID Fluticasone Propionate Nasal [place] (Fluticasone Propionate) 16 Gm [place].susp 2 [place] NS DAILY Ranitidine Hcl 150 Mg Tablet 1 Tab PO BID Polyethylene Glycol (Polyethylene Glycol 1000) 500 Gm Powder 500 Gm MC DAILY Proair Hfa Inhaler (Albuterol Sulfate) 8.5 Gm Hfa.aer.ad 2 Puff INH PRN Q6HRS PRN Allopurinol 300 Mg Tablet 300 Mg PO DAILY Vitals/I & O Vital Sign - Last 24 Hours 04/19/18 04/19/18 04/19/18 04/19/18 13:26 14:30 15:30 16:05 Temp 101.8 97.6 101.8 97.6 Pulse 102 104 88 84 Resp 22 20 20 18 B/P (MAP) 152/65 (94) Pulse Ox 97 98 100 96 O2 Delivery Room Air 04/19/18 04/19/18 04/19/18 04/19/18 17:00 17:16 17:35 17:35 Temp 98.0 98.0 Pulse 81 81 Resp 16 B/P (MAP) 124/64 (84) 124/64 Pulse Ox 99 O2 Delivery Room Air Room Air Room Air 04/19/18 04/19/18 04/19/18 04/19/18 17:35 19:00 20:00 21:19 Temp 96.8 96.8 Pulse 77 Resp 16 18 B/P (MAP) 98/55 (69) Pulse Ox 98 99 O2 Delivery Room Air Room Air Room Air Room Air 04/19/18 04/19/18 04/19/18 04/20/18 21:49 22:11 23:00 02:59 Temp 97.0 97.0 Pulse 77 69 Resp 18 17 18 B/P (MAP) 147/57 147/57 (87) Pulse Ox 99 97 97 O2 Delivery Room Air Room Air Room Air 04/20/18 04/20/18 04/20/18 04/20/18 03:00 03:59 07:00 11:44 Temp 97.1 98.1 97.1 98.1 Pulse 58 63 73 Resp 17 18 16 B/P (MAP) 130/55 (80) 156/76 (102) 133/64 Pulse Ox 96 97 97 O2 Delivery Room Air Room Air Room Air 04/20/18 04/20/18 04/20/18 11:45 11:45 12:03 Pulse 73 73 73 Resp 20 B/P (MAP) 133/64 133/64 133/64 (87) Pulse Ox 98 O2 Delivery Room Air Intake and Output 04/19/18 04/19/18 04/20/18 15:01 23:01 07:01 Intake Total 1000 ml 50 ml 560 ml Balance 1000 ml 50 ml 560 ml DULCE MARIANIAL K III DO Apr 20, 2018 12:06
--- NOTE | 2018-04-20 13:16 | EEG ---
DATE OF SERVICE: 04/20/2018 EEG NUMBER: [id number] OBJECTIVE: This is a 67-year-old female patient with history of mental status changes. EEG was requested to evaluate cerebral activity and help rule out subclinical seizures. METHODS: Twenty electrodes were applied according to the international 10-20 electrode placement system. EKG monitoring, hyperventilation, intermittent photic stimulation, monopolar and bipolar montages are routinely utilized. The record was obtained on a digital system with video monitoring. FINDINGS: 1. Background: The patient was recorded in the awake, drowsy, and sleep states. The overall background amplitude is 5-10 microvolts. A posterior dominant rhythm of 8 Hz is observed, but is not very well organized. 2. Abnormalities: No specific epileptiform discharge or electrographic seizure is seen. 3. Activation: Hyperventilation was performed with fair efforts and normal response. Intermittent photic stimulation was performed with photic driving. IMPRESSION: This EEG is a borderline study for the awake, drowsy, and sleep states. No focal, lateralizing, specific epileptiform discharge or electrographic seizure is seen. MURPHY BOWENS MD DR: JOSIAH/lela JOB#: [id number] / [id number] RUPINDER
--- NOTE | 2018-04-20 14:10 | RAD ---
MRI Brain without contrast History: Altered mental status Technique: Multiplanar, multisequential noncontrast MR imaging was performed of the brain. Contrast: None Comparison: None Findings: There has been interval regression of previously seen diffusion signal abnormality of the left anderson, some mild residual which is now hyperintense on the ADC map. There is new subtle increased diffusion signal change of the right periventricular white matter extending superiorly to the centrum semiovale although hyperintense on ADC map. There is associated increased T2 and FLAIR hyperintense signal compared with the previous exam at this location, fairly prominent focus of T2 and FLAIR hypertense signal measuring about 2.2 cm AP by 1.3 cm transverse. There are now more pronounced scattered small foci of volume loss of the bilateral periatrial white matter and also the periventricular white matter somewhat more superiorly in the parietal regions and also more anteriorly along the left lateral ventricle. There is a small old left thalamic lacunar infarct as seen previously. There is other moderate to T2 and FLAIR hyperintense signal of the anderson overall greater although previously seen more confluent T2 and FLAIR signal at the site of left pontine infarct decreased. There is no new midline shift or extra-axial fluid collection. Ventricular size is within normal limits. There is preservation of the major arterial intracranial flow voids at the skull base. There is questionable subtle increased T2 signal of the medulla although otherwise difficult to characterize. Paranasal sinuses are overall aerated. There is mild thickening of the mastoid air cells bilaterally. Impression: 1. There is no convincing evidence of recent infarct. There has been progression of previously seen diffusion signal abnormality of the left anderson now with a greater degree of volume loss. There are new scattered small foci of volume loss with associated T2 and FLAIR hyperintense signal of the periventricular white matter bilaterally, now more confluent and larger focus on the right. These areas were not previously associated with significant restricted diffusion although it is possible these are related to small areas of previous infarction, other consideration of sequela of an inflammatory demyelinating disease. Overall degree of signal abnormality of the anderson is greater, possible subtle signal change of the medulla. Electronically signed by: Leno Morales MD (04/20/2018 2:07 PM) [id number]
--- NOTE | 2018-04-20 14:30 | PDOC ---
PROGRESS NOTES Assessment Assessment Metabolic encephalopathy. Confusion. Hallucinations. UTI. Fever 101.8 degree. Hyponatremia, Na+ 128. Blindness. CHF, EF 35-40%. HTN. HLD. Left pontine infract in 02/2018. 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 Aortic regurgitation. COPD. Neuropathy. Narcotic use. Pain all over the body. No evidence of new acute CVA this time. RECOMMENDATIONS/PLAN: Continue ASA 325 mg daily. Continue Lipitor 20 mg HS. Treat medical diseases. Lab: see orders. OT/PT. HISTORY OF THE PRESENT ILLNESS: 67-y-old AA female patient with above medical diseases had recent stroke of left pontine infract in 02/2018. She was noted to have mental status changes, confusion, incoherence, and hallucinations to be brought to the ER of [facility]. On exam, she seemed unable to see items. She stated having pain all over her entire body. Past Medical History Cardiovascular: HTN Pulmonary: COPD, Pneumonia CENTRAL NERVOUS SYSTEM: Periperal neuropathy GI: Gastritis, Other Heme/Onc: No pertinent hx Hepatobiliary: Hep A/B/C Psych: No pertinent hx Rheumatologic: Gout Infectious disease: No pertinent hx Renal/: Other Endocrine: No pertinent hx Past Surgical History Total knee replacement, Hysterectomy Family History Heart Disease Social History Smoke: No ALCOHOL: none Drugs: Marijuana ALLERGY: Unknown MEDICATIONS: Refer to MAR REVIEW OF SYSTEMS: Constitutional: No malnutrition, weight loss, cachexia. Head: No traumatic brain or head injury. Skin: No edema, or rash. Ear: No infection.. Eyes: Recent blindness? Nose: No bleeding or purulent discharges. Hearing: Hearing decrease. Neck: No injury. Breast: No history of cancer, masses,or discharges. Cardiac: CHF, HTN, HLD. Pulmonary: COPD. GI: No GI ulcer, GI bleeding. Urinary/genital: UTI. Endocrinologic: No cousin face, craniofacial dysmorphism, polydactyly. Skeletomuscular: Left side weakness. Neurological: see HP. Psychiatric: Denies drug use/abuse. Otherwise, not [id number] review of systems. PHYSICAL EXAMINATION: General appearance is in subacute distress. HEENT: Normocephalic and nontraumatic. Eyes, nose, ears, and throat are unremarkable. Neck is supple. No lymphadenopathy. No crepitus. Cardiovascular: S1, S2, regular rate and rhythm. Pulmonary: Decreased to auscultation bilaterally. Abdomen: Bowel sounds are positive. Extremities: No rash, lesions, or edema. No restriction of range of motion NEUROLOGICAL EXAMINATION: Drowsiness. Not oriented to time, place and person. PERRL. EOMI. She stated not able to see. CN: no acute focal findings. Muscle tone: Increased in left UE and LE, within normal in right side. Muscle strength: 3-4 DTR: 2+ UE Plantar reflex: Neutral response bilaterally Gait: Unable to walk. Sensory exam: Pain in left UE. Not able to access cerebellar signs due to not follow commands.. F-T-N test not performed due to not follow commands . Objective Objective Vital Signs Date Time Temp Pulse Resp B/P (MAP) Pulse Ox O2 Delivery O2 Flow Rate FiO2 04/20/18 12:03 73 20 133/64 (87) 98 Room Air 04/20/18 07:00 98.1 98.1 Intake and Output 04/20/18 07:00 Intake Total 1610 ml Balance 1610 ml Intake Oral 560 ml IV Total 1050 ml # Voids 3 Vitals Signs Vitals VS - Last 72 Hours, by Label Date Time Temp Pulse Resp B/P (MAP) Pulse Ox O2 Delivery O2 Flow Rate FiO2 04/20/18 12:03 73 20 133/64 (87) 98 Room Air 04/20/18 11:45 73 133/64 18 11:45 73 133/64 04/20/18 11:44 73 133/64 04/20/18 08:00 Room Air 04/20/18 07:00 98.1 63 16 156/76 (102) 97 Room Air 98.1 04/20/18 03:59 18 97 Room Air 04/20/18 03:00 97.1 58 17 130/55 (80) 96 Room Air 97.1 04/20/18 02:59 18 97 Room Air 04/19/18 23:00 97.0 69 17 147/57 (87) 97 Room Air 97.0 04/19/18 22:11 77 147/57 04/19/18 21:49 18 99 Room Air 04/19/18 21:19 18 99 Room Air 04/19/18 20:00 Room Air 04/19/18 19:00 96.8 77 16 98/55 (69) 98 Room Air 96.8 04/19/18 17:35 Room Air 04/19/18 17:35 Room Air 04/19/18 17:35 81 124/64 04/19/18 17:16 98.0 81 16 124/64 (84) 99 Room Air 98.0 04/19/18 17:00 Room Air 04/19/18 16:05 97.6 84 18 96 97.6 04/19/18 15:30 88 20 100 04/19/18 14:30 104 20 98 04/19/18 13:26 101.8 102 22 152/65 (94) 97 Room Air 101.8 Laboratory Laboratory Laboratory Tests Test 04/19/18 14:40 04/19/18 18:30 04/19/18 21:20 04/20/18 05:50 Influenza Type A Antigen Negative (NEGATIVE) Influenza Type B Antigen Negative (NEGATIVE) Troponin I Quantitative 0.168 ng/mL (0.000-0.055) 0.130 ng/mL (0.000-0.055) Sodium Level 130 mmol/L (136-145) Potassium Level 3.8 mmol/L (3.5-5.1) Chloride Level 100 mmol/L (98-107) Carbon Dioxide Level 20 mmol/L (21-32) Anion Gap 10 (6-14) Blood Urea Nitrogen 18 mg/dL (7-20) Creatinine 0.7 mg/dL (0.6-1.0) Estimated GFR (Cockcroft-Gault) 101.6 Glucose Level 111 mg/dL (70-99) Calcium Level 9.0 mg/dL (8.5-10.1) Test 04/20/18 06:00 White Blood Count 3.6 x10^3/uL (4.0-11.0) Red Blood Count 3.53 x10^6/uL (3.50-5.40) Hemoglobin 9.8 g/dL (12.0-15.5) Hematocrit 29.9 % (36.0-47.0) Mean Corpuscular Volume 85 fL (79-100) Mean Corpuscular Hemoglobin 28 pg (25-35) Mean Corpuscular Hemoglobin Concent 33 g/dL (31-37) Red Cell Distribution Width 17.1 % (11.5-14.5) Platelet Count 290 x10^3/uL (140-400) Neutrophils (%) (Auto) 66 % (31-73) Lymphocytes (%) (Auto) 30 % (24-48) Monocytes (%) (Auto) 3 % (0-9) Eosinophils (%) (Auto) 0 % (0-3) Basophils (%) (Auto) 0 % (0-3) Neutrophils # (Auto) 2.4 x10^3uL (1.8-7.7) Lymphocytes # (Auto) 1.1 x10^3/uL (1.0-4.8) Monocytes # (Auto) 0.1 x10^3/uL (0.0-1.1) Eosinophils # (Auto) 0.0 x10^3/uL (0.0-0.7) Basophils # (Auto) 0.0 x10^3/uL (0.0-0.2) Microbiology 04/19/18 Blood Culture - Preliminary, Resulted NO GROWTH AFTER 1 DAY Medication Medications Current Medications Acetaminophen (Tylenol) 650 mg PRN Q6HRS PRN PO FEVER; Start 04/19/18 at 15:30 Acetaminophen (Tylenol) 1,000 mg 1X ONCE PO Last administered on 04/19/18at 14 :39; Start 04/19/18 at 14:30; Stop 04/19/18 at 14:31; Status DC Acetaminophen/ Hydrocodone Bitart (Lortab 7.5/325) 1 tab PRN Q6HRS PRN PO PAIN MODERATE Last administered on 04/20/18at 02:59; Start 04/19/18 at 15:30 Albuterol Sulfate (Ventolin Neb Soln) 2.5 mg PRN Q6HRS PRN NEB SHORTNESS OF BREATH; Start 04/19/18 at 16:30 Allopurinol (Zyloprim) 300 mg DAILY PO Last administered on 04/20/18at 09:00; Start 04/20/18 at 09:00 Amlodipine Besylate (Norvasc) 10 mg DAILY PO Last administered on 04/20/18at 11 :44; Start 04/20/18 at 09:00 Aspirin (Children'S Aspirin) 324 mg 1X ONCE PO Last administered on at 14:39; Start 04/19/18 at 14:30; Stop 04/19/18 at 14:31; Status DC Aspirin (Ecotrin) 325 mg DAILY08 PO Last administered on 04/20/18at 11:45; Start 04/20/18 at 08:00 Atorvastatin Calcium (Lipitor) 20 mg QHS PO Last administered on 04/19/18at 21: 19; Start 04/19/18 at 21:00 Carvedilol (Coreg) 6.25 mg BIDWMEALS PO Last administered on 04/20/18at 11:45; Start 04/19/18 at 17:00 Ceftriaxone Sodium 1 gm/ Dextrose 50 ml @ 100 mls/hr DAILY IV ; Start at 09:00; Status UNV Ceftriaxone Sodium 50 ml @ 100 mls/hr 1X ONCE IV Last administered on at 14:38; Start 04/19/18 at 14:30; Stop 04/19/18 at 14:59; Status DC Ceftriaxone Sodium (Rocephin) 1 gm Q24H IVP ; Start 04/20/18 at 16:30 Docusate Sodium (Colace) 100 mg PRN DAILY PRN PO CONSTIPATION; Start 04/19/18 at 15:30 Enoxaparin Sodium (Lovenox 40mg Syringe) 40 mg DAILY SQ Last administered on at 11:46; Start 04/19/18 at 16:21 Famotidine (Pepcid) 20 mg QHS PO Last administered on 04/19/18at 21:19; Start 04/19/18 at 21:00 Fluticasone Propionate (Flonase) 2 spray DAILY NS Last administered on at 11:38; Start 04/20/18 at 09:00 Gabapentin (Neurontin) 300 mg TID PO Last administered on 04/20/18at 11:39; Start 04/19/18 at 16:30 Hydralazine HCl (Apresoline) 25 mg TID PO Last administered on 04/20/18at 11:45 ; Start 04/19/18 at 21:00 Influenza Virus Vaccine (Afluria Trivalent [id number] Syringe) 0.5 ml ONCE ONCE VAX IM Last administered on 04/19/18at 21:24; Start 04/19/18 at 20:00; Stop 04/19/18 at 20:01; Status DC Lactobacillus Rhamnosus (Culturelle) 1 cap BID PO ; Start 04/20/18 at 21:00 Lidocaine (Lidoderm) 1 patch DAILY TD Last administered on 04/20/18at 11:53; Start 04/20/18 at 09:00 Morphine Sulfate (Morphine Sulfate) 2 mg PRN Q2HR PRN IV MODERATE TO SEVERE PAIN Last administered on 04/19/18at 21:19; Start 04/19/18 at 15:30 Ondansetron HCl (Zofran) 4 mg PRN Q6HRS PRN IV NAUSEA/VOMITING 1ST CHOICE; Start 04/19/18 at 15:30 Polyethylene Glycol (miraLAX PACKET) 17 gm DAILY PO Last administered on at 11:47; Start 04/20/18 at 09:00 Sodium Chloride 1,000 ml @ 75 mls/hr [id number] IV Last administered on at 05:26; Start 04/19/18 at 15:24; Stop 04/20/18 at 15:23 Tramadol HCl (Ultram) 50 mg PRN Q6HRS PRN PO MILD TO MODERATE PAIN; Start at 15:30 Triamcinolone Acetonide (Kenalog) 1 parish PRN BID PRN TP ITCHING; Start at 15:30 Comment Review of Relevant I have reviewed the following items ranjith (where applicable) has been applied. MURPHY BOWENS MD Apr 20, 2018 14:30
[2018-04-20] MEDS: MULTIVITAMIN with MINERAL TABLET. PO SCH (16:56)
[2018-04-20] MEDS: cefTRIAXone IV Push 1 GM VIAL. IVP SCH (16:56)
[2018-04-20] MEDS: ATORVASTATIN CALCIUM 20 MG TABLET PO SCH (20:17)
[2018-04-20] MEDS: ASCORBIC ACID 500 MG TABLET PO SCH (20:18)
[2018-04-20] MEDS: FAMOTIDINE 20 MG TABLET. PO SCH (20:18)
[2018-04-20] MEDS: LACTOBACILLUS RHAMNOSUS GG 1 CAPSULE. PO SCH (20:18)
[2018-04-21] VITALS (8 sets, daily range): BP systolic 80–128; BP diastolic 39–70
[2018-04-21] MEDS: CARVEDILOL 6.25 MG TABLET. PO SCH ×2 (08:00→17:00)
[2018-04-21] MEDS: amLODIPine BESYLATE 10 MG TABLET PO SCH (08:35)
[2018-04-21] MEDS: hydrALAZINE 25 MG TABLET PO SCH ×3 (08:35→21:02)
[2018-04-21] MEDS: FLUTICASONE 50MCG/NASAL SPRAY 16GM BOTTLE. NS SCH (09:01)
[2018-04-21] MEDS: LIDOCAINE (700MG/PATCH) PATCH. TD SCH (09:08)
[2018-04-21] MEDS: POLYETHYLENE GLYCOL 3350 17 GM PACKET. PO SCH (09:10)
[2018-04-21] MEDS: ENOXAPARIN 40 MG/0.4 ML SYRINGE. SQ SCH (09:11)
[2018-04-21] MEDS: ASPIRIN ENTERIC COATED 325 MG TABLET.DR. PO SCH (09:11)
[2018-04-21] MEDS: MULTIVITAMIN with MINERAL TABLET. PO SCH (09:11)
[2018-04-21] MEDS: ALLOPURINOL 300 MG TABLET. PO SCH (09:11)
[2018-04-21] MEDS: ASCORBIC ACID 500 MG TABLET PO SCH ×2 (09:12→21:03)
[2018-04-21] MEDS: GABAPENTIN 300 MG CAPSULE. PO SCH ×3 (09:12→21:03)
[2018-04-21] MEDS: LACTOBACILLUS RHAMNOSUS GG 1 CAPSULE. PO SCH ×2 (09:12→21:03)
[2018-04-21] MEDS: MORPHINE SULFATE 2 MG/ML VIAL. IV PRN ×2 (11:03→18:35)
[2018-04-21] MEDS ORDERED: IV NORMAL SALINE 500ML BAG 500 ML IV ONE (12:30)
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
[2018-04-21] MEDS ORDERED: IV NORMAL SALINE 1000ML BAG 1,000 ML IV ONE (14:00)
--- NOTE | 2018-04-21 14:07 | PDOC ---
PROGRESS NOTES Chief Complaint Chief Complaint AMS, hallucination, metabolic encephalopathy with fever fever, not clear etiology, UTI h/o CVA blindness, 2/2 conversion syndrome possibly copd stable systolic CHF EF 35% htn psychosis? hyponatremia severe malnutrition gastritis, duodenitis elevated trop moderate AR marked right heel wound, stage 3 sacral wound History of Present Illness History of Present Illness confused at to which hospital she is at she reports better vision today no new complaint Vitals Vitals Vital Signs Date Time Temp Pulse Resp B/P (MAP) Pulse Ox O2 Delivery O2 Flow Rate FiO2 04/21/18 13:06 75 80/47 (58) 04/21/18 11:03 Room Air 04/21/18 11:00 96.3 16 96 96.3 Physical Exam General: Alert, Cooperative, No acute distress Heart: Regular rate, Normal S1 Lungs: Clear Abdomen: Soft, No tenderness Extremities: No cyanosis, No edema, Normal pulses, No tenderness/swelling Skin: No rashes, Other (Right heel with popped bulla with central eschar. Consent obtained for bedside debridement. Debrided loose skin with sterile scissors, leaving central intact eschar. Surrounding callus debrided with currette. Eschar hard with palpation. Edges attached and not rolling. Minimal bleeding controlled with pressure. Pt denied pain with procedure. Coccyx with stage 3 pressure ulcer. Wound bed 50% thin slough, 50% granulation. Edges attached and not rolling. Surrounding tissue free of erythema and edema. Minimal serous drainage. Left medial knee with scabbed wound. No surrounding erythema or edema. Lies over bony prominence. Right LE with scabbed wound. No surrounding erythema or edema. Does not lie over bony prominence. ) Labs LABS Laboratory Tests Test 04/20/18 16:25 Erythrocyte Sedimentation Rate 60 (0-25) Assessment and Plan Assessmemt and Plan Problems Medical Problems: (1) UTI (lower urinary tract infection) Status: Acute Comment Review of Relevant I have reviewed the following items ranjith (where applicable) has been applied. Labs Laboratory Tests Test 04/19/18 14:40 04/19/18 18:30 04/19/18 21:20 04/20/18 05:50 Influenza Type A Antigen Negative (NEGATIVE) Influenza Type B Antigen Negative (NEGATIVE) Troponin I Quantitative 0.168 ng/mL (0.000-0.055) 0.130 ng/mL (0.000-0.055) Sodium Level 130 mmol/L (136-145) Potassium Level 3.8 mmol/L (3.5-5.1) Chloride Level 100 mmol/L (98-107) Carbon Dioxide Level 20 mmol/L (21-32) Anion Gap 10 (6-14) Blood Urea Nitrogen 18 mg/dL (7-20) Creatinine 0.7 mg/dL (0.6-1.0) Estimated GFR (Cockcroft-Gault) 101.6 Glucose Level 111 mg/dL (70-99) Calcium Level 9.0 mg/dL (8.5-10.1) Test 04/20/18 06:00 04/20/18 16:25 White Blood Count 3.6 x10^3/uL (4.0-11.0) Red Blood Count 3.53 x10^6/uL (3.50-5.40) Hemoglobin 9.8 g/dL (12.0-15.5) Hematocrit 29.9 % (36.0-47.0) Mean Corpuscular Volume 85 fL (79-100) Mean Corpuscular Hemoglobin 28 pg (25-35) Mean Corpuscular Hemoglobin Concent 33 g/dL (31-37) Red Cell Distribution Width 17.1 % (11.5-14.5) Platelet Count 290 x10^3/uL (140-400) Neutrophils (%) (Auto) 66 % (31-73) Lymphocytes (%) (Auto) 30 % (24-48) Monocytes (%) (Auto) 3 % (0-9) Eosinophils (%) (Auto) 0 % (0-3) Basophils (%) (Auto) 0 % (0-3) Neutrophils # (Auto) 2.4 x10^3uL (1.8-7.7) Lymphocytes # (Auto) 1.1 x10^3/uL (1.0-4.8) Monocytes # (Auto) 0.1 x10^3/uL (0.0-1.1) Eosinophils # (Auto) 0.0 x10^3/uL (0.0-0.7) Basophils # (Auto) 0.0 x10^3/uL (0.0-0.2) Erythrocyte Sedimentation Rate 60 (0-25) Laboratory Tests Test 04/20/18 16:25 Erythrocyte Sedimentation Rate 60 (0-25) Microbiology 04/19/18 Blood Culture - Preliminary, Resulted NO GROWTH AFTER 1 DAY Medications Current Medications Sodium Chloride 1,000 ml @ 1,000 mls/hr 1X ONCE IV Last administered on 04/19at 14:11; Start 04/19/18 at 13:30; Stop 04/19/18 at 14:29; Status DC Aspirin (Children'S Aspirin) 324 mg 1X ONCE PO Last administered on at 14:39; Start 04/19/18 at 14:30; Stop 04/19/18 at 14:31; Status DC Ceftriaxone Sodium 50 ml @ 100 mls/hr 1X ONCE IV Last administered on at 14:38; Start 04/19/18 at 14:30; Stop 04/19/18 at 14:59; Status DC Acetaminophen (Tylenol) 1,000 mg 1X ONCE PO Last administered on 04/19/18at 14 :39; Start 04/19/18 at 14:30; Stop 04/19/18 at 14:31; Status DC Sodium Chloride 1,000 ml @ 75 mls/hr [id number] IV Last administered on at 05:26; Start 04/19/18 at 15:24; Stop 04/20/18 at 15:23; Status DC Allopurinol (Zyloprim) 300 mg DAILY PO Last administered on 04/21/18at 09:11; Start 04/20/18 at 09:00 Amlodipine Besylate (Norvasc) 10 mg DAILY PO Last administered on 04/20/18at 11 :44; Start 04/20/18 at 09:00 Aspirin (Ecotrin) 325 mg DAILY08 PO Last administered on 04/21/18at 09:11; Start 04/20/18 at 08:00 Atorvastatin Calcium (Lipitor) 20 mg QHS PO Last administered on 04/20/18at 20: 17; Start 04/19/18 at 21:00 Carvedilol (Coreg) 6.25 mg BIDWMEALS PO Last administered on 04/20/18at 11:45; Start 04/19/18 at 17:00 Fluticasone Propionate (Flonase) 2 spray DAILY NS Last administered on at 09:01; Start 04/20/18 at 09:00 Acetaminophen/ Hydrocodone Bitart (Lortab 7.5/325) 1 tab PRN Q6HRS PRN PO PAIN MODERATE Last administered on 04/20/18at 20:18; Start 04/19/18 at 15:30 Triamcinolone Acetonide (Kenalog) 1 mary PRN BID PRN TP ITCHING; Start at 15:30 Albuterol Sulfate (Ventolin Neb Soln) 2.5 mg PRN Q6HRS PRN NEB SHORTNESS OF BREATH; Start 04/19/18 at 16:30 Gabapentin (Neurontin) 300 mg TID PO Last administered on 04/21/18at 09:12; Start 04/19/18 at 16:30 Hydralazine HCl (Apresoline) 25 mg TID PO Last administered on 04/20/18at 15:52 ; Start 04/19/18 at 21:00 Lidocaine (Lidoderm) 1 patch DAILY TD Last administered on 04/21/18at 09:08; Start 04/20/18 at 09:00 Polyethylene Glycol (miraLAX PACKET) 17 gm DAILY PO Last administered on at 09:10; Start 04/20/18 at 09:00 Famotidine (Pepcid) 20 mg QHS PO Last administered on 04/20/18at 20:18; Start 04/19/18 at 21:00 Ceftriaxone Sodium 1 gm/ Dextrose 50 ml @ 100 mls/hr DAILY IV ; Start at 09:00; Status UNV Acetaminophen (Tylenol) 650 mg PRN Q6HRS PRN PO FEVER; Start 04/19/18 at 15:30 Ondansetron HCl (Zofran) 4 mg PRN Q6HRS PRN IV NAUSEA/VOMITING 1ST CHOICE; Start 04/19/18 at 15:30 Morphine Sulfate (Morphine Sulfate) 2 mg PRN Q2HR PRN IV MODERATE TO SEVERE PAIN Last administered on 04/21/18at 11:03; Start 04/19/18 at 15:30 Tramadol HCl (Ultram) 50 mg PRN Q6HRS PRN PO MILD TO MODERATE PAIN; Start at 15:30 Docusate Sodium (Colace) 100 mg PRN DAILY PRN PO CONSTIPATION; Start 04/19/18 at 15:30 Enoxaparin Sodium (Lovenox 40mg Syringe) 40 mg DAILY SQ Last administered on at 09:11; Start 04/19/18 at 16:21 Ceftriaxone Sodium (Rocephin) 1 gm Q24H IVP Last administered on 04/20/18at 16: 56; Start 04/20/18 at 16:30 Influenza Virus Vaccine (Afluria Trivalent 1403-8228 Syringe) 0.5 ml ONCE ONCE VAX IM Last administered on 04/19/18at 21:24; Start 04/19/18 at 20:00; Stop 04/19/18 at 20:01; Status DC Lactobacillus Rhamnosus (Culturelle) 1 cap BID PO Last administered on 09:12; Start 04/20/18 at 21:00 Ascorbic Acid (Vitamin C) 500 mg BID PO Last administered on 04/21/18at 09:12; Start 04/20/18 at 21:00 Multivitamins (Thera M Plus) 1 tab DAILY PO Last administered on 04/21/18at 09: 11; Start 04/20/18 at 17:00 Sodium Chloride 500 ml @ 500 mls/hr 1X ONCE IV Last administered on at 12:43; Start 04/21/18 at 12:30; Stop 04/21/18 at 13:29; Status DC Sodium Chloride 1,000 ml @ 1,000 mls/hr 1X ONCE IV Last administered on 04/21at 13:52; Start 04/21/18 at 14:00; Stop 04/21/18 at 14:59 Active Scripts Active Aspirin Ec (Aspirin) 325 Mg Tablet.dr 325 Mg PO DAILY08 30 Days Atorvastatin Calcium 20 Mg Tablet 20 Mg PO QHS 30 Days Amlodipine Besylate 10 Mg Tablet 10 Mg PO DAILY 30 Days Hydralazine Hcl 25 Mg Tablet 25 Mg PO TID 30 Days Reported Carvedilol 6.25 Mg Tablet 1 Tab PO BID Cipro (Ciprofloxacin Hcl) 250 Mg Tablet 1 Tab PO BID Gabapentin 300 Mg Capsule 300 Mg PO TID Multivitamins (Multivitamin) 1 Each Tablet 1 Tab PO DAILY Tylenol (Acetaminophen) 325 Mg Tablet 2 Tab PO PRN Q4HRS Mag-Oxide (Magnesium Oxide) 200 Mg Tablet 400 Mg PO Compazine (Prochlorperazine Maleate) 25 Mg Supp.rect 25 Mg RC Multivitamins (Multivitamin) 1 Each Tablet 1 Tab PO DAILY Lidocaine 1 Each Adh..patch 1 Each TP DAILY Melatonin 3 Mg Tablet 1 Tab PO QHS Voltaren (Diclofenac Sodium) 100 Gm Gel..gram. 1 Gm TP BID Triamcinolone Acetonide 0.1% Oint (Triamcinolone Acetonide) 15 Gm Oint...g. 1 Mary TP PRN BID MIX WITH EUCERIN DIRECTED BY PHYSICIAN Hydrocodone-Apap 7.5-325 (Hydrocodone Bit/Acetaminophen) 1 Each Tablet 1 Tab PO PRN Q6HRS PRN Cyclobenzaprine Hcl 10 Mg Tablet 1 Tab PO TID Fluticasone Propionate Nasal [place] (Fluticasone Propionate) 16 Gm [place].susp 2 [place] NS DAILY Ranitidine Hcl 150 Mg Tablet 1 Tab PO BID Polyethylene Glycol (Polyethylene Glycol 1000) 500 Gm Powder 500 Gm MC DAILY Proair Hfa Inhaler (Albuterol Sulfate) 8.5 Gm Hfa.aer.ad 2 Puff INH PRN Q6HRS PRN Allopurinol 300 Mg Tablet 300 Mg PO DAILY Vitals/I & O Vital Sign - Last 24 Hours 04/20/18 04/20/18 04/20/18 04/20/18 15:52 15:52 16:57 16:57 Temp 97.1 97.1 Pulse 70 70 70 70 Resp 18 B/P (MAP) 114/63 114/63 (80) 93/58 93/58 (70) O2 Delivery Room Air 04/20/18 04/20/18 04/20/18 04/20/18 19:00 20:00 20:11 20:18 Temp 97.9 97.9 Pulse 71 71 Resp 18 18 B/P (MAP) 116/54 (74) 116/54 Pulse Ox 97 O2 Delivery Room Air Room Air Room Air 04/20/18 04/21/18 04/21/18 04/21/18 23:00 03:00 07:00 08:00 Temp 98.1 98.1 97.6 98.1 98.1 97.6 Pulse 77 70 65 65 Resp 18 18 16 B/P (MAP) 110/56 (74) 122/59 (80) 104/52 (69) 104/52 Pulse Ox 97 97 99 O2 Delivery Room Air Room Air Room Air 10/18/18 04/21/18 04/21/18 04/21/18 08:00 08:35 08:35 11:00 Temp 96.3 96.3 Pulse 65 65 64 Resp 16 B/P (MAP) 104/52 104/52 86/39 (55) Pulse Ox 96 O2 Delivery Room Air Room Air 04/21/18 04/21/18 11:03 13:06 Pulse 75 B/P (MAP) 80/47 (58) O2 Delivery Room Air Intake and Output 04/20/18 04/20/18 04/21/18 15:00 23:00 07:00 Intake Total 720 ml Balance 720 ml CRISS CROSS MD Apr 21, 2018 14:07
--- NOTE | 2018-04-21 15:53 | RAD ---
Right lower extremity arterial ultrasound, 04/21/2018: HISTORY: Right heel ulcer Duplex evaluation of the major arteries in the right lower extremity was performed including grayscale, color-flow and spectral Doppler analysis. There are mild scattered atherosclerotic plaques with plaque calcifications. The right common femoral artery demonstrates a triphasic Doppler waveform. The superficial femoral artery demonstrates a combination of biphasic and monophasic Doppler waveforms. No significant velocity acceleration is seen to suggest high-grade focal stenosis. The right popliteal Doppler waveform is monophasic. Patent anterior tibial, posterior tibial and peroneal arteries are present in the right lower leg demonstrating monophasic Doppler waveforms. The dorsalis pedis artery is patent with a good amplitude monophasic Doppler waveform. IMPRESSION: 1. Mild scattered atherosclerotic plaquing. 2. No high-grade focal femoral-popliteal stenosis is identified. 3. Three-vessel arterial runoff in the right lower leg with mild degradation of the distal Doppler waveforms. Electronically signed by: Christiano Ramirez MD (04/21/2018 3:50 PM) [facility]
[2018-04-21] MEDS: cefTRIAXone IV Push 1 GM VIAL. IVP SCH (17:16)
[2018-04-21] MEDS: AMINO AC 3%/ELECTROLYTE/GLYCER 1,000 ML IV SCH (17:16)
[2018-04-21] MEDS: traMADol 50 MG TABLET PO PRN (18:08)
--- NOTE | 2018-04-21 18:33 | PDOC ---
PROGRESS NOTES Assessment Assessment Metabolic encephalopathy. Confusion. Hallucinations. UTI. Fever 101.8 degree. Hyponatremia, Na+ 128. Blindness. CHF, EF 35-40%. HTN. HLD. Left pontine infract in 02/2018. 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 Aortic regurgitation. COPD. Neuropathy. Narcotic use. Pain all over the body. No evidence of new acute CVA this time. RECOMMENDATIONS/PLAN: Continue ASA 325 mg daily. Continue Lipitor 20 mg HS. Treat medical diseases. OT/PT. FU with PCP. HISTORY OF THE PRESENT ILLNESS: 67-y-old AA female patient with above medical diseases had recent stroke of left pontine infract in 02/2018. She was noted to have mental status changes, confusion, incoherence, and hallucinations to be brought to the ER of [facility]. On exam, she seemed unable to see items. She stated having pain all over her entire body. Past Medical History Cardiovascular: HTN Pulmonary: COPD, Pneumonia CENTRAL NERVOUS SYSTEM: Periperal neuropathy GI: Gastritis, Other Heme/Onc: No pertinent hx Hepatobiliary: Hep A/B/C Psych: No pertinent hx Rheumatologic: Gout Infectious disease: No pertinent hx Renal/: Other Endocrine: No pertinent hx Past Surgical History Total knee replacement, Hysterectomy Family History Heart Disease Social History Smoke: No ALCOHOL: none Drugs: Marijuana ALLERGY: Unknown MEDICATIONS: Refer to MAR REVIEW OF SYSTEMS: Constitutional: No malnutrition, weight loss, cachexia. Head: No traumatic brain or head injury. Skin: No edema, or rash. Ear: No infection.. Eyes: Recent blindness? Nose: No bleeding or purulent discharges. Hearing: Hearing decrease. Neck: No injury. Breast: No history of cancer, masses,or discharges. Cardiac: CHF, HTN, HLD. Pulmonary: COPD. GI: No GI ulcer, GI bleeding. Urinary/genital: UTI. Endocrinologic: No cousin face, craniofacial dysmorphism, polydactyly. Skeletomuscular: Left side weakness. Neurological: see HP. Psychiatric: Denies drug use/abuse. Otherwise, not [id number] review of systems. PHYSICAL EXAMINATION: General appearance is in subacute distress. HEENT: Normocephalic and nontraumatic. Eyes, nose, ears, and throat are unremarkable. Neck is supple. No lymphadenopathy. No crepitus. Cardiovascular: S1, S2, regular rate and rhythm. Pulmonary: Decreased to auscultation bilaterally. Abdomen: Bowel sounds are positive. Extremities: No rash, lesions, or edema. No restriction of range of motion NEUROLOGICAL EXAMINATION: Drowsiness. Not oriented to time, place and person. PERRL. EOMI. She stated not able to see. CN: no acute focal findings. Muscle tone: Increased in all UE and LE, left > right. Muscle strength: 3-4 DTR: 2+ UE Plantar reflex: Neutral response bilaterally Gait: Unable to walk. Sensory exam: Pain in left UE. Not able to access cerebellar signs due to not follow commands.. F-T-N test not performed due to not follow commands . Objective Objective Vital Signs Date Time Temp Pulse Resp B/P (MAP) Pulse Ox O2 Delivery O2 Flow Rate FiO2 04/21/18 18:08 Room Air 04/21/18 17:00 75 90/52 04/21/18 11:00 96.3 16 96 96.3 Intake and Output 04/21/18 07:00 Intake Total 720 ml Balance 720 ml Intake Oral 720 ml # Voids 8 # Bowel Movements 1 Vitals Signs Vitals VS - Last 72 Hours, by Label Date Time Temp Pulse Resp B/P (MAP) Pulse Ox O2 Delivery O2 Flow Rate FiO2 04/21/18 18:08 Room Air 04/21/18 17:00 75 90/52 04/21/18 14:22 90/52 (65) 04/21/18 14:13 Room Air 04/21/18 14:00 75 86/50 04/21/18 13:06 75 80/47 (58) 04/21/18 11:03 Room Air 04/21/18 11:00 96.3 64 16 86/39 (55) 96 Room Air 96.3 04/21/18 08:35 65 104/52 04/21/18 08:35 65 104/52 04/21/18 08:00 Room Air 04/21/18 08:00 65 104/52 04/21/18 07:00 97.6 65 16 104/52 (69) 99 Room Air 97.6 04/21/18 03:00 98.1 70 18 122/59 (80) 97 Room Air 98.1 04/20/18 23:00 98.1 77 18 110/56 (74) 97 Room Air 98.1 04/20/18 20:18 18 Room Air 04/20/18 20:11 71 116/54 04/20/18 20:00 Room Air 04/20/18 19:00 97.9 71 18 116/54 (74) 97 Room Air 97.9 04/20/18 16:57 70 93/58 (70) 04/20/18 16:57 70 93/58 04/20/18 15:52 97.1 70 18 114/63 (80) Room Air 97.1 04/20/18 15:52 70 114/63 04/20/18 12:03 73 20 133/64 (87) 98 Room Air 04/20/18 11:45 73 133/64 04/20/18 11:45 73 133/64 04/20/18 11:44 73 133/64 04/20/18 08:00 Room Air 04/20/18 07:00 98.1 63 16 156/76 (102) 97 Room Air 98.1 Laboratory Laboratory Microbiology 04/19/18 Blood Culture - Preliminary, Resulted NO GROWTH AFTER 2 DAYS Medication Medications Current Medications Amino Acids/ Glycerin/ Electrolytes 1,000 ml @ 80 mls/hr [id number] IV Last administered on 04/21/18at 17:16; Start 04/21/18 at 17:30 Ascorbic Acid (Vitamin C) 500 mg BID PO Last administered on 04/21/18at 09:12; Start 04/20/18 at 21:00 Lactobacillus Rhamnosus (Culturelle) 1 cap BID PO Last administered on at 09:12; Start 04/20/18 at 21:00 Sodium Chloride 500 ml @ 500 mls/hr 1X ONCE IV Last administered on at 12:43; Start 04/21/18 at 12:30; Stop 04/21/18 at 13:29; Status DC Sodium Chloride 1,000 ml @ 1,000 mls/hr 1X ONCE IV Last administered on 04/21at 13:52; Start 04/21/18 at 14:00; Stop 04/21/18 at 14:59; Status DC Comment Review of Relevant I have reviewed the following items ranjith (where applicable) has been applied. MURPHY BOWENS MD Apr 21, 2018 18:33
[2018-04-21] MEDS: ATORVASTATIN CALCIUM 20 MG TABLET PO SCH (21:03)
[2018-04-21] MEDS: FAMOTIDINE 20 MG TABLET. PO SCH (21:03)
[2018-04-22] MEDS: MORPHINE SULFATE 2 MG/ML VIAL. IV PRN ×2 (00:45→03:31)
[2018-04-22 03:00] VITALS: BP 137/76
--- NOTE | 2018-04-22 04:14 | EKG ---
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
[2018-04-22] MEDS: AMINO AC 3%/ELECTROLYTE/GLYCER 1,000 ML IV SCH ×2 (05:50→18:35)
[2018-04-22 07:00] VITALS: BP 146/71
[2018-04-22] MEDS: LACTOBACILLUS RHAMNOSUS GG 1 CAPSULE. PO SCH ×2 (09:04→20:39)
[2018-04-22] MEDS: MULTIVITAMIN with MINERAL TABLET. PO SCH (09:04)
[2018-04-22] MEDS: ASPIRIN ENTERIC COATED 325 MG TABLET.DR. PO SCH (09:04)
[2018-04-22] MEDS: ENOXAPARIN 40 MG/0.4 ML SYRINGE. SQ SCH (09:05)
[2018-04-22] MEDS: ALLOPURINOL 300 MG TABLET. PO SCH (09:05)
[2018-04-22] MEDS: GABAPENTIN 300 MG CAPSULE. PO SCH ×3 (09:05→20:40)
[2018-04-22] MEDS: amLODIPine BESYLATE 10 MG TABLET PO SCH (09:05)
[2018-04-22] MEDS: CARVEDILOL 6.25 MG TABLET. PO SCH ×2 (09:06→15:51)
[2018-04-22] MEDS: POLYETHYLENE GLYCOL 3350 17 GM PACKET. PO SCH (09:06)
[2018-04-22] MEDS: hydrALAZINE 25 MG TABLET PO SCH ×3 (09:06→20:39)
[2018-04-22] MEDS: FLUTICASONE 50MCG/NASAL SPRAY 16GM BOTTLE. NS SCH (09:06)
[2018-04-22] MEDS: LIDOCAINE (700MG/PATCH) PATCH. TD SCH (09:07)
[2018-04-22] MEDS: ASCORBIC ACID 500 MG TABLET PO SCH ×2 (09:08→20:40)
--- NOTE | 2018-04-22 10:27 | PDOC2 ---
NILS HAMMONDS PROJECT CONTROL OFFICER 04/22/18 1027: CARDIAC CONSULT DATE OF CONSULT Date of Consult DATE: 04/22/18 TIME: 10:06 REASON FOR CONSULT Reason for Consult: bradycardia, elevated troponin upon admission. REFERRING PHYSICIAN Referring Physician: Michael SOURCE Source: Chart review HISTORY OF PRESENT ILLNESS HISTORY OF PRESENT ILLNESS This is a 67 yo female admitted for altered mental status. She has then been noted with UTI and was hallucinating. No noted CP, SOA and her CHF is currently stable. She has arm contractures and significantly debilitated. Presently she is able to communicate with me but a poor historian and no CP, SOA and presently with no discomfort. PAST MEDICAL HISTORY Past Medical History Cardiovascular: HTN, HLP, cardiomyopathy, severe AI CENTRAL NERVOUS SYSTEM: Peripheral neuropathy, CVA with right side hemiplegia Pulmonary: COPD GI: Gastritis (2015), Other (elevated LFTs) Heme/Onc: anemia Hepatobiliary: Hep A/B/C (? C) Psych: No pertinent hx Musculoskeletal: Osteoarthritis Rheumatologic: Gout ENT: Blind Renal/: Other (overactive bladder), UTI Endocrine: No pertinent hx Dermatology: Other (muse) PAST SURGICAL HISTORY Past Surgical History Total knee replacement, Hysterectomy FAMILY HISTORY Family History: Heart Disease SOCIAL HISTORY Smoke: No ALCOHOL: none Drugs: None CURRENT MEDICATIONS CURRENT MEDICATIONS Current Medications Medications (Trade) Dose Ordered Sig/Tracie Route PRN Reason Start Time Stop Time Status Last Admin Dose Admin Sodium Chloride 500 ml @ 500 mls/hr 1X ONCE IV 04/21/18 12:30 04/21/18 13:29 DC 04/21/18 12:43 Sodium Chloride 1,000 ml @ 1,000 mls/hr 1X ONCE IV 04/21/18 14:00 04/21/18 14:59 DC 04/21/18 13:52 Amino Acids/ Glycerin/ Electrolytes 1,000 ml @ 80 mls/hr [id number] IV 04/21/18 17:30 04/22/18 05:50 Lorazepam (Ativan) 0.5 mg 1X ONCE IV 04/22/18 04:00 04/22/18 04:02 DC 04/22/18 04:07 ALLERGIES ALLERGIES: Coded Allergies: lisinopril (Verified Allergy, Severe, Swelling, 02/28/18) angioedema sulfamethoxazole (Verified Allergy, Intermediate, 02/28/18) trimethoprim (Verified Allergy, Intermediate, 02/28/18) ROS Review of System limited, poor historian PHYSICAL EXAM General: Alert, Cooperative, No acute distress HEENT: Atraumatic, Mucous membr. moist/pink Lungs: Other (diminished bases) Heart: Regular rate (sinus tach), Other (4/6 diastolic murmur loudest at erbs) Abdomen: Soft Extremities: No cyanosis, Other (1+ bilateral pitting edema. ) Skin: No breakdown, No significant lesion, Other (right heel and coccygeal pressure ulcers with multiple wounds) Neuro: Normal speech, Sensation intact Psych/Mental Status: Mental status NL, Mood NL MUSCULOSKELETAL: Osteoarthritic changes both hands, Other (multiple contractures) VITALS VITALS Vital Signs Date Time Temp Pulse Resp B/P (MAP) Pulse Ox O2 Delivery O2 Flow Rate FiO2 04/22/18 09:06 91 146/71 04/22/18 07:00 98.1 20 100 Room Air 98.1 ECHOCARDIOGRAM ECHOCARDIOGRAM <Conclusion> The ejection fraction is moderately impaired. The Ejection Fraction is 35-40%. Severe global hypokinesis. Doppler and Color Flow revealed moderate to severe aortic regurgitation. Signed by : Deep Capone, Electronically Approved : 01/26/2018 15:26:07 DATE: 01/26/18 1526 STRESS TEST STRESS TEST Conclusion 1. No EKG evidence of stressed induced ischemia. 2. Nuclear imaging shows no reversible ischemia or infarct. 3. Minimally decreased LV systolic function with mild global hypokinesis and an ejection fraction of 45%. 4. Moderately low risk Lexiscan nuclear stress test with no reversible ischemia or infarct. DATE: 01/26/18 1455 ASSESSMENT/PLAN ASSESSMENT/PLAN 1. Fever/UTI 2. Metabolic encephalopathy 3. NSTEMI: peaked at 0.289. type 2, demand mediated. EKG sinus tach with RBBB with no acute changes. CP free. Underlying severe AI contributing. 3. Cardiomyopathy: EF 40%. NICM based on MPI on 01/2018. multifactorial with AI contributing. 4. Chronic diastolic/systolic CHF: compensated 5. CVA with right side hemiplegia and blindness, significant debility/ contractures 6. HLP 7. Coccygeal/right heel pressure ulcer 8. HTN: controlled Recommendations 1. Poor candidate for any invasive procedures. Allow slight permissive tachycardia with her severe AI. 2. Continue with secondary prevention. Maintain conservative measures 3. Poor senior care prognosis. Consider palliative consult to address goals of care. JOVANA HESS MD 04/22/18 1546: CARDIAC CONSULT ASSESSMENT/PLAN ASSESSMENT/PLAN Patient seen and examined. Agree with FOOD PROCESSING SCIENTIST's assessment and plan. Non-STEMI most probably type II. Doubt ACS based on presentation and EKG findings. Chronic systolic heart failure well compensated. Continue current management for UTI and metabolic encephalopathy per IM. Thank you for your consultation. NILS HAMMONDS APRN Apr 22, 2018 10:27 JOVANA HESS MD Apr 22, 2018 15:46
[2018-04-22] MEDS ORDERED: LORazepam INTENSOL 2 MG/ML ORAL.CONC SL PRN (11:00)
[2018-04-22 15:00] VITALS: BP 123/66
--- NOTE | 2018-04-22 15:10 | PDOC ---
PROGRESS NOTES Chief Complaint Chief Complaint AMS, hallucination, metabolic encephalopathy with fever fever, not clear etiology, UTI h/o CVA blindness, 2/2 conversion syndrome possibly copd stable systolic CHF EF 35% htn psychosis, agitation hyponatremia severe malnutrition gastritis, duodenitis elevated trop moderate AR marked right heel wound, stage 3 sacral wound History of Present Illness History of Present Illness agitated, did not allow blood draw did not want to eat, refused transfer, will consult palliative care to help with goals Vitals Vitals Vital Signs Date Time Temp Pulse Resp B/P (MAP) Pulse Ox O2 Delivery O2 Flow Rate FiO2 04/22/18 09:06 91 146/71 04/22/18 08:00 Room Air 04/22/18 07:00 98.1 20 100 98.1 Physical Exam General: Alert, Cooperative, No acute distress Heart: Regular rate (sinus tach), Other (4/6 diastolic murmur loudest at erbs) Lungs: Clear Abdomen: Soft Extremities: No cyanosis, Other (1+ bilateral pitting edema. ) Skin: No breakdown, No significant lesion, Other (right heel and coccygeal pressure ulcers with multiple wounds) Labs LABS Laboratory Tests Test 04/22/18 11:40 Troponin I Quantitative 0.034 ng/mL (0.000-0.055) Assessment and Plan Assessmemt and Plan Problems Medical Problems: (1) UTI (lower urinary tract infection) Status: Acute Comment Review of Relevant I have reviewed the following items ranjith (where applicable) has been applied. Labs Laboratory Tests Test 04/20/18 16:25 04/22/18 11:40 Erythrocyte Sedimentation Rate 60 (0-25) Troponin I Quantitative 0.034 ng/mL (0.000-0.055) Laboratory Tests Test 04/22/18 11:40 Troponin I Quantitative 0.034 ng/mL (0.000-0.055) Microbiology 04/19/18 Blood Culture - Preliminary, Resulted NO GROWTH AFTER 2 DAYS 04/19/18 Urine Culture - Final, Complete 04/19/18 Urine Culture Result 1 ([facility]) - Final, Complete Medications Current Medications Sodium Chloride 1,000 ml @ 1,000 mls/hr 1X ONCE IV Last administered on 04/19at 14:11; Start 04/19/18 at 13:30; Stop 04/19/18 at 14:29; Status DC Aspirin (Children'S Aspirin) 324 mg 1X ONCE PO Last administered on at 14:39; Start 04/19/18 at 14:30; Stop 04/19/18 at 14:31; Status DC Ceftriaxone Sodium 50 ml @ 100 mls/hr 1X ONCE IV Last administered on at 14:38; Start 04/19/18 at 14:30; Stop 04/19/18 at 14:59; Status DC Acetaminophen (Tylenol) 1,000 mg 1X ONCE PO Last administered on 04/19/18at 14 :39; Start 04/19/18 at 14:30; Stop 04/19/18 at 14:31; Status DC Sodium Chloride 1,000 ml @ 75 mls/hr [id number] IV Last administered on at 05:26; Start 04/19/18 at 15:24; Stop 04/20/18 at 15:23; Status DC Allopurinol (Zyloprim) 300 mg DAILY PO Last administered on 04/22/18at 09:05; Start 04/20/18 at 09:00 Amlodipine Besylate (Norvasc) 10 mg DAILY PO Last administered on 04/22/18at 09 :05; Start 04/20/18 at 09:00 Aspirin (Ecotrin) 325 mg DAILY08 PO Last administered on 04/22/18at 09:04; Start 04/20/18 at 08:00 Atorvastatin Calcium (Lipitor) 20 mg QHS PO Last administered on 04/21/18at 21: 03; Start 04/19/18 at 21:00 Carvedilol (Coreg) 6.25 mg BIDWMEALS PO Last administered on 04/22/18at 09:06; Start 04/19/18 at 17:00 Fluticasone Propionate (Flonase) 2 spray DAILY NS Last administered on at 09:06; Start 04/20/18 at 09:00 Acetaminophen/ Hydrocodone Bitart (Lortab 7.5/325) 1 tab PRN Q6HRS PRN PO PAIN MODERATE Last administered on 04/20/18at 20:18; Start 04/19/18 at 15:30 Triamcinolone Acetonide (Kenalog) 1 mary PRN BID PRN TP ITCHING; Start at 15:30 Albuterol Sulfate (Ventolin Neb Soln) 2.5 mg PRN Q6HRS PRN NEB SHORTNESS OF BREATH; Start 04/19/18 at 16:30 Gabapentin (Neurontin) 300 mg TID PO Last administered on 04/22/18at 09:05; Start 04/19/18 at 16:30 Hydralazine HCl (Apresoline) 25 mg TID PO Last administered on 04/22/18at 09:06 ; Start 04/19/18 at 21:00 Lidocaine (Lidoderm) 1 patch DAILY TD Last administered on 04/22/18at 09:07; Start 04/20/18 at 09:00 Polyethylene Glycol (miraLAX PACKET) 17 gm DAILY PO Last administered on at 09:06; Start 04/20/18 at 09:00 Famotidine (Pepcid) 20 mg QHS PO Last administered on 04/21/18at 21:03; Start 04/19/18 at 21:00 Ceftriaxone Sodium 1 gm/ Dextrose 50 ml @ 100 mls/hr DAILY IV ; Start at 09:00; Status UNV Acetaminophen (Tylenol) 650 mg PRN Q6HRS PRN PO FEVER; Start 04/19/18 at 15:30 Ondansetron HCl (Zofran) 4 mg PRN Q6HRS PRN IV NAUSEA/VOMITING 1ST CHOICE Last administered on 04/21/18at 19:58; Start 04/19/18 at 15:30 Morphine Sulfate (Morphine Sulfate) 2 mg PRN Q2HR PRN IV MODERATE TO SEVERE PAIN Last administered on 04/22/18at 03:31; Start 04/19/18 at 15:30 Tramadol HCl (Ultram) 50 mg PRN Q6HRS PRN PO MILD TO MODERATE PAIN Last administered on 04/21/18at 18:08; Start 04/19/18 at 15:30 Docusate Sodium (Colace) 100 mg PRN DAILY PRN PO CONSTIPATION; Start 04/19/18 at 15:30 Enoxaparin Sodium (Lovenox 40mg Syringe) 40 mg DAILY SQ Last administered on at 09:05; Start 04/19/18 at 16:21 Ceftriaxone Sodium (Rocephin) 1 gm Q24H IVP Last administered on 04/21/18at 17: 16; Start 04/20/18 at 16:30 Influenza Virus Vaccine (Afluria Trivalent [id number] Syringe) 0.5 ml ONCE ONCE VAX IM Last administered on 04/19/18at 21:24; Start 04/19/18 at 20:00; Stop 04/19/18 at 20:01; Status DC Lactobacillus Rhamnosus (Culturelle) 1 cap BID PO Last administered on at 09:04; Start 04/20/18 at 21:00 Ascorbic Acid (Vitamin C) 500 mg BID PO Last administered on 04/22/18at 09:08; Start 04/20/18 at 21:00 Multivitamins (Thera M Plus) 1 tab DAILY PO Last administered on 04/22/18at 09: 04; Start 04/20/18 at 17:00 Sodium Chloride 500 ml @ 500 mls/hr 1X ONCE IV Last administered on at 12:43; Start 04/21/18 at 12:30; Stop 04/21/18 at 13:29; Status DC Sodium Chloride 1,000 ml @ 1,000 mls/hr 1X ONCE IV Last administered on 04/21at 13:52; Start 04/21/18 at 14:00; Stop 04/21/18 at 14:59; Status DC Amino Acids/ Glycerin/ Electrolytes 1,000 ml @ 80 mls/hr [id number] IV Last administered on 04/22/18at 05:50; Start 04/21/18 at 17:30 Lorazepam (Ativan) 0.5 mg 1X ONCE IV Last administered on 04/22/18at 04:07; Start 04/22/18 at 04:00; Stop 04/22/18 at 04:02; Status DC Lorazepam (Ativan) 0.5 mg PRN Q4HRS PRN IV ANXIETY / AGITATION; Start at 11:00 Lorazepam (Ativan Intensol) 2 mg PRN Q6HRS PRN SL ANXIETY / AGITATION; Start 04/22/18 at 11:00 Active Scripts Active Aspirin Ec (Aspirin) 325 Mg Tablet.dr 325 Mg PO DAILY08 30 Days Atorvastatin Calcium 20 Mg Tablet 20 Mg PO QHS 30 Days Amlodipine Besylate 10 Mg Tablet 10 Mg PO DAILY 30 Days Hydralazine Hcl 25 Mg Tablet 25 Mg PO TID 30 Days Reported Carvedilol 6.25 Mg Tablet 1 Tab PO BID Cipro (Ciprofloxacin Hcl) 250 Mg Tablet 1 Tab PO BID Gabapentin 300 Mg Capsule 300 Mg PO TID Multivitamins (Multivitamin) 1 Each Tablet 1 Tab PO DAILY Tylenol (Acetaminophen) 325 Mg Tablet 2 Tab PO PRN Q4HRS Mag-Oxide (Magnesium Oxide) 200 Mg Tablet 400 Mg PO Compazine (Prochlorperazine Maleate) 25 Mg Supp.rect 25 Mg RC Multivitamins (Multivitamin) 1 Each Tablet 1 Tab PO DAILY Lidocaine 1 Each Adh..patch 1 Each TP DAILY Melatonin 3 Mg Tablet 1 Tab PO QHS Voltaren (Diclofenac Sodium) 100 Gm Gel..gram. 1 Gm TP BID Triamcinolone Acetonide 0.1% Oint (Triamcinolone Acetonide) 15 Gm Oint...g. 1 Mary TP PRN BID MIX WITH EUCERIN DIRECTED BY PHYSICIAN Hydrocodone-Apap 7.5-325 (Hydrocodone Bit/Acetaminophen) 1 Each Tablet 1 Tab PO PRN Q6HRS PRN Cyclobenzaprine Hcl 10 Mg Tablet 1 Tab PO TID Fluticasone Propionate Nasal [place] (Fluticasone Propionate) 16 Gm [place].susp 2 [place] NS DAILY Ranitidine Hcl 150 Mg Tablet 1 Tab PO BID Polyethylene Glycol (Polyethylene Glycol 1000) 500 Gm Powder 500 Gm MC DAILY Proair Hfa Inhaler (Albuterol Sulfate) 8.5 Gm Hfa.aer.ad 2 Puff INH PRN Q6HRS PRN Allopurinol 300 Mg Tablet 300 Mg PO DAILY Vitals/I & O Vital Sign - Last 24 Hours 04/21/18 04/21/18 04/21/18 04/21/18 17:00 18:08 18:35 18:36 Pulse 75 101 B/P (MAP) 90/52 120/70 (87) Pulse Ox 96 O2 Delivery Room Air Room Air 04/21/18 04/21/18 04/21/18 04/21/18 19:00 19:05 20:08 21:02 Temp 97.0 97.0 Pulse 84 84 Resp 18 B/P (MAP) 119/64 (82) 119/64 Pulse Ox 95 96 O2 Delivery Room Air Room Air Room Air 04/21/18 04/22/18 04/22/18 04/22/18 23:00 00:45 03:00 03:31 Temp 97.3 98.2 97.3 98.2 Pulse 75 114 Resp 18 18 B/P (MAP) 128/66 (86) 137/76 (96) Pulse Ox 93 93 95 95 O2 Delivery Room Air Room Air Room Air Room Air 04/22/18 04/22/18 04/22/18 04/22/18 04:01 07:00 08:00 09:05 Temp 98.1 98.1 Pulse 91 91 Resp 20 B/P (MAP) 146/71 (96) 146/71 Pulse Ox 95 100 O2 Delivery Room Air Room Air Room Air 04/22/18 04/22/18 09:06 09:06 Pulse 91 91 B/P (MAP) 146/71 146/71 Intake and Output 04/21/18 04/21/18 04/22/18 15:00 23:00 07:00 Intake Total 360 ml 0 ml 320 ml Balance 360 ml 0 ml 320 ml CRISS CROSS MD Apr 22, 2018 15:10
[2018-04-22] MEDS: cefTRIAXone IV Push 1 GM VIAL. IVP SCH (15:52)
--- NOTE | 2018-04-22 16:02 | PDOC ---
PROGRESS NOTES Assessment Assessment Metabolic encephalopathy. Confusion. Hallucinations. UTI. Fever 101.8 degree. Hyponatremia, Na+ 128. Blindness. CHF, EF 35-40%. HTN. HLD. Left pontine infract in 02/2018. 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 Aortic regurgitation. COPD. Neuropathy. Narcotic use. Pain all over the body. No evidence of new acute CVA this time. RECOMMENDATIONS/PLAN: Continue ASA 325 mg daily. Continue Lipitor 20 mg HS. Treat medical diseases. OT/PT. FU with PCP. HISTORY OF THE PRESENT ILLNESS: 67-y-old AA female patient with above medical diseases had recent stroke of left pontine infract in 02/2018. She was noted to have mental status changes, confusion, incoherence, and hallucinations to be brought to the ER of [facility]. On exam, she seemed unable to see items. She stated having pain all over her entire body. Past Medical History Cardiovascular: HTN Pulmonary: COPD, Pneumonia CENTRAL NERVOUS SYSTEM: Periperal neuropathy GI: Gastritis, Other Heme/Onc: No pertinent hx Hepatobiliary: Hep A/B/C Psych: No pertinent hx Rheumatologic: Gout Infectious disease: No pertinent hx Renal/: Other Endocrine: No pertinent hx Past Surgical History Total knee replacement, Hysterectomy Family History Heart Disease Social History Smoke: No ALCOHOL: none Drugs: Marijuana ALLERGY: Unknown MEDICATIONS: Refer to MAR REVIEW OF SYSTEMS: Constitutional: No malnutrition, weight loss, cachexia. Head: No traumatic brain or head injury. Skin: No edema, or rash. Ear: No infection.. Eyes: Recent blindness? Nose: No bleeding or purulent discharges. Hearing: Hearing decrease. Neck: No injury. Breast: No history of cancer, masses,or discharges. Cardiac: CHF, HTN, HLD. Pulmonary: COPD. GI: No GI ulcer, GI bleeding. Urinary/genital: UTI. Endocrinologic: No cousin face, craniofacial dysmorphism, polydactyly. Skeletomuscular: Left side weakness. Neurological: see HP. Psychiatric: Denies drug use/abuse. Otherwise, not [id number] review of systems. PHYSICAL EXAMINATION: General appearance is in subacute distress. HEENT: Normocephalic and nontraumatic. Eyes, nose, ears, and throat are unremarkable. Neck is supple. No lymphadenopathy. No crepitus. Cardiovascular: S1, S2, regular rate and rhythm. Pulmonary: Decreased to auscultation bilaterally. Abdomen: Bowel sounds are positive. Extremities: No rash, lesions, or edema. No restriction of range of motion NEUROLOGICAL EXAMINATION: Awake. Not fully oriented to time, place and person. PERRL. EOMI. She stated not able to see. CN: no acute focal findings. Muscle tone: Increased in all UE and LE, left > right. Muscle strength: 3-4 DTR: 2+ UE Plantar reflex: Neutral response bilaterally Gait: Unable to walk. Sensory exam: Pain in extremities.. Not able to access cerebellar signs due to not follow commands.. F-T-N test not performed due to not follow commands . Objective Objective Vital Signs Date Time Temp Pulse Resp B/P (MAP) Pulse Ox O2 Delivery O2 Flow Rate FiO2 04/22/18 15:52 91 146/71 04/22/18 15:00 97.9 18 99 Room Air 97.9 Intake and Output 04/22/18 07:00 Intake Total 680 ml Balance 680 ml Intake Oral 680 ml # Voids 2 # Bowel Movements 1 Vitals Signs Vitals VS - Last 72 Hours, by Label Date Time Temp Pulse Resp B/P (MAP) Pulse Ox O2 Delivery O2 Flow Rate FiO2 04/22/18 15:52 91 146/71 04/22/18 15:51 91 146/71 04/22/18 15:00 97.9 71 18 123/66 (85) 99 Room Air 97.9 04/22/18 09:06 91 146/71 04/22/18 09:06 91 146/71 04/22/18 09:05 91 146/71 04/22/18 08:00 Room Air 04/22/18 07:00 98.1 91 20 146/71 (96) 100 Room Air 98.1 04/22/18 04:01 95 Room Air 04/22/18 03:31 95 Room Air 04/22/18 03:00 98.2 114 18 137/76 (96) 95 Room Air 98.2 04/22/18 00:45 93 Room Air 04/21/18 23:00 97.3 75 18 128/66 (86) 93 Room Air 97.3 04/21/18 21:02 84 119/64 04/21/18 20:08 Room Air 04/21/18 19:05 96 Room Air 04/21/18 19:00 97.0 84 18 119/64 (82) 95 Room Air 97.0 04/21/18 18:36 101 120/70 (87) 04/21/18 18:35 96 Room Air 04/21/18 18:08 Room Air 04/21/18 17:00 75 90/52 04/21/18 14:22 90/52 (65) 04/21/18 14:00 75 86/50 04/21/18 13:06 75 80/47 (58) 04/21/18 11:03 Room Air 04/21/18 11:00 96.3 64 16 86/39 (55) 96 Room Air 96.3 04/21/18 08:35 65 104/52 04/21/18 08:35 65 104/52 04/21/18 08:00 Room Air 04/21/18 08:00 65 104/52 04/21/18 07:00 97.6 65 16 104/52 (69) 99 Room Air 97.6 Laboratory Laboratory Laboratory Tests Test 04/22/18 11:40 Troponin I Quantitative 0.034 ng/mL (0.000-0.055) Microbiology 04/19/18 Blood Culture - Preliminary, Resulted NO GROWTH AFTER 3 DAYS 04/19/18 Urine Culture - Final, Complete 04/19/18 Urine Culture Result 1 ([facility]) - Final, Complete Medication Medications Current Medications Amino Acids/ Glycerin/ Electrolytes 1,000 ml @ 80 mls/hr [id number] IV Last administered on 04/22/18at 05:50; Start 04/21/18 at 17:30 Lorazepam (Ativan Intensol) 2 mg PRN Q6HRS PRN SL ANXIETY / AGITATION; Start 04/22/18 at 11:00 Lorazepam (Ativan) 0.5 mg 1X ONCE IV Last administered on 04/22/18at 04:07; Start 04/22/18 at 04:00; Stop 04/22/18 at 04:02; Status DC Lorazepam (Ativan) 0.5 mg PRN Q4HRS PRN IV ANXIETY / AGITATION Last administered on 04/22/18at 15:51; Start 04/22/18 at 11:00 Comment Review of Relevant I have reviewed the following items ranjith (where applicable) has been applied. MURPHY BOWENS MD Apr 22, 2018 16:02
[2018-04-22 19:00] VITALS: BP 115/55
[2018-04-22] MEDS: FAMOTIDINE 20 MG TABLET. PO SCH (20:40)
[2018-04-22] MEDS: HYDROcodone/APAP 7.5/325MG 1 TAB TABLET PO PRN (20:40)
[2018-04-22] MEDS: ATORVASTATIN CALCIUM 20 MG TABLET PO SCH (20:40)
[2018-04-22 23:00] VITALS: BP 118/49
[2018-04-23 03:00] VITALS: BP 126/65
[2018-04-23] MEDS: HYDROcodone/APAP 7.5/325MG 1 TAB TABLET PO PRN ×3 (06:06→13:53)
[2018-04-23] MEDS: AMINO AC 3%/ELECTROLYTE/GLYCER 1,000 ML IV SCH (06:07)
--- NOTE | 2018-04-23 07:51 | PDOC ---
PROGRESS NOTES Chief Complaint Chief Complaint AMS, hallucination, metabolic encephalopathy with fever fever, not clear etiology, UTI h/o CVA blindness, 2/2 conversion syndrome possibly copd stable systolic CHF EF 35% htn psychosis, agitation hyponatremia severe malnutrition gastritis, duodenitis elevated trop moderate AR marked right heel wound, stage 3 sacral wound History of Present Illness History of Present Illness This is a 67 yo female admitted for altered mental status. She has then been noted with UTI and was hallucinating. No noted CP, SOA and her CHF is currently stable. She has arm contractures and significantly debilitated. Presently she is able to communicate with me but a poor historian and no CP, SOA and presently with no discomfort. Found with NSTEMI type 2 - on ASA, statin AMS, hallucination, metabolic encephalopathy with fever - likely 2/2 UTI, cleared after 3 days of antibiotics UTI - metabolic encephalopathy, treated 3 days, improved h/o CVA - may have had more CVA since, though not necessarily acute based on worse MRI. 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 possibly vs new CVA copd - stable on nebs stable systolic CHF EF 35% - seen by cardiology htn - controlled now psychosis, agitation hyponatremia - 2/2 poor nutrition severe malnutrition - nutrition gastritis, duodenitis moderate AR marked right heel wound, stage 3 sacral wound Vitals Vitals Vital Signs Date Time Temp Pulse Resp B/P (MAP) Pulse Ox O2 Delivery O2 Flow Rate FiO2 04/23/18 07:10 18 100 Room Air 04/23/18 03:00 96.1 81 126/65 (85) 96.1 Physical Exam General: Alert, Cooperative, No acute distress Heart: Regular rate (sinus tach), Other (4/6 diastolic murmur loudest at erbs) Lungs: Clear Abdomen: Soft Extremities: No cyanosis, Other (1+ bilateral pitting edema. ) Skin: No breakdown, No significant lesion, Other (right heel and coccygeal pressure ulcers with multiple wounds) Labs LABS Laboratory Tests Test 04/22/18 11:40 Troponin I Quantitative 0.034 ng/mL (0.000-0.055) Assessment and Plan Assessmemt and Plan Problems Medical Problems: (1) UTI (lower urinary tract infection) Status: Acute Comment Review of Relevant I have reviewed the following items ranjith (where applicable) has been applied. Labs Laboratory Tests Test 04/22/18 11:40 Troponin I Quantitative 0.034 ng/mL (0.000-0.055) Laboratory Tests Test 04/22/18 11:40 Troponin I Quantitative 0.034 ng/mL (0.000-0.055) Microbiology 04/19/18 Blood Culture - Preliminary, Resulted NO GROWTH AFTER 3 DAYS 04/19/18 Urine Culture - Final, Complete 04/19/18 Urine Culture Result 1 ([place]) - Final, Complete Medications Current Medications Sodium Chloride 1,000 ml @ 1,000 mls/hr 1X ONCE IV Last administered on 04/19at 14:11; Start 04/19/18 at 13:30; Stop 04/19/18 at 14:29; Status DC Aspirin (Children'S Aspirin) 324 mg 1X ONCE PO Last administered on at 14:39; Start 04/19/18 at 14:30; Stop 04/19/18 at 14:31; Status DC Ceftriaxone Sodium 50 ml @ 100 mls/hr 1X ONCE IV Last administered on at 14:38; Start 04/19/18 at 14:30; Stop 04/19/18 at 14:59; Status DC Acetaminophen (Tylenol) 1,000 mg 1X ONCE PO Last administered on 04/19/18at 14 :39; Start 04/19/18 at 14:30; Stop 04/19/18 at 14:31; Status DC Sodium Chloride 1,000 ml @ 75 mls/hr [id number] IV Last administered on at 05:26; Start 04/19/18 at 15:24; Stop 04/20/18 at 15:23; Status DC Allopurinol (Zyloprim) 300 mg DAILY PO Last administered on 04/22/18at 09:05; Start 04/20/18 at 09:00 Amlodipine Besylate (Norvasc) 10 mg DAILY PO Last administered on 04/22/18at 09 :05; Start 04/20/18 at 09:00 Aspirin (Ecotrin) 325 mg DAILY08 PO Last administered on 04/22/18at 09:04; Start 04/20/18 at 08:00 Atorvastatin Calcium (Lipitor) 20 mg QHS PO Last administered on 04/22/18at 20: 40; Start 04/19/18 at 21:00 Carvedilol (Coreg) 6.25 mg BIDWMEALS PO Last administered on 04/22/18at 15:51; Start 04/19/18 at 17:00 Fluticasone Propionate (Flonase) 2 spray DAILY NS Last administered on at 09:06; Start 04/20/18 at 09:00 Acetaminophen/ Hydrocodone Bitart (Lortab 7.5/325) 1 tab PRN Q6HRS PRN PO PAIN MODERATE Last administered on 04/23/18at 06:06; Start 04/19/18 at 15:30 Triamcinolone Acetonide (Kenalog) 1 mary PRN BID PRN TP ITCHING; Start at 15:30 Albuterol Sulfate (Ventolin Neb Soln) 2.5 mg PRN Q6HRS PRN NEB SHORTNESS OF BREATH; Start 04/19/18 at 16:30 Gabapentin (Neurontin) 300 mg TID PO Last administered on 04/22/18at 20:40; Start 04/19/18 at 16:30 Hydralazine HCl (Apresoline) 25 mg TID PO Last administered on 04/22/18at 20:39 ; Start 04/19/18 at 21:00 Lidocaine (Lidoderm) 1 patch DAILY TD Last administered on 04/22/18at 09:07; Start 04/20/18 at 09:00 Polyethylene Glycol (miraLAX PACKET) 17 gm DAILY PO Last administered on at 09:06; Start 04/20/18 at 09:00 Famotidine (Pepcid) 20 mg QHS PO Last administered on 04/22/18at 20:40; Start 04/19/18 at 21:00 Ceftriaxone Sodium 1 gm/ Dextrose 50 ml @ 100 mls/hr DAILY IV ; Start at 09:00; Status UNV Acetaminophen (Tylenol) 650 mg PRN Q6HRS PRN PO FEVER; Start 04/19/18 at 15:30 Ondansetron HCl (Zofran) 4 mg PRN Q6HRS PRN IV NAUSEA/VOMITING 1ST CHOICE Last administered on 04/21/18at 19:58; Start 04/19/18 at 15:30 Morphine Sulfate (Morphine Sulfate) 2 mg PRN Q2HR PRN IV MODERATE TO SEVERE PAIN Last administered on 04/22/18at 03:31; Start 04/19/18 at 15:30 Tramadol HCl (Ultram) 50 mg PRN Q6HRS PRN PO MILD TO MODERATE PAIN Last administered on 04/21/18at 18:08; Start 04/19/18 at 15:30 Docusate Sodium (Colace) 100 mg PRN DAILY PRN PO CONSTIPATION; Start 04/19/18 at 15:30 Enoxaparin Sodium (Lovenox 40mg Syringe) 40 mg DAILY SQ Last administered on at 09:05; Start 04/19/18 at 16:21 Ceftriaxone Sodium (Rocephin) 1 gm Q24H IVP Last administered on 04/22/18at 15: 52; Start 04/20/18 at 16:30 Influenza Virus Vaccine (Afluria Trivalent [id number] Syringe) 0.5 ml ONCE ONCE VAX IM Last administered on 04/19/18at 21:24; Start 04/19/18 at 20:00; Stop 04/19/18 at 20:01; Status DC Lactobacillus Rhamnosus (Culturelle) 1 cap BID PO Last administered on at 20:39; Start 04/20/18 at 21:00 Ascorbic Acid (Vitamin C) 500 mg BID PO Last administered on 04/22/18at 20:40; Start 04/20/18 at 21:00 Multivitamins (Thera M Plus) 1 tab DAILY PO Last administered on 04/22/18at 09: 04; Start 04/20/18 at 17:00 Sodium Chloride 500 ml @ 500 mls/hr 1X ONCE IV Last administered on at 12:43; Start 04/21/18 at 12:30; Stop 04/21/18 at 13:29; Status DC Sodium Chloride 1,000 ml @ 1,000 mls/hr 1X ONCE IV Last administered on 04/21at 13:52; Start 04/21/18 at 14:00; Stop 04/21/18 at 14:59; Status DC Amino Acids/ Glycerin/ Electrolytes 1,000 ml @ 80 mls/hr [id number] IV Last administered on 04/23/18at 06:07; Start 04/21/18 at 17:30 Lorazepam (Ativan) 0.5 mg 1X ONCE IV Last administered on 04/22/18at 04:07; Start 04/22/18 at 04:00; Stop 04/22/18 at 04:02; Status DC Lorazepam (Ativan) 0.5 mg PRN Q4HRS PRN IV ANXIETY / AGITATION Last administered on 04/22/18at 15:51; Start 04/22/18 at 11:00 Lorazepam (Ativan Intensol) 2 mg PRN Q6HRS PRN SL ANXIETY / AGITATION; Start 04/22/18 at 11:00 Active Scripts Active Aspirin Ec (Aspirin) 325 Mg Tablet.dr 325 Mg PO DAILY08 30 Days Atorvastatin Calcium 20 Mg Tablet 20 Mg PO QHS 30 Days Amlodipine Besylate 10 Mg Tablet 10 Mg PO DAILY 30 Days Hydralazine Hcl 25 Mg Tablet 25 Mg PO TID 30 Days Reported Carvedilol 6.25 Mg Tablet 1 Tab PO BID Cipro (Ciprofloxacin Hcl) 250 Mg Tablet 1 Tab PO BID Gabapentin 300 Mg Capsule 300 Mg PO TID Multivitamins (Multivitamin) 1 Each Tablet 1 Tab PO DAILY Tylenol (Acetaminophen) 325 Mg Tablet 2 Tab PO PRN Q4HRS Mag-Oxide (Magnesium Oxide) 200 Mg Tablet 400 Mg PO Compazine (Prochlorperazine Maleate) 25 Mg Supp.rect 25 Mg RC Multivitamins (Multivitamin) 1 Each Tablet 1 Tab PO DAILY Lidocaine 1 Each Adh..patch 1 Each TP DAILY Melatonin 3 Mg Tablet 1 Tab PO QHS Voltaren (Diclofenac Sodium) 100 Gm Gel..gram. 1 Gm TP BID Triamcinolone Acetonide 0.1% Oint (Triamcinolone Acetonide) 15 Gm Oint...g. 1 Mary TP PRN BID MIX WITH EUCERIN DIRECTED BY PHYSICIAN Hydrocodone-Apap 7.5-325 (Hydrocodone Bit/Acetaminophen) 1 Each Tablet 1 Tab PO PRN Q6HRS PRN Cyclobenzaprine Hcl 10 Mg Tablet 1 Tab PO TID Fluticasone Propionate Nasal [place] (Fluticasone Propionate) 16 Gm [place].susp 2 [place] NS DAILY Ranitidine Hcl 150 Mg Tablet 1 Tab PO BID Polyethylene Glycol (Polyethylene Glycol 1000) 500 Gm Powder 500 Gm MC DAILY Proair Hfa Inhaler (Albuterol Sulfate) 8.5 Gm Hfa.aer.ad 2 Puff INH PRN Q6HRS PRN Allopurinol 300 Mg Tablet 300 Mg PO DAILY Vitals/I & O Vital Sign - Last 24 Hours 04/22/18 04/22/18 04/22/18 04/22/18 08:00 09:05 09:06 09:06 Pulse 91 91 91 B/P (MAP) 146/71 146/71 146/71 O2 Delivery Room Air 04/22/18 04/22/18 04/22/18 04/22/18 15:00 15:51 15:52 19:00 Temp 97.9 97.9 97.9 97.9 Pulse 71 91 91 91 Resp 18 18 B/P (MAP) 123/66 (85) 146/71 146/71 115/55 (75) Pulse Ox 99 100 O2 Delivery Room Air Room Air 04/22/18 04/22/18 04/22/18 04/22/18 19:47 20:39 20:40 23:00 Temp 97.7 97.7 Pulse 91 77 Resp 18 18 B/P (MAP) 115/55 118/49 (72) Pulse Ox 100 99 O2 Delivery Room Air Room Air Room Air 04/23/18 04/23/18 04/23/18 03:00 06:06 07:10 Temp 96.1 96.1 Pulse 81 Resp 18 18 18 B/P (MAP) 126/65 (85) Pulse Ox 100 100 100 O2 Delivery Room Air Room Air Room Air ROBIN MAYER MD Apr 23, 2018 07:51
[2018-04-23 07:55] VITALS: BP 119/60
[2018-04-23] MEDS: amLODIPine BESYLATE 10 MG TABLET PO SCH (08:26)
[2018-04-23] MEDS: hydrALAZINE 25 MG TABLET PO SCH ×2 (08:26→13:52)
[2018-04-23] MEDS: CARVEDILOL 6.25 MG TABLET. PO SCH (08:27)
[2018-04-23] MEDS: MULTIVITAMIN with MINERAL TABLET. PO SCH (08:27)
[2018-04-23] MEDS: ASCORBIC ACID 500 MG TABLET PO SCH (08:27)
[2018-04-23] MEDS: GABAPENTIN 300 MG CAPSULE. PO SCH ×2 (08:28→13:52)
[2018-04-23] MEDS: LIDOCAINE (700MG/PATCH) PATCH. TD SCH (08:28)
[2018-04-23] MEDS: LACTOBACILLUS RHAMNOSUS GG 1 CAPSULE. PO SCH (08:28)
[2018-04-23] MEDS: ASPIRIN ENTERIC COATED 325 MG TABLET.DR. PO SCH (08:28)
[2018-04-23] MEDS: ALLOPURINOL 300 MG TABLET. PO SCH (08:28)
[2018-04-23] MEDS: POLYETHYLENE GLYCOL 3350 17 GM PACKET. PO SCH (08:28)
[2018-04-23] MEDS: FLUTICASONE 50MCG/NASAL SPRAY 16GM BOTTLE. NS SCH (08:29)
[2018-04-23] MEDS: ENOXAPARIN 40 MG/0.4 ML SYRINGE. SQ SCH (08:29)
[2018-04-23 10:47] VITALS: BP 128/57
[2018-04-23] MEDS: traMADol 50 MG TABLET PO PRN (12:11)
[2018-04-23] MEDS ORDERED: HYDR-2762 PO (14:41)
--- NOTE | 2018-04-23 14:46 | DISCH ---
DISCHARGE DISCHARGE INFORMATION: DISCHARGE DATE: Apr 23, 2018 FINAL DIAGNOSIS Problems Medical Problems: (1) UTI (lower urinary tract infection) Status: Acute CONDITION ON DISCHARGE: Stable CODE STATUS: Code Status: Full INTERMEDIATE: SNF STAY <30 DAYS: Yes HOSPICE: HOSPICE: No HOSPICE EVAL & TREAT: No LTAC: ADMIT TO LTAC: No POST DISCHARGE ORDERS: ACTIVITY ORDERS: Activity as tolerated WEIGHT BEARING STATUS: As tolerated DIET AFTER DISCHARGE: Cardiac WOUND/INCISION CARE: Change dressing, Reinforce dressing PRN CHECKS AFTER DISCHARGE: CHECKS AFTER DISCHARGE: Check blood press - daily TREATMENT/EQUIPMENT ORDERS: ADAPTIVE EQUIPMENT NEEDED: None Physical Therapy For: Evalulation/Treatment Occupational Therapy For: Evaluation/Treatment DISCHARGE MEDICATIONS: Home Meds Active Scripts Hydrocodone Bit/Acetaminophen (HYDROCODONE-APAP 7.5-325 ) 1 Each Tablet, 1 TAB PO PRN Q6HRS PRN for PAIN for 6 Days, #20 TAB Prov:ROBIN MAYER MD 04/23/18 Aspirin (ASPIRIN EC) 325 Mg Tablet.dr, 325 MG PO DAILY08 for 30 Days, #30 TAB.SR Prov:EDUARDO FOLEY MD 02/08/18 Atorvastatin Calcium (ATORVASTATIN CALCIUM) 20 Mg Tablet, 20 MG PO QHS for 30 Days, #30 TAB Prov:EDUARDO FOLEY MD 02/08/18 Amlodipine Besylate (AMLODIPINE BESYLATE) 10 Mg Tablet, 10 MG PO DAILY for 30 Days, #30 TAB Prov:EDUARDO FOLEY MD 01/20/18 Hydralazine Hcl (HYDRALAZINE HCL) 25 Mg Tablet, 25 MG PO TID for 30 Days, #90 TAB Prov:EDUARDO FOLEY MD 01/20/18 Reported Medications Carvedilol (CARVEDILOL) 6.25 Mg Tablet, 1 TAB PO BID, #180 TAB 1 Refill 02/27/18 Gabapentin (GABAPENTIN) 300 Mg Capsule, 300 MG PO TID, CAP 02/27/18 Multivitamin (MULTIVITAMINS) 1 Each Tablet, 1 TAB PO DAILY for , #90 TAB 3 Refills 02/27/18 Acetaminophen (TYLENOL) 325 Mg Tablet, 2 TAB PO PRN Q4HRS, #30 TAB 02/27/18 Magnesium Oxide (Mag-Oxide) 200 Mg Tablet, 400 MG PO, TAB 02/27/18 Prochlorperazine Maleate (COMPAZINE) 25 Mg Supp.rect, 25 MG RC, SUPP.RECT 02/27/18 Multivitamin (MULTIVITAMINS) 1 Each Tablet, 1 TAB PO DAILY, #90 TAB 3 Refills 04/01/17 Lidocaine (Lidocaine) 1 Each Adh..patch, 1 EACH TP DAILY, PATCH 04/01/17 Melatonin (MELATONIN) 3 Mg Tablet, 1 TAB PO QHS 04/01/17 Diclofenac Sodium (VOLTAREN) 100 Gm Gel..gram., 1 GM TP BID 04/01/17 Triamcinolone Acetonide (TRIAMCINOLONE ACETONIDE 0.1% OINT) 15 Gm Oint...g., 1 LANEY TP PRN BID MIX WITH EUCERIN DIRECTED BY PHYSICIAN 04/01/17 Fluticasone Propionate (FLUTICASONE PROPIONATE NASAL SPRAY) 16 Gm Bath.susp, 2 SPRAY NS DAILY 04/01/17 Ranitidine Hcl (RANITIDINE HCL) 150 Mg Tablet, 1 TAB PO BID 04/01/17 Polyethylene Glycol 1000 (POLYETHYLENE GLYCOL) 500 Gm Powder, 500 GM MC DAILY 08/15/14 Albuterol Sulfate (PROAIR HFA INHALER) 8.5 Gm Hfa.aer.ad, 2 PUFF INH PRN Q6HRS PRN for SHORTNESS OF BREATH, INHALER 0 Refills 08/15/14 Allopurinol (ALLOPURINOL) 300 Mg Tablet, 300 MG PO DAILY, TAB 08/15/14 Discontinued Reported Medications Ciprofloxacin Hcl (CIPRO) 250 Mg Tablet, 1 TAB PO BID, #10 TAB 02/27/18 Cyclobenzaprine Hcl (CYCLOBENZAPRINE HCL) 10 Mg Tablet, 1 TAB PO TID 04/01/17 ROBIN MAYER MD Apr 23, 2018 14:46
--- NOTE | 2018-04-23 14:57 | PDOC3 ---
Discharge Summary Visit Information Date of Admission: Apr 19, 2018 Date of Discharge: Apr 23, 2018 Admitting Diagnosis: UTI Final Diagnosis Problems Medical Problems: (1) UTI (lower urinary tract infection) Status: Acute NSTEMI CVA Brief Hospital Course Allergies Allergies Coded Allergies Type Severity Reaction Last Updated Verified lisinopril Allergy Severe Swelling 02/28/18 Yes sulfamethoxazole Allergy Intermediate 02/28/18 Yes trimethoprim Allergy Intermediate 02/28/18 Yes Vital Signs Vital Signs Date Time Temp Pulse Resp B/P (MAP) Pulse Ox O2 Delivery O2 Flow Rate FiO2 04/23/18 13:53 Room Air 04/23/18 13:52 79 128/57 04/23/18 10:47 98.5 16 96 98.5 Lab Results Laboratory Tests Test 04/22/18 11:40 Troponin I Quantitative 0.034 ng/mL (0.000-0.055) Brief Hospital Course This is a 67 yo female admitted for altered mental status. She has then been noted with UTI and was hallucinating. No noted CP, SOA and her CHF is currently stable. She has arm contractures and significantly debilitated. Presently she is able to communicate with me but a poor historian and no CP, SOA and presently with no discomfort. Discharge to SNF after treatment for the below: Found with NSTEMI type 2 - on ASA, statin AMS, hallucination, metabolic encephalopathy with fever - likely 2/2 UTI, cleared after 3 days of antibiotics UTI - metabolic encephalopathy, treated 3 days, improved h/o CVA - may have had more CVA since, though not necessarily acute based on worse MRI. 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 possibly vs new CVA copd - stable on nebs stable systolic CHF EF 35% - seen by cardiology htn - controlled now psychosis, agitation hyponatremia - 2/2 poor nutrition severe malnutrition - nutrition gastritis, duodenitis moderate AR marked right heel wound, stage 3 sacral wound Discharge Information Condition at Discharge: Improved Follow Up: Weeks (2) Disposition/Orders: D/C to Another Facility Scheduled Acetaminophen (Tylenol) 325 Mg Tablet, 2 TAB PO PRN Q4HRS, #30 (Reported) Entered as Reported by: DRISS REA on 02/27/182120 Last Action: HELD on 04/19/18 153 by EDUARDO FOLEY MD Allopurinol (Allopurinol) 300 Mg Tablet, 300 MG PO DAILY, (Reported) Entered as Reported by: HAMILTON MCNALLY on 08/15/14 0857 Last Action: Continued on 04/19/181531 by EDUARDO FOLEY MD Amlodipine Besylate (Amlodipine Besylate) 10 Mg Tablet, 10 MG PO DAILY for 30 Days, #30 Prescribed by: EDUARDO FOLEY MD on 01/20/18 1052 Last Action: Continued on 04/19/181531 by EDUARDO FOLEY MD Aspirin (Aspirin Ec) 325 Mg Tablet.dr, 325 MG PO DAILY08 for 30 Days, #30 Prescribed by: EDUARDO FOLEY MD on 02/08/181199 Last Action: Continued on 04/19/181531 by EDUARDO FOLEY MD Atorvastatin Calcium (Atorvastatin Calcium) 20 Mg Tablet, 20 MG PO QHS for 30 Days, #30 Prescribed by: EDUADRO FOLEY MD on 02/08/18 1200 Last Action: Continued on 04/19/181531 by EDUARDO FOLEY MD Carvedilol (Carvedilol) 6.25 Mg Tablet, 1 TAB PO BID, #180 Ref 1 (Reported) Entered as Reported by: DRISS REA on 02/27/182120 Last Action: Continued on 04/19/181531 by EDUARDO FOLEY MD Diclofenac Sodium (Voltaren) 100 Gm Gel..gram., 1 GM TP BID, (Reported) Entered as Reported by: WILLIAM DU on 04/01/17426 Last Action: HELD on 04/19/181531 by EDUARDO FOLEY MD Fluticasone Propionate (Fluticasone Propionate Nasal [place]) 16 Gm [place].susp, 2 SPRAY NS DAILY, (Reported) Entered as Reported by: WILLIAM DU on 04/01/17426 Last Action: Continued on 04/19/181531 by EDUARDO FOLEY MD Gabapentin (Gabapentin) 300 Mg Capsule, 300 MG PO TID, (Reported) Entered as Reported by: DRISS REA on 02/27/182120 Last Action: Converted on 04/19/181531 by EDUARDO FOLEY MD Hydralazine Hcl (Hydralazine Hcl) 25 Mg Tablet, 25 MG PO TID for 30 Days, #90 Prescribed by: EDUARDO FOLEY MD on 01/20/18 1052 Last Action: Converted on 04/19/181531 by EDUARDO FOLEY MD Lidocaine (Lidocaine) 1 Each Adh..patch, 1 EACH TP DAILY, (Reported) Entered as Reported by: WILLIAM DU on 04/01/17426 Last Action: Converted on 04/19/181531 by EDUARDO FOLEY MD Melatonin (Melatonin) 3 Mg Tablet, 1 TAB PO QHS, (Reported) Entered as Reported by: WILLIAM DU on 04/01/17426 Last Action: HELD on 04/19/181531 by EDUARDO FOLEY MD Multivitamin (Multivitamins) 1 Each Tablet, 1 TAB PO DAILY, #90 Ref 3 (Reported) Entered as Reported by: TOÑO GONZALEZ on 04/01/17 0914 Multivitamin (Multivitamins) 1 Each Tablet, 1 TAB PO DAILY for [place], #90 Ref 3 ( Reported) Entered as Reported by: DRISS REA on 02/27/182120 Last Action: HELD on 04/19/181531 by EDUARDO FOLEY MD Polyethylene Glycol 1000 (Polyethylene Glycol) 500 Gm Powder, 500 GM MC DAILY, ( Reported) Entered as Reported by: HAMILTON MCNALLY on 08/15/14 0857 Last Action: Converted on 04/19/181531 by EDUARDO FOLEY MD Ranitidine Hcl (Ranitidine Hcl) 150 Mg Tablet, 1 TAB PO BID, (Reported) Entered as Reported by: WILLIAM DU on 04/01/17426 Last Action: Converted on 04/19/181531 by EDUARDO FOLEY MD Triamcinolone Acetonide (Triamcinolone Acetonide 0.1% Oint) 15 Gm Oint...g., 1 LANEY TP PRN BID, (Reported) MIX WITH EUCERIN DIRECTED BY PHYSICIAN Entered as Reported by: WILLIAM DU on 04/01/17426 Last Action: Continued on 04/19/181531 by EDUARDO FOLEY MD Scheduled PRN Albuterol Sulfate (Proair Hfa Inhaler) 8.5 Gm Hfa.aer.ad, 2 PUFF INH PRN Q6HRS PRN for SHORTNESS OF BREATH, Ref 0 (Reported) Entered as Reported by: HAMILTON MCNALLY on 08/15/14 0857 Last Action: Converted on 04/19/181531 by EDUARDO FOLEY MD Hydrocodone Bit/Acetaminophen (Hydrocodone-Apap 7.5-325 ) 1 Each Tablet, 1 TAB PO PRN Q6HRS PRN for PAIN for 6 Days, #20 Prescribed by: ROBIN MAYER MD on 04/23/18 1441 Miscellaneous Medications Magnesium Oxide (Mag-Oxide) 200 Mg Tablet, 400 MG PO, (Reported) Entered as Reported by: DRISS REA on 02/27/182120 Last Action: HELD on 04/19/181531 by EDUARDO FOLEY MD Prochlorperazine Maleate (Compazine) 25 Mg Supp.rect, 25 MG RC, (Reported) Entered as Reported by: DRISS REA on 02/27/182120 Last Action: HELD on 04/19/181531 by EDUARDO FOLEY MD Discontinued Medications Ciprofloxacin Hcl (Cipro) 250 Mg Tablet, 1 TAB PO BID, #10 (Reported) Entered as Reported by: DRISS REA on 02/27/182120 Last Action: HELD on 04/19/181531 by EDUARDO FOLEY MD Cyclobenzaprine Hcl (Cyclobenzaprine Hcl) 10 Mg Tablet, 1 TAB PO TID, (Reported) Entered as Reported by: WILLIAM DU on 04/01/17 0427 Last Action: HELD on 04/19/181531 by MD LEYLA ESCOBEDO CHRISTOPHER S MD Apr 23, 2018 14:57
[2018-04-23 15:00] VITALS: BP 101/41
[2018-04-23] MEDS: cefTRIAXone IV Push 1 GM VIAL. IVP SCH (16:13)
[2018-04-23 16:26] VITALS: BP 99/46
== END 2018-04-23 16:59 | DRG 871 ==
LOC: ER 13:23 → 5 NORTH 15:13
PROVIDERS: ADMIT Internal Medicine; ATTEND Internal Medicine
DX: A41.9 Sepsis, unspecified organism (principal); L89.153 Pressure ulcer of sacral region, stage 3; G93.41 Metabolic encephalopathy; E43 Unspecified severe protein-calorie malnutrition; I21.A1 Myocardial infarction type 2; N39.0 Urinary tract infection, site not specified; E87.1 Hypo-osmolality and hyponatremia; I42.9 Cardiomyopathy, unspecified; I69.351 Hemiplegia and hemiparesis following cerebral infarction affecting right dominant side; I50.42 Chronic combined systolic (congestive) and diastolic (congestive) heart failure; J44.9 Chronic obstructive pulmonary disease, unspecified; M10.9 Gout, unspecified; Z96.659 Presence of unspecified artificial knee joint; H54.7 Unspecified visual loss; I11.0 Hypertensive heart disease with heart failure; G62.9 Polyneuropathy, unspecified; K29.70 Gastritis, unspecified, without bleeding; K29.80 Duodenitis without bleeding; E78.5 Hyperlipidemia, unspecified; I35.1 Nonrheumatic aortic (valve) insufficiency; M19.90 Unspecified osteoarthritis, unspecified site; L89.610 Pressure ulcer of right heel, unstageable; L98.429 Non-pressure chronic ulcer of back with unspecified severity; L89.899 Pressure ulcer of other site, unspecified stage; I45.10 Unspecified right bundle-branch block; F29 Unspecified psychosis not due to a substance or known physiological condition; Z88.2 Allergy status to sulfonamides; Z68.22 Body mass index [BMI] 22.0-22.9, adult; Z88.8 Allergy status to other drugs, medicaments and biological substances; Z79.82 Long term (current) use of aspirin; Z90.710 Acquired absence of both cervix and uterus
CPT/HCPCS: 36415; 51701; 70551; 71045; 80048; 80053; 80307; 81001; 83605; 84484; 85025; 85610; 85651; 87040; 87086; 87804; 90471; 90756; 93005; 93923; 95816; 96365; J0690; J0696; J1650; J2060; J2270; J2405; J7030; J7040; 97530; 99285-25; G0479; Q2035